=== PATIENT | female | born 1985 | race Caucasian/White ===

== ENCOUNTER 2016-10-11 15:17 | Emergency (ER) | payer BC ==
--- NOTE | 2016-10-11 15:34 | ER Document Report ---
ED Medical Screen (RME) - General Stated Complaint: COUGH Time seen by provider: 15:26 Mode of Arrival: Ambulatory Information source: Patient Notes: 31-year-old normally healthy nonsmoking amenorrheic since Mirena was removed female complaining of a cough for a week. She is also concerned about upper abdominal discomfort swelling. Traveled to [place] in August. I have greeted and performed a rapid initial assessment of this patient. A comprehensive ED assessment, evaluation of the patient, analysis of test results , and completion of the medical decision making process will be conducted by additional ED providers. TRAVEL OUTSIDE OF THE [place] IN LAST 30 DAYS: No - Related Data Allergies/Adverse Reactions: Pertussis Vaccines Allergy (Verified 10/11/16 15:24) Past Medical History - Immunizations Hx Diphtheria, Pertussis, Tetanus Vaccination: Yes Physical Exam - Vital signs Vitals: Temp Pulse Resp BP Pulse Ox 98.1 F 100 14 123/80 96 10/11/16 15:20 10/11/16 15:20 10/11/16 15:20 10/11/16 15:20 10/11/16 15:20 Course - Vital Signs Vital signs: Temp Pulse Resp BP Pulse Ox 98.1 F 100 14 123/80 96 10/11/16 15:20 10/11/16 15:20 10/11/16 15:20 10/11/16 15:20 10/11/16 15:20
[2016-10-11 16:36] LABS: APPEARANCE,URINE SLIGHTLY-CLOUDY; BILIRUBIN,URINE MODERATE (NEGATIVE); GLUCOSE, URINE NEGATIVE (NEGATIVE); KETONES,URINE NEGATIVE (NEGATIVE); LEUKOCYTE ESTERASE,URINE NEGATIVE (NEGATIVE); NITRITE,URINE NEGATIVE (NEGATIVE); PROTEIN,URINE 30 mg/dL (NEGATIVE); URINE SPECIFIC GRAVITY 1.014
[2016-10-11] MEDS ORDERED: NORMAL SALINE 1000 ML 1,000 ML IV ONE (16:45)
--- NOTE | 2016-10-11 16:45 | ER Document Report ---
ED General - General Mode of Arrival: Ambulatory Information source: Patient TRAVEL OUTSIDE OF THE [place] IN LAST 30 DAYS: No COUNTRY TRAVELED TO/FROM: [place] - [facility] Patient complains to provider of: Abdominal Pain Onset: Last week Onset/Duration: Gradual, Persistent Associated symptoms: Body/muscle aches - back, Productive cough, Diarrhea, Other - weight loss, nose bleeds. denies: Fever, Nausea, Vomiting Exacerbated by: Movement Relieved by: Remaining still <BLANCA MARTINEZ - Last Filed: 10/11/16 20:18> <ANNY PRINGLE - Last Filed: 10/11/16 21:06> - General Chief Complaint: Cough Stated Complaint: COUGH Notes: Patient is a 31 y/o female presenting to the emergency department chief complaint abdominal pain with movement. This pain is exacerbated by her cough which began 1.5 weeks ago. Patient states that is causes her to get on the floor and try to hold her abdomen as tight as possible to keep it from moving. Patient returned from [place] in August and will be visiting the [facility] next week, and wants to make sure this is not something serious. Patient is experiencing frequent nose bleeds, significant weight loss (20 lbs over the past 6 months), mild numbness over the inside of both thighs, extremely dark urine, back pain, and her belly has significantly increased in size. Patient has an appointment with her primary care physician this coming week and an annual exam with her CHEMICAL ANALYST coming up soon as well. Patient has been around her mother, who has a cough, and her children have both been sick within the past month with fever and cold symptoms. Patient has a significant family history of malignancy, but denies hx of kidney stones. (BLANCA MARTINEZ) - Related Data Allergies/Adverse Reactions: Pertussis Vaccines Allergy (Verified 10/11/16 15:24) Past Medical History - General Information source: Patient - Social History Smoking Status: Unknown if Ever Smoked Chew tobacco use (# tins/day): No Frequency of alcohol use: Social Drug Abuse: None Lives with: Family Family History: Reviewed & Not Pertinent, Malignancy - Aunt, uncle, grandmother , both grandfathers. Patient has suicidal ideation: No Patient has homicidal ideation: No Renal/ Medical History: Denies: Hx Peritoneal Dialysis - Immunizations Hx Diphtheria, Pertussis, Tetanus Vaccination: Yes <BLANCA MARTINEZ - Last Filed: 10/11/16 20:18> Review of Systems - Review of Systems Constitutional: See HPI, Weight loss. denies: Fever EENT: See HPI, Nose discharge - regular nose bleeds Cardiovascular: See HPI, Lightheaded Respiratory: See HPI, Cough Gastrointestinal: See HPI, Abdomen distended, Abdominal pain, Diarrhea Genitourinary: No symptoms reported Female Genitourinary: No symptoms reported Musculoskeletal: See HPI, Back pain Skin: No symptoms reported Hematologic/Lymphatic: No symptoms reported Neurological/Psychological: See HPI, Numbness - inner thighs bilaterally <MICHELLEHALLEBLANCA - Last Filed: 10/11/16 20:18> Physical Exam - Vital signs Interpretation: Normal - General General appearance: Alert - HEENT Head: Normocephalic, Atraumatic Eyes: Normal Pupils: PERRL - Respiratory Respiratory status: No respiratory distress Chest status: Nontender Breath sounds: Normal Chest palpation: Normal - Cardiovascular Rhythm: Regular Heart sounds: Normal auscultation Murmur: No - Abdominal Distension: Distended Tenderness: Nontender, Other - umbilical hernia - Back Back: Normal, Nontender - Extremities General upper extremity: Normal inspection General lower extremity: Normal inspection - Neurological Neuro grossly intact: Yes Cognition: Normal Orientation: AAOx4 [place] Coma Scale Eye Opening: Spontaneous [place] Coma Scale Verbal: Oriented [place] Coma Scale Motor: Obeys Commands [place] Coma Scale Total: 15 Speech: Normal - Psychological Associated symptoms: Normal affect, Normal mood - Skin Skin Temperature: Warm Skin Moisture: Dry Skin Color: Normal <MICHELLEBLANCA - Last Filed: 10/11/16 20:18> Course - Laboratory Result Diagrams: 10/11/16 17:10 10/11/16 17:10 - Consults [facility] Transfer Line Time consulted: 19:15 - Called transfer line to reach GI Specialist Dr. Riggins Time consulted: 20:03 <BLANCA MARTINEZ - Last Filed: 10/11/16 20:18> - Laboratory Result Diagrams: 10/11/16 17:10 10/11/16 17:10 <ANNY PRINGLE - Last Filed: 10/11/16 21:06> - Re-evaluation Re-evalutation: 10/11/16 17:12 I personally performed the services described in the documentation, reviewed and edited the documentation which was dictated to my scribe in my presence, and it accurately records my words and actions. female presents to the emergency department with a chief complaint of 20 pound weight loss over the last 2-3 months fatigue cough abdominal pain and distention. Initially when she got back from [place] in August she was contributing it to viral illness. She admits to losing weight prior to going on the trip but is continuing to lose weight despite eating normal and not exercising. She's been very rundown family members are stating that she does not look well. She's had an intermittent cough worse at night for the past 2 weeks intermittent nosebleeds prior to coming back from [place]. She has not seen her primary care physician is posted [place] in 2 weeks. She has a strong family history of different types of cancer grandmother with breast cancer but she has not been tested for the bracket Andrew. She herself has had abnormal Paps but they have been normal in follow-up. No history of any type of cancer or medications. On examination she is hemodynamically stable she looks little pale heart lungs are clear on abdominal examination she has abdominal distention mild right quadrant right lower quadrant abdominal pain and a umbilical hernia which is easily reducible no guarding rebound or rigidity 10/11/16 19:44 Patient with mildly elevated liver enzymes and a blood alcohol level serum acetaminophen and urine tox screen. The blood alcohol level was elevated CT scan came back showing hypertension ascites splenomegaly and esophageal varices. There is no GI on-call. [facility] but does want me to speak with the GI specialist. 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 There is no report of bleeding secondary to esophageal varices and there is report of intermittent nosebleeds her platelet count is slightly low but not dangerously low I am awaiting a callback from [facility] GI specialist 10/11/16 21:00 Patient refuses to be transferred to [facility] , but asked me to speak to the GI doctor nonetheless. I spoke with the GI doctor from [facility] Dr. Dutta. He was able to tell me based on the CT results that she has cirrhosis. He was also able to tell me that he cannot predict whether the varices will bleed. He also told me back given the fact that she has ascites and abdominal pain he would recommend transfer drainage IV antibiotics and blood cultures to make sure the patient doesn't have spontaneous bacterial peritonitis. I verbalized all this to the patient who was by herself at the bedside she has a full understanding of these risks. She asked me numerous times. Out while she made phone calls. I respected these phone calls came back into the room reassess the situation. I was very clear with the patient that I do not recommend her going home tonight. I was also very clear that I recommend her to be transferred IV antibiotics to make sure that this doesn't develop into peritonitis. Patient has a GCS of 15 and is of sound mind and judgment and is able to refuse all recommendations including IV antibiotics and transfer. She requested that I give her information about a local GI doctor, as there is no GI doctor [facility] floor[facility]. I recommend she stop drinking alcohol immediately. She states that that is not an issue and that she has never gone into withdrawal. I told her to return immediately to the emergency department for any concerns, and encouraged her to speak with family members. We specifically discussed risk of leaving which include and permanent disability despite this she is leaving with open- ended requests for return at any time. 10/11/16 21:06 (ANNY PRINGLE) - Vital Signs Vital signs: Temp Pulse Resp BP Pulse Ox 98 F 120 H 20 128/88 H 99 10/11/16 20:58 10/11/16 20:58 10/11/16 20:58 10/11/16 20:58 10/11/16 20:58 - Laboratory Laboratory results interpreted by me: 10/11/16 10/11/16 10/11/16 16:00 17:10 17:10 RBC 3.22 L Hgb 11.5 L Hct 33.8 L MCV 105 H MCH 35.8 H RDW 15.9 H Plt Count 141 L PT Sodium 133.1 L Potassium 3.3 L Chloride 92 L BUN 5 L Total Bilirubin 5.3 H Direct Bilirubin 1.2 H AST 160 H ALT 62 H Alkaline Phosphatase 259 H Albumin 3.4 L Urine Protein 30 H Urine Bilirubin MODERATE H Urine Urobilinogen 4.0 H Acetaminophen 10/11/16 10/11/16 17:10 17:10 RBC Hgb Hct MCV MCH RDW Plt Count PT 18.3 H Sodium Potassium Chloride BUN Total Bilirubin Direct Bilirubin AST ALT Alkaline Phosphatase Albumin Urine Protein Urine Bilirubin Urine Urobilinogen Acetaminophen < 10 L - Consults Dr. Riggins Reason for consultation: 10/11/16 20:03 Discussed patient's case with Dr. Riggins. Told him that the patient now wants to go home instead of getting transferred, and asked him if there was any information we could give the patient about what to expect if she did choose to transfer and also if there is any indication of the risk of timeframe of hemorrhage. Dr. Riggins said there is no way to tell if or when somebody with varices could bleed, and based on the patient's abdominal pain, he would most likely drain the fluid and see if there is infection. He states that based on the CT report, the patient has cirrhosis of the liver. (BLANCA MARTINEZ) Discharge <BLANCA MARITNEZ - Last Filed: 10/11/16 20:18> <ANNY PRINGLE - Last Filed: 10/11/16 21:06> - Discharge Clinical Impression: Bronchitis, abdominal pain possible peritonitis Cirrhosis Qualifiers: Hepatic cirrhosis type: unspecified hepatic cirrhosis Ascites presence: with ascites Qualified Code(s): K74.60 - Unspecified cirrhosis of liver Esophageal varices Qualifiers: Esophageal varices type: unspecified type Esophageal varices bleeding: without bleeding Qualified Code(s): I85.00 - Esophageal varices without bleeding Condition: Stable Disposition: HOME, SELF-CARE Additional Instructions: Cirrhosis with ascites You have cirrhosis of the liver. The liver tissue is replaced by scar tissue. Most often, this is caused by alcoholism or chronic hepatitis. There may be no symptoms in early cirrhosis. Later, patients develop jaundice, swelling, and fluid in the abdomen. There is no cure for cirrhosis. Only the symptoms can be treated. Edema and fluid in the abdomen can be treated with diuretics (water pills). If cirrhosis is severe, you'll be restricted to a low-protein diet. Don't drink any alcohol. When medicines are prescribed for you, be sure the doctor understands you have cirrhosis. Call the doctor if you become increasingly yellow, vomit repeatedly, begin to bruise or bleed easily, or have worsening abdominal pain or increasing abdominal size. You have fluid in your abdomen which is called ascites is secondary to the cirrhosis Bronchitis You have acute bronchitis. This disease is an infection or inflammation of the air passageways in your lungs. Symptoms usually include cough, low grade fever, shortness of breath, and wheezing. The cough usually persists for a couple of weeks. Most cases of bronchitis get better without antibiotics. We prescribe antibiotics when we believe bacteria are damaging your airways, or if there's high risk the bronchitis will worsen into pneumonia. Increase your fluid intake. A cool mist humidifier may make your lungs more comfortable. An expectorant (cough medicine that loosens phlegm) can help. If you smoke, STOP!!! Recovery from bronchitis can be somewhat slow, but you should see improvement within a day or two. Repeated episodes of bronchitis may result in lung damage -- for example, chronic bronchitis, recurrent pneumonias, or emphysema. Call the doctor if you develop increasing fever, shortness of breath, chest pain, bloody sputum, or otherwise worsen. If you have not improved at all after several days, contact the physician. Abdominal Pain There are many causes of abdominal pain. Pain can mean a serious problem requiring surgery (such as appendicitis). It can also be an innocent problem that goes away on its own (such as a viral infection). Often, time must pass to determine the cause of pain. The physician does not feel that hospitalization is necessary, at present. Things may change within the next 24 hours. Call the doctor or come back for re- examination if any problems occur, such as: (1) Pain that becomes more severe, steady, or becomes concentrated in one specific area. Also, pain that is more severe with movement or coughing. (2) Vomiting that persists or becomes more frequent. (3) Blood in the vomitus, urine, or bowel movements. Blood in the stool may have a tarry or black appearance. (4) Shaking chills or fever greater than 100 degrees F. (5) The abdomen becomes more distended or swollen. (6) Bowel movements cease. (7) Failure to improve as expected. As a result of your liver cirrhosis there is increased pressure on the veins in your esophagus. This condition is called esophageal varices. You are at significant risk for having these bleed which could lead to life-threatening bleeding or . My plan was to transfer you to [facility] and where there is a GI specialist that can evaluate you for the cirrhosis and drain fluid off of your abdomen to make sure that there is not an infection in your fluid that could cause peritonitis. You have refused to be transferred, and want to follow up with a GI specialist locally on your own next week. As explained to U with nurse and scribe at the bedside if this is an infection in the fluid and we do not drain it and start antibiotics you could get seriously ill develop a serious abdominal infection or peritonitis which can lead to . Having said that if you change your mind any point in time come back to the emergency department we will transfer you to a GI specialist. It is not recommended by the GI specialist that I discharge her from the hospital nor is it my recommendation. I also discussed with the GI doctor starting oral antibiotics if there was an infection and he responded that you do IV antibiotics and keep the patient inpatient until the culture results are back. Per your request I am going to give you a local GI doctor for you to call first thing on Thursday morning for follow-up in the next 3-4 days. Return to the emergency department sooner for increasing worsening or new symptoms Referrals: WAGNER WEISS MD [ACTIVE STAFF] - Follow up tomorrow (Call Thursday morning for appointment to be seen in follow-up this week also follow-up with your CHEMICAL ANALYST physician who he stated your primary care physician in 2-3 days return for increasing worsening or new symptoms) Scribe Documentation - Scribe Written by Kishore:: Blanca Martinez 10/11/2016 1645 acting as scribe for :: Benedicto <BLANCA MARTINEZ - Last Filed: 10/11/16 20:18>
[2016-10-11 17:24] LABS: ABSOLUTE BASOPHILS # (AUTO) 0.1 10^3/uL (0.0-0.2); ABSOLUTE LYMPHOCYTES (AUTO) 1.3 10^3/uL (0.5-4.7); ABSOLUTE MONOCYTES (AUTO) 0.7 10^3/uL (0.1-1.4); ABSOLUTE NEUT (AUTO) 5.9 10^3/uL (1.7-8.2); BASOPHILS % (AUTO) 0.7 % (0-2); EOSINOPHILS % (AUTO) 0.5 % (0-6); HEMATOCRIT 33.8 % (36.0-47.0); HEMOGLOBIN 11.5 g/dL (12.0-15.5); HGB HCT DIFFERENCE 0.7; LYMPHOCYTES % (AUTO) 16.6 % (13-45); MEAN CORPUSCULAR HEMOGLOBIN 35.8 pg (27.0-33.4); MEAN CORPUSCULAR HGB CONC 34.1 g/dL (32.0-36.0); MEAN CORPUSCULAR VOLUME 105 fl (80-97); MONOCYTES % (AUTO) 8.9 % (3-13); RED BLOOD COUNT 3.22 10^6/uL (3.72-5.28); RED CELL DISTRIBUTION WIDTH 15.9 % (11.5-14.0); SEGMENTED NEUTROPHILS % (AUTO) 73.3 % (42-78)
[2016-10-11 17:46] LABS: ALANINE AMINOTRANSFERASE 62 U/L (9-52); ALBUMIN 3.4 g/dL (3.5-5.0); ALKALINE PHOSPHATASE 259 U/L (38-126); ANION GAP 14 (5-19); ASPARTATE AMINO TRANSFERASE 160 U/L (14-36); BILIRUBIN,DIRECT 1.2 mg/dL (0.0-0.3); BILIRUBIN,TOTAL 5.3 mg/dL (0.2-1.3); BLOOD UREA NITROGEN 5 mg/dL (7-20); CALCIUM 8.7 mg/dL (8.4-10.2); CARBON DIOXIDE 27 mmol/L (22-30); CHLORIDE 92 mmol/L (98-107); CREATININE RESULT 0.61 mg/dL (0.52-1.25); GLUCOSE 101 mg/dL (75-110); LIPASE 76.2 U/L (23-300); POTASSIUM 3.3 mmol/L (3.6-5.0); SODIUM 133.1 mmol/L (137-145); TOTAL PROTEIN 8.1 g/dL (6.3-8.2)
[2016-10-11 18:13] LABS: ALCOHOL 88 mg/dL (NONE DETECTED)
[2016-10-11 19:35] LABS: PROTHROMBIN TIME 18.3 SEC (11.4-15.4)
[2016-10-11 20:59] VITALS: BP 128/88
== END 2016-10-11 21:06 | disposition home or self-care (01) ==
LOC: ER 15:17
DX: J40 Bronchitis, not specified as acute or chronic (principal); K74.60 Unspecified cirrhosis of liver; I85.00 Esophageal varices without bleeding; R05 Cough; R10.9 Unspecified abdominal pain
CPT/HCPCS: 99284; 36415; 87086; 80307 ×2; 83690; 84703; 85025; 85610; 80053; 81001; 71020; 74177; J7030

== ENCOUNTER 2016-12-26 10:56 | Day surgery (SDC) | payer BC ==
[~2016-12-26 10:56] MED LIST: ALBUMIN HUMAN 200 ML IV PRN; DIAZEPAM 5 MG TABLET PO PRN
[2016-12-26] MEDS ORDERED: LIDOCAINE 2% INJ (20 MG/ML) 20 ML MDV ONE (12:30)
[2016-12-26 14:48] VITALS: BP 114/72
[2016-12-26 17:22] LABS: FLUID TYPE PERITONEAL
[2016-12-26 17:24] LABS: FLUID APPEARANCE HAZY; FLUID RBC DILUENT USED NONE USED; FLUID RBC DILUTION FACTOR 1; FLUID RBC SIDE 1 228; FLUID RBC SIDE 2 218; TOTAL RBC SQUARES COUNTED FLD 225
== END 2016-12-26 14:50 | disposition home or self-care (01) ==
LOC: RAD 10:56
PROVIDERS: ATTEND Internal Medicine Gastroenterology
PROC: 0W9F3ZZ Drainage of Abdominal Wall, Percutaneous Approach (ICD-10-PCS; principal; 2016-12-26)
DX: K70.31 Alcoholic cirrhosis of liver with ascites (principal); K21.9 Gastro-esophageal reflux disease without esophagitis
CPT/HCPCS: 87205; 87070; 89050; 87075; 82042; 88162; 49083; P9047; J3490

== ENCOUNTER 2017-01-10 14:08 | Emergency (ER) | payer BC ==
--- NOTE | 2017-01-10 15:13 | ER Document Report ---
ED Medical Screen (RME) - General Chief Complaint: Abnormal Lab Results Stated Complaint: ABNORMAL LABS Time Seen by Provider: 01/10/17 15:07 Mode of Arrival: Ambulatory Information source: Patient TRAVEL OUTSIDE OF THE [place] IN LAST 30 DAYS: No COUNTRY TRAVELED TO/FROM: [place] - HPI Patient complains to provider of: abnormal labs Onset: This morning - pt with h/o cirrhosis and esophagitis with h/o anemia and recent paracentesis was called by Dr. Causey earlier this am that her H/H was "low" and she needed to come to the hospital. Pt. states she feels "tired." - Related Data Allergies/Adverse Reactions: Pertussis Vaccines Allergy (Verified 01/10/17 14:25) Past Medical History - Past Medical History Cardiac Medical History: Reports: Hx Hypertension - preg Denies: Hx Coronary Artery Disease, Hx Heart Attack Pulmonary Medical History: Reports: Hx Pneumonia Denies: Hx Asthma, Hx Bronchitis, Hx COPD Neurological Medical History: Denies: Hx Cerebrovascular Accident, Hx Seizures Renal/ Medical History: Denies: Hx Peritoneal Dialysis Musculoskeltal Medical History: Denies Hx Arthritis - Immunizations Hx Diphtheria, Pertussis, Tetanus Vaccination: Yes Physical Exam - Vital signs Vitals: Temp Pulse Resp BP Pulse Ox 97.9 F 103 H 20 142/71 H 92 01/10/17 14:22 01/10/17 14:22 01/10/17 14:22 01/10/17 14:22 01/10/17 14:22 Course - Vital Signs Vital signs: Temp Pulse Resp BP Pulse Ox 97.9 F 103 H 20 142/71 H 92 01/10/17 14:22 01/10/17 14:22 01/10/17 14:22 01/10/17 14:22 01/10/17 14:22
[2017-01-10 16:37] LABS: ABSOLUTE BASOPHILS # (AUTO) 0.1 10^3/uL (0.0-0.2); ABSOLUTE EOSINOPHILS # (AUTO) 0.1 10^3/uL (0.0-0.6); ABSOLUTE LYMPHOCYTES (AUTO) 1.7 10^3/uL (0.5-4.7); ABSOLUTE MONOCYTES (AUTO) 0.8 10^3/uL (0.1-1.4); BASOPHILS % (AUTO) 0.5 % (0-2); EOSINOPHILS % (AUTO) 1.4 % (0-6); HGB HCT DIFFERENCE 0.2; LYMPHOCYTES % (AUTO) 15.7 % (13-45); MEAN CORPUSCULAR HEMOGLOBIN 41.1 pg (27.0-33.4); MEAN CORPUSCULAR HGB CONC 33.8 g/dL (32.0-36.0); MONOCYTES % (AUTO) 7.9 % (3-13); RED BLOOD COUNT 1.56 10^6/uL (3.72-5.28); RED CELL DISTRIBUTION WIDTH 16.3 % (11.5-14.0); SEGMENTED NEUTROPHILS % (AUTO) 74.5 % (42-78); WHITE BLOOD COUNT 10.7 10^3/uL (4.0-10.5)
[2017-01-10 16:59] LABS: ALANINE AMINOTRANSFERASE 37 U/L (9-52); ALBUMIN 3.1 g/dL (3.5-5.0); ALKALINE PHOSPHATASE 184 U/L (38-126); ANION GAP 19 (5-19); ASPARTATE AMINO TRANSFERASE 120 U/L (14-36); BILIRUBIN,DIRECT 8.3 mg/dL (0.0-0.4); BILIRUBIN,TOTAL 16.8 mg/dL (0.2-1.3); BLOOD UREA NITROGEN 8 mg/dL (7-20); CALCIUM 8.3 mg/dL (8.4-10.2); CARBON DIOXIDE 22 mmol/L (22-30); CHLORIDE 99 mmol/L (98-107); GLUCOSE 121 mg/dL (75-110); POTASSIUM 4.5 mmol/L (3.6-5.0); SODIUM 139.5 mmol/L (137-145); TOTAL PROTEIN 9.1 g/dL (6.3-8.2)
[2017-01-10 17:00] LABS: ANISOCYTOSIS 1+; HELMET CELLS SLIGHT; MICROCYTOSIS 4+; POIKILOCYTOSIS 1+; POLYCHROMASIA SLIGHT; TEAR DROP CELLS 1+
[2017-01-10 17:09] LABS: HEMOGLOBIN 6.4 g/dL (12.0-15.5)
[2017-01-10 17:13] LABS: MEAN CORPUSCULAR VOLUME 122 fl (80-97)
[2017-01-10] MEDS ORDERED: NORMAL SALINE 250 ML IV PRN (17:31)
[2017-01-10] MEDS ORDERED: FUROSEMIDE INJ/PF 40 MG/4 ML SDV IV ONE ×2 (17:31→23:10)
--- NOTE | 2017-01-10 17:52 | ER Document Report ---
ED General - General Mode of Arrival: Ambulatory Information source: Patient TRAVEL OUTSIDE OF THE [place] IN LAST 30 DAYS: No COUNTRY TRAVELED TO/FROM: [place] - HPI Patient complains to provider of: Low Hemoglobin Onset: This morning Quality of pain: No pain Associated symptoms: Body/muscle aches, Shortness of breath Exacerbated by: Denies Relieved by: Denies Similar symptoms previously: Yes Recently seen / treated by doctor: Yes <ARACELIS PATEL - Last Filed: 01/10/17 20:46> <ANNY EAST - Last Filed: 01/11/17 01:40> - General Chief Complaint: Abnormal Lab Results Stated Complaint: ABNORMAL LABS Time Seen by Provider: 01/10/17 15:07 - HPI Notes: Patient is a 31-year-old female with a history of cirrhosis, who presents to the emergency room for complaints of low hemoglobin, she states she received a call at 4:00 in the morning from Dr. Causey who instructed her to report to the emergency room for reevaluation of her low hemoglobin and likely blood transfusion, approximately 2 weeks ago she had a paracentesis, she does report that her abdomen is distended once again but it is only mildly uncomfortable at this point in time, she does report shortness of breath but that is likely due to her low hemoglobin, she also reports some fatigue, no history of a previous transfusion (ARACELIS PATEL) - Related Data Allergies/Adverse Reactions: Pertussis Vaccines Allergy (Verified 01/10/17 14:25) Past Medical History - General Information source: Patient - Social History Smoking Status: Never Smoker Family History: Reviewed & Not Pertinent, Malignancy - Aunt, uncle, grandmother , both grandfathers. Patient has suicidal ideation: No Patient has homicidal ideation: No - Past Medical History Cardiac Medical History: Reports: Hx Hypertension - preg Denies: Hx Coronary Artery Disease, Hx Heart Attack Pulmonary Medical History: Reports: Hx Pneumonia Denies: Hx Asthma, Hx Bronchitis, Hx COPD Neurological Medical History: Denies: Hx Cerebrovascular Accident, Hx Seizures Renal/ Medical History: Denies: Hx Peritoneal Dialysis Musculoskeltal Medical History: Denies Hx Arthritis - Immunizations Hx Diphtheria, Pertussis, Tetanus Vaccination: Yes <ARACELIS PATEL - Last Filed: 01/10/17 20:46> Review of Systems - Review of Systems Constitutional: Malaise EENT: No symptoms reported Cardiovascular: No symptoms reported Respiratory: Short of breath Gastrointestinal: Abdomen distended Genitourinary: No symptoms reported Female Genitourinary: No symptoms reported Musculoskeletal: No symptoms reported Skin: Change in color Hematologic/Lymphatic: No symptoms reported Neurological/Psychological: No symptoms reported -: Yes All other systems reviewed and negative <ARACELIS PATEL - Last Filed: 01/10/17 20:46> Physical Exam - Vital signs Interpretation: Tachycardic - General General appearance: Alert In distress: Mild - HEENT Head: Normocephalic, Atraumatic Eyes: Normal Conjunctiva: Icteric Extraocular movements intact: Yes Eyelashes: Normal Pupils: PERRL - Respiratory Respiratory status: No respiratory distress Chest status: Nontender Breath sounds: Normal Chest palpation: Normal - Cardiovascular Rhythm: Regular, Tachycardia Heart sounds: Normal auscultation Murmur: No - Abdominal Inspection: Normal Distension: Distended, Fluid wave Bowel sounds: Normal Tenderness: Nontender Organomegaly: No organomegaly - Back Back: Normal, Nontender - Extremities General upper extremity: Normal inspection, Nontender, Normal color, Normal ROM , Normal temperature General lower extremity: Normal inspection, Nontender, Normal color, Normal ROM , Normal temperature, Normal weight bearing. No: Candy's sign - Neurological Neuro grossly intact: Yes Cognition: Normal Orientation: AAOx4 Jed Coma Scale Eye Opening: Spontaneous [place] Coma Scale Verbal: Oriented [place] Coma Scale Motor: Obeys Commands Jed Coma Scale Total: 15 Speech: Normal Motor strength normal: LUE, RUE, LLE, RLE Sensory: Normal - Psychological Associated symptoms: Normal affect, Normal mood - Skin Skin Temperature: Warm Skin Moisture: Dry Skin Color: Jaundiced <ARACELIS PATEL - Last Filed: 01/10/17 20:46> Course - Laboratory Result Diagrams: 01/10/17 16:15 01/10/17 16:15 <ARACELIS PATEL - Last Filed: 01/10/17 20:46> - Laboratory Result Diagrams: 01/10/17 16:15 01/10/17 16:15 <ANNY EAST - Last Filed: 01/11/17 01:40> - Re-evaluation Re-evalutation: 01/10/17 17:[address] Causey, who states her source of blood loss is not related to any GI bleed as he has been following her, he recommended that she received 3 units of packed red blood cells with 40 mg of Lasix, and she can then be safely discharged home with instructions for follow-up, we did discuss the possibility of a paracentesis, however patient had one recently 2 weeks ago, and she is not in acute distress at this point in time, therefore she will be given the blood transfusion and discharge with instructions for follow-up Discussed with patient at bedside and she is in agreement, we did also discuss the possibility of a paracentesis, she reports that she is slightly short of breath, however this is likely related to her home low hemoglobin, she has a follow-up with Dr. Causey on Thursday and she states that she does not really want to be admitted to the hospital at this point in time which is likely what would be required in order to have a paracentesis performed, I recommended she request to have Dr. Causey schedule her for regular outpatient paracentesis on a biweekly basis, she is in agreement with this plan (ARACELIS PATEL) 01/11/17 01:39 Patient remained hemodynamically stable throughout her transfusion. She is reassessed prior to discharge. She states that she still would like to go home. She does request something to help her sleep tonight. She is given a dose of IV Benadryl prior to discharge. She will follow-up with her physician on Thursday. Strict return precautions were discussed. (ANNY EAST) - Vital Signs Vital signs: Temp Pulse Resp BP Pulse Ox 97.9 F 111 H 22 H 120/78 93 01/10/17 21:20 01/10/17 23:04 01/11/17 01:15 01/11/17 01:15 01/11/17 01:15 - Laboratory Laboratory results interpreted by me: 01/10/17 01/10/17 01/10/17 16:15 16:15 16:15 WBC 10.7 H RBC 1.56 L Hgb 6.4 L Hct 19.0 L MCV 122 H D MCH 41.1 H RDW 16.3 H Plt Count 97 L Glucose 121 H Calcium 8.3 L Total Bilirubin 16.8 H Direct Bilirubin 8.3 H AST 120 H Alkaline Phosphatase 184 H Total Protein 9.1 H Albumin 3.1 L Crossmatch See Detail Discharge <ARACELIS PATEL - Last Filed: 01/10/17 20:46> <ANNY EAST - Last Filed: 01/11/17 01:40> - Discharge Clinical Impression: Anemia Qualifiers: Anemia type: other cause Other causes of anemia: other cause, not classified Qualified Code(s): D64.89 - Other specified anemias Cirrhosis of liver Qualifiers: Hepatic cirrhosis type: unspecified hepatic cirrhosis Ascites presence: with ascites Qualified Code(s): K74.60 - Unspecified cirrhosis of liver Instructions: Anemia ([facility]), Cirrhosis ([facility]) Additional Instructions: Follow up with your primary care provider and bisque placer in one to 2 days. Return to the emergency room immediately if symptoms worsen or any additional concerns.
[2017-01-10 18:56] LABS: APPEARANCE,URINE CLEAR; BILIRUBIN,URINE NEGATIVE (NEGATIVE); GLUCOSE, URINE NEGATIVE (NEGATIVE); KETONES,URINE NEGATIVE (NEGATIVE); LEUKOCYTE ESTERASE,URINE NEGATIVE (NEGATIVE); NITRITE,URINE NEGATIVE (NEGATIVE); PROTEIN,URINE NEGATIVE (NEGATIVE); URINE SPECIFIC GRAVITY 1.002; UROBILINOGEN,URINE NEGATIVE mg/dL (<2.0)
[2017-01-11] MEDS ORDERED: DIPHENHYDRAMINE HCL 50 MG/ML VIAL IV ONE (01:39)
[2017-01-11 01:52] VITALS: BP 111/60
[2017-01-12 17:59] LABS: PATH REVIEW PATHOLOGIST REVIEWED
== END 2017-01-11 01:45 ==
LOC: ER 14:08
DX: D64.89 Other specified anemias (principal); K74.60 Unspecified cirrhosis of liver; R53.81 Other malaise; M79.1 Myalgia; R06.02 Shortness of breath; Z88.7 Allergy status to serum and vaccine
CPT/HCPCS: 99284; 96374; 96375; 86900; 86901; 36415; 36430; 86850; 85025; 80053; 81001; 86920; P9016; J1200; J1940; J7050

== ENCOUNTER → 2017-01-18 | Outpatient (CLI) | payer BC ==
[2017-01-18 17:17] LABS: PROTHROMBIN TIME 23.5 SEC (11.4-15.4)
[2017-01-18 17:20] LABS: HEMATOCRIT 21.9 % (36.0-47.0); HGB HCT DIFFERENCE 0.9; MEAN CORPUSCULAR HEMOGLOBIN 37.2 pg (27.0-33.4); MEAN CORPUSCULAR HGB CONC 34.8 g/dL (32.0-36.0); RED BLOOD COUNT 2.04 10^6/uL (3.72-5.28); RED CELL DISTRIBUTION WIDTH 25.1 % (11.5-14.0); WHITE BLOOD COUNT 6.3 10^3/uL (4.0-10.5)
[2017-01-18 17:33] LABS: ALANINE AMINOTRANSFERASE 42 U/L (9-52); ALBUMIN 2.9 g/dL (3.5-5.0); ALKALINE PHOSPHATASE 141 U/L (38-126); ANION GAP 12 (5-19); ASPARTATE AMINO TRANSFERASE 114 U/L (14-36); BILIRUBIN,DIRECT 8.8 mg/dL (0.0-0.4); BLOOD UREA NITROGEN 8 mg/dL (7-20); CALCIUM 7.8 mg/dL (8.4-10.2); CARBON DIOXIDE 26 mmol/L (22-30); CHLORIDE 96 mmol/L (98-107); CREATININE RESULT 0.58 mg/dL (0.52-1.25); GLUCOSE 112 mg/dL (75-110); POTASSIUM 4.1 mmol/L (3.6-5.0); SODIUM 134.1 mmol/L (137-145); TOTAL PROTEIN 8.4 g/dL (6.3-8.2)
[2017-01-18 17:42] LABS: HEMOGLOBIN 7.6 g/dL (12.0-15.5); MEAN CORPUSCULAR VOLUME 107 fl (80-97)
== END ==
LOC: LAB 16:50
PROVIDERS: ATTEND Internal Medicine Gastroenterology
DX: K70.31 Alcoholic cirrhosis of liver with ascites (principal)
CPT/HCPCS: 36415; 80048; 80076; 85027; 85610

== ENCOUNTER 2017-01-19 07:30 | Day surgery (SDC) | payer BC ==
[~2017-01-19 07:30] MED LIST changes: -DIAZEPAM 5 MG TABLET PO PRN
[2017-01-19] MEDS ORDERED: DIAZEPAM 5 MG TABLET ONE (08:44)
[2017-01-19 12:26] VITALS: BP 134/89
--- NOTE | 2017-01-19 13:17 | RADIOLOGY REPORT (SQ) ---
EXAM DESCRIPTION: U/S ABD PARACENTESIS COMPLETED DATE/TIME: 01/19/2017 11:36 am REASON FOR STUDY: ASCITES COMPARISON None. LIMITATIONS: None. PROCEDURE: After obtaining informed consent, the patient was brought to the ultrasound suite. The p rocedure was performed with the patient on a gurney. Ultrasound was used to identify a prominent poc ket of ascites in the left lower quadrant. An appropriate access site was selected. The patient was prepped and draped in usual sterile fashion. The access site was anesthetized with 10 mL 1% lidoca ine. A Vkrc-U-Silg[facility] needle was advanced into the fluid. After aspiration of fluid the needle, th e catheter was advanced off the needle into the fluid. A total of 5,000 mL of straw-colored fluid wa s removed. The patient tolerated the procedure well left the department in satisfactory condition. IMPRESSION: Successful ultrasound-guided paracentesis COMMENT: Patient medication list reviewed: Yes- Quality ID# [id number]:Eligible professional attests to doc umenting in the medical record they obtained, updated, or reviewed the patient's current medications. Quality ID #[id number]: The patient was prepped and draped using maximum sterile barrier technique including cap, mask, sterile gown, sterile gloves, a large sterile sheet, hand hygiene, and 2% Chlorhexidine fo r cutaneous antisepsis. When ultrasound is used, sterile ultrasound techniques are followed requiring sterile gel and sterile probes. Quality ID #[id number]: Final reports for procedures using fluoroscopy that document radiation exposure oniel lovely, or exposure time and number of fluorographic images (if radiation exposure indices are not avail able) TECHNICAL DOCUMENTATION: JOB ID: [id number] [employer]- All Rights Reserved
== END 2017-01-19 14:15 | disposition home or self-care (01) ==
LOC: RAD 07:30
PROVIDERS: ATTEND Internal Medicine Gastroenterology
PROC: 0W9G3ZZ Drainage of Peritoneal Cavity, Percutaneous Approach (ICD-10-PCS; principal; 2017-01-19)
DX: K70.31 Alcoholic cirrhosis of liver with ascites (principal); K21.9 Gastro-esophageal reflux disease without esophagitis; K70.0 Alcoholic fatty liver; E53.8 Deficiency of other specified B group vitamins; Z87.11 Personal history of peptic ulcer disease; Z79.899 Other long term (current) drug therapy
CPT/HCPCS: 99284; 96374; 86900; 86901; 36415; 36430; 86850; 82140; 83690; 84703; 85025; 80053; 86920; 82803; 83605; 49083; P9016; P9047; J2270

== ENCOUNTER 2017-01-19 14:20 | Emergency (ER) | payer BC ==
--- NOTE | 2017-01-19 15:00 | ER Document Report ---
ED Medical Screen (RME) - General Stated Complaint: ABDOMINAL PAIN Time Seen by Provider: 01/19/17 14:57 Mode of Arrival: Wheelchair Information source: Patient Notes: pt presents with back, abdomen, side pain post parencentesis for cirrhosis. ST, 99.9. 02sat 94%, Pt reports she has had this once before and never had this pain. Feels SOB. TRAVEL OUTSIDE OF THE [place] IN LAST 30 DAYS: No COUNTRY TRAVELED TO/FROM: [place] - Related Data Allergies/Adverse Reactions: Pertussis Vaccines Allergy (Verified 01/19/17 15:01) Past Medical History - Past Medical History Cardiac Medical History: Reports: Hx Hypertension - Denies: Hx Coronary Artery Disease, Hx Heart Attack Pulmonary Medical History: Denies: Hx Asthma, Hx Bronchitis, Hx COPD, Hx Pneumonia Neurological Medical History: Denies: Hx Cerebrovascular Accident, Hx Seizures Renal/ Medical History: Denies: Hx Peritoneal Dialysis Musculoskeltal Medical History: Denies Hx Arthritis - Immunizations Hx Diphtheria, Pertussis, Tetanus Vaccination: No Physical Exam - Vital signs Vitals: Temp Pulse Resp BP Pulse Ox 99.9 F 120 H 24 H 116/61 94 01/19/17 14:59 01/19/17 14:59 01/19/17 14:59 01/19/17 14:59 01/19/17 14:59 Course - Vital Signs Vital signs: Temp Pulse Resp BP Pulse Ox 99.9 F 120 H 24 H 116/61 94 01/19/17 14:59 01/19/17 14:59 01/19/17 14:59 01/19/17 14:59 01/19/17 14:59
[2017-01-19] MEDS ORDERED: OXYCODONE HCL SR 10 MG TABLET PO ONE (15:05)
--- NOTE | 2017-01-19 15:13 | ER Document Report ---
ED GI/ - General Chief Complaint: Post Surgical Pain Stated Complaint: ABDOMINAL PAIN Time Seen by Provider: 01/19/17 14:57 Mode of Arrival: Wheelchair Notes: Patient is a 31-year-old female, past medical history alcoholic/Tylenol-induced cirrhosis, presents with increasing B/L lower abdominal pain and cramping after she had 5 L pulled off of her during a paracentesis this morning. She was given albumin after the procedure. She had pain after she left the procedure and got home. This is her second paracentesis and she had similar cramping after her first paracentesis. She denies nausea, vomiting, fevers, constipation , chest pain, shortness of breath or rash. TRAVEL OUTSIDE OF THE [place] IN LAST 30 DAYS: No COUNTRY TRAVELED TO/FROM: [place] - Related Data Allergies/Adverse Reactions: Pertussis Vaccines Allergy (Verified 01/19/17 15:01) Past Medical History - General Information source: Patient - Social History Smoking Status: Current Every Day Smoker Family History: Reviewed & Not Pertinent, Malignancy - Aunt, uncle, grandmother , both grandfathers. Patient has suicidal ideation: No Patient has homicidal ideation: No - Past Medical History Cardiac Medical History: Reports: Hx Hypertension - Denies: Hx Coronary Artery Disease, Hx Heart Attack Pulmonary Medical History: Denies: Hx Asthma, Hx Bronchitis, Hx COPD, Hx Pneumonia Neurological Medical History: Denies: Hx Cerebrovascular Accident, Hx Seizures Renal/ Medical History: Denies: Hx Peritoneal Dialysis Musculoskeltal Medical History: Denies Hx Arthritis - Immunizations Hx Diphtheria, Pertussis, Tetanus Vaccination: No Review of Systems - Review of Systems Notes: REVIEW OF SYSTEMS: CONSTITUTIONAL: -fevers, -chills EENT: -eye pain, -difficulty swallowing, -nasal congestion CARDIOVASCULAR:-chest pain, -syncope. RESPIRATORY: -cough, -SOB GASTROINTESTINAL: +abdominal pain, -nausea, -vomiting, +chronic diarrhea GENITOURINARY: -dysuria, -hematuria MUSCULOSKELETAL: -back pain, -neck pain SKIN: -rash or skin lesions. HEMATOLOGIC: -easy bruising or bleeding. LYMPHATIC: -swollen, enlarged glands. NEUROLOGICAL: -altered mental status or loss of consciousness, -headache, - neurologic symptoms PSYCHIATRIC: -anxiety, -depression. ALL OTHER SYSTEMS REVIEWED AND NEGATIVE. Physical Exam - Vital signs Vitals: Temp Pulse Resp BP Pulse Ox 99.9 F 120 H 24 H 116/61 94 01/19/17 14:59 01/19/17 14:59 01/19/17 14:59 01/19/17 14:59 01/19/17 14:59 - Notes Notes: PHYSICAL EXAMINATION: GENERAL: Mild distress HEAD: Atraumatic, normocephalic. EYES: Pupils equal round and reactive to light, extraocular movements intact, sclera icteric, conjunctiva are normal. ENT: nares patent, oropharynx clear without exudates. Moist mucous membranes. NECK: Normal range of motion, supple without lymphadenopathy LUNGS: Breath sounds clear to auscultation bilaterally and equal. No wheezes rales or rhonchi. HEART: Tachycardic ABDOMEN: Soft, mild lower abdominal tenderness, left-sided bandage from this morning's paracentesis, normoactive bowel sounds. No guarding, no rebound. No masses appreciated. EXTREMITIES: Normal range of motion, no pitting or edema. No cyanosis. NEUROLOGICAL: Cranial nerves grossly intact. Normal speech, normal gait. Normal sensory and motor exams. PSYCH: Normal mood, normal affect. SKIN: Very jaundiced. Course - Re-evaluation Re-evalutation: 01/19/17 16:39 Pt with mild abdominal cramping after paracentesis today. Her hemoglobin is 6.4, which was repeated. No active bleeding from paracentesis site noted and no dark or bloody stools. Spoke to Dr. Causey (her GI doctor) and he recommends transfusing 1 unit PRBCs and treating empirically with Cipro 250 mg bid for 7 days with f/u at his office this week. He suspects the anemia is from sequestration of her RBCs. Pt requesting a few oxycodone for her back pain. She said that with her gastric ulcers and liver problems, NSAIDs and Tylenol are contraindicated. Upon discharge, patient's tachycardia improved with the blood transfusion to 105. Looking through old visits, patient's HR is frequently in the 90's-100's. Will D/C home with strict return precautions. She is in the process of being evaluated for transplant list at [facility]. - Vital Signs Vital signs: Temp Pulse Resp BP Pulse Ox 99.9 F 120 H 23 H 126/85 H 97 01/19/17 14:59 01/19/17 14:59 01/19/17 19:01 01/19/17 20:01 01/19/17 20:01 - Laboratory Result Diagrams: 01/19/17 15:25 01/19/17 15:25 Laboratory results interpreted by me: 01/19/17 01/19/17 01/19/17 15:25 15:25 15:25 RBC 1.69 L Hgb 6.4 L Hct 18.0 L MCV 106 H MCH 37.9 H RDW 25.8 H Plt Count 62 L Metamyelocytes % 1 H VBG pH 7.49 H Sodium 131.9 L Chloride 96 L Creatinine 0.47 L Calcium 8.2 L Total Bilirubin 21.2 H Direct Bilirubin 8.7 H AST 89 H Albumin 3.2 L Crossmatch 01/19/17 17:00 RBC Hgb Hct MCV MCH RDW Plt Count Metamyelocytes % VBG pH Sodium Chloride Creatinine Calcium Total Bilirubin Direct Bilirubin AST Albumin Crossmatch See Detail Discharge - Discharge Clinical Impression: Abdominal cramping Anemia Qualifiers: Anemia type: unspecified type Qualified Code(s): D64.9 - Anemia, unspecified Condition: Stable Disposition: HOME, SELF-CARE Additional Instructions: You must follow-up with Dr. Causey this week to have your symptoms rechecked. Return to the ER if you have any worsening pain or any other concerns. ABDOMINAL PAIN: There are many causes of abdominal pain. Pain can mean a serious problem requiring surgery (such as appendicitis). It can also be an innocent problem that goes away on its own (such as a viral infection). Often, time must pass to determine the cause of pain. The physician does not feel that hospitalization is necessary, at present. Things may change within the next 24 hours. Call the doctor or come back for re- examination if any problems occur, such as: (1) Pain that becomes more severe, steady, or becomes concentrated in one specific area. Also, pain that is more severe with movement or coughing. (2) Vomiting that persists or becomes more frequent. (3) Blood in the vomitus, urine, or bowel movements. Blood in the stool may have a tarry or black appearance. (4) Shaking chills or fever greater than 100 degrees F. (5) The abdomen becomes more distended or swollen. (6) Bowel movements cease. (7) Failure to improve as expected. NORMAL EXAM AND WORKUP: At this time, your examination and workup show no significant abnormality. No significant abnormal physical findings are noted. All laboratory, EKG, and imaging (x-ray, CT scans, ultrasound) studies that were ordered show no significant abnormality. Although your examination and all studies that were ordered showed no significant abnormal finding, there are no examinations and no studies that are 100% accurate. There is always the possibility that some abnormality could exist and not be detected with physical examination or within the limits and capabilities of laboratory and other studies. You should return or follow up as you were instructed on your visit today for further evaluation if your symptoms do not resolve. PAIN MEDICATION INJECTION: You have received an injection of a pain medication. You should experience significant pain relief within 45 minutes. This drug is a narcotic - - it will impair your judgement, slow your reaction time and make you sleepy ( as well as relieve your pain). Narcotics also can cause nausea. You should not drive, work with machinery, or perform any task requiring mental alertness until all effects of the medication are gone -- six to eight hours. Do not take any alcohol, or sedatives, and do not take any other medication without checking with your physician. ORAL NARCOTIC MEDICATION: You have been given a prescription for pain control. This medication is a narcotic. It's best taken with food, as nausea can result if taken on an empty stomach. Don't operate machinery or drive within six hours of taking this medication. Do not combine this medicine with alcohol, or with any medication which can cause sedation (such as cold tablets or sleeping pills) unless you get permission from the physician. Narcotics tend to cause constipation. If possible, drink plenty of fluids and eat a diet high in fiber and fruits. Please be aware that prescription narcotics also have the potential for abuse. People become addicted to these medications because of the general sense of wellbeing that they induce. This feeling along with a significant reduction in tension, anxiety, and aggression provides a stimulating seductive quality to these drugs. Once your pain is under control, we encourage you to discard your unused narcotics. FOLLOW-UP CARE: If you have been referred to a physician for follow-up care, call the physician s office for an appointment as you were instructed or within the next two days. If you experience worsening or a significant change in your symptoms, notify the physician immediately or return to the Emergency Department at any time for re-evaluation. Anemia You have been found to have a significant anemia (a lower than normal amount of red blood cells). Anemia can be due to iron deficiency, vitamin deficiency, abnormal bleeding, or internal diseases. Usually, further tests are necessary to find the exact cause of the anemia. The most common cause of anemia is iron deficiency, often brought on by blood loss. This can be treated with iron supplements. If this appears to be the most likely cause, iron tablets may be prescribed even before all tests are complete. Contact the doctor at once if you note black or tarry-looking stools, bloody vomiting, shortness of breath, chest pain, or faintness. Prescriptions: Ciprofloxacin HCl [Cipro 250 mg Tablet] 1 tab PO BID #14 tab Oxycodone HCl [Oxycontin Ir 5 Mg Tablet] 1 - 2 mg PO Q4H PRN #8 tablet PRN Reason: For Pain Referrals: WAGNER CAUSEY MD [ACTIVE STAFF] - Follow up tomorrow
[2017-01-19 15:48] LABS: VENOUS BLOOD BASE EXCESS 5.1 mmol/L; VENOUS BLOOD HCO3 28.8 mmol/L (20-32); VENOUS BLOOD PCO2 38.3 mmHg (35-63); VENOUS BLOOD PH 7.49 (7.30-7.42)
[2017-01-19 15:52] LABS: HGB HCT DIFFERENCE 1.2; MEAN CORPUSCULAR HEMOGLOBIN 37.9 pg (27.0-33.4); MEAN CORPUSCULAR HGB CONC 35.6 g/dL (32.0-36.0); MEAN CORPUSCULAR VOLUME 106 fl (80-97); RED BLOOD COUNT 1.69 10^6/uL (3.72-5.28); RED CELL DISTRIBUTION WIDTH 25.8 % (11.5-14.0); WHITE BLOOD COUNT 5.7 10^3/uL (4.0-10.5)
[2017-01-19] MEDS ORDERED: MORPHINE SULFATE 10 MG/ML INJ IV ONE (15:54)
[2017-01-19 16:04] LABS: ALANINE AMINOTRANSFERASE 28 U/L (9-52); ALBUMIN 3.2 g/dL (3.5-5.0); ALKALINE PHOSPHATASE 101 U/L (38-126); ANION GAP 10 (5-19); ASPARTATE AMINO TRANSFERASE 89 U/L (14-36); BILIRUBIN,DIRECT 8.7 mg/dL (0.0-0.4); BILIRUBIN,TOTAL 21.2 mg/dL (0.2-1.3); BLOOD UREA NITROGEN 11 mg/dL (7-20); CALCIUM 8.2 mg/dL (8.4-10.2); CARBON DIOXIDE 26 mmol/L (22-30); CHLORIDE 96 mmol/L (98-107); CREATININE RESULT 0.47 mg/dL (0.52-1.25); GLUCOSE 106 mg/dL (75-110); POTASSIUM 3.8 mmol/L (3.6-5.0); SODIUM 131.9 mmol/L (137-145)
[2017-01-19 16:06] LABS: TOTAL PROTEIN 8.1 g/dL (6.3-8.2)
[2017-01-19 16:15] LABS: BASOPHILS % (MANUAL) 0 % (0-2); EOSINOPHILS % (MANUAL) 1 % (0-6); LYMPHOCYTES % (MANUAL) 14 % (13-45); NUCLEATED RED BLOOD CELLS 2 /100 WBC (0); TOTAL CELLS COUNTED 100
[2017-01-19 16:20] LABS: ANISOCYTOSIS 2+; POIKILOCYTOSIS 2+
[2017-01-19 16:21] LABS: BURR CELLS SLIGHT; HELMET CELLS SLIGHT; OVALOCYTES SLIGHT; POLYCHROMASIA SLIGHT; TEAR DROP CELLS SLIGHT
[2017-01-19 16:24] LABS: HEMOGLOBIN 6.4 g/dL (12.0-15.5)
[2017-01-19] MEDS ORDERED: NORMAL SALINE 250 ML IV PRN (16:51)
[2017-01-19] MEDS ORDERED: CIPROFLOXACIN HCL 500 MG TABLET PO ONE (16:51)
[2017-01-19 20:07] VITALS: BP 126/85
== END 2017-01-19 20:24 | disposition home or self-care (01) ==
LOC: ER 14:20
DX: D64.9 Anemia, unspecified (principal); K74.60 Unspecified cirrhosis of liver; K25.9 Gastric ulcer, unspecified as acute or chronic, without hemorrhage or perforation; R10.30 Lower abdominal pain, unspecified; R19.7 Diarrhea, unspecified; Z98.890 Other specified postprocedural states; R00.0 Tachycardia, unspecified; M54.9 Dorsalgia, unspecified; F17.200 Nicotine dependence, unspecified, uncomplicated; Z88.7 Allergy status to serum and vaccine
CPT/HCPCS: 99284; 96374; 86900; 86901; 36415; 36430; 86850; 82140; 83690; 84703; 85025; 80053; 86920; 82803; 83605; P9016; J2270

== ENCOUNTER 2017-02-13 17:57 | Emergency (ER) | payer BC ==
[2017-02-13] MEDS ORDERED: NORMAL SALINE 1000 ML 1,000 ML IV ONE (18:13)
[2017-02-13 18:25] LABS: ABSOLUTE BASOPHILS # (AUTO) 0.1 10^3/uL (0.0-0.2); ABSOLUTE EOSINOPHILS # (AUTO) 0.1 10^3/uL (0.0-0.6); BASOPHILS % (AUTO) 1.2 % (0-2); HEMOGLOBIN 9.9 g/dL (12.0-15.5); RED CELL DISTRIBUTION WIDTH 22.9 % (11.5-14.0); WHITE BLOOD COUNT 10.1 10^3/uL (4.0-10.5)
--- NOTE | 2017-02-13 18:33 | ER Document Report ---
ED GI/ - General Mode of Arrival: Medic Information source: Patient TRAVEL OUTSIDE OF THE U.S. IN LAST 30 DAYS: No COUNTRY TRAVELED TO/FROM: [place] [facility] Patient complains to provider of: Abdominal pain Onset: This morning - Refer to HPI notes Associated symptoms: Fever <SHERYL SHAIKH - Last Filed: 02/13/17 21:26> <NICOLASCHRISTY CLEMENT - Last Filed: 02/13/17 23:20> - General Chief Complaint: Abdominal Pain Stated Complaint: ABDOMINAL PAIN Time Seen by Provider: 02/13/17 18:02 Notes: Patient is a 32-year-old female presenting to the emergency department for fever and abdominal pain. Patient has history of alcohol and Tylenol induced cirrhosis. Patient states she woke up this morning with a fever of 100.2 F and she called Dr. Rolle at [facility] who told her to go to the emergency department. Patient states that she fell asleep and did not wake up until several hours later at which point her fever went to 102.7 F. Patient has not taken anything for her fever and was not given anything by EMS for her fever. Patient was recently admitted at [facility] from February 04 - February 09. Patient states that they did an MRI with contrast, blood work and a biopsy of her liver (2016). Patient states that she had similar pain after a paracentesis in the past however she did not have a fever at that time. Patient is followed by Dr. Causey here in [place] but was sent to [facility] for second opinion on her case. Patient has had 2 paracentesis in the last 6 months. Patient states she has not had any complications up until her fever this morning. (SHERYL SHAIKH) - Related Data Allergies/Adverse Reactions: Pertussis Vaccines Allergy (Verified 01/19/17 15:01) Past Medical History - General Information source: Patient, [facility] Records - Social History Smoking Status: Unknown if Ever Smoked Family History: Malignancy - Aunt, uncle, grandmother, both grandfathers. - Past Medical History Cardiac Medical History: Reports: Hx Hypertension - GI Medical History: Reports: Hx Cirrhosis - Alcohol and Tylenol induced Surgical Hx: Negative - Immunizations Hx Diphtheria, Pertussis, Tetanus Vaccination: No <SHERYL SHAIKH - Last Filed: 02/13/17 21:26> Review of Systems - Review of Systems Constitutional: See HPI, Fever EENT: No symptoms reported Cardiovascular: No symptoms reported Respiratory: No symptoms reported Gastrointestinal: See HPI, Abdominal pain Genitourinary: No symptoms reported Female Genitourinary: No symptoms reported Musculoskeletal: No symptoms reported Skin: See HPI, Change in color - Jaundice Hematologic/Lymphatic: No symptoms reported Neurological/Psychological: No symptoms reported -: Yes All other systems reviewed and negative <HAWADELICIASHERYL - Last Filed: 02/13/17 21:26> Physical Exam - Vital signs Interpretation: Tachycardic, Febrile <SHERYL SHAIKH - Last Filed: 02/13/17 21:26> <CHRISTY VALENZUELA - Last Filed: 02/13/17 23:20> - Vital signs Vitals: Temp Pulse Resp BP Pulse Ox 102.8 F H 112 H 21 H 121/77 95 02/13/17 18:02 02/13/17 18:02 02/13/17 18:02 02/13/17 18:02 02/13/17 18:02 - Notes Notes: GENERAL: Alert, jaundice, uncooperative. Mild distress. HEAD: Normocephalic, atraumatic. EYES: Sclera icterus. Pupils equal, round, and reactive to light. ENT: Dry mucus membranes, tongue midline. NECK: Full range of motion. Supple. Trachea midline. LUNGS: Clear to auscultation bilaterally, no wheezes, rales, or rhonchi. No respiratory distress. HEART: Regular rhythm. No murmurs, gallops, or rubs. ABDOMEN: Soft, abdominal tenderness to palpation. Non-distended. Normal bowel sounds. EXTREMITIES: Moves all 4 extremities spontaneously. Normal strength. No edema. NEUROLOGICAL: Alert and oriented x3. Normal speech. No focal neurological deficits. GSC 15. PSYCH: Normal affect, normal mood, uncooperative. SKIN: Warm to touch, jaundiced. (SHERYL SHAIKH) Course - Laboratory Result Diagrams: 02/13/17 18:15 02/13/17 18:15 - Consults Dr. Graham Time consulted: 19:05 <SHERYL SHAIKH - Last Filed: 02/13/17 21:26> - Laboratory Result Diagrams: 02/13/17 18:15 02/13/17 18:15 <CHRISTY VALENZUELA - Last Filed: 02/13/17 23:20> - Re-evaluation Re-evalutation: 02/13/17 19:20 Patient is a 32-year-old female with a history of cirrhosis who is just as you can have a liver biopsy who comes in complaining of abdominal pain and fever. Patient is diffusely tender. She is concerning for SBP. Discussed doing a paracentesis. Patient would like to think about it. No gastroenterology is available here. There are no ICU beds. Patient was discussed with the [facility] transfer center. Recommend paracentesis, imaging, blood work, cultures. I have discussed this with the patient as well. She would still like to hold off on the paracentesis at this time. Of note, she has also refused a second line, and is questioning why she needs another set of blood cultures. Explained that it is because she has a fever and could be bacteremic. Patient agrees to do cultures but does not want a second line. Ertapenem and vancomycin have been ordered. Patient has been given Tylenol as she states that she cannot take ibuprofen because of a history of peptic ulcers and was being given Tylenol at [facility]. 02/13/17 20:40 Patient is feeling better after fluids and pain medication. 02/13/17 21:28 No Acute findings on CT. Blood work at baseline. 02/13/17 21:54 Discussed paracentesis again with patient. She still does not want to do it. Explained again reasons for wanting to do paracentesis. Patient still would like to decline. 02/13/17 23:15 Stable for transport. Patient is resting comfortably. Transport to be here at 1 AM. (CHRISTY VALENZUELA) - Vital Signs Vital signs: Temp Pulse Resp BP Pulse Ox 98.5 F 112 H 20 114/63 96 02/13/17 21:37 02/13/17 18:02 02/13/17 21:04 02/13/17 21:17 02/13/17 21:04 - Laboratory Laboratory results interpreted by me: 02/13/17 02/13/17 02/13/17 18:15 18:15 18:15 RBC 2.72 L Hgb 9.9 L Hct 28.7 L MCV 105 H MCH 36.5 H RDW 22.9 H Plt Count 103 L Seg Neutrophils % 79.8 H Lymphocytes % 9.6 L PT 24.6 H VBG pH VBG pCO2 Sodium 133.1 L Glucose 111 H Calcium 7.8 L Total Bilirubin 14.1 H Direct Bilirubin 4.6 H AST 86 H Alkaline Phosphatase 135 H Albumin 2.8 L Urine Blood 02/13/17 02/13/17 19:50 22:36 RBC Hgb Hct MCV MCH RDW Plt Count Seg Neutrophils % Lymphocytes % PT VBG pH 7.52 H VBG pCO2 32.1 L Sodium Glucose Calcium Total Bilirubin Direct Bilirubin AST Alkaline Phosphatase Albumin Urine Blood SMALL H - Consults Dr. Graham Reason for consultation: 02/13/17 19:[address] Graham at [facility]; they accept the patient for admission and the patient will be transferred. (SHERYL SHAIKH) Critical Care Note - Critical Care Note Total time excluding time spent on procedures (mins): 60 - Evaluation and management of patient with SIRS, patient instruction and management of tachycardia, fever, coordination with specialist, coordination of transfer, counseling of patient <CHRISTY VALENZUELA - Last Filed: 02/13/17 23:20> Discharge <SHERYL SHAIKH - Last Filed: 02/13/17 21:26> <CHRISTY VALENZUELA - Last Filed: 02/13/17 23:20> - Discharge Clinical Impression: SIRS (systemic inflammatory response syndrome), Pleural effusion Abdominal pain Qualifiers: Abdominal location: generalized Qualified Code(s): R10.84 - Generalized abdominal pain Cirrhosis Qualifiers: Hepatic cirrhosis type: alcoholic cirrhosis Ascites presence: with ascites Qualified Code(s): K70.31 - Alcoholic cirrhosis of liver with ascites Condition: Stable Disposition: [facility] Scribe Attestation: 02/13/17 23:20 I personally performed the services described in the documentation, reviewed and edited the documentation which was dictated to the scribe in my presence, and it accurately records my words and actions. (CHRISTY VALENZUELA) Scribe Documentation - Scribe Written by Marbellaibritika:: Kishore Magana 02/13/2017 20:20 acting as scribe for :: Nicolas <SHERYL SHAIKH - Last Filed: 02/13/17 21:26>
[2017-02-13] MEDS ORDERED: ACETAMINOPHEN 325 MG TABLET PO ONE (18:34)
[2017-02-13 18:37] LABS: ABSOLUTE MONOCYTES (AUTO) 0.9 10^3/uL (0.1-1.4); ABSOLUTE NEUT (AUTO) 8.1 10^3/uL (1.7-8.2); EOSINOPHILS % (AUTO) 0.9 % (0-6); HEMATOCRIT 28.7 % (36.0-47.0); LYMPHOCYTES % (AUTO) 9.6 % (13-45); MEAN CORPUSCULAR HEMOGLOBIN 36.5 pg (27.0-33.4); MEAN CORPUSCULAR HGB CONC 34.7 g/dL (32.0-36.0); MEAN CORPUSCULAR VOLUME 105 fl (80-97); MONOCYTES % (AUTO) 8.5 % (3-13); RED BLOOD COUNT 2.72 10^6/uL (3.72-5.28); SEGMENTED NEUTROPHILS % (AUTO) 79.8 % (42-78)
[2017-02-13 18:38] LABS: ALANINE AMINOTRANSFERASE 50 U/L (9-52); ALBUMIN 2.8 g/dL (3.5-5.0); ALKALINE PHOSPHATASE 135 U/L (38-126); ANION GAP 11 (5-19); ASPARTATE AMINO TRANSFERASE 86 U/L (14-36); BILIRUBIN,DIRECT 4.6 mg/dL (0.0-0.4); BILIRUBIN,TOTAL 14.1 mg/dL (0.2-1.3); BLOOD UREA NITROGEN 10 mg/dL (7-20); CALCIUM 7.8 mg/dL (8.4-10.2); CARBON DIOXIDE 23 mmol/L (22-30); CHLORIDE 99 mmol/L (98-107); GLUCOSE 111 mg/dL (75-110); POTASSIUM 4.4 mmol/L (3.6-5.0); SODIUM 133.1 mmol/L (137-145)
[2017-02-13 18:39] LABS: PROTHROMBIN TIME 24.6 SEC (11.4-15.4)
--- NOTE | 2017-02-13 18:41 | RADIOLOGY REPORT (SQ) ---
EXAM DESCRIPTION: CHEST SINGLE VIEW COMPLETED DATE/TIME: 02/13/2017 6:30 pm REASON FOR STUDY: fever COMPARISON: 10/11/2016 EXAM PARAMETERS: NUMBER OF VIEWS: One view. TECHNIQUE: Single frontal radiographic view of the chest acquired. RADIATION DOSE: NA LIMITATIONS: None. FINDINGS: LUNGS AND PLEURA: Interval development of moderate bilateral pleural effusions with associ ated bilateral lower lobe airspace disease. Fluid is seen tracking into the right horizontal fissure . No pneumothorax. MEDIASTINUM AND HILAR STRUCTURES: No masses. Contour normal. HEART AND VASCULAR STRUCTURES: Heart normal in size. Normal vasculature. BONES: No acute findings. HARDWARE: None in the chest. OTHER: No other significant finding. IMPRESSION: INTERVAL DEVELOPMENT OF MODERATE BILATERAL PLEURAL EFFUSIONS WITH BILATERAL LOWER LOBE A IRSPACE DISEASE PRESUMABLY REPRESENTS COMPRESSIVE ATELECTASIS. SUPERIMPOSED PNEUMONIA CANNOT BE EXCL UDED. TECHNICAL DOCUMENTATION: JOB ID: [id number]
[2017-02-13] MEDS ORDERED: MORPHINE SULFATE 10 MG/ML INJ IV ONE ×3 (18:57→21:53)
[2017-02-13] MEDS ORDERED: ONDANSETRON HCL INJ/PF 4 MG/2 ML SDV IV ONE (18:57)
[2017-02-13 19:01] LABS: ANISOCYTOSIS 2+; POIKILOCYTOSIS 1+; TOXIC GRANULATION SLIGHT
[2017-02-13 19:02] LABS: BURR CELLS SLIGHT; SCHISTOCYTES SLIGHT
[2017-02-13] MEDS ORDERED: ERTAPENEM SODIUM INJ 1 GM VIAL IV ONE (19:09)
[2017-02-13] MEDS ORDERED: VANCOMYCIN HCL INJ 1000 MG VIAL IV ONE (19:09)
--- NOTE | 2017-02-13 19:16 | EKG REPORT ---
SEVERITY:- OTHERWISE NORMAL ECG - SINUS TACHYCARDIA : Confirmed by: Ethan López MD 13-Feb-2017 19:15:05
[2017-02-13 19:59] LABS: VENOUS BLOOD HCO3 25.7 mmol/L (20-32); VENOUS BLOOD PCO2 32.1 mmHg (35-63); VENOUS BLOOD PH 7.52 (7.30-7.42)
--- NOTE | 2017-02-13 20:56 | RADIOLOGY REPORT (SQ) ---
EXAM DESCRIPTION: CT ABD/PELVIS WITH IV ONLY COMPLETED DATE/TIME: 02/13/2017 8:38 pm REASON FOR STUDY: abd pain, fever COMPARISON: 10/11/2016 TECHNIQUE: CT scan of the abdomen and pelvis performed using helical scanning technique with dynamic intravenous contrast injection. No oral contrast. Images reviewed with lung, soft tissue, and bone windows. Reconstructed coronal and sagittal MPR images reviewed. Delayed images for evaluation of the urinary system also acquired. All images stored on PACS. All CT scanners at this facility use dose modulation, iterative reconstruction, and/or weight based d osing when appropriate to reduce radiation dose to as low as reasonably achievable (ALARA). [facility]: Dose Right [facility]: CareDose [facility]: Dose Right [facility]: Teradose 4D [facility]: [employer] CONTRAST TYPE AND DOSE: contrast/concentration: Isovue 370.00 mg/ml; Total Contrast Delivered: 64.0 ml; Total Saline Delivered: 51.0 ml RENAL FUNCTION: GFR > 60. RADIATION DOSE: Up-to-date CT equipment and radiation dose reduction techniques were employed. CTDIv ol: 6.3 - 8.2 mGy. DLP: 819 mGy-cm.. LIMITATIONS: None. FINDINGS: LOWER CHEST: Large bilateral pleural effusions and lower lobe airspace disease-atelectasis . LIVER: Hepatomegaly. Portal hypertension with multiple varices, increased since the prior study. No dilated ducts. SPLEEN: Splenomegaly. No focal lesions. PANCREAS: No masses. No significant calcifications. No adjacent inflammation or peripancreatic fluid collections. Pancreatic duct not dilated. GALLBLADDER: Distended with small stones. ADRENAL GLANDS: No significant masses or asymmetry. RIGHT KIDNEY AND URETER: No solid masses. No significant calcifications. No hydronephrosis or hyd roureter. LEFT KIDNEY AND URETER: No solid masses. No significant calcifications. No hydronephrosis or hydr oureter. AORTA AND VESSELS: Portal hypertension with multiple varices, increased since the prior study. No a neurysm. No dissection. Renal arteries, SMA, celiac without stenosis. RETROPERITONEUM: Multiple varices. No retroperitoneal adenopathy, hemorrhage or masses. BOWEL AND PERITONEAL CAVITY: Diffuse ascites. Mild wall thickening and dilatation in the jejunum. APPENDIX: Normal. PELVIS: Large amount of free fluid. Normal bladder. ABDOMINAL WALL: No masses. No hernias. BONES: No significant or acute findings. OTHER: No other significant finding. IMPRESSION: Portal hypertension with multiple varices, increased since the prior study. Diffuse as cites increased since the prior study. Mild wall thickening and dilatation in the jejunum, possibly due to venous stasis.Large bilateral pleural effusions and lower lobe airspace disease-atelectasis. TECHNICAL DOCUMENTATION: JOB ID: [id number] Quality ID # [id number]: Final reports with documentation of one or more dose reduction techniques (e.g., Au tomated exposure control, adjustment of the mA and/or kV according to patient size, use of iterative reconstruction technique) 2010 [employer]- All Rights Reserved
[2017-02-13 22:48] LABS: APPEARANCE,URINE CLEAR; BILIRUBIN,URINE NEGATIVE (NEGATIVE); GLUCOSE, URINE NEGATIVE (NEGATIVE); KETONES,URINE NEGATIVE (NEGATIVE); LEUKOCYTE ESTERASE,URINE NEGATIVE (NEGATIVE); NITRITE,URINE NEGATIVE (NEGATIVE); PROTEIN,URINE NEGATIVE (NEGATIVE); UROBILINOGEN,URINE NEGATIVE mg/dL (<2.0)
[2017-02-14] MEDS ORDERED: ACETAMINOPHEN 325 MG TABLET PO ONE (01:10)
[2017-02-14 01:36] VITALS: BP 114/72
== END 2017-02-14 01:30 | disposition short-term general hospital (02) ==
LOC: ER 17:57
DX: K70.31 Alcoholic cirrhosis of liver with ascites (principal); R65.10 Systemic inflammatory response syndrome (SIRS) of non-infectious origin without acute organ dysfunction; J90 Pleural effusion, not elsewhere classified; R10.84 Generalized abdominal pain; R50.9 Fever, unspecified
CPT/HCPCS: 93005; 99291; 86900; 86901; 36415; 87040; 87086; 86850; 84702; 85025; 85610; 87088; 80053; 81001; 87186; 82803; 83605; 71010; 74177; 93010; J1335; J2270; J2405; J7030; J3370

== ENCOUNTER 2017-03-05 22:48 | Emergency (ER) | payer BC ==
--- NOTE | 2017-03-06 01:09 | ER Document Report ---
ED General - General Mode of Arrival: Ambulatory Information source: Patient TRAVEL OUTSIDE OF THE U.S. IN LAST 30 DAYS: No COUNTRY TRAVELED TO/FROM: [place] - HPI Onset: Other - Refer to HPI Notes Similar symptoms previously: No Recently seen / treated by doctor: No <SHERYL SHAIKH - Last Filed: 03/06/17 02:07> <DAMIONCAMILA Orr - Last Filed: 03/06/17 02:16> - General Chief Complaint: General Weakness Stated Complaint: WEAKNESS Time Seen by Provider: 03/06/17 01:05 Notes: Patient is a 32-year-old female presents emergency department for fatigue and general weakness. Patient has a history of alcohol and Tylenol induced cirrhosis. Patient states that she has been feeling better but over the last couple of days she has had some increased fatigue. Patient is concerned her hemoglobin level is low. Patient was seen in the facility on 02/13/2017 for fever and abdominal pain. Patient was transferred to [place] for spontaneous bacterial peritonitis. Patient states that she is taking Cipro. Patient does not have a menstrual cycle and states she has not had one for about 4-5 years. however she did not have a fever at that time. Patient is followed by GI with Dr. Marium shetty in [place] but was sent to [place] for second opinion on her case. Patient has had 2 paracentesis in the last 6 months. Patient is also followed closely by [facility]. (SHERYL SHAIKH) - Related Data Allergies/Adverse Reactions: Pertussis Vaccines Allergy (Verified 01/19/17 15:01) Past Medical History - General Information source: Patient - Social History Smoking Status: Never Smoker Cigarette use (# per day): No Chew tobacco use (# tins/day): No Frequency of alcohol use: Heavy - hx Drug Abuse: Other - Tylenol Family History: Malignancy - Aunt, uncle, grandmother, both grandfathers. Patient has suicidal ideation: No Patient has homicidal ideation: No - Past Medical History Cardiac Medical History: Reports: Hx Hypertension - GI Medical History: Reports: Hx Cirrhosis - Alcohol and Tylenol induced - Immunizations Hx Diphtheria, Pertussis, Tetanus Vaccination: No <SHERYL SHAIKH - Last Filed: 03/06/17 02:07> Review of Systems - Review of Systems Constitutional: See HPI, Malaise, Weakness EENT: No symptoms reported Cardiovascular: No symptoms reported Respiratory: No symptoms reported Gastrointestinal: No symptoms reported Genitourinary: No symptoms reported Female Genitourinary: No symptoms reported Musculoskeletal: No symptoms reported Skin: See HPI Hematologic/Lymphatic: No symptoms reported Neurological/Psychological: See HPI, Weakness -: Yes All other systems reviewed and negative <SHERYL SHAIKH - Last Filed: 03/06/17 02:07> Physical Exam - Vital signs Interpretation: Normal <SHERYL SHAIKH - Last Filed: 03/06/17 02:07> <CAMILA BRUNO - Last Filed: 03/06/17 02:16> - Vital signs Vitals: Temp Pulse Resp BP Pulse Ox 97.8 F 92 18 131/79 H 97 03/05/17 22:57 03/05/17 22:57 03/05/17 22:57 03/05/17 22:57 03/05/17 22:57 - Notes Notes: GENERAL: Alert, interacts well. Mild distress. HEAD: Normocephalic, atraumatic. EYES: Sclera icteric and jaundice, pupils equal, round, and reactive to light. ENT: Moist mucus membranes, tongue midline. NECK: Full range of motion. Supple. Trachea midline. LUNGS: Clear to auscultation bilaterally, no wheezes, rales, or rhonchi. No respiratory distress. HEART: Regular rate and rhythm. No murmurs, gallops, or rubs. ABDOMEN: Soft, non-tender. Mildly distended. Palpable fluid wave. Normal bowel sounds. EXTREMITIES: Moves all 4 extremities spontaneously. Normal strength. No peripheral edema. NEUROLOGICAL: Alert and oriented x3. Normal speech. No focal neurological deficits. GSC 15. PSYCH: Normal affect, normal mood. SKIN: Warm, dry, normal turgor. Jaundice appearing. (SHERYL SHAIKH) Course - Laboratory Result Diagrams: 03/06/17 01:10 03/06/17 01:10 <SHERYL SHAIKH - Last Filed: 03/06/17 02:07> - Laboratory Result Diagrams: 03/06/17 01:10 03/06/17 01:10 <CAMILA BRUNO - Last Filed: 03/06/17 02:16> - Re-evaluation Re-evalutation: 03/06/17 02:14 The patient's lab work is much better today than it was on 02/13/2017. Her INR is down to 1.68, her hemoglobin is 9.8, her calcium and albumin are much higher , her total bilirubin is much lower. At this time the patient is sleeping soundly and is actually quite difficult to wake up. (CAMILA BRUNO) - Vital Signs Vital signs: Temp Pulse Resp BP Pulse Ox 97.8 F 92 18 131/79 H 97 03/05/17 22:57 03/05/17 22:57 03/05/17 22:57 03/05/17 22:57 03/05/17 22:57 - Laboratory Laboratory results interpreted by me: 03/06/17 03/06/17 03/06/17 01:10 01:10 01:10 RBC 2.47 L Hgb 9.8 L Hct 27.9 L MCV 113 H D MCH 39.6 H RDW 16.0 H Plt Count 90 L PT 20.8 H Sodium 148.1 H Chloride 111 H Creatinine 0.48 L Total Bilirubin 8.4 H Direct Bilirubin 2.7 H AST 131 H Alkaline Phosphatase 193 H Total Protein 8.8 H Urine Blood 03/06/17 01:25 RBC Hgb Hct MCV MCH RDW Plt Count PT Sodium Chloride Creatinine Total Bilirubin Direct Bilirubin AST Alkaline Phosphatase Total Protein Urine Blood SMALL H Discharge <SHERYL SHAIKH - Last Filed: 03/06/17 02:07> <CAMILA BRUNO - Last Filed: 03/06/17 02:16> - Discharge Clinical Impression: Fatigue Qualifiers: Fatigue type: unspecified Qualified Code(s): R53.83 - Other fatigue Hepatic cirrhosis Qualifiers: Hepatic cirrhosis type: alcoholic cirrhosis Ascites presence: with ascites Qualified Code(s): K70.31 - Alcoholic cirrhosis of liver with ascites Condition: Stable Disposition: HOME, SELF-CARE Additional Instructions: Fatigue: Fatigue can be caused by many medical and emotional problems. Fatigue can be an early symptom of infection, or can be caused by chronic infection. It can be a symptom of metabolic diseases like diabetes, hypothyroidism, or anemia. It can result from sleep problems such as sleep apnea. Fatigue can be a symptom of depression. Many drugs can cause fatigue, either as a side effect or when withdrawing from the drug. Until the evaluation is complete, try to keep up your normal activities. Get regular sleep hours, but avoid oversleeping. Try to get regular exercise. Eliminate alcohol, caffeine, and any unnecessary drugs, herbs, or medicines ( discuss any changes in prescription medicines with your doctor). Contact the doctor if there is any change for the worse. Follow-up with your doctor this week if not improving. RETURN TO THE EMERGENCY ROOM IF ANY NEW OR WORSENING SYMPTOMS. Scribe Attestation: 03/06/17 02:16 I personally performed the services described in the documentation, reviewed and edited the documentation which was dictated to the scribe in my presence, and it accurately records my words and actions. (CAMILA BRUNO) Scribe Documentation - Scribe Written by Kishore:: Kishore Magana, 03/06/2017 2:05 acting as scribe for :: Damion <SHERYL SHAIKH - Last Filed: 03/06/17 02:07>
[2017-03-06 01:24] LABS: ABSOLUTE BASOPHILS # (AUTO) 0.1 10^3/uL (0.0-0.2); ABSOLUTE EOSINOPHILS # (AUTO) 0.2 10^3/uL (0.0-0.6); ABSOLUTE LYMPHOCYTES (AUTO) 1.9 10^3/uL (0.5-4.7); ABSOLUTE MONOCYTES (AUTO) 0.4 10^3/uL (0.1-1.4); ABSOLUTE NEUT (AUTO) 3.6 10^3/uL (1.7-8.2); BASOPHILS % (AUTO) 1.2 % (0-2); EOSINOPHILS % (AUTO) 2.6 % (0-6); HEMATOCRIT 27.9 % (36.0-47.0); HEMOGLOBIN 9.8 g/dL (12.0-15.5); HGB HCT DIFFERENCE 1.5; LYMPHOCYTES % (AUTO) 30.7 % (13-45); MEAN CORPUSCULAR HEMOGLOBIN 39.6 pg (27.0-33.4); MEAN CORPUSCULAR HGB CONC 35.2 g/dL (32.0-36.0); MONOCYTES % (AUTO) 6.2 % (3-13); RED BLOOD COUNT 2.47 10^6/uL (3.72-5.28); SEGMENTED NEUTROPHILS % (AUTO) 59.3 % (42-78); WHITE BLOOD COUNT 6.2 10^3/uL (4.0-10.5)
[2017-03-06 01:34] LABS: PROTHROMBIN TIME 20.8 SEC (11.4-15.4)
[2017-03-06 01:44] LABS: APPEARANCE,URINE CLEAR; BILIRUBIN,URINE NEGATIVE (NEGATIVE); GLUCOSE, URINE NEGATIVE (NEGATIVE); KETONES,URINE NEGATIVE (NEGATIVE); LEUKOCYTE ESTERASE,URINE NEGATIVE (NEGATIVE); NITRITE,URINE NEGATIVE (NEGATIVE); PROTEIN,URINE NEGATIVE (NEGATIVE); URINE SPECIFIC GRAVITY 1.002; UROBILINOGEN,URINE NEGATIVE mg/dL (<2.0)
[2017-03-06 01:46] LABS: MEAN CORPUSCULAR VOLUME 113 fl (80-97)
[2017-03-06 02:00] LABS: ALANINE AMINOTRANSFERASE 44 U/L (9-52); ALBUMIN 3.7 g/dL (3.5-5.0); ALKALINE PHOSPHATASE 193 U/L (38-126); ANION GAP 14 (5-19); ASPARTATE AMINO TRANSFERASE 131 U/L (14-36); BILIRUBIN,DIRECT 2.7 mg/dL (0.0-0.4); BILIRUBIN,TOTAL 8.4 mg/dL (0.2-1.3); BLOOD UREA NITROGEN 7 mg/dL (7-20); CALCIUM 8.4 mg/dL (8.4-10.2); CARBON DIOXIDE 23 mmol/L (22-30); CHLORIDE 111 mmol/L (98-107); CREATININE RESULT 0.48 mg/dL (0.52-1.25); GLUCOSE 102 mg/dL (75-110); MAGNESIUM 1.8 mg/dL (1.6-2.3); POTASSIUM 3.7 mmol/L (3.6-5.0); SODIUM 148.1 mmol/L (137-145); TOTAL PROTEIN 8.8 g/dL (6.3-8.2)
[2017-03-06 02:01] LABS: ACANTHOCYTES 1+; ANISOCYTOSIS 1+; BURR CELLS SLIGHT; POIKILOCYTOSIS 1+
[2017-03-06 02:02] LABS: OVALOCYTES SLIGHT; SCHISTOCYTES 1+; TEAR DROP CELLS SLIGHT
[2017-03-06 02:03] LABS: TOXIC GRANULATION SLIGHT
[2017-03-06 03:59] VITALS: BP 116/67
== END 2017-03-06 03:59 | disposition home or self-care (01) ==
LOC: ER 22:48
DX: K70.31 Alcoholic cirrhosis of liver with ascites (principal); K65.9 Peritonitis, unspecified; B96.89 Other specified bacterial agents as the cause of diseases classified elsewhere; R53.83 Other fatigue; R53.1 Weakness; R53.81 Other malaise; Z88.7 Allergy status to serum and vaccine
CPT/HCPCS: 36415; 80053; 81001; 83735; 85025; 85610; 99284

== ENCOUNTER 2017-03-10 19:14 | Emergency (ER) | payer BC ==
--- NOTE | 2017-03-10 20:01 | ER Document Report ---
ED Medical Screen (RME) - General Chief Complaint: Abdominal Pain Stated Complaint: RIGHT FLANK PAIN Time Seen by Provider: 03/10/17 19:57 Notes: Patient has a history of cirrhosis. She presents today with 2 days of right flank, right hip, and right lower abdominal pain. She states whenever she tries to put pressure on the right leg pain shoots down the anterior part of the right thigh. She denies any trauma. TRAVEL OUTSIDE OF THE [place]. IN LAST 30 DAYS: No COUNTRY TRAVELED TO/FROM: [place] - Related Data Allergies/Adverse Reactions: Pertussis Vaccines Allergy (Verified 01/19/17 15:01) Past Medical History - Past Medical History Cardiac Medical History: Reports: Hx Hypertension - Denies: Hx Coronary Artery Disease, Hx Heart Attack Pulmonary Medical History: Denies: Hx Asthma, Hx Bronchitis, Hx COPD, Hx Pneumonia Neurological Medical History: Denies: Hx Cerebrovascular Accident, Hx Seizures Renal/ Medical History: Denies: Hx Peritoneal Dialysis GI Medical History: Reports: Hx Cirrhosis - Alcohol and Tylenol induced Musculoskeltal Medical History: Denies Hx Arthritis - Immunizations Hx Diphtheria, Pertussis, Tetanus Vaccination: No Physical Exam - Vital signs Vitals: Temp Pulse Resp BP Pulse Ox 98.4 F 103 H 16 135/82 H 96 03/10/17 19:33 03/10/17 19:33 03/10/17 19:33 03/10/17 19:33 03/10/17 19:33 Course - Vital Signs Vital signs: Temp Pulse Resp BP Pulse Ox 98.4 F 103 H 16 135/82 H 96 03/10/17 19:33 03/10/17 19:33 03/10/17 19:33 03/10/17 19:33 03/10/17 19:33
[2017-03-10 20:25] LABS: HEMATOCRIT 26.2 % (36.0-47.0); HEMOGLOBIN 9.3 g/dL (12.0-15.5); HGB HCT DIFFERENCE 1.7; MEAN CORPUSCULAR HEMOGLOBIN 39.4 pg (27.0-33.4); MEAN CORPUSCULAR HGB CONC 35.6 g/dL (32.0-36.0); MEAN CORPUSCULAR VOLUME 111 fl (80-97); RED BLOOD COUNT 2.36 10^6/uL (3.72-5.28); RED CELL DISTRIBUTION WIDTH 13.9 % (11.5-14.0); WHITE BLOOD COUNT 5.4 10^3/uL (4.0-10.5)
[2017-03-10 20:27] LABS: PROTHROMBIN TIME 20.9 SEC (11.4-15.4)
[2017-03-10 20:39] LABS: ALANINE AMINOTRANSFERASE 42 U/L (9-52); ALBUMIN 3.7 g/dL (3.5-5.0); ALKALINE PHOSPHATASE 160 U/L (38-126); ANION GAP 11 (5-19); ASPARTATE AMINO TRANSFERASE 130 U/L (14-36); BILIRUBIN,DIRECT 2.7 mg/dL (0.0-0.4); BILIRUBIN,TOTAL 10.6 mg/dL (0.2-1.3); BLOOD UREA NITROGEN 4 mg/dL (7-20); CALCIUM 8.5 mg/dL (8.4-10.2); CARBON DIOXIDE 29 mmol/L (22-30); CHLORIDE 107 mmol/L (98-107); GLUCOSE 103 mg/dL (75-110); POTASSIUM 4.1 mmol/L (3.6-5.0); SODIUM 146.6 mmol/L (137-145); TOTAL PROTEIN 9.1 g/dL (6.3-8.2)
[2017-03-10 20:55] LABS: BAND NEUTROPHILS % (MANUAL) 2 % (3-5); BASOPHILS % (MANUAL) 2 % (0-2); EOSINOPHILS % (MANUAL) 2 % (0-6); LYMPHOCYTES % (MANUAL) 29 % (13-45); TOTAL CELLS COUNTED 100
[2017-03-10 20:58] LABS: HYPOCHROMASIA SLIGHT
--- NOTE | 2017-03-10 21:11 | ER Document Report ---
ED General - General Chief Complaint: Abdominal Pain Stated Complaint: RIGHT FLANK PAIN Time Seen by Provider: 03/10/17 19:57 Notes: 32-year-old female with a history of alcohol/Tylenol mediated cirrhosis and mild ascites presents with right lower quadrant pain at the very bottom of her abdomen radiating to her right groin worse with moving her leg intermittent for the past day. Not worse with walking or worse in the car ride over here but specifically with moving her right leg. No bulges or hernias other than her chronic umbilical hernia after . No fever chills. No nausea. She has had a history of abdominal pain during which she was diagnosed with spontaneous bacterial peritonitis at [place] but is now taking Cipro prophylaxis and states that this feels very different. She also says the pain radiates around her right flank to the right lower back. No dysuria. Has not had a period in 4 years. TRAVEL OUTSIDE OF THE [place] IN LAST 30 DAYS: No COUNTRY TRAVELED TO/FROM: [place] - Related Data Allergies/Adverse Reactions: Pertussis Vaccines Allergy (Verified 01/19/17 15:01) Past Medical History - General Information source: Patient - Social History Smoking Status: Former Smoker Family History: Malignancy - Aunt, uncle, grandmother, both grandfathers. - Past Medical History Cardiac Medical History: Reports: Hx Hypertension - Denies: Hx Coronary Artery Disease, Hx Heart Attack Pulmonary Medical History: Denies: Hx Asthma, Hx Bronchitis, Hx COPD, Hx Pneumonia Neurological Medical History: Denies: Hx Cerebrovascular Accident, Hx Seizures Renal/ Medical History: Denies: Hx Peritoneal Dialysis GI Medical History: Reports: Hx Cirrhosis - Alcohol and Tylenol induced Musculoskeltal Medical History: Denies Hx Arthritis - Immunizations Hx Diphtheria, Pertussis, Tetanus Vaccination: No Review of Systems - Review of Systems Notes: REVIEW OF SYSTEMS GEN: Denies fever, chills, weight loss ENT: Denies sore throat, nasal discharge, ear pain EYES: Denies blurry vision, eye pain, discharge CV: Denies chest pain, palpitations, edema RESP: Denies cough, shortness of breath, wheezing GI: Pain MSK: Denies joint pain/swelling, edema, SKIN: Denies rash, skin lesions LYMPH: Denies swollen glands/lymph nodes NEURO: Denies headache, focal weakness or numbness, dizziness PSYCH: Denies depression, suicidal or homicidal ideation PHYSICAL EXAMINATION General: No acute distress, well-nourished Head: Atraumatic, normocephalic ENT: Mouth normal, oropharynx moist, no exudates or tonsillar enlargement Eyes: Conjunctiva normal, pupils equal, lids normal Neck: No JVD, supple, no guarding CVS: Normal rate, regular rhythm, no murmurs Resp: No resp distress, equal and normal breath sounds bilaterally GI: Mild distention, focal tenderness at the very bottom of the right lower quadrant just above the inguinal ligament, no other tenderness. No rebound or guarding. Pain in the right lower quadrant on movement of the right leg. Mild right flank and CVA tenderness. No rash. G Ext: No deformities, no edema, normal range of motion in upper and lower ext Back: No CVA or midline TTP Skin: No rash, warm Lymphatic: No lymphadeopathy noted Neuro: Awake, alert. Face symmetric. GCS 15. Physical Exam - Vital signs Vitals: Temp Pulse Resp BP Pulse Ox 98.4 F 103 H 16 135/82 H 96 03/10/17 19:33 03/10/17 19:33 03/10/17 19:33 03/10/17 19:33 03/10/17 19:33 Course - Re-evaluation Re-evalutation: 03/10/17 21:10 32-year-old woman with cirrhosis presents with right lower quadrant pain almost in the inguinal region radiating to the right back with tenderness in the right ankle region. There are no femoral hernias on exam so I think this is less likely. Possible etiologies include appendicitis kidney stone or pyelonephritis. Given her lack of diffuse tenderness, in the presence of a very normal mental state and no fever I think that spontaneous bacterial peritonitis is less likely. To include fluids Zofran and morphine and a CT scan with her permission. We will also do urinalysis. 03/11/17 02:07 Test at 2 AM. Her scan shows mild ascites with no acute change. It is consistent with her prior scan. Her labs are also normal/at baseline given her cirrhosis. Based on her scan her ascites is pretty mild and I do not think there would be a pocket to tap this I think that SBP is less likely, she also states that this feels much different than her SBP, and on repeat exam has only point tenderness in the far lower right quadrant. We discussed the lack of clear diagnosis and she is comfortable being discharged with pain medication. I warned her that if anything changes she needs to come back. She was able to tolerate oral liquid and solid in the ED and was discharged in stable condition. I have discussed with the patient there likely diagnosis, aftercare plan, follow -up plans and my usual and customary return precautions. They verbalized understanding of this. - Vital Signs Vital signs: Temp Pulse Resp BP Pulse Ox 98.4 F 103 H 16 135/82 H 96 03/10/17 19:33 03/10/17 19:33 03/10/17 19:33 03/10/17 19:33 03/10/17 19:33 - Laboratory Result Diagrams: 03/10/17 20:08 03/10/17 20:08 Laboratory results interpreted by me: 03/10/17 03/10/17 03/10/17 20:08 20:08 20:08 RBC 2.36 L Hgb 9.3 L Hct 26.2 L MCV 111 H MCH 39.4 H Plt Count 68 L Band Neutrophils % 2 L Monocytes % (Manual) 2 L Metamyelocytes % 1 H PT 20.9 H Sodium 146.6 H BUN 4 L Creatinine 0.50 L Total Bilirubin 10.6 H Direct Bilirubin 2.7 H AST 130 H Alkaline Phosphatase 160 H Total Protein 9.1 H Urine Blood 03/10/17 21:41 RBC Hgb Hct MCV MCH Plt Count Band Neutrophils % Monocytes % (Manual) Metamyelocytes % PT Sodium BUN Creatinine Total Bilirubin Direct Bilirubin AST Alkaline Phosphatase Total Protein Urine Blood SMALL H - Diagnostic Test Radiology reviewed: Image reviewed, Reports reviewed Discharge - Discharge Clinical Impression: Abdominal pain Condition: Good Disposition: HOME, SELF-CARE Instructions: Abdominal Pain ([facility]) Additional Instructions: As we discussed there is a very low but not 0 likely had that you are suffering from the spontaneous bacterial infection you had last time. Given that you are on prophylactic antibiotics, and your scan was normal as well as your labs I think this is less likely. We agreed together to discharge home with pain medication with the caveat that he will return to the emergency room if unable to eat or if your pain gets more severe or if you develop any vomiting or fever. Prescriptions: Oxycodone HCl [Oxycontin Ir 5 Mg Tablet] 1 - 2 mg PO Q4H PRN #15 tablet PRN Reason: For Pain
[2017-03-10] MEDS ORDERED: ONDANSETRON HCL INJ/PF 4 MG/2 ML SDV IV ONE (21:47)
[2017-03-10] MEDS ORDERED: MORPHINE SULFATE 10 MG/ML INJ IV ONE ×2 (21:47→23:39)
[2017-03-10 21:57] LABS: APPEARANCE,URINE CLEAR; BILIRUBIN,URINE NEGATIVE (NEGATIVE); GLUCOSE, URINE NEGATIVE (NEGATIVE); KETONES,URINE NEGATIVE (NEGATIVE); LEUKOCYTE ESTERASE,URINE NEGATIVE (NEGATIVE); NITRITE,URINE NEGATIVE (NEGATIVE); PROTEIN,URINE NEGATIVE (NEGATIVE); URINE SPECIFIC GRAVITY 1.006; UROBILINOGEN,URINE NEGATIVE mg/dL (<2.0)
--- NOTE | 2017-03-11 01:46 | RADIOLOGY REPORT (SQ) ---
EXAM DESCRIPTION: CT ABD/PELVIS WITH IV ORAL COMPLETED DATE/TIME: 03/11/2017 1:10 am REASON FOR STUDY: RLQ pain, LIVER FAILURE, r/o hrnia, appy COMPARISON: 02/13/2017. TECHNIQUE: CT scan of the abdomen and pelvis performed using helical scanning technique with dynamic intravenous contrast injection. No oral contrast. Images reviewed with lung, soft tissue, and bone windows. Reconstructed coronal and sagittal MPR images reviewed. Delayed images for evaluation of the urinary system also acquired. All images stored on PACS. All CT scanners at this facility use dose modulation, iterative reconstruction, and/or weight based d osing when appropriate to reduce radiation dose to as low as reasonably achievable (ALARA). [facility]: Dose Right [facility]: CareDose [facility]: Dose Right [facility]: Teradose 4D [facility]: Yugma CONTRAST TYPE AND DOSE: contrast/concentration: Isovue 370.00 mg/ml; Total Contrast Delivered: 100.0 ml; Total Saline Delivered: 40.0 ml RENAL FUNCTION: None required. The patient is less than 50 years old. RADIATION DOSE: Up-to-date CT equipment and radiation dose reduction techniques were employed. CTDIv ol: 5.0 - 5.0 mGy. DLP: 555 mGy-cm.. LIMITATIONS: None. FINDINGS: LOWER CHEST: Moderate bilateral pleural effusion. Small to moderate bilateral lower lobar airspace consolidation, left more than right. New/worsened components compared with prior CT, 017. LIVER: Cirrhosis pattern. SPLEEN: Moderate splenomegaly. PANCREAS: No masses. No significant calcifications. No adjacent inflammation or peripancreatic fluid collections. Pancreatic duct not dilated. GALLBLADDER: Gallstones. No inflammatory changes to suggest cholecystitis. ADRENAL GLANDS: No significant masses or asymmetry. RIGHT KIDNEY AND URETER: No solid masses. No significant calcifications. No hydronephrosis or hyd roureter. LEFT KIDNEY AND URETER: No solid masses. No significant calcifications. No hydronephrosis or hydr oureter. AORTA AND VESSELS: No aneurysm. No dissection. Renal arteries, SMA, celiac without stenosis. Umbilic al arterial varices of the anterior abdominal wall. RETROPERITONEUM: No retroperitoneal adenopathy, hemorrhage or masses. BOWEL AND PERITONEAL CAVITY: No masses or inflammatory changes. Moderate ascites. APPENDIX: Air-filled normal appearing appendix. Diffuse abdominal ascites surrounds the expected leonora endix. PELVIS: No mass. Moderate abdominal ascites. Small 2 moderate pelvic fluid. Normal bladder. ABDOMINAL WALL: No masses. No hernias. BONES: No significant or acute findings. OTHER: No other significant finding. IMPRESSION: 1. Small to moderate bilateral lower lobar pneumonia pattern with moderate ascites. 2. Liver failure with ascites and splenomegaly. 3. Cholelithiasis. TECHNICAL DOCUMENTATION: JOB ID: [id number] Quality ID # [id number]: Final reports with documentation of one or more dose reduction techniques (e.g., Au tomated exposure control, adjustment of the mA and/or kV according to patient size, use of iterative reconstruction technique) 2010 [employer]- All Rights Reserved
[2017-03-11 03:05] VITALS: BP 116/68
== END 2017-03-11 03:06 | disposition home or self-care (01) ==
LOC: ER 19:14
DX: R10.31 Right lower quadrant pain (principal); K42.9 Umbilical hernia without obstruction or gangrene; K74.60 Unspecified cirrhosis of liver; R18.8 Other ascites; Z79.2 Long term (current) use of antibiotics; Z87.19 Personal history of other diseases of the digestive system; Z88.7 Allergy status to serum and vaccine; Z87.891 Personal history of nicotine dependence
CPT/HCPCS: 96376; 99284; 96374; 96375; 36415; 85025; 85610; 81025; 80053; 81001; 74177; J2270; J2405

== ENCOUNTER 2017-03-15 08:01 | Emergency (ER) | payer BC ==
--- NOTE | 2017-03-15 09:14 | ER Document Report ---
ED General - General Chief Complaint: Shoulder Pain Stated Complaint: RIGHT SHOULDER PAIN Time Seen by Provider: 03/15/17 08:30 TRAVEL OUTSIDE OF THE [place] IN LAST 30 DAYS: No COUNTRY TRAVELED TO/FROM: [place] [facility] Patient complains to provider of: Shoulder pain right Notes: Patient coming in for right shoulder pain ongoing for the last few days. Patient states started after performing heavy lifting. Patient denies any fever chills nausea vomiting diarrhea. Patient denies any history of trauma. Patient states due to pain she has decreased range of motion feels that her arm is weak. Patient has a history of alcoholic and Tylenol induced liver cirrhosis. Upon evaluation patient sitting comfortably no other signs of distress. - Related Data Allergies/Adverse Reactions: Pertussis Vaccines Allergy (Verified 03/15/17 08:16) Past Medical History - Social History Smoking Status: Unknown if Ever Smoked Family History: Malignancy - Aunt, uncle, grandmother, both grandfathers. Patient has suicidal ideation: No Patient has homicidal ideation: No - Past Medical History Cardiac Medical History: Reports: Hx Hypertension - Denies: Hx Coronary Artery Disease, Hx Heart Attack Pulmonary Medical History: Denies: Hx Asthma, Hx Bronchitis, Hx COPD, Hx Pneumonia Neurological Medical History: Denies: Hx Cerebrovascular Accident, Hx Seizures Renal/ Medical History: Denies: Hx Peritoneal Dialysis GI Medical History: Reports: Hx Cirrhosis - Alcohol and Tylenol induced Musculoskeltal Medical History: Denies Hx Arthritis - Immunizations Hx Diphtheria, Pertussis, Tetanus Vaccination: No Review of Systems - Review of Systems Constitutional: No symptoms reported EENT: No symptoms reported Cardiovascular: No symptoms reported Respiratory: No symptoms reported Gastrointestinal: No symptoms reported Genitourinary: No symptoms reported Female Genitourinary: No symptoms reported Musculoskeletal: Other - Shoulder pain Skin: No symptoms reported Hematologic/Lymphatic: No symptoms reported Neurological/Psychological: No symptoms reported -: Yes All other systems reviewed and negative Physical Exam - Vital signs Vitals: Temp Pulse Resp BP Pulse Ox 98.1 F 92 18 122/80 98 03/15/17 08:04 03/15/17 08:04 03/15/17 08:04 03/15/17 08:04 03/15/17 08:04 Interpretation: Normal - General General appearance: Appears well, Alert - HEENT Head: Normocephalic, Atraumatic Eyes: Normal Pupils: PERRL - Respiratory Respiratory status: No respiratory distress Chest status: Nontender Breath sounds: Normal Chest palpation: Normal - Cardiovascular Rhythm: Regular Heart sounds: Normal auscultation Murmur: No - Abdominal Inspection: Normal Distension: No distension Bowel sounds: Normal Tenderness: Nontender Organomegaly: No organomegaly - Back Back: Normal, Nontender - Extremities General upper extremity: Normal inspection, Tender - Patient is tender at the coracoid process on the right side patient is also tender upon palpation of the biceps muscle there is no signs of deformity tenderness on palpation of the supraspinatus muscles as well. Range of motion passively intact actively decreased due to pain., Normal color, Normal ROM, Normal temperature General lower extremity: Normal inspection, Nontender, Normal color, Normal ROM , Normal temperature, Normal weight bearing. No: Candy's sign - Neurological Neuro grossly intact: Yes Cognition: Normal Orientation: AAOx4 Jed Coma Scale Eye Opening: Spontaneous Jed Coma Scale Verbal: Oriented Jed Coma Scale Motor: Obeys Commands Jed Coma Scale Total: 15 Speech: Normal Motor strength normal: LUE, RUE, LLE, RLE Sensory: Normal - Psychological Associated symptoms: Normal affect, Normal mood - Skin Skin Temperature: Warm Skin Moisture: Dry Skin Color: Normal Course - Re-evaluation Re-evalutation: 03/16/17 07:26 Patient more likely has a muscle skeletal cause of her pain. Most likely muscle strain from heavy lifting. Offered an x-ray but declined to the patient more likely this will be negative is that she has not had any trauma I have a extremely low suspicion for fracture. Patient declined x-ray at this time. Patient requesting pain medication To the patient she is recently received a prescription for oral narcotics and that we would not be able to provide her with any further oral narcotics at this time recommended other modalities that anti-inflammatories lidocaine Lidoderm patches. Explained patient that she will be able to obtain lidocaine patches [id number] as her insurance is not covered Lidoderm. - Vital Signs Vital signs: Temp Pulse Resp BP Pulse Ox 98.2 F 87 12 116/78 93 03/15/17 09:35 03/15/17 09:35 03/15/17 09:35 03/15/17 09:35 03/15/17 09:35 Discharge - Discharge Clinical Impression: Muscle strain Condition: Good Disposition: HOME, SELF-CARE Instructions: Muscle Strain ([facility]), Ice Massage ([facility]), Warm Packs ([facility]), Exercise Program for the Shoulder ([facility]) Additional Instructions: Please review discharge instructions carefully. He may use ice packs warm packs to take care of her pain. However recommend she follow-up with your specialist and your primary care physician. If the Lidoderm patch is too expensive you may ask her pharmacist about over-the -counter options. Prescriptions: Lidocaine [Lidoderm 5% (700 mg) Transdermal Patch] 1 patch TP DAILY #30 adh..patch
[2017-03-15 09:41] VITALS: BP 116/78
== END 2017-03-15 09:43 | disposition home or self-care (01) ==
LOC: ER 08:01
DX: T14.8 Other injury of unspecified body region (principal); X50.0XXA Overexertion from strenuous movement or load, initial encounter; M25.511 Pain in right shoulder; Z88.7 Allergy status to serum and vaccine
CPT/HCPCS: 99283

== ENCOUNTER 2017-09-10 22:49 | Inpatient (IN) | payer SELFPAY ==
[2017-09-10] MEDS ORDERED: NORMAL SALINE 1000 ML 1,000 ML IV ONE (23:10)
[2017-09-10] MEDS ORDERED: ONDANSETRON 4 MG TAB.RAPDIS PO ONE (23:10)
--- NOTE | 2017-09-10 23:13 | ER Document Report ---
ED Medical Screen (RME) - General Chief Complaint: GI Bleeding Stated Complaint: VOMITING BLOOD Time Seen by Provider: 09/10/17 23:09 Mode of Arrival: Wheelchair Information source: Patient Notes: Patient is a 32 year old female with history of gastric ulcers and erosive esophagitis and liver disease who presents to the ER today for 2 hours of vomiting, at least 8 episodes of bloody vomit with clots in it. TRAVEL OUTSIDE OF THE [place] IN LAST 30 DAYS: No COUNTRY TRAVELED TO/FROM: [place] - Related Data Allergies/Adverse Reactions: Pertussis Vaccines Allergy (Verified 03/15/17 08:16) Past Medical History - General Information source: Patient - Past Medical History Cardiac Medical History: Reports: Hx Hypertension - Denies: Hx Coronary Artery Disease, Hx Heart Attack Pulmonary Medical History: Denies: Hx Asthma, Hx Bronchitis, Hx COPD, Hx Pneumonia Neurological Medical History: Denies: Hx Cerebrovascular Accident, Hx Seizures Renal/ Medical History: Denies: Hx Peritoneal Dialysis GI Medical History: Reports: Hx Cirrhosis - Alcohol and Tylenol induced Musculoskeltal Medical History: Denies Hx Arthritis - Immunizations Hx Diphtheria, Pertussis, Tetanus Vaccination: No Review of Systems - Review of Systems Gastrointestinal: See HPI Physical Exam - Vital signs Vitals: Temp Pulse Resp BP Pulse Ox 98.4 F 87 16 82/43 L 98 09/10/17 23:02 09/10/17 23:02 09/10/17 23:02 09/10/17 23:02 09/10/17 23:02 - Notes Notes: PHYSICAL EXAMINATION: GENERAL: Weak appearing, holding emesis bag, but in no acute distress. LUNGS: CTAB and equal. No wheezes rales or rhonchi. HEART: Regular rate and rhythm without murmurs Course - Vital Signs Vital signs: Temp Pulse Resp BP Pulse Ox 98.4 F 87 16 82/43 L 98 09/10/17 23:02 09/10/17 23:02 09/10/17 23:02 09/10/17 23:02 09/10/17 23:02
[2017-09-10 23:51] LABS: HEMATOCRIT 24.3 % (36.0-47.0); HEMOGLOBIN 8.4 g/dL (12.0-15.5); MEAN CORPUSCULAR HEMOGLOBIN 35.4 pg (27.0-33.4); MEAN CORPUSCULAR HGB CONC 34.8 g/dL (32.0-36.0); MEAN CORPUSCULAR VOLUME 102 fl (80-97); PROTHROMBIN TIME 22.9 SEC (11.4-15.4); RED BLOOD COUNT 2.38 10^6/uL (3.72-5.28); RED CELL DISTRIBUTION WIDTH 15.1 % (11.5-14.0); WHITE BLOOD COUNT 3.9 10^3/uL (4.0-10.5)
[2017-09-10 23:52] LABS: PARTIAL THROMBOPLASTIN TIME 44.5 SEC (23.5-35.8)
[2017-09-10] MEDS ORDERED: ONDANSETRON HCL INJ/PF 4 MG/2 ML SDV IV ONE (23:55)
[2017-09-10 23:57] LABS: ALANINE AMINOTRANSFERASE 74 U/L (9-52); ALKALINE PHOSPHATASE 129 U/L (38-126); ANION GAP 15 (5-19); ASPARTATE AMINO TRANSFERASE 159 U/L (14-36); BILIRUBIN,DIRECT 2.5 mg/dL (0.0-0.4); BILIRUBIN,TOTAL 10.4 mg/dL (0.2-1.3); BLOOD UREA NITROGEN 17 mg/dL (7-20); CALCIUM 8.7 mg/dL (8.4-10.2); CARBON DIOXIDE 26 mmol/L (22-30); CHLORIDE 100 mmol/L (98-107); GLUCOSE 147 mg/dL (75-110); POTASSIUM 4.1 mmol/L (3.6-5.0); SODIUM 141.3 mmol/L (137-145); TOTAL PROTEIN 8.4 g/dL (6.3-8.2)
[2017-09-11 00:24] LABS: ABSOLUTE LYMPHOCYTES# (MANUAL) 1.1 10^3/uL (0.5-4.7); ABSOLUTE MONOCYTES # (MANUAL) 0.1 10^3/uL (0.1-1.4); ABSOLUTE NEUTROPHILS# (MANUAL) 2.7 10^3/uL (1.7-8.2); ANISOCYTOSIS SLIGHT; BAND NEUTROPHILS % (MANUAL) 1 % (3-5); BASOPHILS % (MANUAL) 0 % (0-2); BURR CELLS SLIGHT; EOSINOPHILS % (MANUAL) 0 % (0-6); LYMPHOCYTES % (MANUAL) 29 % (13-45); MONOCYTES % (MANUAL) 3 % (3-13); OVALOCYTES SLIGHT; PLATELET COMMENT DECREASED; POIKILOCYTOSIS SLIGHT; SEGMENTED NEUTROPHILS % (MAN) 67 % (42-78); TEAR DROP CELLS SLIGHT; TOTAL CELLS COUNTED 100; TOXIC GRANULATION 1+
[2017-09-11 00:25] LABS: PLATELET COUNT 41 10^3/uL (150-450)
[2017-09-11] MEDS ORDERED: PANTOPRAZOLE SODIUM 40 MG VIAL IV ONE (00:41)
[2017-09-11] MEDS ORDERED: METOCLOPRAMIDE HCL INJ/PF 10 MG/2 ML SDV IV ONE (00:41)
--- NOTE | 2017-09-11 00:41 | ER Document Report ---
ED GI Bleed / Rectal Pain - General Mode of Arrival: Wheelchair Information source: Patient TRAVEL OUTSIDE OF THE [place] IN LAST 30 DAYS: No COUNTRY TRAVELED TO/FROM: [place] <ALINE SR - Last Filed: 09/11/17 04:20> <CHRISTY VALENZUELA - Last Filed: 09/11/17 06:04> - General Chief Complaint: GI Bleeding Stated Complaint: VOMITING BLOOD Time Seen by Provider: 09/10/17 23:09 Notes: Patient is a 32-year-old female with an extensive past medical history including cirrhosis, gastric ulcers, and esophogeal erosion that presents to the emergency department today with complaints of vomiting blood. Patient states she does not have a history of esophageal varices, with her last endoscopy being 6 or 7 months ago. (ALINE SR) - Related Data Allergies/Adverse Reactions: Pertussis Vaccines Allergy (Verified 03/15/17 08:16) Past Medical History - General Information source: Patient - Social History Smoking Status: Smoker,Current Status Unk Frequency of alcohol use: None Drug Abuse: None Lives with: Family Family History: Reviewed & Not Pertinent, Malignancy - Aunt, uncle, grandmother , both grandfathers. - Past Medical History Cardiac Medical History: Reports: Hx Hypertension - GI Medical History: Reports: Hx Cirrhosis - Alcohol and Tylenol induced Surgical Hx: Negative - Immunizations Hx Diphtheria, Pertussis, Tetanus Vaccination: No <ALINE SR - Last Filed: 09/11/17 04:20> Review of Systems - Review of Systems Constitutional: No symptoms reported EENT: No symptoms reported Cardiovascular: No symptoms reported Respiratory: No symptoms reported Gastrointestinal: See HPI, Vomiting, Blood in vomit Genitourinary: No symptoms reported Female Genitourinary: No symptoms reported Musculoskeletal: No symptoms reported Skin: No symptoms reported Hematologic/Lymphatic: No symptoms reported Neurological/Psychological: No symptoms reported -: Yes All other systems reviewed and negative <ALINE SR - Last Filed: 09/11/17 04:20> Physical Exam - Vital signs Interpretation: Hypotensive <ALINE SR - Last Filed: 09/11/17 04:20> <CHRISTY VALENZUELA - Last Filed: 09/11/17 06:04> - Vital signs Vitals: Temp Pulse Resp BP Pulse Ox 98.4 F 87 16 82/43 L 98 09/10/17 23:02 09/10/17 23:02 09/10/17 23:02 09/10/17 23:02 09/10/17 23:02 - Notes Notes: Physical Exam: General: Alert, chronically ill appearing. HEENT: Normocephalic. Atraumatic. PERRL. Extraocular movements intact. Oropharynx clear. Scleral icterus. Neck: Supple. Non-tender. Respiratory: No respiratory distress. Clear and equal breath sounds bilaterally. Cardiovascular: Regular rate and rhythm. Abdominal: Non-tender. Abdominal distension. Normal Bowel Sounds. Back: Non-tender. No deformity or step off. Extremities: Moves all four extremities. Upper extremities: Normal inspection. Normal ROM. Lower extremities: Normal inspection. No edema. Normal ROM. Neurological: Normal cognition. AAOx4. Normal speech. Psychological: Normal affect. Normal Mood. Skin: Warm. Dry. Jaundiced. (ALINE SR) Course - Laboratory Result Diagrams: 09/11/17 03:05 09/10/17 23:20 <ALINE SR - Last Filed: 09/11/17 04:20> - Laboratory Result Diagrams: 09/11/17 03:05 09/10/17 23:20 <CHRISTY VALENZUELA - Last Filed: 09/11/17 06:04> - Re-evaluation Re-evalutation: 09/11/17 Patient is a 32-year-old female who presents with hematemesis at home. No vomiting in the emergency department. Patient has a history of alcoholic cirrhosis and states that she has had peptic ulcers and erosive esophagitis in the past. Patient adamantly denies that she has any history of varices. Patient also states that she has not been drinking recently. Blood work here showing a hemoglobin of 8.4 and a platelet count of 41. Patient does have elevation of PT and PTT. Patient has not had any vomiting here. She denies any abdominal pain. LFTs are at baseline. Patient is jaundiced which is also at baseline. Patient has no abdominal pain or tenderness to palpation. Patient usually goes to [facility] for management of her complications of her chronic liver disease. [facility] was initially contacted and there are no beds available. [facility] was contacted and there are no beds available. [facility] was contacted and there are no beds available. [facility] was contacted and there are no beds available. There is no gastroenterology contestant coordinator; however, was able to get in touch with Dr. Causey who has seen this patient most recently as 01/24. He is agreeable to seeing the patient in the morning. Vitals are stable. Hemoglobin is stable. No active vomiting or bright red blood in the emergency department. Discussed with the hospitalist service, Dr. Nguyen, who will admit the patient to the ICU. Recommends performing alcohol level. Patient has been type and screened. Patient is agreeable to this and she is stable at the time of admission. She has been informed that there are no beds available at any tertiary care centers at this time, particularly [facility]. 09/11/17 02:57 Informed by the hospitalist service that the patient is vomiting bright red blood in the emergency department. Dropped her blood pressure to 80s over 50s after vomiting 1 L. I was not notified by nursing staff. Dr. Nguyen is contacting the surgeon on-call as well as Dr. Causey. He has ordered blood products. Dr. Jasso is present in the room. Discussion with Dr. Causey to fluid resuscitate the patient, give packed red cells, plasma, and platelets. This is been ordered by the hospitalist service. Concerned that the patient will need a TIPS procedure which will not be available at this hospital. No TIPS available at [facility]. Call was placed back to [facility] on behalf of the hospitalist, Dr. Nguyen who is currently managing the patient. Informed by the transfer center that they are still not accepting patients but she will contact the MICU fellow. Spoke with Dr. Cotton (sp?) From the MICU. He was also informed by the transfer center that there are not beds available and they are not currently accepting patients. Recommends that the DISTRICT OPERATIONS MANAGER of the hospital be contacted to make an exception for this patient and to transfer her to [facility]. Also recommends that before the patient is transferred, she has central line and be intubated. This is been relayed to Dr. Nguyen. Communication with [facility] in this hospital will be made through Dr. Nguyen as the patient is currently in the ICU. (CHRISTY VALENZUELA) - Vital Signs Vital signs: Temp Pulse Resp BP Pulse Ox 99.2 F 109 H 16 133/75 H 100 02/02/18 04:30 09/11/17 05:45 09/11/17 05:45 09/11/17 05:45 09/11/17 05:45 - Laboratory Laboratory results interpreted by me: 09/10/17 09/10/17 09/10/17 23:20 23:20 23:20 WBC 3.9 L RBC 2.38 L Hgb 8.4 L Hct 24.3 L MCV 102 H MCH 35.4 H RDW 15.1 H Plt Count 41 L Band Neutrophils % 1 L PT 22.9 H APTT 44.5 H Glucose 147 H Total Bilirubin 10.4 H Direct Bilirubin 2.5 H AST 159 H ALT 74 H Alkaline Phosphatase 129 H Total Protein 8.4 H Crossmatch 09/10/17 23:20 WBC RBC Hgb Hct MCV MCH RDW Plt Count Band Neutrophils % PT APTT Glucose Total Bilirubin Direct Bilirubin AST ALT Alkaline Phosphatase Total Protein Crossmatch See Detail Critical Care Note - Critical Care Note Total time excluding time spent on procedures (mins): 60 - Evaluation of GI bleed, multiple calls to transfer center, coordination with specialist, coordination of admission, counseling of patient <CHRISTY VALENZUELA - Last Filed: 09/11/17 06:04> Discharge <ALINE SR - Last Filed: 09/11/17 04:20> - [facility] Unit Admitted: ICU <CHRISTY VALENZUELA - Last Filed: 09/11/17 06:04> - Discharge Clinical Impression: Upper gastrointestinal bleed Alcohol dependence Qualifiers: Substance use status: with intoxication Complication of substance-induced condition: with unspecified complication Qualified Code(s): F10.229 - Alcohol dependence with intoxication, unspecified Hepatic cirrhosis Qualifiers: Hepatic cirrhosis type: alcoholic cirrhosis Ascites presence: with ascites Qualified Code(s): K70.31 - Alcoholic cirrhosis of liver with ascites Condition: Stable Disposition: ADMITTED INPATIENT Scribe Attestation: 09/11/17 06:04 I personally performed the services described in the documentation, reviewed and edited the documentation which was dictated to the scribe in my presence, and it accurately records my words and actions. (CHRISTY VALENZUELA) Scribe Documentation - Scribe Written by Scribe:: Kishore Leonard, 09/11/2017 0224 acting as scribe for :: Matias <ALINE SR - Last Filed: 09/11/17 04:20>
[2017-09-11] MEDS ORDERED: PHYTONADIONE INJ 10 MG/1 ML AMPULE SUBCUT ONE (01:16)
[2017-09-11] MEDS ORDERED: PANTOPRAZOLE SODIUM 80 MG in NORMAL SALINE 100 ML IV ONE (01:16)
[2017-09-11] MEDS ORDERED: ONDANSETRON HCL INJ/PF 4 MG/2 ML SDV IV PRN (01:19)
[2017-09-11] MEDS ORDERED: IPRATROPIUM/ALBUTEROL 0.5-2.5 MG/3 ML AMPUL NEB PRN (01:19)
[2017-09-11] MEDS ORDERED: NORMAL SALINE 250 ML IV PRN ×4 (01:23→02:41)
[2017-09-11] MEDS ORDERED: THIAMINE HCL INJ 200 MG/2 ML VIAL IV PRN (01:30)
[2017-09-11] MEDS ORDERED: FOLIC ACID INJ 5 MG/1 ML 10 ML VIAL IV PRN (01:30)
[2017-09-11] MEDS ORDERED: THIAMINE HCL 100 MG, FOLIC ACID 1 MG in NORMAL SALINE 250 ML IV ONE (01:30)
[2017-09-11] MEDS ORDERED: NORMAL SALINE 1000 ML 1,000 ML IV PRN ×2 (01:30→06:13)
[2017-09-11 01:48] LABS: ABSOLUTE RETICS # 0.029 10^6/uL (0.028-0.122); HEMATOCRIT 17.4 % (36.0-47.0); MEAN CORPUSCULAR HEMOGLOBIN 35.4 pg (27.0-33.4); MEAN CORPUSCULAR HGB CONC 34.8 g/dL (32.0-36.0); MEAN CORPUSCULAR VOLUME 102 fl (80-97); RED BLOOD COUNT 1.71 10^6/uL (3.72-5.28); RED CELL DISTRIBUTION WIDTH 15.1 % (11.5-14.0); RETICULOCYTE COUNT (AUTO) 1.72 % (0.66-2.85)
[2017-09-11 02:22] LABS: ABSOLUTE LYMPHOCYTES# (MANUAL) 0.3 10^3/uL (0.5-4.7); ABSOLUTE MONOCYTES # (MANUAL) 0.1 10^3/uL (0.1-1.4); BASOPHILS % (MANUAL) 0 % (0-2); EOSINOPHILS % (MANUAL) 0 % (0-6); LYMPHOCYTES % (MANUAL) 22 % (13-45); MONOCYTES % (MANUAL) 4 % (3-13); SEGMENTED NEUTROPHILS % (MAN) 74 % (42-78); TOTAL CELLS COUNTED 50
[2017-09-11 02:28] LABS: ANISOCYTOSIS SLIGHT; OVALOCYTES SLIGHT; PLATELET COMMENT DECREASED; POIKILOCYTOSIS SLIGHT; SCHISTOCYTES SLIGHT; TEAR DROP CELLS SLIGHT; TOXIC GRANULATION SLIGHT
[2017-09-11 02:32] LABS: WHITE BLOOD COUNT 1.3 10^3/uL (4.0-10.5)
[2017-09-11 02:33] LABS: HEMOGLOBIN 6.1 g/dL (12.0-15.5)
[2017-09-11 02:34] LABS: PLATELET COUNT 19 10^3/uL (150-450)
[2017-09-11] MEDS ORDERED: NORMAL SALINE 500 ML with OCTREOTIDE ACETATE 500 MCG IV PRN ×2 (02:53)
[2017-09-11] MEDS ORDERED: OCTREOTIDE ACETATE INJ/PF 100 MCG/1 ML SDV IV ONE (02:53)
[2017-09-11] MEDS ORDERED: CEFTRIAXONE 1 GM/D5W RTU 1 GM/50 ML RTUPB IV ONE (02:57)
--- NOTE | 2017-09-11 03:17 | PDOC CONSULTATION ---
History of Present Illness Admission Date/PCP: 09/11/17 01:19 Patient complains of: Hematemesis History of Present Illness: KHUSHI ACHARYA is a 32 year old female with alcoholic cirrhosis of the liver with history of gastric varices as well as peptic ulcer disease and ascites presenting with acute onset of hematemesis multiple times at home prior to arrival and after arrival to the ER. No syncope. No abdominal pain. No melena. Patient denies any alcohol ingestion since New Year's Day. Other than some DayQuil recently she has not taken any NSAIDs. She has no known history of esophageal varices. She apparently had endoscopic evaluation last year and was noted with gastric varices and peptic ulcer disease. She was prescribed proton pump inhibitor but she is not taking it. Past Medical History Cardiac Medical History: Reports: Hypertension - Denies: Coronary Artery Disease, Myocardial Infarction Pulmonary Medical History: Denies: Asthma, Bronchitis, Chronic Obstructive Pulmonary Disease (COPD), Pneumonia Neurological Medical History: Denies: Seizures GI Medical History: Reports: Cirrhosis - Alcohol and Tylenol induced Musculoskeltal Medical History: Denies: Arthritis Hematology: Reports: Anemia Social History Lives with: Family Smoking Status: Smoker,Current Status Unk Family History Family History: Reviewed & Not Pertinent, Malignancy - Aunt, uncle, grandmother , both grandfathers. Parental Family History Reviewed: No Children Family History Reviewed: No Sibling(s) Family History Reviewed.: No Medication/Allergy Home Medications: Furosemide [Lasix 20 mg Tablet] 1 tab PO DAILY 12/25/16 Omeprazole 1 tab PO DAILY 12/25/16 Spironolactone 1 tab PO BID 12/25/16 Ciprofloxacin HCl [Cipro 250 mg Tablet] 1 tab PO BID #14 tab 01/19/17 Oxycodone HCl [Oxycontin Ir 5 Mg Tablet] 1 - 2 mg PO Q4H PRN #8 tablet 01/19/17 Oxycodone HCl [Oxycontin Ir 5 Mg Tablet] 1 - 2 mg PO Q4H PRN #15 tablet Lidocaine [Lidoderm 5% (700 mg) Transdermal Patch] 1 patch TP DAILY #30 adh..patch 03/15/17 Allergies/Adverse Reactions: Pertussis Vaccines Allergy (Verified 03/15/17 08:16) Physical Exam Vital Signs: Temp Pulse Resp BP Pulse Ox 98.4 F 87 16 82/43 L 98 09/10/17 23:02 09/10/17 23:02 09/10/17 23:02 09/10/17 23:02 09/10/17 23:02 General appearance: PRESENT: no acute distress, cooperative Eye exam: PRESENT: scleral icterus Respiratory exam: PRESENT: clear to auscultation stacie Cardiovascular exam: PRESENT: tachycardia GI/Abdominal exam: PRESENT: other - Soft, flaccid, nondistended, nontender to palpation. Small umbilical hernia. Extremities exam: PRESENT: other - Warm. 1 second capillary refill. Neurological exam: PRESENT: awake, other - Drowsy but easily arousable and provides an excellent history. Psychiatric exam: PRESENT: appropriate affect Results Laboratory Results: 09/11/17 01:35 09/11/17 01:35 WBC 1.3 L* D RBC 1.71 L Hgb 6.1 L D Hct 17.4 L MCV 102 H MCH 35.4 H MCHC 34.8 RDW 15.1 H Plt Count 19 L* Seg Neutrophils % Not Reportable Lymphocytes % Not Reportable Monocytes % Not Reportable Eosinophils % Not Reportable Basophils % Not Reportable Absolute Neutrophils Not Reportable Absolute Lymphocytes Not Reportable Absolute Monocytes Not Reportable Absolute Eosinophils Not Reportable Absolute Basophils Not Reportable Retic Count (auto) 1.72 Absolute Retic 0.029 Assessment & Plan - Diagnosis (1) Upper gastrointestinal bleed Is this a current diagnosis for this admission?: Yes Plan: Patient is severely coagulopathic. She is pending platelets, FFP and packed RBC transfusions. Patient has received proton pump inhibitor, and will be receiving octreotide. Dr. Causey has agreed to do an upper endoscopy once we have her coagulopathy at least partially corrected. Patient would be better served at a tertiary care institution however all tertiary care institutions that have been called are not accepting transfer patients at this time. Therefore patient will be admitted to our intensive care unit. Surgicalist service will follow.
--- NOTE | 2017-09-11 03:42 | PDOC H&P ---
History of Present Illness Admission Date/PCP: 09/11/17 01:19 History of Present Illness: KHUSHI ACHARYA is a 32 year old female with a past medical history of alcoholic hepatic cirrhosis, recurrent spontaneous bacterial peritonitis, coagulopathy, thrombocytopenia, erosive esophagitis, gastric varices and unclear duration of sobriety. Patient presents dramatically jaundiced after 2 hours of nausea with vomiting 10 of bright red blood followed by blood clots. In the emergency room she remains nauseous and vomits approximately 800-900 mL of bright red blood. She is started on IV fluids, Protonix and Sandostatin. ER physician attempts to transfer to tertiary care at [place], [facility] and [facility] are unsuccessful secondary to bed availability. She is referred to the hospitalist for admission to ICU. Patient currently denies pain, Previous episode, new medications admits noncompliance with medications and last alcohol use 1 month ago. Blood bank contacted for emergent FFP, platelets and packed red blood cells. Consults to surgery and gastroenterology initiated for IV access and endoscopy. Past Medical History Cardiac Medical History: Reports: Hypertension - Denies: Coronary Artery Disease, Myocardial Infarction Pulmonary Medical History: Denies: Asthma, Bronchitis, Chronic Obstructive Pulmonary Disease (COPD), Pneumonia Neurological Medical History: Denies: Seizures GI Medical History: Reports: Cirrhosis - Alcohol and Tylenol induced, Gastroesophageal Reflux Disease, Peptic Ulcer Disease, Other - Gastric varices Musculoskeltal Medical History: Denies: Arthritis Psychiatric Medical History: Reports: Alcohol Dependency Hematology: Reports: Anemia Social History Information Source: Patient Lives with: Family Smoking Status: Smoker,Current Status Unk - Advance Directive Resuscitation Status: Full Code Family History Family History: Malignancy - Aunt, uncle, grandmother, both grandfathers. Parental Family History Reviewed: Yes Children Family History Reviewed: Yes Sibling(s) Family History Reviewed.: Yes Medication/Allergy Home Medications: Furosemide [Lasix 20 mg Tablet] 1 tab PO DAILY 12/25/16 Omeprazole 1 tab PO DAILY 12/25/16 Spironolactone 1 tab PO BID 12/25/16 Ciprofloxacin HCl [Cipro 250 mg Tablet] 1 tab PO BID #14 tab 01/19/17 Oxycodone HCl [Oxycontin Ir 5 Mg Tablet] 1 - 2 mg PO Q4H PRN #8 tablet 01/19/17 Oxycodone HCl [Oxycontin Ir 5 Mg Tablet] 1 - 2 mg PO Q4H PRN #15 tablet Lidocaine [Lidoderm 5% (700 mg) Transdermal Patch] 1 patch TP DAILY #30 adh..patch 03/15/17 Allergies/Adverse Reactions: Pertussis Vaccines Allergy (Verified 03/15/17 08:16) Review of Systems Constitutional: PRESENT: anorexia, fatigue, weakness, weight gain. ABSENT: fever(s) Eyes: ABSENT: visual disturbances Ears: ABSENT: hearing changes Cardiovascular: ABSENT: chest pain, dyspnea on exertion, edema, orthropnea, palpitations Respiratory: ABSENT: cough, hemoptysis Gastrointestinal: PRESENT: as per HPI, abdominal pain, bloating, coffee ground emesis, dysphagia, hematemesis, nausea, vomiting. ABSENT: constipation, diarrhea, melena Genitourinary: ABSENT: dysuria, hematuria Musculoskeletal: ABSENT: joint swelling Integumentary: ABSENT: rash, wounds Neurological: ABSENT: abnormal gait, abnormal speech, confusion, dizziness, focal weakness, syncope Psychiatric: PRESENT: as per HPI. ABSENT: anxiety, depression, homidical ideation, suicidal ideation Endocrine: ABSENT: cold intolerance, heat intolerance, polydipsia, polyuria Hematologic/Lymphatic: PRESENT: as per HPI Physical Exam Vital Signs: Temp Pulse Resp BP Pulse Ox 98.4 F 87 16 82/43 L 98 09/10/17 23:02 09/10/17 23:02 09/10/17 23:02 09/10/17 23:02 09/10/17 23:02 General appearance: PRESENT: cooperative, mild distress Head exam: PRESENT: atraumatic, normocephalic Eye exam: PRESENT: scleral icterus Ear exam: PRESENT: normal external ear exam Mouth exam: PRESENT: moist, tongue midline Neck exam: ABSENT: carotid bruit, JVD, lymphadenopathy, thyromegaly Respiratory exam: PRESENT: clear to auscultation stacie. ABSENT: rales, rhonchi, wheezes Cardiovascular exam: PRESENT: RRR. ABSENT: diastolic murmur, rubs, systolic murmur Pulses: PRESENT: normal dorsalis pedis pul GI/Abdominal exam: PRESENT: normal bowel sounds, soft. ABSENT: distended, guarding, mass, organolmegaly, rebound, tenderness Rectal exam: PRESENT: deferred Extremities exam: PRESENT: full ROM. ABSENT: calf tenderness, clubbing, pedal edema Neurological exam: PRESENT: alert, awake, oriented to person, oriented to place , oriented to time, oriented to situation, CN II-XII grossly intact. ABSENT: motor sensory deficit Psychiatric exam: PRESENT: anxious, appropriate affect, normal mood. ABSENT: homicidal ideation, suicidal ideation Skin exam: PRESENT: dry, intact, warm. ABSENT: cyanosis, rash Results Laboratory Results: 09/11/17 03:05 09/11/17 09/11/17 01:35 03:05 WBC 1.3 L* D Cancelled RBC 1.71 L Cancelled Hgb 6.1 L D Cancelled Hct 17.4 L Cancelled MCV 102 H Cancelled MCH 35.4 H Cancelled MCHC 34.8 Cancelled RDW 15.1 H Cancelled Plt Count 19 L* Cancelled Seg Neutrophils % Not Reportable Cancelled Lymphocytes % Not Reportable Cancelled Monocytes % Not Reportable Cancelled Eosinophils % Not Reportable Cancelled Basophils % Not Reportable Cancelled Absolute Neutrophils Not Reportable Cancelled Absolute Lymphocytes Not Reportable Cancelled Absolute Monocytes Not Reportable Cancelled Absolute Eosinophils Not Reportable Cancelled Absolute Basophils Not Reportable Cancelled Retic Count (auto) 1.72 Absolute Retic 0.029 Assessment & Plan - Diagnosis (1) Coagulopathy Is this a current diagnosis for this admission?: Yes Plan: FFP and vitamin K ordered follow-up INR (2) Gastric varices Is this a current diagnosis for this admission?: Yes Plan: With GI bleed rapid infusion of packed red blood cells, FFP and platelets underway, Sandostatin and gastroenterology consulted for endoscopy (3) Hepatic cirrhosis Is this a current diagnosis for this admission?: Yes Plan: Supportive care (4) Thrombocytopenia Is this a current diagnosis for this admission?: Yes Plan: Associated with active bleeding, 4 units of platelets ordered (5) Upper gastrointestinal bleed Is this a current diagnosis for this admission?: Yes Plan: Patient is a very poor historian formally on Protonix. Unclear peptic ulcer versus alcoholic gastritis versus variceal bleeding. Sandostatin and IV Protonix ordered. Follow-up serial CBCs, gastroenterology consulted. (6) Alcohol dependence Is this a current diagnosis for this admission?: Yes Plan: Suspected ongoing dependence. Thiamine and folate ordered Ativan as needed - Time Time Spent: Greater than 70 Minutes - Inpatient Certification Medical Necessity: Need Close Monitoring Due to Risk of Patient Decompensation
[2017-09-11 04:04] LABS: HEMATOCRIT 17.6 % (36.0-47.0); MEAN CORPUSCULAR HEMOGLOBIN 34.3 pg (27.0-33.4); MEAN CORPUSCULAR HGB CONC 34.5 g/dL (32.0-36.0); MEAN CORPUSCULAR VOLUME 99 fl (80-97); RED BLOOD COUNT 1.78 10^6/uL (3.72-5.28); RED CELL DISTRIBUTION WIDTH 16.2 % (11.5-14.0); WHITE BLOOD COUNT 1.7 10^3/uL (4.0-10.5)
[2017-09-11 04:05] LABS: PLATELET COUNT 17 10^3/uL (150-450)
[2017-09-11 04:06] LABS: HEMOGLOBIN 6.1 g/dL (12.0-15.5)
[2017-09-11 04:24] LABS: IRON(TIBC) 119.5 ug/dL (37-170)
[2017-09-11 04:56] LABS: APPEARANCE,URINE SLIGHTLY-CLOUDY; BILIRUBIN,URINE NEGATIVE (NEGATIVE); COLOR,URINE AMBER; GLUCOSE, URINE NEGATIVE (NEGATIVE); KETONES,URINE TRACE mg/dL (NEGATIVE); LEUKOCYTE ESTERASE,URINE NEGATIVE (NEGATIVE); NITRITE,URINE NEGATIVE (NEGATIVE); PROTEIN,URINE NEGATIVE (NEGATIVE); URINE SPECIFIC GRAVITY 1.017
[2017-09-11 05:12] LABS: URINE AMPHETAMINES SCREEN NEGATIVE; URINE BARBITURATES SCREEN NEGATIVE; URINE BENZODIAZEPINES SCREEN NEGATIVE; URINE COCAINE SCREEN NEGATIVE; URINE MARIJUANA (THC) SCREEN NEGATIVE; URINE METHADONE SCREEN NEGATIVE; URINE PHENCYCLIDINE SCREEN NEGATIVE
[2017-09-11] MEDS ORDERED: NALOXONE HCL INJ/PF 0.4 MG/1 ML SDV ONE (05:22)
[2017-09-11] MEDS ORDERED: FENTANYL CITRATE INJ/PF 100 MCG/2 ML AMPUL ONE (05:22)
[2017-09-11] MEDS ORDERED: EPINEPHRINE INJ 1 MG/10 ML DISP.SYRIN ONE (05:23)
[2017-09-11] MEDS ORDERED: FLUMAZENIL INJ 0.5 MG/5 ML VIAL ONE (05:23)
[2017-09-11] MEDS ORDERED: GLUCAGON,HUMAN RECOMB 1 MG INJ ONE (05:23)
[2017-09-11 05:31] LABS: FOLATE 3.76 ng/mL (>2.76)
[2017-09-11] MEDS: MIDAZOLAM 2 MG/2 ML INJ ONE ×5 (06:30→06:44)
--- NOTE | 2017-09-11 07:03 | CONSULTATION REPORT E ---
Consultation Report NAME: KHUSHI ACHARYA : 1985 AGE: 32Y DATE: 09/11/2017 602 A TO: WAGNER WEISS M.D. FROM: DEANDRE PECK M.D. Requesting Physician Consultation requested by the hospitalist. HISTORY: A 32-year-old patient who presented to the emergency room with upper GI bleeding. She was in her usual state of health until a few hours before presentation when she started vomiting. She vomited dark blood and some redness at home and a couple of times in the hospital, too. This is her first GI bleeding episode. She denies abdominal pain. On presentation, her hemoglobin was 8.4, but a few hours later, it was 6.1. Her platelet count went down from 41 to 19 with a low white blood cell of 1.3. She is chronically anemic with a hemoglobin of 9 back in March. Her INR was 1.9 with a PT of 23. Her blood pressure has been stable, though she has tachycardia. The patient was diagnosed with cirrhosis early in 2016 from alcohol abuse. She had presented to me with ascites. She had an EGD back in October that showed esophagitis, gastritis, and antral ulcers. She has not been to my office in more than 6 months. She has been to [facility] a couple of times and was admitted at some point with subacute bacterial peritonitis. She also had endoscopy at [facility] that she thinks showed the same thing that I found. She is not sure about varices. I did not see any varices at her endoscopy in October. She continues to drink alcohol and her alcohol level was 110 on this presentation. Since admission, she has received 3 units of blood and 1 unit of plasma. She is currently receiving her first unit of platelets. She is now in ICU. PAST MEDICAL HISTORY: 1. Alcohol cirrhosis. 2. Ascites. 3. Hepatosplenomegaly. 4. Alcoholism. 5. Subacute bacteria peritonitis that she calls esophagitis. 6. Portal gastropathy. ALLERGIES: *------* VACCINE. SOCIAL HISTORY: She does drink and also smokes. REVIEW OF SYSTEMS: Other than the above, is noncontributory. PHYSICAL EXAMINATION: GENERAL: A lady in no distress. VITAL SIGNS: She has a heart rate of 111, blood pressure 135/79. HEENT: There is pallor and jaundice. Oropharynx normal. NECK: No bruit. No JVD. CHEST: No deformity. LUNGS: Clear. ABDOMEN: Soft, nontender. There is 4-5 cm small hepatomegaly. No ascites demonstrated. NEUROLOGIC: Not fully examined. LABORATORY TESTS: AST of 159, ALT of 74, bilirubin of 10. Alkaline phosphatase of 129, ferritin of 244. Normal chem-7 except for a glucose of 147. Her bilirubin was 21 back in January and it was down to 10 in March. Serum alcohol was 110 with no other drugs identified. ASSESSMENT AND PLAN: 1. Acute GI bleeding. The patient vomited some blood at home and also in the hospital. Differential diagnosis would include esophagitis, gastric ulcer, gastric esophageal varies. She was started on *------* in the emergency room and IV Protonix. Once her platelet transfusion is completed, I will perform an endoscopy with further treatment. 2. Alcoholic cirrhosis. She continues to be noncompliant both with appointments and her medications. She does not have an appointment at [facility] at the moment and has canceled most of her appointments in my office. She is not a candidate for liver transplant. 3. Ascites. She is supposed to be on spironolactone and Lasix, but she been out of her Lasix for a while. 4. Alcoholism. 5. Liver failure. She has had very high bilirubin for close to a year with elevated INR and thrombocytopenia. She has a poor prognosis. DICTATING PHYSICIAN: WAGNER WEISS M.D. [id number] Y#: [id number] ID: [id number] JOB#: [id number] ACCT: [id number] cc:WAGNER WEISS M.D. >
--- NOTE | 2017-09-11 07:13 | OPERATIVE REPORT E ---
Operative Report NAME: KHUSHI ACHARYA : 1985 AGE: 32Y DATE OF SURGERY: 09/11/2017 ROOM: 602 PREOPERATIVE DIAGNOSIS: GI bleeding. POSTOPERATIVE DIAGNOSES: 1. Small nonbleeding esophageal varix. 2. Portal gastropathy. SURGERY: EGD. SURGEON: WAGNER WEISS M.D. MEDICATION: Versed 6 mg, fentanyl 100 mcg IV push. TISSUE REMOVED OR ALTERED: None. PROCEDURE: After informed consent obtained from patient, conscious sedation was achieved. The upper endoscope was then inserted into the esophagus and advanced into the stomach. The duodenum was identified and found to be normal. There was some altered blood in the stomach, but no active bleeding. There was mild erythema in the gastric antrum and body with some *------* and changes consistent with portal gastropathy. No definite ulceration or gastric varices were identified. There was a single small short varix in the distal esophagus, which flattened with air insufflation. There was no evidence of recent bleeding on the small varix. The rest of the esophagus was normal. She tolerated the procedure well. PLAN: She probably bled from her portal gastropathy. Continue Sandostatin for another 24 hours and IV pantoprazole. Follow up CBC. Start nadolol or propranolol for the small varix. DICTATING PHYSICIAN: WAGNER WEISS M.D. [id number] PHY#: [id number] ID: [id number] JOB#: [id number] ACCT: [id number] cc:WAGNER WEISS M.D. >
[2017-09-11] MEDS ORDERED: CEFAZOLIN 1 GM/D5W RTU 1 GM/50 ML RTUPB IV ONE (08:00)
[2017-09-11 08:03] LABS: ABSOLUTE LYMPHOCYTES (AUTO) 0.5 10^3/uL (0.5-4.7); ABSOLUTE MONOCYTES (AUTO) 0.2 10^3/uL (0.1-1.4); ABSOLUTE NEUT (AUTO) 1.4 10^3/uL (1.7-8.2); EOSINOPHILS % (AUTO) 0.1 % (0-6); HEMATOCRIT 21.7 % (36.0-47.0); LYMPHOCYTES % (AUTO) 22.6 % (13-45); MEAN CORPUSCULAR HEMOGLOBIN 33.1 pg (27.0-33.4); MONOCYTES % (AUTO) 10.9 % (3-13); RED BLOOD COUNT 2.29 10^6/uL (3.72-5.28); RED CELL DISTRIBUTION WIDTH 17.2 % (11.5-14.0); SEGMENTED NEUTROPHILS % (AUTO) 65.4 % (42-78); TOTAL CELLS COUNTED % (AUTO) 100 %; WHITE BLOOD COUNT 2.1 10^3/uL (4.0-10.5)
[2017-09-11] MEDS ORDERED: INFLUENZA ADLT QUAD (36MOS+) 2017-18 VAC 0.5 ML SYR IM PRN (08:09)
[2017-09-11 08:11] LABS: ALANINE AMINOTRANSFERASE 56 U/L (9-52); ALBUMIN 2.9 g/dL (3.5-5.0); ALKALINE PHOSPHATASE 67 U/L (38-126); ANION GAP 9 (5-19); ASPARTATE AMINO TRANSFERASE 96 U/L (14-36); BILIRUBIN,DIRECT 2.1 mg/dL (0.0-0.4); BLOOD UREA NITROGEN 17 mg/dL (7-20); CALCIUM 7.3 mg/dL (8.4-10.2); CARBON DIOXIDE 23 mmol/L (22-30); CHLORIDE 106 mmol/L (98-107); GLUCOSE 99 mg/dL (75-110); POTASSIUM 3.8 mmol/L (3.6-5.0); SODIUM 138.3 mmol/L (137-145); TOTAL PROTEIN 6.2 g/dL (6.3-8.2)
[2017-09-11 08:14] LABS: MEAN CORPUSCULAR VOLUME 95 fl (80-97); PLATELET COUNT 31 10^3/uL (150-450)
[2017-09-11 08:29] LABS: HEMOGLOBIN 7.6 g/dL (12.0-15.5)
[2017-09-11] MEDS: NORMAL SALINE 100 ML with PANTOPRAZOLE SODIUM 80 MG IV PRN ×4 (08:49→17:07)
[2017-09-11] MEDS: NORMAL SALINE 500 ML with OCTREOTIDE ACETATE 500 MCG IV PRN ×4 (08:50→18:15)
--- NOTE | 2017-09-11 09:08 | PDOC PROGRESS REPORT ---
Subjective Progress Note for:: 09/11/17 Subjective:: Pt is feeling overall better. No abd pain, no emesis or diarrhea since early this am. She recalls seeing blood in emesis (bright red) and dark red loose stool. No Chest pain or dyspnea, no fever or chills, no cough or sputum production. Agrees she is a shaking a little. States she has not stopped alcohol recently and recalls no withdrawal history. She remembers EGD and GI visit. Feels dry and thirsty. Sees (intermittantly) MDs at [facility] for her liver disease and related complications. WE discussed EtOH cessation and she is not interested right now, she has someone at [facility] she can talk with about it. She states understanding of life threatening complications related to continuation of EtOH use. Reason For Visit: UPPER GIB, COAGULOAPATHY, THROMBOCYTOPENIA, alcoholic liver disease, likely early EtOH withdrawal Physical Exam Vital Signs: Temp Pulse Resp BP Pulse Ox 99.2 F 129 H 17 119/75 99 09/11/17 04:30 09/11/17 07:44 09/11/17 08:15 09/11/17 08:15 09/11/17 08:15 Intake & Output 09/10/17 09/11/17 09/12/17 06:59 06:59 06:59 Intake Total 1153 774 Output Total 500 Balance 653 774 Weight 59.3 kg General appearance: PRESENT: cooperative, disheveled, mild distress Head exam: PRESENT: atraumatic, normocephalic Eye exam: PRESENT: EOMI, periorbital swelling Mouth exam: PRESENT: dry mucosa, neck supple Throat exam: ABSENT: post pharyngeal erythema Neck exam: ABSENT: lymphadenopathy, tracheostomy Respiratory exam: PRESENT: clear to auscultation staice, unlabored. ABSENT: accessory muscle use, chest wall tenderness, crackles, decreased breath sounds, prolonged expiratory phas, rales, retraction, rhonchi, stridor, tachypnea, wheezes Cardiovascular exam: PRESENT: tachycardia. ABSENT: systolic murmur Pulses: PRESENT: normal radial pulses GI/Abdominal exam: PRESENT: diminished bowel sounds, distended, hypoactive bowel sounds, tenderness. ABSENT: firm, guarding, rebound, rigid Rectal exam: PRESENT: deferred Gentrourinary exam: ABSENT: indwelling catheter Extremities exam: ABSENT: calf tenderness, pedal edema Musculoskeletal exam: PRESENT: normal inspection Neurological exam: PRESENT: alert, awake, oriented to person, oriented to place , oriented to time, oriented to situation, CN II-XII grossly intact Psychiatric exam: PRESENT: flat affect Skin exam: PRESENT: dry, intact, pallor. ABSENT: mottled Results Laboratory Results: 09/11/17 07:44 09/11/17 07:44 09/11/17 09/11/17 09/11/17 01:35 01:35 03:05 WBC 1.3 L* D Cancelled RBC 1.71 L Cancelled Hgb 6.1 L D Cancelled Hct 17.4 L Cancelled MCV 102 H Cancelled MCH 35.4 H Cancelled MCHC 34.8 Cancelled RDW 15.1 H Cancelled Plt Count 19 L* Cancelled Seg Neutrophils % Not Reportable Cancelled Lymphocytes % Not Reportable Cancelled Monocytes % Not Reportable Cancelled Eosinophils % Not Reportable Cancelled Basophils % Not Reportable Cancelled Absolute Neutrophils Not Reportable Cancelled Absolute Lymphocytes Not Reportable Cancelled Absolute Monocytes Not Reportable Cancelled Absolute Eosinophils Not Reportable Cancelled Absolute Basophils Not Reportable Cancelled Retic Count (auto) 1.72 Absolute Retic 0.029 Sodium Potassium Chloride Carbon Dioxide Anion Gap BUN Creatinine Est GFR ( Amer) Est GFR (Non-Af Amer) Glucose Calcium Magnesium Iron 119.5 TIBC 191 L % Saturation 63 Ferritin 274.00 H Total Bilirubin AST ALT Alkaline Phosphatase Total Protein Albumin Vitamin B12 743.0 Folate 3.76 Urine Color Urine Appearance Urine pH Ur Specific [place] Urine Protein Urine Glucose (UA) Urine Ketones Urine Blood Urine Nitrite Ur Leukocyte Esterase Urine WBC (Auto) Urine RBC (Auto) 09/11/17 09/11/17 09/11/17 03:05 04:10 07:44 WBC 1.7 L RBC 1.78 L Hgb 6.1 L Hct 17.6 L MCV 99 H MCH 34.3 H MCHC 34.5 RDW 16.2 H Plt Count 17 L* Seg Neutrophils % Lymphocytes % Monocytes % Eosinophils % Basophils % Absolute Neutrophils Absolute Lymphocytes Absolute Monocytes Absolute Eosinophils Absolute Basophils Retic Count (auto) Absolute Retic Sodium 138.3 Potassium 3.8 Chloride 106 Carbon Dioxide 23 Anion Gap 9 BUN 17 Creatinine 0.49 L Est GFR ( Amer) > 60 Est GFR (Non-Af Amer) > 60 Glucose 99 Calcium 7.3 L Magnesium 1.0 L* Iron TIBC % Saturation Ferritin Total Bilirubin 10.0 H AST 96 H ALT 56 H Alkaline Phosphatase 67 Total Protein 6.2 L Albumin 2.9 L Vitamin B12 Folate Urine Color BOY Urine Appearance SLIGHTLY-CLOUDY Urine pH 6.0 Ur Specific [place] 1.017 Urine Protein NEGATIVE Urine Glucose (UA) NEGATIVE Urine Ketones TRACE H Urine Blood MODERATE H Urine Nitrite NEGATIVE Ur Leukocyte Esterase NEGATIVE Urine WBC (Auto) 4 Urine RBC (Auto) 7 09/11/17 07:44 WBC 2.1 L RBC 2.29 L Hgb 7.6 L Hct 21.7 L MCV 95 D MCH 33.1 MCHC 35.0 RDW 17.2 H Plt Count 31 L Seg Neutrophils % 65.4 Lymphocytes % 22.6 Monocytes % 10.9 Eosinophils % 0.1 Basophils % 1.0 Absolute Neutrophils 1.4 L Absolute Lymphocytes 0.5 Absolute Monocytes 0.2 Absolute Eosinophils 0.0 Absolute Basophils 0.0 Retic Count (auto) Absolute Retic Sodium Potassium Chloride Carbon Dioxide Anion Gap BUN Creatinine Est GFR ( Amer) Est GFR (Non-Af Amer) Glucose Calcium Magnesium Iron TIBC % Saturation Ferritin Total Bilirubin AST ALT Alkaline Phosphatase Total Protein Albumin Vitamin B12 Folate Urine Color Urine Appearance Urine pH Ur Specific [place] Urine Protein Urine Glucose (UA) Urine Ketones Urine Blood Urine Nitrite Ur Leukocyte Esterase Urine WBC (Auto) Urine RBC (Auto) Status: Imported from PACS Assessment & Plan - Diagnosis (1) Hypomagnesemia Is this a current diagnosis for this admission?: Yes Plan: replete with IV mag and follow repeat mag, replete until normal (2) Alcohol dependence Qualifiers: Substance use status: in withdrawal Complication of substance-induced condition: with unspecified complication Qualified Code(s): F10.239 - Alcohol dependence with withdrawal, unspecified Is this a current diagnosis for this admission?: Yes Plan: Pt and I discussed cessation for about 5 min, she is not interested in cessation currently despite acknowledging life threatening complications related to EtOH. She has someone she can seek out of she desires cessation. She has prn ativan available 2 mg IV q 2 hrs prn signs or symptoms of withdrawal. She does not recall ever using ativan in the past. (3) Coagulopathy Is this a current diagnosis for this admission?: Yes Plan: Vit K administered, FFP being administered, repeat labs pending. (4) Gastric varices Is this a current diagnosis for this admission?: Yes Plan: Known gastric varices, EGD has been done by GI this am and no variceal bleeding seen, varix was identified though. This bleed is thought likely due to portal gastropathy. She will remain on octreotide gtt until tomorrow, PPI gtt for 72 hours. (5) Thrombocytopenia Is this a current diagnosis for this admission?: Yes Plan: due to EtOH abuse, plts transfusing, repeat plts pending (6) Upper gastrointestinal bleed Is this a current diagnosis for this admission?: Yes Plan: differential included variceal, gastropathy. EGD has been performed and portal gastropathy thought to be likely. Octreotide and PPI gtt to cont for now. maintian good IV access and IVF if needed. BP is normal this am and HR is 100. If HR does not improve orBP drops will start IV fluids. For now she is receiving PRBCs as ordered by admitting MD, plts, FFP. 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
[2017-09-11] MEDS ORDERED: CIPROFLOXACIN HCL PO SCH (10:00)
[2017-09-11] MEDS: PROPRANOLOL HCL 20 MG TABLET PO SCH ×2 (10:16→22:28)
[2017-09-11] MEDS: MAGNESIUM SULFATE/D5W 1 GM/100 ML RTUPB IV SCH ×5 (10:16→22:27)
[2017-09-11] MEDS: FUROSEMIDE 20 MG TABLET PO SCH (10:17)
[2017-09-11 12:40] LABS: PATH REVIEW PATHOLOGIST REVIEWED
[2017-09-11] MEDS: CEFAZOLIN 1 GM/D5W RTU 1 GM/50 ML RTUPB IV SCH ×3 (14:23→23:50)
[2017-09-11] MEDS: LORAZEPAM INJ 2 MG/1 ML VIAL IV PRN (14:28)
[2017-09-11 15:53] LABS: ABSOLUTE LYMPHOCYTES (AUTO) 0.6 10^3/uL (0.5-4.7); ABSOLUTE MONOCYTES (AUTO) 0.2 10^3/uL (0.1-1.4); ABSOLUTE NEUT (AUTO) 1.6 10^3/uL (1.7-8.2); BASOPHILS % (AUTO) 0.9 % (0-2); EOSINOPHILS % (AUTO) 1.3 % (0-6); HEMATOCRIT 28.3 % (36.0-47.0); LYMPHOCYTES % (AUTO) 23.2 % (13-45); MEAN CORPUSCULAR HEMOGLOBIN 32.8 pg (27.0-33.4); MEAN CORPUSCULAR HGB CONC 35.9 g/dL (32.0-36.0); MEAN CORPUSCULAR VOLUME 92 fl (80-97); RED BLOOD COUNT 3.09 10^6/uL (3.72-5.28); RED CELL DISTRIBUTION WIDTH 17.5 % (11.5-14.0); SEGMENTED NEUTROPHILS % (AUTO) 66.6 % (42-78); TOTAL CELLS COUNTED % (AUTO) 100 %; WHITE BLOOD COUNT 2.4 10^3/uL (4.0-10.5)
[2017-09-11 16:12] LABS: HEMOGLOBIN 10.1 g/dL (12.0-15.5)
[2017-09-11 16:13] LABS: PLATELET COUNT 40 10^3/uL (150-450)
[2017-09-11] MEDS: RIFAXIMIN 550 MG TABLET PO SCH (18:14)
[2017-09-11 19:29] LABS: ABSOLUTE LYMPHOCYTES (AUTO) 0.6 10^3/uL (0.5-4.7); ABSOLUTE MONOCYTES (AUTO) 0.2 10^3/uL (0.1-1.4); ABSOLUTE NEUT (AUTO) 1.7 10^3/uL (1.7-8.2); BASOPHILS % (AUTO) 0.3 % (0-2); EOSINOPHILS % (AUTO) 1.6 % (0-6); HEMATOCRIT 31.2 % (36.0-47.0); LYMPHOCYTES % (AUTO) 22.4 % (13-45); MEAN CORPUSCULAR HEMOGLOBIN 32.1 pg (27.0-33.4); MEAN CORPUSCULAR HGB CONC 35.2 g/dL (32.0-36.0); MEAN CORPUSCULAR VOLUME 91 fl (80-97); MONOCYTES % (AUTO) 7.1 % (3-13); RED BLOOD COUNT 3.42 10^6/uL (3.72-5.28); RED CELL DISTRIBUTION WIDTH 17.9 % (11.5-14.0); SEGMENTED NEUTROPHILS % (AUTO) 68.6 % (42-78); TOTAL CELLS COUNTED % (AUTO) 100 %; WHITE BLOOD COUNT 2.5 10^3/uL (4.0-10.5)
[2017-09-11 20:20] LABS: PLATELET COUNT 53 10^3/uL (150-450)
[2017-09-11] MEDS ORDERED: THIAMINE HCL 100 MG, FOLIC ACID 1 MG in NORMAL SALINE 250 ML IV SCH (22:00)
--- NOTE | 2017-09-11 23:40 | PDOC PROGRESS REPORT ---
Subjective Progress Note for:: 09/11/17 Subjective:: No bleed this afternoon or evening. Reason For Visit: UPPER GIB, COAGULOAPATHY, THROMBOCYTOPENIA, Physical Exam Vital Signs: Temp Pulse Resp BP Pulse Ox 98.8 F 101 H 25 H 122/74 97 09/11/17 19:00 09/11/17 22:40 09/11/17 23:06 09/11/17 23:06 09/11/17 23:06 Intake & Output 09/10/17 09/11/17 09/12/17 06:59 06:59 06:59 Intake Total 1153 4221 Output Total 500 5200 Balance 653 -979 Weight 59.3 kg General appearance: PRESENT: no acute distress Eye exam: PRESENT: EOMI Respiratory exam: PRESENT: clear to auscultation stacie, unlabored Cardiovascular exam: PRESENT: RRR, +S1, +S2 GI/Abdominal exam: PRESENT: soft Neurological exam: PRESENT: alert, awake, oriented to person, oriented to place , oriented to time, oriented to situation, CN II-XII grossly intact Results Laboratory Results: 09/11/17 19:06 09/11/17 07:44 09/11/17 09/11/17 09/11/17 01:35 01:35 03:05 WBC 1.3 L* D Cancelled RBC 1.71 L Cancelled Hgb 6.1 L D Cancelled Hct 17.4 L Cancelled MCV 102 H Cancelled MCH 35.4 H Cancelled MCHC 34.8 Cancelled RDW 15.1 H Cancelled Plt Count 19 L* Cancelled Seg Neutrophils % Not Reportable Cancelled Lymphocytes % Not Reportable Cancelled Monocytes % Not Reportable Cancelled Eosinophils % Not Reportable Cancelled Basophils % Not Reportable Cancelled Absolute Neutrophils Not Reportable Cancelled Absolute Lymphocytes Not Reportable Cancelled Absolute Monocytes Not Reportable Cancelled Absolute Eosinophils Not Reportable Cancelled Absolute Basophils Not Reportable Cancelled Retic Count (auto) 1.72 Absolute Retic 0.029 Sodium Potassium Chloride Carbon Dioxide Anion Gap BUN Creatinine Est GFR ( Amer) Est GFR (Non-Af Amer) Glucose Calcium Magnesium Iron 119.5 TIBC 191 L % Saturation 63 Ferritin 274.00 H Total Bilirubin AST ALT Alkaline Phosphatase Total Protein Albumin Vitamin B12 743.0 Folate 3.76 Urine Color Urine Appearance Urine pH Ur Specific [place] Urine Protein Urine Glucose (UA) Urine Ketones Urine Blood Urine Nitrite Ur Leukocyte Esterase Urine WBC (Auto) Urine RBC (Auto) 09/11/17 09/11/17 09/11/17 03:05 04:10 07:44 WBC 1.7 L RBC 1.78 L Hgb 6.1 L Hct 17.6 L MCV 99 H MCH 34.3 H MCHC 34.5 RDW 16.2 H Plt Count 17 L* Seg Neutrophils % Lymphocytes % Monocytes % Eosinophils % Basophils % Absolute Neutrophils Absolute Lymphocytes Absolute Monocytes Absolute Eosinophils Absolute Basophils Retic Count (auto) Absolute Retic Sodium 138.3 Potassium 3.8 Chloride 106 Carbon Dioxide 23 Anion Gap 9 BUN 17 Creatinine 0.49 L Est GFR ( Amer) > 60 Est GFR (Non-Af Amer) > 60 Glucose 99 Calcium 7.3 L Magnesium 1.0 L* Iron TIBC % Saturation Ferritin Total Bilirubin 10.0 H AST 96 H ALT 56 H Alkaline Phosphatase 67 Total Protein 6.2 L Albumin 2.9 L Vitamin B12 Folate Urine Color BOY Urine Appearance SLIGHTLY-CLOUDY Urine pH 6.0 Ur Specific [place] 1.017 Urine Protein NEGATIVE Urine Glucose (UA) NEGATIVE Urine Ketones TRACE H Urine Blood MODERATE H Urine Nitrite NEGATIVE Ur Leukocyte Esterase NEGATIVE Urine WBC (Auto) 4 Urine RBC (Auto) 7 09/11/17 09/11/17 09/11/17 07:44 15:35 19:06 WBC 2.1 L 2.4 L 2.5 L RBC 2.29 L 3.09 L 3.42 L Hgb 7.6 L 10.1 L D 11.0 L Hct 21.7 L 28.3 L 31.2 L MCV 95 D 92 91 MCH 33.1 32.8 32.1 MCHC 35.0 35.9 35.2 RDW 17.2 H 17.5 H 17.9 H Plt Count 31 L 40 L 53 L Seg Neutrophils % 65.4 66.6 68.6 Lymphocytes % 22.6 23.2 22.4 Monocytes % 10.9 8.0 7.1 Eosinophils % 0.1 1.3 1.6 Basophils % 1.0 0.9 0.3 Absolute Neutrophils 1.4 L 1.6 L 1.7 Absolute Lymphocytes 0.5 0.6 0.6 Absolute Monocytes 0.2 0.2 0.2 Absolute Eosinophils 0.0 0.0 0.0 Absolute Basophils 0.0 0.0 0.0 Retic Count (auto) Absolute Retic Sodium Potassium Chloride Carbon Dioxide Anion Gap BUN Creatinine Est GFR ( Amer) Est GFR (Non-Af Amer) Glucose Calcium Magnesium Iron TIBC % Saturation Ferritin Total Bilirubin AST ALT Alkaline Phosphatase Total Protein Albumin Vitamin B12 Folate Urine Color Urine Appearance Urine pH Ur Specific [place] Urine Protein Urine Glucose (UA) Urine Ketones Urine Blood Urine Nitrite Ur Leukocyte Esterase Urine WBC (Auto) Urine RBC (Auto) 09/11/17 19:06 WBC RBC Hgb Hct MCV MCH MCHC RDW Plt Count Seg Neutrophils % Lymphocytes % Monocytes % Eosinophils % Basophils % Absolute Neutrophils Absolute Lymphocytes Absolute Monocytes Absolute Eosinophils Absolute Basophils Retic Count (auto) Absolute Retic Sodium Potassium Chloride Carbon Dioxide Anion Gap BUN Creatinine Est GFR ( Amer) Est GFR (Non-Af Amer) Glucose Calcium Magnesium 1.8 Iron TIBC % Saturation Ferritin Total Bilirubin AST ALT Alkaline Phosphatase Total Protein Albumin Vitamin B12 Folate Urine Color Urine Appearance Urine pH Ur Specific [place] Urine Protein Urine Glucose (UA) Urine Ketones Urine Blood Urine Nitrite Ur Leukocyte Esterase Urine WBC (Auto) Urine RBC (Auto) Assessment & Plan - Diagnosis (1) Upper gastrointestinal bleed Is this a current diagnosis for this admission?: Yes Plan: stable at this time (2) Coagulopathy Is this a current diagnosis for this admission?: Yes (3) Gastric varices Is this a current diagnosis for this admission?: Yes (4) Thrombocytopenia Is this a current diagnosis for this admission?: Yes - Time Time Spent with patient: Less than 15 minutes
[2017-09-12 04:27] LABS: INTERNATIONAL RATION (INR) 1.42; PROTHROMBIN TIME 18.2 SEC (11.4-15.4)
[2017-09-12] MEDS: NORMAL SALINE 500 ML with OCTREOTIDE ACETATE 500 MCG IV PRN ×2 (04:30)
[2017-09-12] MEDS: NORMAL SALINE 100 ML with PANTOPRAZOLE SODIUM 80 MG IV PRN ×2 (04:31)
[2017-09-12 04:42] LABS: ALANINE AMINOTRANSFERASE 54 U/L (9-52); ALBUMIN 3.7 g/dL (3.5-5.0); ALKALINE PHOSPHATASE 85 U/L (38-126); ANION GAP 7 (5-19); ASPARTATE AMINO TRANSFERASE 107 U/L (14-36); BILIRUBIN,DIRECT 3.6 mg/dL (0.0-0.4); BLOOD UREA NITROGEN 8 mg/dL (7-20); CALCIUM 8.7 mg/dL (8.4-10.2); CARBON DIOXIDE 29 mmol/L (22-30); CHLORIDE 101 mmol/L (98-107); GLUCOSE 110 mg/dL (75-110); POTASSIUM 3.2 mmol/L (3.6-5.0); SODIUM 136.6 mmol/L (137-145); TOTAL PROTEIN 7.5 g/dL (6.3-8.2)
[2017-09-12 04:52] LABS: BILIRUBIN,TOTAL 13.4 mg/dL (0.2-1.3)
[2017-09-12] MEDS: CEFAZOLIN 1 GM/D5W RTU 1 GM/50 ML RTUPB IV SCH ×3 (06:33→17:17)
[2017-09-12 08:58] LABS: HEMATOCRIT 30.9 % (36.0-47.0); HEMOGLOBIN 10.9 g/dL (12.0-15.5); MEAN CORPUSCULAR HEMOGLOBIN 32.2 pg (27.0-33.4); MEAN CORPUSCULAR HGB CONC 35.1 g/dL (32.0-36.0); MEAN CORPUSCULAR VOLUME 92 fl (80-97); RED BLOOD COUNT 3.37 10^6/uL (3.72-5.28); RED CELL DISTRIBUTION WIDTH 18.5 % (11.5-14.0); WHITE BLOOD COUNT 2.9 10^3/uL (4.0-10.5)
[2017-09-12 09:31] LABS: ABSOLUTE LYMPHOCYTES# (MANUAL) 0.5 10^3/uL (0.5-4.7); ABSOLUTE MONOCYTES # (MANUAL) 0.2 10^3/uL (0.1-1.4); ABSOLUTE NEUTROPHILS# (MANUAL) 2.1 10^3/uL (1.7-8.2); BAND NEUTROPHILS % (MANUAL) 1 % (3-5); BASOPHILS % (MANUAL) 1 % (0-2); EOSINOPHILS % (MANUAL) 4 % (0-6); LYMPHOCYTES % (MANUAL) 16 % (13-45); MONOCYTES % (MANUAL) 7 % (3-13); SEGMENTED NEUTROPHILS % (MAN) 70 % (42-78); TOTAL CELLS COUNTED 100
[2017-09-12 09:36] LABS: ANISOCYTOSIS 1+; OVALOCYTES SLIGHT; PLATELET COMMENT DECREASED; POIKILOCYTOSIS 1+; TARGET CELLS SLIGHT; TEAR DROP CELLS SLIGHT
[2017-09-12 09:37] LABS: PLATELET COUNT 54 10^3/uL (150-450)
[2017-09-12] MEDS ORDERED: OXYCODONE HCL IR 5 MG TABLET PO ONE (10:00)
[2017-09-12] MEDS: FUROSEMIDE 20 MG TABLET PO SCH (10:12)
[2017-09-12] MEDS: PANTOPRAZOLE SODIUM 40 MG VIAL IV SCH ×2 (10:13→17:18)
[2017-09-12] MEDS: PROPRANOLOL HCL 20 MG TABLET PO SCH ×2 (10:14→22:16)
[2017-09-12] MEDS: RIFAXIMIN 550 MG TABLET PO SCH (10:14)
[2017-09-12] MEDS: POTASSIUM CHLORIDE 20 MEQ/50 ML RTU IV SCH ×2 (10:20→12:25)
--- NOTE | 2017-09-12 17:00 | PDOC PROGRESS REPORT ---
Subjective Progress Note for:: 09/12/17 Subjective:: Doing much better today. More awake and alert. No more additional bleeding - hemoptysis or bloody stools. Was tolerating drinking water and amenable to advancing diet. Denies abdominal pain, NV, fevers, chills, CP. Tells me that her last drink was 6 months ago, however told other provider that last drink was yesterday. Reason For Visit: UPPER GIB, COAGULOAPATHY, THROMBOCYTOPENIA, Physical Exam Vital Signs: Temp Pulse Resp BP Pulse Ox 98.5 F 74 23 H 140/90 H 99 09/12/17 14:00 09/12/17 14:00 09/12/17 14:01 09/12/17 14:00 09/12/17 14:01 Intake & Output 09/11/17 09/12/17 09/13/17 06:59 06:59 06:59 Intake Total 1153 4221 474 Output Total 500 6750 550 Balance 973 -1849 -76 Weight 59.3 kg 58.4 kg General appearance: PRESENT: no acute distress, thin Head exam: PRESENT: atraumatic, normocephalic Mouth exam: PRESENT: dry mucosa, moist Respiratory exam: PRESENT: unlabored. ABSENT: wheezes Cardiovascular exam: PRESENT: +S1, +S2, tachycardia GI/Abdominal exam: PRESENT: soft. ABSENT: distended, tenderness Rectal exam: ABSENT: bloody stool Neurological exam: PRESENT: alert, awake, CN II-XII grossly intact Psychiatric exam: PRESENT: appropriate affect. ABSENT: anxious Results Laboratory Results: 09/12/17 08:48 09/12/17 03:57 09/11/17 09/11/17 09/12/17 19:06 19:06 03:57 WBC 2.5 L RBC 3.42 L Hgb 11.0 L Hct 31.2 L MCV 91 MCH 32.1 MCHC 35.2 RDW 17.9 H Plt Count 53 L Seg Neutrophils % 68.6 Lymphocytes % 22.4 Monocytes % 7.1 Eosinophils % 1.6 Basophils % 0.3 Absolute Neutrophils 1.7 Absolute Lymphocytes 0.6 Absolute Monocytes 0.2 Absolute Eosinophils 0.0 Absolute Basophils 0.0 Sodium Potassium Chloride Carbon Dioxide Anion Gap BUN Creatinine Est GFR ( Amer) Est GFR (Non-Af Amer) Glucose Calcium Magnesium 1.8 2.1 Total Bilirubin AST ALT Alkaline Phosphatase Total Protein Albumin 09/12/17 09/12/17 03:57 08:48 WBC 2.9 L RBC 3.37 L Hgb 10.9 L Hct 30.9 L MCV 92 MCH 32.2 MCHC 35.1 RDW 18.5 H Plt Count 54 L Seg Neutrophils % Not Reportable Lymphocytes % Not Reportable Monocytes % Not Reportable Eosinophils % Not Reportable Basophils % Not Reportable Absolute Neutrophils Not Reportable Absolute Lymphocytes Not Reportable Absolute Monocytes Not Reportable Absolute Eosinophils Not Reportable Absolute Basophils Not Reportable Sodium 136.6 L Potassium 3.2 L Chloride 101 Carbon Dioxide 29 Anion Gap 7 BUN 8 Creatinine 0.50 L Est GFR ( Amer) > 60 Est GFR (Non-Af Amer) > 60 Glucose 110 Calcium 8.7 Magnesium Total Bilirubin 13.4 H D AST 107 H ALT 54 H Alkaline Phosphatase 85 Total Protein 7.5 Albumin 3.7 Assessment & Plan - Diagnosis (1) Upper gastrointestinal bleed Is this a current diagnosis for this admission?: Yes Plan: Likely a variceal bleed in setting of history of EtoH use. - No additional episodes of hematemesis over last 24 hours. H&H stablized - Will decrease H&H from q6 to 112 hours - Pt was on Protonix GTT and Octreotide GTT for 24 hours, now discontinued. will Continue IV PPI BID for additional 24 hours and then transition to PO Protonix - Unclear if patient has history of esophageal varices. Will need EGD to measure. Continue propanolol for now - Given improvement in status, will NOT need transfer to tertiary center - Will transfer from ICU to monitored floor/stepdown bed when available (2) Alcohol dependence Qualifiers: Substance use status: in withdrawal Complication of substance-induced condition: with unspecified complication Qualified Code(s): F10.239 - Alcohol dependence with withdrawal, unspecified Is this a current diagnosis for this admission?: Yes Plan: Known history of previous and current EtOH use - Not currently encephalopathic, d/c-ed Rifaximin, low threshold to re-start - Monitor for alcohol withdrawal, has Ativan ordered PRN - Continue Thiamine, will transition from IV to PO (3) Coagulopathy Is this a current diagnosis for this admission?: Yes (4) Thrombocytopenia Is this a current diagnosis for this admission?: Yes Plan: Secondary to EtOH use - Platelet count 54K today, improved - Continue to monitor (5) Hypokalemia Is this a current diagnosis for this admission?: Yes Plan: K 3.2 today, repleted with IV KCl 40meq (6) Hypomagnesemia Is this a current diagnosis for this admission?: Yes Plan: Mg 1.0 at admission, repleted with IV Mag, now 2.1 on today's labs - Time Time Spent with patient: 15-24 minutes Within: within 72 hours
[2017-09-12 19:29] LABS: HEMATOCRIT 29.9 % (36.0-47.0); HEMOGLOBIN 10.7 g/dL (12.0-15.5); MEAN CORPUSCULAR HEMOGLOBIN 32.5 pg (27.0-33.4); MEAN CORPUSCULAR HGB CONC 35.9 g/dL (32.0-36.0); MEAN CORPUSCULAR VOLUME 91 fl (80-97); RED CELL DISTRIBUTION WIDTH 18.7 % (11.5-14.0); WHITE BLOOD COUNT 3.4 10^3/uL (4.0-10.5)
[2017-09-12 19:42] LABS: ANION GAP 7 (5-19); BLOOD UREA NITROGEN 8 mg/dL (7-20); CALCIUM 8.4 mg/dL (8.4-10.2); CARBON DIOXIDE 28 mmol/L (22-30); CHLORIDE 97 mmol/L (98-107); GLUCOSE 122 mg/dL (75-110); POTASSIUM 3.3 mmol/L (3.6-5.0); SODIUM 132.3 mmol/L (137-145)
[2017-09-12 19:45] LABS: PLATELET COUNT 49 10^3/uL (150-450)
--- NOTE | 2017-09-12 21:43 | PDOC PROGRESS REPORT ---
Subjective Progress Note for:: 09/12/17 Subjective:: No bloody bowel movements or vomiting since yesterday morning. Reason For Visit: UPPER GIB, COAGULOAPATHY, THROMBOCYTOPENIA, Physical Exam Vital Signs: Temp Pulse Resp BP Pulse Ox 99.1 F 81 6 L 127/77 H 92 09/12/17 16:00 09/12/17 20:59 09/12/17 18:00 09/12/17 16:00 09/12/17 18:00 Intake & Output 09/11/17 09/12/17 09/13/17 06:59 06:59 06:59 Intake Total 1153 4221 3033 Output Total 500 6750 1050 Balance 579 -6797 1985 Weight 59.3 kg 58.4 kg General appearance: PRESENT: no acute distress Eye exam: PRESENT: EOMI Respiratory exam: PRESENT: clear to auscultation stacie, unlabored Cardiovascular exam: PRESENT: +S1, +S2 GI/Abdominal exam: PRESENT: normal bowel sounds, soft Neurological exam: PRESENT: alert, awake, oriented to person, oriented to place , oriented to time, oriented to situation, CN II-XII grossly intact Results Laboratory Results: 09/12/17 19:10 09/12/17 19:10 09/12/17 09/12/17 09/12/17 03:57 03:57 08:48 WBC 2.9 L RBC 3.37 L Hgb 10.9 L Hct 30.9 L MCV 92 MCH 32.2 MCHC 35.1 RDW 18.5 H Plt Count 54 L Seg Neutrophils % Not Reportable Lymphocytes % Not Reportable Monocytes % Not Reportable Eosinophils % Not Reportable Basophils % Not Reportable Absolute Neutrophils Not Reportable Absolute Lymphocytes Not Reportable Absolute Monocytes Not Reportable Absolute Eosinophils Not Reportable Absolute Basophils Not Reportable Sodium 136.6 L Potassium 3.2 L Chloride 101 Carbon Dioxide 29 Anion Gap 7 BUN 8 Creatinine 0.50 L Est GFR ( Amer) > 60 Est GFR (Non-Af Amer) > 60 Glucose 110 Calcium 8.7 Magnesium 2.1 Total Bilirubin 13.4 H D AST 107 H ALT 54 H Alkaline Phosphatase 85 Total Protein 7.5 Albumin 3.7 09/12/17 09/12/17 19:10 19:10 WBC 3.4 L RBC 3.30 L Hgb 10.7 L Hct 29.9 L MCV 91 MCH 32.5 MCHC 35.9 RDW 18.7 H Plt Count 49 L Seg Neutrophils % Lymphocytes % Monocytes % Eosinophils % Basophils % Absolute Neutrophils Absolute Lymphocytes Absolute Monocytes Absolute Eosinophils Absolute Basophils Sodium 132.3 L Potassium 3.3 L Chloride 97 L Carbon Dioxide 28 Anion Gap 7 BUN 8 Creatinine 0.51 L Est GFR ( Amer) > 60 Est GFR (Non-Af Amer) > 60 Glucose 122 H Calcium 8.4 Magnesium Total Bilirubin AST ALT Alkaline Phosphatase Total Protein Albumin Assessment & Plan - Diagnosis (1) Upper gastrointestinal bleed Is this a current diagnosis for this admission?: Yes Plan: No more bleeding at this time. May be discharged home from surgical standpoint - needs to follow with a GI ( possibly at a tertiary center) for secondary prohylaxis for variceal bleed. (2) Coagulopathy Is this a current diagnosis for this admission?: Yes (3) Gastric varices Is this a current diagnosis for this admission?: Yes (4) Thrombocytopenia Is this a current diagnosis for this admission?: Yes - Time Time Spent with patient: 15-24 minutes
[2017-09-12] MEDS: LORAZEPAM INJ 2 MG/1 ML VIAL IV PRN (22:16)
[2017-09-13] MEDS: CEFAZOLIN 1 GM/D5W RTU 1 GM/50 ML RTUPB IV SCH ×2 (02:20→05:55)
[2017-09-13 04:00] LABS: HEMATOCRIT 31.7 % (36.0-47.0); HEMOGLOBIN 11.3 g/dL (12.0-15.5); MEAN CORPUSCULAR HEMOGLOBIN 32.3 pg (27.0-33.4); MEAN CORPUSCULAR HGB CONC 35.5 g/dL (32.0-36.0); MEAN CORPUSCULAR VOLUME 91 fl (80-97); RED BLOOD COUNT 3.48 10^6/uL (3.72-5.28); RED CELL DISTRIBUTION WIDTH 18.6 % (11.5-14.0); WHITE BLOOD COUNT 4.1 10^3/uL (4.0-10.5)
[2017-09-13 04:11] LABS: ALANINE AMINOTRANSFERASE 45 U/L (9-52); ALBUMIN 3.4 g/dL (3.5-5.0); ALKALINE PHOSPHATASE 73 U/L (38-126); ANION GAP 5 (5-19); ASPARTATE AMINO TRANSFERASE 70 U/L (14-36); BILIRUBIN,DIRECT 3.1 mg/dL (0.0-0.4); BILIRUBIN,TOTAL 13.8 mg/dL (0.2-1.3); BLOOD UREA NITROGEN 8 mg/dL (7-20); CALCIUM 8.5 mg/dL (8.4-10.2); CARBON DIOXIDE 28 mmol/L (22-30); CHLORIDE 99 mmol/L (98-107); GLUCOSE 98 mg/dL (75-110); POTASSIUM 3.3 mmol/L (3.6-5.0); SODIUM 132.4 mmol/L (137-145); TOTAL PROTEIN 7.2 g/dL (6.3-8.2)
[2017-09-13 04:14] LABS: INTERNATIONAL RATION (INR) 1.61; PROTHROMBIN TIME 20.1 SEC (11.4-15.4)
[2017-09-13 04:27] LABS: PLATELET COUNT 50 10^3/uL (150-450)
[2017-09-13] MEDS: PROPRANOLOL HCL 20 MG TABLET PO SCH ×2 (09:01→22:04)
[2017-09-13] MEDS: FUROSEMIDE 20 MG TABLET PO SCH (09:05)
[2017-09-13] MEDS: THIAMINE HCL 100 MG TABLET PO SCH (09:05)
[2017-09-13] MEDS: PANTOPRAZOLE SODIUM 40 MG VIAL IV SCH (09:05)
[2017-09-13] MEDS ORDERED: POTASSIUM CHLORIDE 10 MEQ TABLET.SA PO ONE (09:17)
[2017-09-13] MEDS: LORAZEPAM INJ 2 MG/1 ML VIAL IV PRN (09:18)
[2017-09-13] MEDS ORDERED: CIPROFLOXACIN HCL PO SCH (10:00)
--- NOTE | 2017-09-13 15:14 | PDOC PROGRESS REPORT ---
Subjective Progress Note for:: 09/13/17 Subjective:: Continues to do better. Denies additional bleeding. Tolerating PO diet and try to eat more. Denies abdominal pain, NV, fevers, chills, CP. Wants to go home soon. Reason For Visit: UPPER GIB, COAGULOAPATHY, THROMBOCYTOPENIA, Physical Exam Vital Signs: Temp Pulse Resp BP Pulse Ox 99.9 F 86 12 129/72 H 89 L 09/13/17 12:00 09/13/17 12:00 09/13/17 12:00 09/13/17 12:40 09/13/17 12:40 Intake & Output 09/12/17 09/13/17 09/14/17 06:59 06:59 06:59 Intake Total 4221 3194 Output Total 6750 1900 500 Balance -2529 1294 -500 Weight 58.4 kg General appearance: PRESENT: no acute distress, thin Head exam: PRESENT: atraumatic, normocephalic Mouth exam: PRESENT: moist Respiratory exam: PRESENT: unlabored Cardiovascular exam: PRESENT: RRR GI/Abdominal exam: PRESENT: soft. ABSENT: tenderness Neurological exam: PRESENT: alert, awake, CN II-XII grossly intact Results Laboratory Results: 09/13/17 03:49 09/13/17 03:49 09/12/17 09/12/17 09/13/17 19:10 19:10 03:49 WBC 3.4 L 4.1 RBC 3.30 L 3.48 L Hgb 10.7 L 11.3 L Hct 29.9 L 31.7 L MCV 91 91 MCH 32.5 32.3 MCHC 35.9 35.5 RDW 18.7 H 18.6 H Plt Count 49 L 50 L Sodium 132.3 L Potassium 3.3 L Chloride 97 L Carbon Dioxide 28 Anion Gap 7 BUN 8 Creatinine 0.51 L Est GFR ( Amer) > 60 Est GFR (Non-Af Amer) > 60 Glucose 122 H Calcium 8.4 Total Bilirubin AST ALT Alkaline Phosphatase Total Protein Albumin 09/13/17 03:49 WBC RBC Hgb Hct MCV MCH MCHC RDW Plt Count Sodium 132.4 L Potassium 3.3 L Chloride 99 Carbon Dioxide 28 Anion Gap 5 BUN 8 Creatinine 0.52 Est GFR ( Amer) > 60 Est GFR (Non-Af Amer) > 60 Glucose 98 Calcium 8.5 Total Bilirubin 13.8 H AST 70 H ALT 45 Alkaline Phosphatase 73 Total Protein 7.2 Albumin 3.4 L Assessment & Plan - Diagnosis (1) Upper gastrointestinal bleed Is this a current diagnosis for this admission?: Yes Plan: Likely a variceal bleed in setting of history of EtoH use. - No additional episodes of hematemesis over last 48 hours. H&H stable ~11 - Will decrease H&H from q12 hours to daily - Previously on Protonix GTT and Octreotide GTT which was d/c-ed on 09/12. Will discontinue IV PPI BID and start PO Protonix on - Unclear if patient has history of esophageal varices. Will need EGD. Continue propanolol for now - Given improvement in status, will NOT need transfer to tertiary center - D/c to home on 09/14 (2) Alcohol dependence Qualifiers: Substance use status: in withdrawal Complication of substance-induced condition: with unspecified complication Qualified Code(s): F10.239 - Alcohol dependence with withdrawal, unspecified Is this a current diagnosis for this admission?: Yes Plan: Known history of previous and current EtOH use - Not currently encephalopathic, d/c-ed Rifaximin on 09/12, low threshold to re- start - Monitor for alcohol withdrawal, has Ativan ordered PRN - Continue Thiamine PO (3) Coagulopathy Is this a current diagnosis for this admission?: Yes Plan: Improving. INR 1.6 which is elevated but expected. Platelets 50K, stable (4) Thrombocytopenia Is this a current diagnosis for this admission?: Yes Plan: Secondary to EtOH use - Platelet count 540 today, stable - Continue to monitor (5) Hypokalemia Is this a current diagnosis for this admission?: Yes Plan: K 3.3 today, repleted with PO KCl 40meq (6) Hypomagnesemia Is this a current diagnosis for this admission?: Yes (7) Hyperbilirubinemia Is this a current diagnosis for this admission?: Yes Plan: Due to recent bleed, continue to monitor. - Time Time Spent with patient: 25-34 minutes Anticipated discharge: Home Within: within 24 hours
[2017-09-14 05:02] LABS: HEMATOCRIT 32.1 % (36.0-47.0); HEMOGLOBIN 11.3 g/dL (12.0-15.5); MEAN CORPUSCULAR HEMOGLOBIN 32.4 pg (27.0-33.4); MEAN CORPUSCULAR HGB CONC 35.3 g/dL (32.0-36.0); MEAN CORPUSCULAR VOLUME 92 fl (80-97); RED BLOOD COUNT 3.49 10^6/uL (3.72-5.28); RED CELL DISTRIBUTION WIDTH 18.2 % (11.5-14.0)
[2017-09-14 05:05] LABS: PLATELET COUNT 47 10^3/uL (150-450); WHITE BLOOD COUNT 2.9 10^3/uL (4.0-10.5)
[2017-09-14 05:13] LABS: INTERNATIONAL RATION (INR) 1.73; PROTHROMBIN TIME 21.3 SEC (11.4-15.4)
[2017-09-14 05:18] LABS: ALANINE AMINOTRANSFERASE 35 U/L (9-52); ALBUMIN 3.4 g/dL (3.5-5.0); ALKALINE PHOSPHATASE 107 U/L (38-126); ANION GAP 10 (5-19); ASPARTATE AMINO TRANSFERASE 47 U/L (14-36); BILIRUBIN,DIRECT 2.1 mg/dL (0.0-0.4); BILIRUBIN,TOTAL 9.7 mg/dL (0.2-1.3); BLOOD UREA NITROGEN 6 mg/dL (7-20); CALCIUM 8.5 mg/dL (8.4-10.2); CARBON DIOXIDE 28 mmol/L (22-30); CHLORIDE 99 mmol/L (98-107); GLUCOSE 90 mg/dL (75-110); POTASSIUM 3.1 mmol/L (3.6-5.0); SODIUM 136.9 mmol/L (137-145); TOTAL PROTEIN 7.2 g/dL (6.3-8.2)
[2017-09-14] MEDS ORDERED: LANSOPRAZOLE 30 MG TAB.RAP.DR PO SCH (06:00)
[2017-09-14] MEDS: POTASSIUM CHLORIDE 10 MEQ TABLET.SA PO SCH ×2 (08:27→12:09)
[2017-09-14] MEDS: FUROSEMIDE 20 MG TABLET PO SCH (10:25)
[2017-09-14] MEDS: PROPRANOLOL HCL 20 MG TABLET PO SCH (10:25)
[2017-09-14] MEDS: THIAMINE HCL 100 MG TABLET PO SCH (10:25)
[2017-09-14 11:29] VITALS: BP 126/84
--- NOTE | 2017-09-14 15:19 | PDOC DISCHARGE SUMMARY ---
General - Admit/Disc Date/PCP Admission Date/Primary Care Provider: 09/11/17 01:19 Discharge Date: 09/14/17 - Discharge Diagnosis (1) Portal hypertensive gastropathy Is this a current diagnosis for this admission?: Yes (2) Anemia associated with acute blood loss Is this a current diagnosis for this admission?: Yes (3) Esophageal varices in alcoholic cirrhosis Is this a current diagnosis for this admission?: Yes (4) Alcohol dependence Is this a current diagnosis for this admission?: Yes (5) Alcoholic cirrhosis of liver Is this a current diagnosis for this admission?: Yes (6) Upper gastrointestinal bleed Is this a current diagnosis for this admission?: Yes (7) Hypokalemia Is this a current diagnosis for this admission?: Yes (8) Hypomagnesemia Is this a current diagnosis for this admission?: Yes (9) Thrombocytopenia Is this a current diagnosis for this admission?: Yes - Additional Information Resuscitation Status: Full Code Discharge Diet: As Tolerated Discharge Activity: Activity As Tolerated Prescriptions: Pantoprazole Sodium [Protonix] 40 mg PO BID #60 suspdr.pkt Propranolol HCl [Inderal 20 mg Tablet] 20 mg PO Q12 #60 tablet Home Medications: Ciprofloxacin HCl [Cipro 500 mg Tablet] 500 mg PO DAILY 09/11/17 Folic Acid [Folvite 1 mg Tablet] 1 mg PO DAILY 09/11/17 Furosemide [Lasix 20 mg Tablet] 60 mg PO DAILY 09/11/17 Rifaximin [Xifaxan 550 mg Tablet] 550 mg PO BID 09/11/17 Spironolactone [Aldactone] 150 mg PO DAILY 09/11/17 Thiamine Mononitrate (Vit B1) [Vitamin B-1] 100 mg PO DAILY 09/11/17 Pantoprazole Sodium [Protonix] 40 mg PO BID #60 suspdr.pkt 09/14/17 Propranolol HCl [Inderal 20 mg Tablet] 20 mg PO Q12 #60 tablet 09/14/17 History of Present Illness History of Present Illness: KHUSHI ACHARYA is a 32 year old female with a past medical history of alcoholic hepatic cirrhosis, recurrent spontaneous bacterial peritonitis, coagulopathy, thrombocytopenia, erosive esophagitis, gastric varices and unclear duration of sobriety. Patient presented dramatically jaundiced after 2 hours of nausea with vomiting 10 of bright red blood followed by blood clots. In the emergency room she remained nauseous and vomited approximately 800-900 mL of bright red blood. She was started on IV fluids, Protonix and Sandostatin. ER physician attempted to transfer to tertiary care at [place], [facility] and [facility] [place] and was unsuccessful secondary to bed availability. She was referred to the hospitalist for admission to ICU. Patient currently denied pain, previous episode, new medications. Admited noncompliance with medications and last alcohol use was 1 month ago. Blood bank was contacted for emergent FFP, platelets and packed red blood cells. Consults to surgery and gastroenterology were initiated for IV access and endoscopy Hospital Course Hospital Course: Patient was admitted to intensive care unit under the hospitalist service and had been placed on Sandostatin and Protonix drip. She received a total of 6 units of packed red blood cell, 4 units of fresh frozen plasma and 4 units of plateletpheresis with further improvement of coagulopathy and anemia. Patient underwent EGDon 09/11 which demonstrated portal gastropathy and small esophageal varix. The impression was that patient upper gastrointestinal bleeding related to portal gastropathy. Patient has been discharged on Protonix 40 mg 1 p.o. twice daily and propanolol. She has been advised as to follow-up with her PCP as well as [place] gastroenterology service. Patient has been encouraged to quit drinking alcohol. Interestingly she gave account to hospitalist on admission that she had had alcohol intake one month prior to admission however to the author, she stated that her last alcohol intake was of February of last year. She has been also encouraged as to avoid nonsteroidals. Since patient has remained stable and had achieved maximum benefit of hospitalization stay prompted to discharge under stable condition Physical Exam Vital Signs: Temp Pulse Resp BP Pulse Ox 99.2 F 67 16 142/75 H 97 09/14/17 08:37 09/14/17 08:37 09/14/17 08:37 09/14/17 08:37 09/14/17 08:37 Intake & Output 09/13/17 09/14/17 09/15/17 06:59 06:59 06:59 Intake Total 3194 1050 Output Total 1900 500 Balance 1294 550 Weight 58 kg General appearance: PRESENT: no acute distress, cooperative, thin Head exam: PRESENT: atraumatic, normocephalic Eye exam: PRESENT: EOMI, PERRLA Ear exam: PRESENT: normal external ear exam Mouth exam: PRESENT: moist Neck exam: PRESENT: full ROM. ABSENT: JVD, lymphadenopathy, tenderness Respiratory exam: PRESENT: clear to auscultation stacie Cardiovascular exam: PRESENT: RRR. ABSENT: diastolic murmur, systolic murmur Vascular exam: PRESENT: normal capillary refill GI/Abdominal exam: PRESENT: normal bowel sounds, soft. ABSENT: tenderness Extremities exam: PRESENT: clubbing, full ROM. ABSENT: pedal edema Musculoskeletal exam: PRESENT: ambulatory Neurological exam: PRESENT: alert, awake, oriented to person, oriented to place , oriented to time, oriented to situation, CN II-XII grossly intact Psychiatric exam: PRESENT: appropriate affect, normal mood Skin exam: PRESENT: intact, jaundice Results Laboratory Results: 09/14/17 04:00 09/14/17 04:00 09/14/17 09/14/17 04:00 04:00 WBC 2.9 L D RBC 3.49 L Hgb 11.3 L Hct 32.1 L MCV 92 MCH 32.4 MCHC 35.3 RDW 18.2 H Plt Count 47 L Sodium 136.9 L Potassium 3.1 L Chloride 99 Carbon Dioxide 28 Anion Gap 10 BUN 6 L Creatinine 0.48 L Est GFR ( Amer) > 60 Est GFR (Non-Af Amer) > 60 Glucose 90 Calcium 8.5 Total Bilirubin 9.7 H AST 47 H ALT 35 Alkaline Phosphatase 107 Total Protein 7.2 Albumin 3.4 L Plan Discharge Plan: Discharge home Time Spent: Less than 30 Minutes
== END 2017-09-14 12:27 | disposition home or self-care (01) | DRG 432 ==
LOC: ER 22:49 → EH 09-11 01:19 → ICU 09-11 03:45 → 3N 09-13 14:31
PROVIDERS: ADMIT Internal Medicine; ATTEND Internal Medicine
PROC: 30233N1 Transfusion of Nonautologous Red Blood Cells into Peripheral Vein, Percutaneous Approach (ICD-10-PCS; 2017-09-11)
PROC: 30233R1 Transfusion of Nonautologous Platelets into Peripheral Vein, Percutaneous Approach (ICD-10-PCS; 2017-09-11)
PROC: 30233L1 Transfusion of Nonautologous Fresh Plasma into Peripheral Vein, Percutaneous Approach (ICD-10-PCS; principal; 2017-09-11 05:30)
DX: K70.31 Alcoholic cirrhosis of liver with ascites (principal); I85.11 Secondary esophageal varices with bleeding; F10.29 Alcohol dependence with unspecified alcohol-induced disorder; K76.6 Portal hypertension; D62 Acute posthemorrhagic anemia; F10.239 Alcohol dependence with withdrawal, unspecified; Y90.5 Blood alcohol level of 100-119 mg/100 ml; K31.89 Other diseases of stomach and duodenum; E87.6 Hypokalemia; E83.42 Hypomagnesemia; K71.7 Toxic liver disease with fibrosis and cirrhosis of liver; T39.1X5A Adverse effect of 4-Aminophenol derivatives, initial encounter; K21.9 Gastro-esophageal reflux disease without esophagitis; F17.210 Nicotine dependence, cigarettes, uncomplicated; D69.59 Other secondary thrombocytopenia; F10.229 Alcohol dependence with intoxication, unspecified; Z88.7 Allergy status to serum and vaccine; Z87.11 Personal history of peptic ulcer disease; Z91.14 Patient's other noncompliance with medication regimen; Z80.9 Family history of malignant neoplasm, unspecified; Z79.899 Other long term (current) drug therapy
CPT/HCPCS: 36415; 36430; 43235; 80048; 80053; 80307; 81001; 81025; 82607; 82728; 82746; 83540; 83550; 83735; 85025; 85027; 85045; 85610; 85730; 86850; 86900; 86901; 86920; 99291; A9270-GY; J0171; J0690; J1610; J2060; J2250; J2310; J2354; J2405; J2765; J3010; J3411; J3430; J3475; J3480; J3490; J7030; J7040; J7050; P9016; P9017; P9035; S0119; S0164

== ENCOUNTER 2017-10-17 12:30 | Emergency (ER) | payer BC ==
[2017-10-17] MEDS ORDERED: PANTOPRAZOLE SODIUM 40 MG VIAL IV ONE ×2 (12:50→14:34)
[2017-10-17] MEDS ORDERED: NORMAL SALINE 1000 ML 1,000 ML IV ONE ×2 (12:50)
[2017-10-17] MEDS ORDERED: CEFTRIAXONE 1 GM/D5W RTU 1 GM/50 ML RTUPB IV ONE (12:51)
[2017-10-17] MEDS ORDERED: OCTREOTIDE ACETATE INJ/PF 100 MCG/1 ML SDV IV ONE (12:52)
[2017-10-17] MEDS ORDERED: NORMAL SALINE 500 ML with OCTREOTIDE ACETATE 500 MCG IV PRN ×2 (12:52)
[2017-10-17 13:16] LABS: PROTHROMBIN TIME 24.7 SEC (11.4-15.4)
[2017-10-17 13:17] LABS: PARTIAL THROMBOPLASTIN TIME 50.7 SEC (23.5-35.8)
[2017-10-17] MEDS ORDERED: ONDANSETRON HCL INJ/PF 4 MG/2 ML SDV IV ONE (13:24)
[2017-10-17] MEDS ORDERED: NORMAL SALINE 250 ML IV PRN ×6 (13:24→14:44)
[2017-10-17 13:29] LABS: ALANINE AMINOTRANSFERASE 58 U/L (9-52); ALBUMIN 3.9 g/dL (3.5-5.0); ALCOHOL 75 mg/dL (NONE DETECTED); ALKALINE PHOSPHATASE 107 U/L (38-126); ANION GAP 15 (5-19); ASPARTATE AMINO TRANSFERASE 134 U/L (14-36); BILIRUBIN,DIRECT 3.1 mg/dL (0.0-0.4); BLOOD UREA NITROGEN 19 mg/dL (7-20); CALCIUM 8.8 mg/dL (8.4-10.2); CARBON DIOXIDE 24 mmol/L (22-30); CHLORIDE 100 mmol/L (98-107); GLUCOSE 138 mg/dL (75-110); POTASSIUM 4.4 mmol/L (3.6-5.0); SODIUM 139.3 mmol/L (137-145); TOTAL PROTEIN 8.1 g/dL (6.3-8.2)
[2017-10-17] MEDS ORDERED: CEFTRIAXONE INJ 1000 MG VIAL IV ONE (13:30)
--- NOTE | 2017-10-17 13:35 | ER Document Report ---
ED General - General Chief Complaint: Vomiting Stated Complaint: VOMITING Time Seen by Provider: 10/17/17 12:49 TRAVEL OUTSIDE OF THE [place] IN LAST 30 DAYS: No COUNTRY TRAVELED TO/FROM: [place] - HPI Patient complains to provider of: Vomiting blood Notes: Patient coming in with history of liver cirrhosis due to alcohol use patient also has history of esophageal varices with bleeding was recently admitted to the hospital in September for his bleeding at that time to have GI patient did undergo procedure for banding. Patient upon arrival here is vomiting bright red blood according to mother bedside vomited approximately 8 times while at home. Patient denies any recent alcohol use. Patient is jaundice upon triage to have a blood pressure 70 sbp. Patient otherwise is nonverbal by choice with answering most questions most of the HPI is obtained by mother. States patient does see Dr. Marium OREILLY and has been also been referred to [facility]. Otherwise for his last hospitalization much of the information was to be obtained from the computer as of the patient mother is unaware of what exactly was done. - Related Data Allergies/Adverse Reactions: Pertussis Vaccines Allergy (Verified 10/17/17 12:32) Past Medical History - Social History Smoking Status: Unknown if Ever Smoked Family History: Reviewed & Not Pertinent, Malignancy - Aunt, uncle, grandmother , both grandfathers. - Past Medical History Cardiac Medical History: Reports: Hx Hypertension - Denies: Hx Coronary Artery Disease, Hx Heart Attack Pulmonary Medical History: Denies: Hx Asthma, Hx Bronchitis, Hx COPD, Hx Pneumonia Neurological Medical History: Denies: Hx Cerebrovascular Accident, Hx Seizures Renal/ Medical History: Denies: Hx Peritoneal Dialysis GI Medical History: Reports: Hx Cirrhosis - Alcohol and Tylenol induced, Hx Gastroesophageal Reflux Disease, Hx Ulcer Musculoskeltal Medical History: Denies Hx Arthritis Past Surgical History: Denies: Hx Hysterectomy - Immunizations Hx Diphtheria, Pertussis, Tetanus Vaccination: No Review of Systems - Review of Systems Constitutional: No symptoms reported EENT: No symptoms reported Cardiovascular: No symptoms reported Respiratory: No symptoms reported Gastrointestinal: Other - vomited blood Genitourinary: No symptoms reported Female Genitourinary: No symptoms reported Musculoskeletal: No symptoms reported Skin: No symptoms reported Hematologic/Lymphatic: No symptoms reported Neurological/Psychological: No symptoms reported -: Yes All other systems reviewed and negative Physical Exam - Vital signs Vitals: Resp BP Pulse Ox 15 101/69 99 10/17/17 12:56 10/17/17 12:56 10/17/17 12:56 Interpretation: Normal - General General appearance: Appears well, Alert - HEENT Head: Normocephalic, Atraumatic Eyes: Normal Conjunctiva: Icteric Pupils: PERRL - Respiratory Respiratory status: No respiratory distress Chest status: Nontender Breath sounds: Normal Chest palpation: Normal - Cardiovascular Rhythm: Regular Heart sounds: Normal auscultation Murmur: No - Abdominal Inspection: Normal Distension: No distension Bowel sounds: Normal Tenderness: Nontender Organomegaly: No organomegaly - Back Back: Normal, Nontender - Extremities General upper extremity: Normal inspection, Nontender, Normal color, Normal ROM , Normal temperature General lower extremity: Normal inspection, Nontender, Normal color, Normal ROM , Normal temperature, Normal weight bearing. No: Candy's sign - Neurological Neuro grossly intact: Yes Cognition: Normal Orientation: AAOx4 Jed Coma Scale Eye Opening: Spontaneous Jed Coma Scale Verbal: Oriented Steptoe Coma Scale Motor: Obeys Commands Jed Coma Scale Total: 15 Speech: Normal Motor strength normal: LUE, RUE, LLE, RLE Sensory: Normal - Psychological Associated symptoms: Normal affect, Normal mood - Skin Skin Temperature: Warm Skin Moisture: Dry Skin Color: Jaundiced Course - Re-evaluation Re-evalutation: 10/17/17 13:33 Patient upon initial interview was not talking most of her information was given by the mother. Patient was not talking due to choice. Therefore HPI was made difficult to reviewed the patient's last visit that showed a history of esophageal varices with banding patient apparently follows up with gastroenterology at [place]. However continues to use alcohol therefore is not a candidate for liver transplant. upon reviewing this information to discuss with patient because of her lack of GI be able to take care and more likely would have to initiate transfer. At this time we would not requested the patient where she like to be transferred patient states that she did not want to go to [place] however stay locally close and was requested that we ask her mother. Mother agrees with transfer to [facility]. I will contact them at this time. We will go ahead and start the patient on Protonix drip did give a dose of Rocephin also will give a dose of somatostatin with somatostatin drip. 10/17/17 14:07 Discussed case with resident at [facility] patient was accepted sitting physician is Dr. Londono. 10/17/17 15:51 Patient was given FFP and packed red blood cells. At this time patient's blood pressure is 113/62 systolic. Patient is also have some intermittent nausea with heart rates ranging between 90 and 120. Patient has been given Zofran and Reglan. Transport is currently here. Otherwise patient right now is improved since arrival and ready for transport to tertiary care facility - Vital Signs Vital signs: Temp Pulse Resp BP Pulse Ox 99.1 F 16 113/62 99 10/17/17 15:16 10/17/17 16:03 10/17/17 16:03 10/17/17 16:03 - Laboratory Result Diagrams: 10/17/17 13:08 10/17/17 12:52 Laboratory results interpreted by me: 10/17/17 10/17/17 10/17/17 12:52 12:52 13:08 WBC RBC Hgb Hct MCV MCH RDW Plt Count Seg Neuts % (Manual) Abs Lymphs (Manual) PT 24.7 H APTT 50.7 H Glucose 138 H Lactic Acid 3.7 H Total Bilirubin 12.0 H Direct Bilirubin 3.1 H AST 134 H ALT 58 H Urine Protein Urine Ketones Urine Blood Urine Bilirubin Urine Urobilinogen Salicylates < 1.0 L Acetaminophen < 10 L Crossmatch 10/17/17 10/17/17 10/17/17 13:08 13:20 15:29 WBC 2.2 L RBC 1.94 L Hgb 7.3 L Hct 20.9 L MCV 108 H MCH 37.5 H RDW 16.0 H Plt Count 43 L Seg Neuts % (Manual) 79 H Abs Lymphs (Manual) 0.3 L PT APTT Glucose Lactic Acid Total Bilirubin Direct Bilirubin AST ALT Urine Protein 30 H Urine Ketones TRACE H Urine Blood SMALL H Urine Bilirubin SMALL H Urine Urobilinogen 4.0 H Salicylates Acetaminophen Crossmatch See Detail Critical Care Note - Critical Care Note Total time excluding time spent on procedures (mins): 60 Comments: Multiple evaluation for patient with upper GI bleed active vomiting. Discharge - Discharge Clinical Impression: Upper gastrointestinal bleed, Coagulopathy, Alcohol dependence, Hyperbilirubinemia, Esophageal varices in alcoholic cirrhosis, Anemia associated with acute blood loss Condition: Fair Disposition: [facility]
[2017-10-17 13:48] LABS: VENOUS BLOOD BASE EXCESS 1.2 mmol/L; VENOUS BLOOD HCO3 26.9 mmol/L (20-32); VENOUS BLOOD PCO2 47.6 mmHg (35-63); VENOUS BLOOD PH 7.37 (7.30-7.42)
[2017-10-17 13:52] LABS: ACETAMINOPHEN < 10 ug/mL (10-30); SALICYLATE < 1.0 mg/dL (2.0-20.0)
[2017-10-17 14:00] LABS: HEMATOCRIT 20.9 % (36.0-47.0); MEAN CORPUSCULAR HEMOGLOBIN 37.5 pg (27.0-33.4); MEAN CORPUSCULAR HGB CONC 34.9 g/dL (32.0-36.0); MEAN CORPUSCULAR VOLUME 108 fl (80-97); RED BLOOD COUNT 1.94 10^6/uL (3.72-5.28); WHITE BLOOD COUNT 2.2 10^3/uL (4.0-10.5)
[2017-10-17 14:04] LABS: ABSOLUTE LYMPHOCYTES# (MANUAL) 0.3 10^3/uL (0.5-4.7); ABSOLUTE MONOCYTES # (MANUAL) 0.1 10^3/uL (0.1-1.4); ABSOLUTE NEUTROPHILS# (MANUAL) 1.7 10^3/uL (1.7-8.2); BASOPHILS % (MANUAL) 2 % (0-2); EOSINOPHILS % (MANUAL) 0 % (0-6); LYMPHOCYTES % (MANUAL) 14 % (13-45); MONOCYTES % (MANUAL) 5 % (3-13); SEGMENTED NEUTROPHILS % (MAN) 79 % (42-78); TOTAL CELLS COUNTED 100
[2017-10-17 14:05] LABS: ANISOCYTOSIS 1+; BURR CELLS SLIGHT; HELMET CELLS SLIGHT; OVALOCYTES SLIGHT; PLATELET COMMENT DECREASED; PLATELET GIANT PRESENT; POIKILOCYTOSIS 2+; TEAR DROP CELLS SLIGHT
[2017-10-17 14:07] LABS: PLATELET COUNT 43 10^3/uL (150-450)
[2017-10-17 14:09] LABS: HEMOGLOBIN 7.3 g/dL (12.0-15.5)
[2017-10-17] MEDS ORDERED: PANTOPRAZOLE SODIUM 40 MG VIAL IV PRN (14:56)
[2017-10-17 15:40] VITALS: BP 113/62
[2017-10-17 15:53] LABS: AMORPHOUS SEDIMENT,URINE TRACE /HPF; APPEARANCE,URINE CLOUDY; BILIRUBIN,URINE SMALL (NEGATIVE); COLOR,URINE AMBER; GLUCOSE, URINE NEGATIVE (NEGATIVE); KETONES,URINE TRACE mg/dL (NEGATIVE); LEUKOCYTE ESTERASE,URINE NEGATIVE (NEGATIVE); NITRITE,URINE NEGATIVE (NEGATIVE); PROTEIN,URINE 30 mg/dL (NEGATIVE); URINE SPECIFIC GRAVITY 1.026
[2017-10-17 15:59] LABS: URINE AMPHETAMINES SCREEN NEGATIVE; URINE BARBITURATES SCREEN NEGATIVE; URINE BENZODIAZEPINES SCREEN NEGATIVE; URINE COCAINE SCREEN NEGATIVE; URINE MARIJUANA (THC) SCREEN NEGATIVE; URINE METHADONE SCREEN NEGATIVE; URINE PHENCYCLIDINE SCREEN NEGATIVE
--- NOTE | 2017-10-18 10:53 | EKG REPORT ---
SEVERITY:- ABNORMAL ECG - SINUS TACHYCARDIA WITH IRREGULAR RATE 62-126 FIRST DEGREE AV BLOCK JOSE, CONSIDER BIATRIAL ABNORMALITIES : Confirmed by: Miah Lewis 18-Oct-2017 10:51:44
== END 2017-10-17 16:47 | disposition short-term general hospital (02) ==
LOC: ER 12:30
DX: K92.2 Gastrointestinal hemorrhage, unspecified (principal); D62 Acute posthemorrhagic anemia; K70.30 Alcoholic cirrhosis of liver without ascites; I85.10 Secondary esophageal varices without bleeding; F10.20 Alcohol dependence, uncomplicated; Z98.890 Other specified postprocedural states; Z88.7 Allergy status to serum and vaccine
CPT/HCPCS: 93005; 96376; 99285; 51702; 96375; 96365; 96366; 96368; 86900; 86901; 36415; 87040; 87086; 36430; 86850; 80307 ×4; 82140; 84702; 83690; 85025; 85610; 85730; 80053; 81001; 86920; 82803; 83605; 93010; P9017; P9016; J2354; S0164; J0696; J2405; J7030

== ENCOUNTER 2017-11-24 22:48 | Emergency (ER) | payer SELFPAY ==
[2017-11-25 00:26] LABS: HEMATOCRIT 26.9 % (36.0-47.0); HEMOGLOBIN 9.1 g/dL (12.0-15.5); MEAN CORPUSCULAR HEMOGLOBIN 32.5 pg (27.0-33.4); MEAN CORPUSCULAR HGB CONC 33.7 g/dL (32.0-36.0); MEAN CORPUSCULAR VOLUME 97 fl (80-97); RED BLOOD COUNT 2.78 10^6/uL (3.72-5.28); WHITE BLOOD COUNT 2.1 10^3/uL (4.0-10.5)
[2017-11-25 00:28] LABS: INTERNATIONAL RATION (INR) 1.71; PROTHROMBIN TIME 20.9 SEC (11.4-15.4)
[2017-11-25 00:33] LABS: PLATELET COUNT 79 10^3/uL (150-450)
[2017-11-25 00:35] LABS: ALANINE AMINOTRANSFERASE 38 U/L (9-52); ALBUMIN 3.1 g/dL (3.5-5.0); ALKALINE PHOSPHATASE 129 U/L (38-126); ANION GAP 10 (5-19); ASPARTATE AMINO TRANSFERASE 60 U/L (14-36); BILIRUBIN,DIRECT 1.3 mg/dL (0.0-0.4); BILIRUBIN,TOTAL 6.4 mg/dL (0.2-1.3); BLOOD UREA NITROGEN 7 mg/dL (7-20); CALCIUM 8.5 mg/dL (8.4-10.2); CARBON DIOXIDE 23 mmol/L (22-30); CHLORIDE 103 mmol/L (98-107); GLUCOSE 123 mg/dL (75-110); POTASSIUM 3.8 mmol/L (3.6-5.0); SODIUM 136.1 mmol/L (137-145); TOTAL PROTEIN 6.6 g/dL (6.3-8.2)
[2017-11-25 00:36] LABS: ALCOHOL < 10 mg/dL (NONE DETECTED)
[2017-11-25] MEDS ORDERED: ONDANSETRON HCL INJ/PF 4 MG/2 ML SDV IV ONE (00:39)
[2017-11-25] MEDS ORDERED: NORMAL SALINE 1000 ML 1,000 ML IV ONE (00:39)
--- NOTE | 2017-11-25 00:43 | ER Document Report ---
ED General - General Chief Complaint: Vomiting Stated Complaint: VOMITING Time Seen by Provider: 11/25/17 00:12 Notes: Patient is a 32-year-old female with past medical history of alcohol liver cirrhosis, currently abstinent from alcohol who presents with 24 hours of nausea , vomiting, diarrhea, and abdominal cramping. She reports that her symptoms started yesterday when traveling back from [place]. She states that she has continued to have these symptoms throughout the day today and they have been progressively worsening. She describes her abdominal cramping as being a generalized, cramping, moderate to severe pain. Nothing improves or worsens her symptoms. She states that due to her prior past medical history she was worried that this could be something more serious than a stomach virus. She has not yet seen her primary care doctor regarding these concerns. She denies any hematemesis, melena or hematochezia. TRAVEL OUTSIDE OF THE U[place]S. IN LAST 30 DAYS: No COUNTRY TRAVELED TO/FROM: [place] - Related Data Allergies/Adverse Reactions: Pertussis Vaccines Allergy (Verified 10/17/17 12:32) Past Medical History - General Information source: Patient - Social History Smoking Status: Former Smoker Frequency of alcohol use: None - Alcoholism in remission Drug Abuse: None Lives with: Parents Family History: Reviewed & Not Pertinent, Malignancy - Aunt, uncle, grandmother , both grandfathers. - Past Medical History Cardiac Medical History: Reports: Hx Hypertension - Denies: Hx Coronary Artery Disease, Hx Heart Attack Pulmonary Medical History: Denies: Hx Asthma, Hx Bronchitis, Hx COPD, Hx Pneumonia Neurological Medical History: Denies: Hx Cerebrovascular Accident, Hx Seizures Renal/ Medical History: Denies: Hx Peritoneal Dialysis GI Medical History: Reports: Hx Cirrhosis - Alcohol and Tylenol induced, Hx Gastroesophageal Reflux Disease, Hx Ulcer Musculoskeltal Medical History: Denies Hx Arthritis Past Surgical History: Denies: Hx Hysterectomy - Immunizations Hx Diphtheria, Pertussis, Tetanus Vaccination: No Review of Systems - Review of Systems Notes: Constitutional: Negative for fever. HENT: Negative for sore throat. Eyes: Negative for visual changes. Cardiovascular: Negative for chest pain. Respiratory: Negative for shortness of breath. Gastrointestinal: Positive for abdominal cramping, vomiting and diarrhea Genitourinary: Negative for dysuria. Musculoskeletal: Negative for back pain. Skin: Negative for rash. Neurological: Negative for headaches, weakness or numbness. 10 point ROS negative except as marked above and in HPI. Physical Exam - Vital signs Vitals: Temp Pulse Resp BP Pulse Ox 99.4 F 106 H 16 137/74 H 100 11/24/17 22:54 11/24/17 22:54 11/24/17 22:54 11/24/17 22:54 11/24/17 22:54 Interpretation: Tachycardic Notes: PHYSICAL EXAMINATION: GENERAL: Well-appearing, well-nourished and in no acute distress. HEAD: Atraumatic, normocephalic. EYES: Pupils equal round and reactive to light, extraocular movements intact, mild scleral icterus, conjunctiva are normal. ENT: nares patent, oropharynx clear without exudates. Moderately dry mucous membranes. NECK: Normal range of motion, supple without lymphadenopathy LUNGS: Breath sounds clear to auscultation bilaterally and equal. No wheezes rales or rhonchi. HEART: Regular rate and rhythm without murmurs ABDOMEN: Soft, nontender, normoactive bowel sounds. No guarding, no rebound. No masses appreciated. EXTREMITIES: Normal range of motion, no pitting or edema. No cyanosis. NEUROLOGICAL: No focal neurological deficits. Moves all extremities spontaneously and on command. PSYCH: Normal mood, normal affect. SKIN: Warm, Dry, normal turgor, no rashes or lesions noted. Course - Re-evaluation Re-evalutation: 11/25/17 00:39 Presentation of a overall well-appearing 32-year-old woman with history of liver cirrhosis secondary to alcohol use currently sober, and has been sober for over 1 month who presents with nausea, vomiting and diarrhea for the past 24 hours. On examination patient has no focal abdominal tenderness rebound or guarding any location. No fluid wave. Bedside ultrasound does not show any evidence of ascites and there is no fluid for a peritoneal diagnostic tap. Given that there is no visible ascites on bedside exam do not believe that the patient would have spontaneous bacterial peritonitis. She has no significant CVA tenderness to suggest acute pyelonephritis. No focal right lower quadrant tenderness to suggest acute appendicitis. She does not provide a history consistent with biliary colic in her right upper quadrant ultrasound the bedside is normal without any evidence of pericholecystic fluid, gallbladder wall thickening or stones. Her clinical history appears to be most consistent with an unlikely infectious source. Will proceed with labs, urinalysis, IV fluids, antiemetics and reassess the patient. 11/25/17 01:43 Labs overall unremarkable, much improved from her prior assessment. Patient has been able to tolerate oral intake after receiving IV Zofran. IV fluids have also been provided. No further episodes of vomiting. Tachycardia has improved. At this time will discharge with return precautions and follow-up recommendations. Verbal discharge instructions given a the bedside and opportunity for questions given. Medication warnings reviewed. Patient is in agreement with this plan and has verbalized understanding of return precautions and the need for primary care follow-up in the next 24-72 hours. - Vital Signs Vital signs: Temp Pulse Resp BP Pulse Ox 99.0 F 90 19 132/80 H 100 11/25/17 02:28 11/25/17 02:28 11/25/17 02:28 11/25/17 02:28 11/25/17 02:28 - Laboratory Result Diagrams: 11/24/17 23:50 11/24/17 23:50 Laboratory results interpreted by me: 11/24/17 11/24/17 11/24/17 23:50 23:50 23:50 WBC 2.1 L RBC 2.78 L Hgb 9.1 L Hct 26.9 L RDW 16.0 H Plt Count 79 L Band Neutrophils % 2 L Monocytes % (Manual) 14 H Abs Neuts (Manual) 1.2 L PT 20.9 H Sodium 136.1 L Creatinine 0.51 L Glucose 123 H Total Bilirubin 6.4 H Direct Bilirubin 1.3 H AST 60 H Alkaline Phosphatase 129 H Albumin 3.1 L Urine Blood Urine Urobilinogen 11/25/17 00:55 WBC RBC Hgb Hct RDW Plt Count Band Neutrophils % Monocytes % (Manual) Abs Neuts (Manual) PT Sodium Creatinine Glucose Total Bilirubin Direct Bilirubin AST Alkaline Phosphatase Albumin Urine Blood SMALL H Urine Urobilinogen 4.0 H Discharge - Discharge Clinical Impression: Vomiting and diarrhea, Abdominal cramping Condition: Good Disposition: HOME, SELF-CARE Additional Instructions: Your symptoms are likely due to a viral illness and should resolve in the next several days. You can take [id number] loperamide also known as Imodium as needed for diarrhea per box instructions. Continue to stay hydrated with plenty of solution such as Gatorade or Pedialyte. You are being prescribed Zofran to take as needed for nausea and vomiting. Please return if you develop severe abdominal pain, pass out, become unable to tolerate any oral fluids for 12 more hours, or any other symptoms that are concerning to you.
[2017-11-25 00:55] LABS: ABSOLUTE LYMPHOCYTES# (MANUAL) 0.6 10^3/uL (0.5-4.7); ABSOLUTE MONOCYTES # (MANUAL) 0.3 10^3/uL (0.1-1.4); ABSOLUTE NEUTROPHILS# (MANUAL) 1.2 10^3/uL (1.7-8.2); BAND NEUTROPHILS % (MANUAL) 2 % (3-5); BASOPHILS % (MANUAL) 0 % (0-2); EOSINOPHILS % (MANUAL) 0 % (0-6); LYMPHOCYTES % (MANUAL) 29 % (13-45); MONOCYTES % (MANUAL) 14 % (3-13); SEGMENTED NEUTROPHILS % (MAN) 55 % (42-78); TOTAL CELLS COUNTED 100
[2017-11-25 01:01] LABS: TOXIC GRANULATION 1+
[2017-11-25 01:02] LABS: ANISOCYTOSIS 1+; BURR CELLS 2+; PLATELET COMMENT DECREASED; PLATELET LARGE PRESENT; POIKILOCYTOSIS 1+; SCHISTOCYTES 2+; TEAR DROP CELLS 1+
[2017-11-25] MEDS ORDERED: KETOROLAC TROMETHAMINE INJ/PF 30 MG/1 ML SDV IV ONE (01:15)
[2017-11-25 01:16] LABS: APPEARANCE,URINE CLEAR; BILIRUBIN,URINE NEGATIVE (NEGATIVE); COLOR,URINE AMBER; GLUCOSE, URINE NEGATIVE (NEGATIVE); KETONES,URINE NEGATIVE (NEGATIVE); LEUKOCYTE ESTERASE,URINE NEGATIVE (NEGATIVE); NITRITE,URINE NEGATIVE (NEGATIVE); PROTEIN,URINE NEGATIVE (NEGATIVE); URINE SPECIFIC GRAVITY 1.016
[2017-11-25] MEDS ORDERED: ONDANSETRON ODT 4 MG TAB (6 TAB/ER DISP) PO PRN (01:44)
[2017-11-25 02:30] VITALS: BP 132/80
== END 2017-11-25 02:28 | disposition home or self-care (01) ==
LOC: ER 22:48
DX: R11.10 Vomiting, unspecified (principal); R19.7 Diarrhea, unspecified; R10.84 Generalized abdominal pain; Z87.891 Personal history of nicotine dependence
CPT/HCPCS: 99284; 96361; 96374; 96375; 36415; 80307; 85025; 85610; 80053; 81001; J1885; J2405; J7030

== ENCOUNTER 2017-12-09 21:16 | Emergency (ER) | payer SELFPAY ==
[2017-12-10] MEDS ORDERED: VALACYCLOVIR HCL 500 MG TABLET PO ONE (01:22)
[2017-12-10] MEDS ORDERED: IBUPROFEN 600 MG TABLET PO ONE (01:22)
--- NOTE | 2017-12-10 01:22 | ER Document Report ---
HPI - HPI Pain Level: 5 Context: Patient is a female presents emergency chief complaint of rash on her left leg. Patient states that this started a week ago. Patient states that initially started as redness with burning over the past couple of days has noted blistering. Patient states it is consistent with her history of shingles. Patient denies any fevers, chills. Has not taken anything for the pain prior to arrival. Has not followed up with her primary care provider regarding this issue. Has a history of alcoholic cirrhosis - REPRODUCTIVE Reproductive: DENIES: : Past Medical History - Social History Smoking Status: Smoker,Current Status Unk Family History: Reviewed & Not Pertinent, Malignancy - Aunt, uncle, grandmother , both grandfathers. - Past Medical History Cardiac Medical History: Reports: Hx Hypertension - Denies: Hx Coronary Artery Disease, Hx Heart Attack Pulmonary Medical History: Denies: Hx Asthma, Hx Bronchitis, Hx COPD, Hx Pneumonia Neurological Medical History: Denies: Hx Cerebrovascular Accident, Hx Seizures Renal/ Medical History: Denies: Hx Peritoneal Dialysis GI Medical History: Reports: Hx Cirrhosis - Alcohol and Tylenol induced, Hx Gastroesophageal Reflux Disease, Hx Ulcer Musculoskeltal Medical History: Denies Hx Arthritis Past Surgical History: Denies: Hx Hysterectomy - Immunizations Hx Diphtheria, Pertussis, Tetanus Vaccination: No Vertical Provider Document - CONSTITUTIONAL Agree With Documented VS: Yes Notes: PHYSICAL EXAM GENERAL: Alert, interacts well. HEAD: Normocephalic, atraumatic. EYES: Pupils equal, round, and reactive to light. Extraocular movements intact. ENT: Oral mucosa moist, tongue midline. NECK: Full range of motion. Supple. Trachea midline. LUNGS: Clear to auscultation bilaterally, no wheezes, rales, or rhonchi. No respiratory distress. HEART: Regular rate and rhythm. No murmurs, gallops, or rubs. EXTREMITIES: Moves all 4 extremities spontaneously. No edema, radial and dorsalis pedis pulses 2/4 bilaterally. No cyanosis. NEUROLOGICAL: Alert and oriented x4. Normal speech. PSYCH: Normal affect, normal mood. SKIN: Warm, dry, normal turgor. Left leg with evidence of vesicular eruption of long L3 and L4 without any evidence of purulent drainage, induration. - INFECTION CONTROL TRAVEL OUTSIDE OF THE [place] IN LAST 30 DAYS: No COUNTRY TRAVELED TO/FROM: [place] Course - Re-evaluation Re-evalutation: 12/10/17 01:19 Patient is a 32-year-old female hemodynamic stable, no acute distress and afebrile. Presentation is consistent with shingles eruption on the left lower extremity. Patient's symptoms have been going on for 1 week. Will initiate on Valtrex discussed [id number] NSAIDs for pain. Did refer her to primary care for follow-up. Patient is stable for discharge home. - Vital Signs Vital signs: Temp Pulse Resp BP Pulse Ox 99.2 F 97 20 138/82 H 99 12/09/17 22:12 12/09/17 22:12 12/09/17 22:12 12/09/17 22:12 12/09/17 22:12 Discharge - Discharge Clinical Impression: Shingles Condition: Good Disposition: HOME, SELF-CARE Instructions: Acetaminophen, Use of Dlox-Pev-Lkohnou Ibuprofen ([facility]), Shingles ([facility]) Prescriptions: Valacyclovir HCl [Valacyclovir] 1,000 mg PO TID #21 tablet Referrals: HERMES NEWMAN MD [COMMUNITY BASED STAFF] - Follow up in 3-5 days
[2017-12-10 01:52] VITALS: BP 124/66
== END 2017-12-10 01:50 | disposition home or self-care (01) ==
LOC: ER 21:16
DX: B02.9 Zoster without complications (principal); F17.200 Nicotine dependence, unspecified, uncomplicated
CPT/HCPCS: 99283

== ENCOUNTER 2017-12-14 18:45 | Emergency (ER) | payer SELFPAY ==
--- NOTE | 2017-12-14 20:21 | ER Document Report ---
ED Medical Screen (RME) - General Chief Complaint: Nausea/Vomiting Stated Complaint: VOMITING BLOOD Time Seen by Provider: 12/14/17 20:18 Mode of Arrival: Ambulatory Information source: Patient Notes: Patient presents complaining of nausea with vomiting that started around 6 PM this evening. Patient states that she has been vomiting large amounts of blood. Patient does report feeling lightheaded. Patient with a history of gastric varices, hemochromatosis, cirrhosis and a Marge-Liz tear. Patient denies any abdominal tenderness I have greeted and performed a rapid initial assessment of this patient. A comprehensive ED assessment and evaluation of the patient, analysis of test results and completion of the medical decision making process will be conducted by additional ED providers. TRAVEL OUTSIDE OF THE [place] IN LAST 30 DAYS: No COUNTRY TRAVELED TO/FROM: [place] - Related Data Allergies/Adverse Reactions: Pertussis Vaccines Allergy (Verified 10/17/17 12:32) Past Medical History - Past Medical History Cardiac Medical History: Reports: Hx Hypertension - Denies: Hx Coronary Artery Disease, Hx Heart Attack Pulmonary Medical History: Denies: Hx Asthma, Hx Bronchitis, Hx COPD, Hx Pneumonia Neurological Medical History: Denies: Hx Cerebrovascular Accident, Hx Seizures Renal/ Medical History: Denies: Hx Peritoneal Dialysis GI Medical History: Reports: Hx Cirrhosis - Alcohol and Tylenol induced, Hx Gastroesophageal Reflux Disease, Hx Ulcer Musculoskeltal Medical History: Denies Hx Arthritis Past Surgical History: Denies: Hx Hysterectomy - Immunizations Hx Diphtheria, Pertussis, Tetanus Vaccination: No History of Influenza Vaccine for 05/2017 - 10/2017 Season: No Physical Exam - Vital signs Vitals: Temp Pulse Resp BP Pulse Ox 98.3 F 104 H 18 126/61 H 100 12/14/17 18:49 12/14/17 18:49 12/14/17 18:49 12/14/17 18:49 12/14/17 18:49 - Abdominal Tenderness: Nontender - Another - Skin Skin Color: Jaundiced Course - Vital Signs Vital signs: Temp Pulse Resp BP Pulse Ox 98.3 F 104 H 18 126/61 H 100 12/14/17 18:49 12/14/17 18:49 12/14/17 18:49 12/14/17 18:49 12/14/17 18:49
[2017-12-14 21:08] LABS: ABSOLUTE EOSINOPHILS # (AUTO) 0.1 10^3/uL (0.0-0.6); ABSOLUTE MONOCYTES (AUTO) 0.3 10^3/uL (0.1-1.4); ABSOLUTE NEUT (AUTO) 3.1 10^3/uL (1.7-8.2); BASOPHILS % (AUTO) 0.4 % (0-2); EOSINOPHILS % (AUTO) 1.4 % (0-6); HEMATOCRIT 26.6 % (36.0-47.0); HEMOGLOBIN 9.1 g/dL (12.0-15.5); LYMPHOCYTES % (AUTO) 22.8 % (13-45); MEAN CORPUSCULAR HEMOGLOBIN 32.6 pg (27.0-33.4); MEAN CORPUSCULAR HGB CONC 34.3 g/dL (32.0-36.0); MEAN CORPUSCULAR VOLUME 95 fl (80-97); MONOCYTES % (AUTO) 5.9 % (3-13); PLATELET COUNT 102 10^3/uL (150-450); SEGMENTED NEUTROPHILS % (AUTO) 69.5 % (42-78); TOTAL CELLS COUNTED % (AUTO) 100 %; WHITE BLOOD COUNT 4.4 10^3/uL (4.0-10.5)
[2017-12-14 21:09] LABS: INTERNATIONAL RATION (INR) 1.75; PROTHROMBIN TIME 21.3 SEC (11.4-15.4)
[2017-12-14 21:24] LABS: ALANINE AMINOTRANSFERASE 35 U/L (9-52); ALBUMIN 3.1 g/dL (3.5-5.0); ALKALINE PHOSPHATASE 146 U/L (38-126); ANION GAP 9 (5-19); ASPARTATE AMINO TRANSFERASE 53 U/L (14-36); BILIRUBIN,DIRECT 1.2 mg/dL (0.0-0.4); BILIRUBIN,TOTAL 6.3 mg/dL (0.2-1.3); BLOOD UREA NITROGEN 15 mg/dL (7-20); CALCIUM 8.7 mg/dL (8.4-10.2); CARBON DIOXIDE 26 mmol/L (22-30); CHLORIDE 105 mmol/L (98-107); GLUCOSE 108 mg/dL (75-110); LIPASE 109.8 U/L (23-300); SODIUM 139.5 mmol/L (137-145); TOTAL PROTEIN 6.8 g/dL (6.3-8.2)
[2017-12-14 21:26] LABS: ALCOHOL < 10 mg/dL (NONE DETECTED)
[2017-12-14] MEDS ORDERED: OCTREOTIDE ACETATE INJ/PF 100 MCG/1 ML SDV IV ONE (22:44)
[2017-12-14] MEDS ORDERED: PANTOPRAZOLE SODIUM 40 MG VIAL IV ONE (22:44)
[2017-12-14] MEDS ORDERED: LACTULOSE SYRUP 20 GM/30 ML UDCUP PR ONE (22:44)
[2017-12-14] MEDS ORDERED: ONDANSETRON HCL INJ/PF 4 MG/2 ML SDV IV ONE (22:49)
--- NOTE | 2017-12-14 22:49 | ER Document Report ---
ED General - General Chief Complaint: Nausea/Vomiting Stated Complaint: VOMITING BLOOD Time Seen by Provider: 12/14/17 20:18 Mode of Arrival: Ambulatory Information source: Patient, [facility] Records Notes: 32-year-old female history of alcoholic cirrhosis esophageal varices and duodenal ulcers Marge-Liz tear presents with complaints of vomiting blood that started earlier today. Patient notes that she takes lactulose daily last took it yesterday. She denies any fevers or chills admits to epigastric abdominal pain Patient states she is stop drinking TRAVEL OUTSIDE OF THE [place] IN LAST 30 DAYS: No COUNTRY TRAVELED TO/FROM: [place] - HPI Onset: This morning Onset/Duration: Sudden Quality of pain: Sharp Severity: Mild Pain Level: 1 Associated symptoms: Nausea, Vomiting Exacerbated by: Denies Relieved by: Denies Similar symptoms previously: Yes Recently seen / treated by doctor: Yes - Related Data Allergies/Adverse Reactions: Pertussis Vaccines Allergy (Verified 10/17/17 12:32) Past Medical History - General Information source: Patient - Social History Smoking Status: Never Smoker Cigarette use (# per day): No Chew tobacco use (# tins/day): No Smoking Education Provided: No Frequency of alcohol use: None Family History: Reviewed & Not Pertinent, Malignancy - Aunt, uncle, grandmother , both grandfathers. Patient has suicidal ideation: No Patient has homicidal ideation: No - Past Medical History Cardiac Medical History: Reports: Hx Hypertension - Denies: Hx Coronary Artery Disease, Hx Heart Attack Pulmonary Medical History: Denies: Hx Asthma, Hx Bronchitis, Hx COPD, Hx Pneumonia Neurological Medical History: Denies: Hx Cerebrovascular Accident, Hx Seizures Renal/ Medical History: Denies: Hx Peritoneal Dialysis GI Medical History: Reports: Hx Cirrhosis - Alcohol and Tylenol induced, Hx Gastroesophageal Reflux Disease, Hx Ulcer Musculoskeltal Medical History: Denies Hx Arthritis Past Surgical History: Denies: Hx Hysterectomy - Immunizations Hx Diphtheria, Pertussis, Tetanus Vaccination: No Review of Systems - Review of Systems Notes: REVIEW OF SYSTEMS: CONSTITUTIONAL : Denies fever, chills, or sweats. Denies recent illness. EENT: Denies eye, ear, throat, or mouth pain or symptoms. Denies nasal or sinus congestion or discharge. Denies throat, tongue, or mouth swelling or difficulty swallowing. CARDIOVASCULAR: Denies chest pain. Denies palpitations or racing or irregular heart beat. Denies ankle edema. RESPIRATORY: Denies cough, cold, or chest congestion. Denies shortness of breath, difficulty breathing, or wheezing. GASTROINTESTINAL: Admits to epigastric abdominal pain vomiting blood GENITOURINARY: Denies difficulty urinating, painful urination, burning, frequency, blood in urine, or discharge. FEMALE GENITOURINARY: Denies vaginal bleeding, heavy or abnormal periods, irregular periods. Denies vaginal discharge or odor. MUSCULOSKELETAL: Denies back or neck pain or stiffness. Denies joint pain or swelling. SKIN: Denies rash, lesions or sores. HEMATOLOGIC : Denies easy bruising or bleeding. LYMPHATIC: Denies swollen, enlarged glands. NEUROLOGICAL: Denies confusion or altered mental status. Denies passing out or loss of consciousness. Denies dizziness or lightheadedness. Denies headache. Denies weakness or paralysis or loss of use of either side. Denies problems with gait or speech. Denies sensory loss, numbness, or tingling. Denies seizures. PSYCHIATRIC: Denies anxiety or stress. Denies depression, suicidal ideation, or homicidal ideation. ALL OTHER SYSTEMS REVIEWED AND NEGATIVE. PHYSICAL EXAMINATION: GENERAL: Well-appearing, well-nourished and in no acute distress. HEAD: Atraumatic, normocephalic. EYES: Pupils equal round and reactive to light, extraocular movements intact, conjunctiva are normal. ENT: Nares patent, oropharynx clear without exudates. Moist mucous membranes. NECK: Normal range of motion, supple without lymphadenopathy LUNGS: Breath sounds clear to auscultation bilaterally and equal. No wheezes rales or rhonchi. HEART: Tachycardic ABDOMEN: Soft, tender in the epigastric region mild guarding Female : deferred Musculoskeletal: Normal range of motion, no pitting or edema. No cyanosis. NEUROLOGICAL: Cranial nerves grossly intact. Normal speech, normal gait. Normal sensory, motor exams PSYCH: Normal mood, normal affect. SKIN: Warm, Dry, normal turgor, no rashes or lesions noted. Dictation was performed using [employer] voice recognition software Physical Exam - Vital signs Vitals: Temp Pulse Resp BP Pulse Ox 98.3 F 104 H 18 126/61 H 100 12/14/17 18:49 12/14/17 18:49 12/14/17 18:49 12/14/17 18:49 12/14/17 18:49 Course - Re-evaluation Re-evalutation: 12/14/17 22:49 Patient's hemoglobin is 9.1, I have concerns for an upper GI bleed with bright red vomit. She will be started on lactulose Protonix and octreotide IV fluids 12/14/17 23:11 Dr Taylor is atending physician, Dr JACK is resident accepting on her behalf. 12/14/17 23:14 - Vital Signs Vital signs: Temp Pulse Resp BP Pulse Ox 98.3 F 104 H 14 121/70 99 12/14/17 18:49 12/14/17 18:49 12/14/17 21:01 12/14/17 21:00 12/14/17 21:01 - Laboratory Result Diagrams: 12/14/17 20:40 12/14/17 20:40 Laboratory results interpreted by me: 12/14/17 12/14/17 12/14/17 20:40 20:40 20:40 RBC 2.80 L Hgb 9.1 L Hct 26.6 L RDW 16.0 H Plt Count 102 L PT 21.3 H APTT 42.0 H Total Bilirubin 6.3 H Direct Bilirubin 1.2 H AST 53 H Alkaline Phosphatase 146 H Ammonia Albumin 3.1 L Urine Protein Urine Bilirubin Urine Urobilinogen Ur Leukocyte Esterase 12/14/17 12/14/17 20:40 22:22 RBC Hgb Hct RDW Plt Count PT APTT Total Bilirubin Direct Bilirubin AST Alkaline Phosphatase Ammonia 69.7 H Albumin Urine Protein 30 H Urine Bilirubin SMALL H Urine Urobilinogen 4.0 H Ur Leukocyte Esterase TRACE H - EKG Interpretation by Ut EKG shows normal: Sinus rhythm, [place], Intervals, QRS Complexes Rate: Tachycardia Critical Care Note - Critical Care Note Total time excluding time spent on procedures (mins): 49 Comments: 49 minutes of critical care time spent in direct contact evaluating and reevaluating the patient, treating symptoms, reviewing labs and studies and speaking with family and consultants excluding any procedures Discharge - Discharge Clinical Impression: Gastric varices, Portal hypertensive gastropathy, Hyperammonemia Alcoholic cirrhosis of liver Qualifiers: Ascites presence: without ascites Qualified Code(s): K70.30 - Alcoholic cirrhosis of liver without ascites Condition: Fair Disposition: [facility]
[2017-12-14 22:52] LABS: APPEARANCE,URINE SLIGHTLY-CLOUDY; BILIRUBIN,URINE SMALL (NEGATIVE); COLOR,URINE AMBER; GLUCOSE, URINE NEGATIVE (NEGATIVE); KETONES,URINE NEGATIVE (NEGATIVE); LEUKOCYTE ESTERASE,URINE TRACE (NEGATIVE); NITRITE,URINE NEGATIVE (NEGATIVE); PROTEIN,URINE 30 mg/dL (NEGATIVE); URINE SPECIFIC GRAVITY 1.028
[2017-12-14] MEDS: PANTOPRAZOLE SODIUM 40 MG VIAL IV PRN ×2 (23:22→23:34)
[2017-12-14] MEDS: NORMAL SALINE 1000 ML 1,000 ML IV PRN (23:32)
[2017-12-14] MEDS: NORMAL SALINE 500 ML with OCTREOTIDE ACETATE 500 MCG IV PRN ×2 (23:34)
[2017-12-15] MEDS ORDERED: NORMAL SALINE 250 ML IV PRN ×2 (00:34)
[2017-12-15] MEDS ORDERED: PROMETHAZINE HCL INJ 50 MG/1 ML VIAL IM PRN (00:35)
[2017-12-15] MEDS ORDERED: METOCLOPRAMIDE HCL INJ/PF 10 MG/2 ML SDV IV ONE (00:35)
[2017-12-15] MEDS ORDERED: LACTULOSE SYRUP 20 GM/30 ML UDCUP ONE (00:43)
[2017-12-15] MEDS ORDERED: PROMETHAZINE HCL INJ 25 MG/1 ML VIAL ONE (00:51)
[2017-12-15] MEDS ORDERED: ETOMIDATE INJ/PF 20 MG/10 ML SDV IV ONE ×2 (00:52→01:11)
[2017-12-15] MEDS ORDERED: MIDAZOLAM 2 MG/2 ML INJ ONE (00:59)
[2017-12-15] MEDS ORDERED: PROPOFOL 100 ML IV ONE ×2 (01:00→02:47)
[2017-12-15] MEDS ORDERED: SUCCINYLCHOLINE CHLORIDE INJ 200 MG/10 ML VIAL IV ONE (01:11)
[2017-12-15] MEDS ORDERED: MIDAZOLAM 2 MG/2 ML INJ IV ONE (01:12)
[2017-12-15] MEDS ORDERED: MIDAZOLAM HCL 50 MG/100 ML RTUINJ IV ONE (01:30)
[2017-12-15 02:01] LABS: ARTERIAL BLOOD BASE EXCESS -2.2 mmol/L; ARTERIAL BLOOD HCO3 21.8 mmol/L (20-26); ARTERIAL BLOOD O2 SATURATION 87.8 % (94-98); ARTERIAL BLOOD PCO2 33.2 mmHg (35-45); ARTERIAL BLOOD PH 7.44 (7.35-7.45); ARTERIAL BLOOD PO2 51.1 mmHg (80-100); ARTERIAL BLOOD TOTAL CO2 22.8 mmol/L (21-25)
[2017-12-15 02:02] LABS: ARTERIAL BLOOD FIO2 30%
[2017-12-15] MEDS: NORMAL SALINE 1000 ML 1,000 ML IV PRN (02:07)
[2017-12-15] MEDS: PANTOPRAZOLE SODIUM 40 MG VIAL IV PRN (02:08)
[2017-12-15] MEDS: NORMAL SALINE 500 ML with OCTREOTIDE ACETATE 500 MCG IV PRN ×2 (02:08)
[2017-12-15] MEDS ORDERED: MIDAZOLAM HCL 50 MG/100 ML RTUINJ IV PRN (02:52)
[2017-12-15] MEDS ORDERED: PROPOFOL 100 ML IV PRN (02:52)
[2017-12-15 03:01] VITALS: BP 118/56
--- NOTE | 2017-12-15 03:28 | RADIOLOGY REPORT (SQ) ---
EXAM DESCRIPTION: CHEST SINGLE VIEW COMPLETED DATE/TIME: 12/15/2017 1:20 am REASON FOR STUDY: post intubation COMPARISON: 02/13/2017 EXAM PARAMETERS: NUMBER OF VIEWS: One view TECHNIQUE: Single frontal radiograph of the chest. RADIATION DOSE: N/A LIMITATIONS: None. FINDINGS: TEMPORARY SUPPORT DEVICES:ETT in expected location. LUNGS AND PLEURA: No opacities. No masses. No effusions. No pneumothorax. MEDIASTINUM AND HILAR STRUCTURES: No masses. Contour normal. HEART AND VASCULAR STRUCTURES: Heart size normal. Normal vascularity. Aorta normal for age BONES: No acute findings. OTHER: No other significant finding. IMPRESSION: NO ACUTE RADIOGRAPHIC FINDING IN THE CHEST. SUPPORT DEVICE(S) IN EXPECTED LOCATIONS. TECHNICAL DOCUMENTATION: JOB ID: [id number] [employer]- All Rights Reserved Reading location - IP/workstation name: [email or web address]
[2017-12-15] MEDS ORDERED: SUCCINYLCHOLINE CHLORIDE INJ 200 MG/10 ML VIAL ONE (08:57)
== END 2017-12-15 03:34 | disposition short-term general hospital (02) ==
LOC: ER 18:45
PROC: 0BH17EZ Insertion of Endotracheal Airway into Trachea, Via Natural or Artificial Opening (ICD-10-PCS; principal; 2017-12-14)
DX: I86.4 Gastric varices (principal); K76.6 Portal hypertension; K70.30 Alcoholic cirrhosis of liver without ascites; K31.89 Other diseases of stomach and duodenum; E72.20 Disorder of urea cycle metabolism, unspecified
CPT/HCPCS: 99291; 96375; 96365; 96366; 86900; 86901; 36415; 36430; 86850; 80307; 82140; 82803; 83690; 84703; 85025; 85610; 85730; 80053; 81001; 86920; 71045; 31500; P9016; J2250 ×2; J2704; J2354; S0164; J0330; J2405; J7030 ×2; J2765

== ENCOUNTER 2018-11-24 18:55 | Emergency (ER) | payer SELFPAY ==
[2018-11-24] MEDS ORDERED: PANTOPRAZOLE SODIUM 40 MG VIAL IV ONE (19:47)
[2018-11-24] MEDS ORDERED: ONDANSETRON HCL INJ/PF 4 MG/2 ML SDV IV ONE (19:47)
--- NOTE | 2018-11-24 19:47 | ER Document Report ---
Addendum entered and electronically signed by PEREZ ALONZO PA-C 11/24/18 20:04: Course - Re-evaluation Re-evalutation: 11/24/18 20:04 Dr. Oliveira was immediately made aware who is also eval'd the patient. Labs, blood, FFP, octreotide, protonix, etc all ordered. - Vital Signs Vital signs: Temp Pulse Resp BP Pulse Ox 98.8 F 114 H 20 136/78 H 97 11/24/18 19:10 11/24/18 19:10 11/24/18 19:10 11/24/18 19:10 11/24/18 19:10 Original Note: ED Medical Screen (RME) - General Chief Complaint: Vomiting Stated Complaint: VOMITTING Time Seen by Provider: 11/24/18 19:40 TRAVEL OUTSIDE OF THE [place] IN LAST 30 DAYS: No COUNTRY TRAVELED TO/FROM: [place] [facility] Notes: 11/24/18 19:44 Patient is a 33-year-old female with a history of history of alcoholic cirrhosis, gastric varices, duodenal ulcers, Marge-Liz tear who presents complaining of bright red blood in her vomit x3 today. She states that she has continued nausea and vomiting and is actively vomiting up blood in our pit room. Patient states that she had a relapse with alcohol this past week. She still urinating normally. She has not had any bowel movement today. Patient previously had to be intubated and transferred from this facility for bloody e mesis about a year ago, but states that this is not to that extent at this time. Denies [place], fever, neck pain, URI, CP, SOB, Abd pain, or rash. I have treated and performed a rapid initial assessment of this patient. A comprehensive ED assessment and evaluation of the patient, analysis of test results and completion of medical decision making process will be conducted by additional ED providers. PHYSICAL EXAMINATION: GENERAL: appears nauseated and is actively vomiting. A&Ox4. Answers questions appropriately. LUNGS: Breath sounds clear to auscultation bilaterally and equal. No wheezes r ales or rhonchi. HEART: Regular rate and rhythm without murmurs, rubs, gallops. ABDOMEN: Soft, nondistended abdomen. No guarding, no rebound. Normal bowel sounds present. No CVA tenderness bilaterally. grossly non-tender (cannot elicit thorough abd exam w/o table, however). - Related Data Allergies/Adverse Reactions: Pertussis Vaccines Allergy (Verified 11/24/18 18:59) Past Medical History - Past Medical History Cardiac Medical History: Reports: Hx Hypertension - Denies: Hx Coronary Artery Disease, Hx Heart Attack Pulmonary Medical History: Denies: Hx Asthma, Hx Bronchitis, Hx COPD, Hx Pneumonia Neurological Medical History: Denies: Hx Cerebrovascular Accident, Hx Seizures Renal/ Medical History: Denies: Hx Peritoneal Dialysis GI Medical History: Reports: Hx Cirrhosis - Alcohol and Tylenol induced, Hx Gastroesophageal Reflux Disease, Hx Ulcer Musculoskeltal Medical History: Denies Hx Arthritis Past Surgical History: Denies: Hx Hysterectomy - Immunizations Hx Diphtheria, Pertussis, Tetanus Vaccination: No History of Influenza Vaccine for 05/2017 - 10/2017 Season: No Physical Exam - Vital signs Vitals: Temp Pulse Resp BP Pulse Ox 98.8 F 114 H 20 136/78 H 97 11/24/18 19:10 11/24/18 19:10 11/24/18 19:10 11/24/18 19:10 11/24/18 19:10 Course - Vital Signs Vital signs: Temp Pulse Resp BP Pulse Ox 98.8 F 114 H 20 136/78 H 97 11/24/18 19:10 11/24/18 19:10 11/24/18 19:10 11/24/18 19:10 11/24/18 19:10
[2018-11-24] MEDS ORDERED: PANTOPRAZOLE SODIUM 40 MG VIAL IV PRN (19:48)
[2018-11-24] MEDS ORDERED: OCTREOTIDE ACETATE INJ/PF 100 MCG/1 ML SDV IV ONE (19:53)
[2018-11-24] MEDS ORDERED: NORMAL SALINE 500 ML with OCTREOTIDE ACETATE 500 MCG IV PRN ×2 (19:55)
[2018-11-24] MEDS ORDERED: NORMAL SALINE 250 ML IV PRN (19:57)
--- NOTE | 2018-11-24 20:15 | ER Document Report ---
ED General - General Chief Complaint: Vomiting Stated Complaint: VOMITTING Time Seen by Provider: 11/24/18 19:40 Notes: Patient is a 33-year-old female with cirrhosis that presents to the emergency department for chief complaint of hematemesis. Patient states that she started feeling nausea yesterday, then had 3 episodes of hematemesis, that was gross hematemesis on the way to the hospital after calling EMS. She vomited approximately 500 cc of blood according to EMS. She has had an additional 500 since being in the emergency department between blood and gastric juices. She is having nausea now and occasionally spitting up blood. She is having abdominal pain is radiating towards her back as well. 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 She is not sure she has had esophageal varices. But she has had gastric varices and peptic ulcers in the past. She states that she did start drinking again last week, does not recall the last alcoholic beverage that she is had recently. She currently rates her pain as a 4 out of 10 describes as a constant aching sensation, in the epigastric region radiating towards the back. Past Medical History: Cirrhosis, peptic ulcer disease, gastric varices Past Surgical History: Esophageal surgery repair Social History: Admits to chronic alcohol use, denies illicit drug use. Family History: Reviewed and noncontributory for presenting illness Allergies: Reviewed, see documented allergy list. REVIEW OF SYSTEMS: Other than noted above, the 12 point review of systems was reviewed with the patient and were negative, all pertinent findings are included in the HPI. PHYSICAL EXAMINATION: Vital signs reviewed, nursing noted reviewed. GENERAL: Patient is ill-appearing on exam. HEAD: Atraumatic, normocephalic. EYES: Eyes appear normal, extraocular movements intact, scleral icterus, conjunctiva are normal. ENT: nares patent, oropharynx clear without exudates. Moist mucous membranes. NECK: Normal range of motion, supple without lymphadenopathy LUNGS: Breath sounds clear to auscultation bilaterally and equal. No wheezes rales or rhonchi. HEART: Heart rate tachycardic, regular rhythm. ABDOMEN: Soft, epigastric tenderness to palpation, normoactive bowel sounds. No rebound, guarding, or rigidity. No masses appreciated. EXTREMITIES: Nontender, good range of motion, no pitting or edema. NEUROLOGICAL: No focal neurological deficits. Moves all extremities spontaneously Motor and sensory grossly intact on exam. PSYCH: Normal mood, normal affect. SKIN: Warm, Dry, normal turgor, jaundice skin TRAVEL OUTSIDE OF THE [place] IN LAST 30 DAYS: No COUNTRY TRAVELED TO/FROM: [place] - Related Data Allergies/Adverse Reactions: Pertussis Vaccines Allergy (Verified 11/24/18 18:59) Past Medical History - Social History Smoking Status: Unknown if Ever Smoked Family History: Reviewed & Not Pertinent, Malignancy - Aunt, uncle, grandmother, both grandfathers. Patient has suicidal ideation: No Patient has homicidal ideation: No - Past Medical History Cardiac Medical History: Reports: Hx Hypertension - Denies: Hx Coronary Artery Disease, Hx Heart Attack Pulmonary Medical History: Denies: Hx Asthma, Hx Bronchitis, Hx COPD, Hx Pneumonia Neurological Medical History: Denies: Hx Cerebrovascular Accident, Hx Seizures Renal/ Medical History: Denies: Hx Peritoneal Dialysis GI Medical History: Reports: Hx Cirrhosis - Alcohol and Tylenol induced, Hx Gastroesophageal Reflux Disease, Hx Ulcer Musculoskeletal Medical History: Denies Hx Arthritis Past Surgical History: Denies: Hx Hysterectomy - Immunizations Hx Diphtheria, Pertussis, Tetanus Vaccination: No Physical Exam - Vital signs Vitals: Temp Pulse Resp BP Pulse Ox 98.8 F 114 H 20 136/78 H 97 11/24/18 19:10 11/24/18 19:10 11/24/18 19:10 11/24/18 19:10 11/24/18 19:10 Course - Re-evaluation Re-evalutation: Patient seen and examined vital signs reviewed. Laboratory data and imaging were ordered as appropriate for the patient's presenting symptoms and complaint, with consideration of any critical or life threatening conditions that may be associated with their obtained history and exam as noted above. Patient was treated with IV fluids, packed red blood cells were ordered, FFP ordered, octreotide and Protonix infusions were ordered as well, and administered expeditiously as the patient may be having variceal bleeding, versus peptic ulcer bleeding, either way this patient is very high risk given her history of cirrhosis, to have a rapid deterioration. All medications given preemptively before blood work had returned. Patient was tachycardic already, concerning for significant blood loss already. Results were reviewed when available and demonstrated INR was 1.7, sodium 136, slightly low, but not significant, her bilirubin was elevated at 8.7, hemoglobin came back at 10.8, I feel that the patient is markedly dehydrated and this is hemoconcentrated, and is having ongoing hematemesis, and not a good representation of the patient's current blood state, and likely delayed behind. Patient started on blood transfusion just prior to transport, FFP was not ready, as the air transport team had arrived sooner than anticipated. The patient was re-evaluated and was not having any further emesis after receiving antiemetics, but was still having some nausea. Evaluation was most consistent with esophageal bleeding, concern for esophageal variceal bleed, versus peptic ulcer bleeding, patient was rapidly assessed, treated, and transfer was facilitated, I spoke with the hospitalist Dr. Mendoza, at [facility], who graciously accepted the patient onto their service, and patient to be seen by gastroenterology. Results were discussed with the patient at this point after careful consideration I feel that that patient should be transferred to [facility] due to suspected esophageal variceal bleeding, and a cirrhotic patient. This was discussed with the patient that it is in the best interest for their care to be transferred, the risks and benefits of transfer were discussed, including but not limited to clinical deterioration during transport, respiratory distress, and potential for traumatic injuries. Patient agreed with this plan of care. *Note is created using voice recognition software and may contain spelling, syntax or grammatical errors. Laboratory 11/24/18 11/24/18 11/24/18 20:10 20:10 20:10 PT INR APTT Sodium 136.9 L Potassium 3.4 L Chloride 99 Carbon Dioxide 28 Anion Gap 10 BUN 20 Creatinine 0.56 Est GFR ( Amer) > 60 Est GFR (Non-Af Amer) > 60 Glucose 106 Calcium 8.3 L Total Bilirubin 8.7 H Direct Bilirubin 3.1 H Neonat Total Bilirubin Not Reportable Neonat Direct Bilirubin Not Reportable Neonat Indirect Bili Not Reportable AST 126 H ALT 48 Alkaline Phosphatase 134 H Ammonia 35.8 H Total Protein 7.3 Albumin 3.5 Lipase 36.6 Serum Alcohol 24 Crossmatch See Detail 11/24/18 20:10 PT 20.8 H INR 1.70 APTT 39.3 H Sodium Potassium Chloride Carbon Dioxide Anion Gap BUN Creatinine Est GFR ( Amer) Est GFR (Non-Af Amer) Glucose Calcium Total Bilirubin Direct Bilirubin Neonat Total Bilirubin Neonat Direct Bilirubin Neonat Indirect Bili AST ALT Alkaline Phosphatase Ammonia Total Protein Albumin Lipase Serum Alcohol Crossmatch 11/24/18 21:26 Air transport team at bedside, signout given, patient stable and ready for transport. - Vital Signs Vital signs: Temp Pulse Resp BP Pulse Ox 98.8 F 114 H 20 136/78 H 97 11/24/18 19:10 11/24/18 19:10 11/24/18 19:10 11/24/18 19:10 11/24/18 19:10 - Laboratory Result Diagrams: 11/24/18 20:10 11/24/18 20:10 Laboratory results interpreted by me: 11/24/18 11/24/18 11/24/18 20:10 20:10 20:10 RBC 3.32 L Hgb 10.8 L Hct 30.8 L RDW 16.2 H Plt Count 54 L Seg Neutrophils % 84.7 H Lymphocytes % 11.0 L PT APTT Sodium 136.9 L Potassium 3.4 L Calcium 8.3 L Total Bilirubin 8.7 H Direct Bilirubin 3.1 H AST 126 H Alkaline Phosphatase 134 H Ammonia 35.8 H Crossmatch 11/24/18 11/24/18 20:10 20:10 RBC Hgb Hct RDW Plt Count Seg Neutrophils % Lymphocytes % PT 20.8 H APTT 39.3 H Sodium Potassium Calcium Total Bilirubin Direct Bilirubin AST Alkaline Phosphatase Ammonia Crossmatch See Detail Critical Care Note - Critical Care Note Total time excluding time spent on procedures (mins): 45 Comments: Critical care time 45 minutes exclusive from separate billable procedures for a patient requiring complex medical decision making, and high potential for clinical deterioration. In a patient with suspected esophageal variceal bleeding, requiring rapid transfer, frequent bedside assessments, and aggressive management and treatment. Time spent obtaining history from patient or surrogate, discussions with consultants, development of treatment plan with patient or surrogate, evaluation of patient's response to treatment, examination of patient, ordering and performing treatments and interventions, ordering and review of laboratory studies, re-evaluation of patient's condition, ordering and review of radiographic studies and review of old charts Discharge - Discharge Clinical Impression: Esophageal hemorrhage, Acute blood loss anemia, Thrombocytopenia, Hyperbil irubinemia Hematemesis Qualifiers: Nausea presence: with nausea Qualified Code(s): K92.0 - Hematemesis Condition: Stable Disposition: [facility]
[2018-11-24] MEDS ORDERED: OCTREOTIDE ACETATE INJ/PF 100 MCG/1 ML SDV ONE (20:35)
[2018-11-24 20:42] LABS: ABSOLUTE LYMPHOCYTES (AUTO) 0.7 10^3/uL (0.5-4.7); ABSOLUTE MONOCYTES (AUTO) 0.2 10^3/uL (0.1-1.4); ABSOLUTE NEUT (AUTO) 5.3 10^3/uL (1.7-8.2); BASOPHILS % (AUTO) 0.5 % (0-2); EOSINOPHILS % (AUTO) 0.6 % (0-6); HEMATOCRIT 30.8 % (36.0-47.0); HEMOGLOBIN 10.8 g/dL (12.0-15.5); MEAN CORPUSCULAR HEMOGLOBIN 32.5 pg (27.0-33.4); MEAN CORPUSCULAR VOLUME 93 fl (80-97); MONOCYTES % (AUTO) 3.2 % (3-13); RED BLOOD COUNT 3.32 10^6/uL (3.72-5.28); RED CELL DISTRIBUTION WIDTH 16.2 % (11.5-14.0); SEGMENTED NEUTROPHILS % (AUTO) 84.7 % (42-78); TOTAL CELLS COUNTED % (AUTO) 100 %; WHITE BLOOD COUNT 6.2 10^3/uL (4.0-10.5)
[2018-11-24] MEDS ORDERED: CEFTRIAXONE 1 GM/D5W RTU 1 GM/50 ML RTUPB IV ONE (20:50)
[2018-11-24 20:59] LABS: PROTHROMBIN TIME 20.8 SEC (11.4-15.4)
[2018-11-24 21:00] LABS: PARTIAL THROMBOPLASTIN TIME 39.3 SEC (23.5-35.8)
[2018-11-24 21:01] LABS: ALANINE AMINOTRANSFERASE 48 U/L (9-52); ALBUMIN 3.5 g/dL (3.5-5.0); ALCOHOL 24 mg/dL (NONE DETECTED); ALKALINE PHOSPHATASE 134 U/L (38-126); ANION GAP 10 (5-19); ASPARTATE AMINO TRANSFERASE 126 U/L (14-36); BILIRUBIN,DIRECT 3.1 mg/dL (0.0-0.4); BILIRUBIN,TOTAL 8.7 mg/dL (0.2-1.3); BLOOD UREA NITROGEN 20 mg/dL (7-20); CALCIUM 8.3 mg/dL (8.4-10.2); CARBON DIOXIDE 28 mmol/L (22-30); CHLORIDE 99 mmol/L (98-107); GLUCOSE 106 mg/dL (75-110); LIPASE 36.6 U/L (23-300); POTASSIUM 3.4 mmol/L (3.6-5.0); SODIUM 136.9 mmol/L (137-145); TOTAL PROTEIN 7.3 g/dL (6.3-8.2)
[2018-11-24 21:14] LABS: PLATELET COUNT 54 10^3/uL (150-450)
[2018-11-24 21:44] VITALS: BP 130/81
== END 2018-11-24 21:45 | disposition short-term general hospital (02) ==
LOC: ER 18:55
DX: K22.8 Other specified diseases of esophagus (principal); K92.0 Hematemesis; D62 Acute posthemorrhagic anemia; D69.6 Thrombocytopenia, unspecified; E80.6 Other disorders of bilirubin metabolism; K74.60 Unspecified cirrhosis of liver; K27.9 Peptic ulcer, site unspecified, unspecified as acute or chronic, without hemorrhage or perforation
CPT/HCPCS: 96376; 99291; 96375; 96365; 86900; 86901; 36415; 36430; 86850; 80307; 82140; 83690; 85025; 85610; 85730; 80053; 86920; P9016; J2354; S0164; J2405; J0696

== ENCOUNTER 2019-07-22 16:08 | Emergency (ER) | payer SELFPAY ==
[2019-07-22] MEDS ORDERED: MORPHINE SULFATE 10 MG/ML INJ IV ONE (18:00)
[2019-07-22] MEDS ORDERED: NORMAL SALINE 1000 ML 1,000 ML IV ONE (18:00)
[2019-07-22] MEDS ORDERED: ONDANSETRON HCL INJ/PF 4 MG/2 ML SDV IV ONE (18:00)
--- NOTE | 2019-07-22 18:02 | ER Document Report ---
ED Medical Screen (RME) - General Chief Complaint: Abdominal Pain Stated Complaint: SHORTNESS OF BREATH/BACK,ABDOMINAL PAIN Time Seen by Provider: 07/22/19 17:51 Mode of Arrival: Ambulatory Information source: Patient Notes: 34-year-old female patient presenting to the emergency department chief complaint of fatigue, body aches, abdominal pain with distention and intermittent vomiting. Patient reports she is also had a fever all week. Patient reports she has a liver patient at [facility]. She states that she also has a history of esophageal varices. Patient also states that she has not been able to take her usual medications for her liver disease which include lactulose, Lasix and Spironolactone because they make her urinate frequently and she is now having vaginal stinging and pain. Exam: Patient jaundiced. Alert, answering all questions appropriately, I have greeted and performed a rapid initial assessment of this patient. A comprehensive ED assessment and evaluation of the patient, analysis of test results and completion of the medical decision making process will be conducted by additional ED providers. I have specifically instructed the patient or family members with the patient to immediately return to any nursing staff should anything change in the patient's condition or with their chief complaint. This medical record was dictated with voice recognizing software. There may be grammatical, syntax errors that are unintended. TRAVEL OUTSIDE OF THE [place]. IN LAST 30 DAYS: No COUNTRY TRAVELED TO/FROM: [place] - Related Data Allergies/Adverse Reactions: Pertussis Vaccines Allergy (Verified 07/22/19 17:51) Home Medications: liver medications. Past Medical History - Past Medical History Cardiac Medical History: Reports: Hx Hypertension - Denies: Hx Coronary Artery Disease, Hx Heart Attack Pulmonary Medical History: Denies: Hx Asthma, Hx Bronchitis, Hx COPD, Hx Pneumonia Neurological Medical History: Denies: Hx Cerebrovascular Accident, Hx Seizures Renal/ Medical History: Denies: Hx Peritoneal Dialysis GI Medical History: Reports: Hx Cirrhosis - Alcohol and Tylenol induced, Hx Gastroesophageal Reflux Disease, Hx Ulcer Musculoskeltal Medical History: Denies Hx Arthritis Past Surgical History: Denies: Hx Hysterectomy - Immunizations Hx Diphtheria, Pertussis, Tetanus Vaccination: No Physical Exam - Vital signs Vitals: Temp Pulse Resp BP Pulse Ox 98.6 F 108 H 19 143/63 H 98 07/22/19 16:44 07/22/19 16:44 07/22/19 16:44 07/22/19 16:44 07/22/19 16:44 Course - Vital Signs Vital signs: Temp Pulse Resp BP Pulse Ox 98.6 F 108 H 19 143/63 H 98 07/22/19 17:51 07/22/19 16:44 07/22/19 17:51 07/22/19 16:44 07/22/19 17:51
[2019-07-22 18:37] LABS: APPEARANCE,URINE SLIGHTLY-CLOUDY; BILIRUBIN,URINE MODERATE (NEGATIVE); COLOR,URINE AMBER; GLUCOSE, URINE NEGATIVE (NEGATIVE); KETONES,URINE NEGATIVE (NEGATIVE); LEUKOCYTE ESTERASE,URINE SMALL (NEGATIVE); NITRITE,URINE NEGATIVE (NEGATIVE); PROTEIN,URINE NEGATIVE (NEGATIVE); URINE SPECIFIC GRAVITY 1.017
[2019-07-22 18:45] LABS: ALBUMIN 2.9 g/dL (3.5-5.0); ALKALINE PHOSPHATASE 131 U/L (38-126); ANION GAP 10 (5-19); ASPARTATE AMINO TRANSFERASE 88 U/L (14-36); BILIRUBIN,TOTAL 14.4 mg/dL (0.2-1.3); BLOOD UREA NITROGEN 11 mg/dL (7-20); CALCIUM 7.7 mg/dL (8.4-10.2); CARBON DIOXIDE 25 mmol/L (22-30); CHLORIDE 98 mmol/L (98-107); GLUCOSE 100 mg/dL (75-110); POTASSIUM 3.5 mmol/L (3.6-5.0); TOTAL PROTEIN 7.6 g/dL (6.3-8.2)
[2019-07-22 19:35] LABS: MEAN CORPUSCULAR HEMOGLOBIN 38.7 pg (27.0-33.4); MEAN CORPUSCULAR HGB CONC 36.1 g/dL (32.0-36.0); MEAN CORPUSCULAR VOLUME 107 fl (80-97); RED BLOOD COUNT 1.77 10^6/uL (3.72-5.28); RED CELL DISTRIBUTION WIDTH 16.2 % (11.5-14.0); WHITE BLOOD COUNT 2.3 10^3/uL (4.0-10.5)
[2019-07-22 19:45] LABS: HEMOGLOBIN 6.9 g/dL (12.0-15.5); PLATELET COUNT 36 10^3/uL (150-450)
[2019-07-22] MEDS ORDERED: NORMAL SALINE 250 ML IV PRN (19:54)
[2019-07-22 20:02] LABS: ABSOLUTE LYMPHOCYTES# (MANUAL) 0.6 10^3/uL (0.5-4.7); ABSOLUTE MONOCYTES # (MANUAL) 0.3 10^3/uL (0.1-1.4); BAND NEUTROPHILS % (MANUAL) 2 % (3-5); BASOPHILS % (MANUAL) 0 % (0-2); EOSINOPHILS % (MANUAL) 0 % (0-6); LYMPHOCYTES % (MANUAL) 22 % (13-45); METAMYELOCYTES % (MANUAL) 1 % (0-1); MONOCYTES % (MANUAL) 15 % (3-13); NUCLEATED RED BLOOD CELLS 2 /100 WBC (0); PROMYELOCYTES % (MANUAL) 1 % (0); SEGMENTED NEUTROPHILS % (MAN) 57 % (42-78); TOTAL CELLS COUNTED 100
[2019-07-22 20:05] LABS: ANISOCYTOSIS 1+; SMUDGE CELLS PRESENT; TEAR DROP CELLS SLIGHT; TOXIC GRANULATION SLIGHT
[2019-07-22 20:06] LABS: PLATELET COMMENT DECREASED
[2019-07-23 00:01] LABS: INTERNATIONAL RATION (INR) 2.02; PROTHROMBIN TIME 23.2 SEC (11.4-15.4)
[2019-07-23 00:02] LABS: PARTIAL THROMBOPLASTIN TIME 44.9 SEC (23.5-35.8)
--- NOTE | 2019-07-23 00:36 | ER Document Report ---
Entered by ALINE SR SCRIBE 07/22/19 2221 Acting as scribe for:JOSLYN CHERY IV, MD ED General - General Chief Complaint: Abdominal Pain Stated Complaint: SHORTNESS OF BREATH/BACK,ABDOMINAL PAIN Time Seen by Provider: 07/22/19 17:51 Mode of Arrival: Ambulatory Information source: Patient Notes: This 34-year-old female patient with known cirrhosis presents to the emergency department today with complaints of diffuse abdominal pain. Patient states she "can tell she is having another flare". Patient asked to describe what she means by "flare", she further explains that "when her levels are off she can just feel it". Patient is not able to really elaborate much more than that. Other than the abdominal pain, the patient complains of some vaginal pain, vaginal bleeding, vaginal discharge, and dark tarry stool. Patient states initially when she was diagnosed with cirrhosis she was followed at [place]. Patient states that this was too far for her to drive, so she transferred her care to [facility] about 2 years ago. Patient was last seen by her GI doctors in [place] about a month ago. Patient states this visit was uneventful except for the fact that she was "taken off of Cipro". Patient states that she was put on Cipro when she was initially told about the cirrhosis and was told she "would be on that the rest of her life to prevent peritonitis". = Patient states her last menstrual period was 8 years ago. TRAVEL OUTSIDE OF THE [place] IN LAST 30 DAYS: No COUNTRY TRAVELED TO/FROM: [place] - Related Data Allergies/Adverse Reactions: Pertussis Vaccines Allergy (Verified 07/22/19 17:51) Home Medications: liver medications. Past Medical History - General Information source: Patient - Social History Smoking Status: Former Smoker Cigarette use (# per day): No Frequency of alcohol use: former alcoholic, states no EtOH in quite some time Lives with: Family Family History: Reviewed & Not Pertinent, Malignancy - Aunt, uncle, grandmother, both grandfathers. Patient has suicidal ideation: No Patient has homicidal ideation: No - Past Medical History Cardiac Medical History: Reports: Hx Hypertension - GI Medical History: Reports: Hx Cirrhosis - Alcohol and Tylenol induced, Hx Gastroesophageal Reflux Disease, Hx Ulcer - Immunizations Hx Diphtheria, Pertussis, Tetanus Vaccination: No Review of Systems - Review of Systems Constitutional: No symptoms reported EENT: No symptoms reported Cardiovascular: No symptoms reported Respiratory: No symptoms reported Gastrointestinal: See HPI, Abdominal pain, Other - dark tarry stool Genitourinary: No symptoms reported Female Genitourinary: See HPI, Vaginal discharge, Vaginal odor Musculoskeletal: No symptoms reported Skin: No symptoms reported Hematologic/Lymphatic: No symptoms reported Neurological/Psychological: No symptoms reported -: Yes All other systems reviewed and negative Physical Exam - Vital signs Vitals: Temp Pulse Resp BP Pulse Ox 98.6 F 108 H 19 143/63 H 98 07/22/19 16:44 07/22/19 16:44 07/22/19 16:44 07/22/19 16:44 07/22/19 16:44 - Notes Notes: Physical Exam: General: Alert, appears jaundiced. HEENT: Normocephalic. Atraumatic. PERRL. Extraocular movements intact. Oropharynx clear. Neck: Supple. Non-tender. Respiratory: No respiratory distress. Clear and equal breath sounds bilaterally. Cardiovascular: Regular rate and rhythm. Abdominal: Mild abdominal distension. Mild diffuse abdominal tenderness with palpation. No peritoneal signs. Normal Bowel Sounds. Back: No gross abnormalities. Extremities: Moves all four extremities. Upper extremities: Normal inspection. Normal ROM. Lower extremities: Normal inspection. No edema. Normal ROM. Neurological: Normal cognition. AAOx4. Normal speech. Psychological: Normal affect. Normal Mood. Skin: Warm. Dry. Jaundiced. Course - Vital Signs Vital signs: Temp Pulse Resp BP Pulse Ox 98.6 F 86 16 121/71 99 07/23/19 00:50 07/23/19 00:50 07/23/19 00:50 07/23/19 00:50 07/23/19 00:50 - Laboratory Result Diagrams: 07/22/19 19:06 07/22/19 18:05 Laboratory results interpreted by me: 07/22/19 07/22/19 07/22/19 18:05 18:05 18:05 WBC RBC Hgb Hct MCV MCH MCHC RDW Plt Count Band Neutrophils % Monocytes % (Manual) Promyelocytes % Abs Neuts (Manual) PT APTT Sodium 133.3 L Potassium 3.5 L Calcium 7.7 L Total Bilirubin 14.4 H Direct Bilirubin 6.0 H AST 88 H Alkaline Phosphatase 131 H Albumin 2.9 L Urine Blood MODERATE H Urine Bilirubin MODERATE H Urine Urobilinogen 4.0 H Ur Leukocyte Esterase SMALL H Crossmatch See Detail 07/22/19 07/22/19 19:06 23:40 WBC 2.3 L RBC 1.77 L Hgb 6.9 L Hct 19.0 L MCV 107 H MCH 38.7 H MCHC 36.1 H RDW 16.2 H Plt Count 36 L Band Neutrophils % 2 L Monocytes % (Manual) 15 H Promyelocytes % 1 H Abs Neuts (Manual) 1.4 L PT 23.2 H APTT 44.9 H Sodium Potassium Calcium Total Bilirubin Direct Bilirubin AST Alkaline Phosphatase Albumin Urine Blood Urine Bilirubin Urine Urobilinogen Ur Leukocyte Esterase Crossmatch - Diagnostic Test Radiology reviewed: Reports reviewed Discharge - Discharge Clinical Impression: Acute cystitis with hematuria, Thrombocytopenia Anemia Qualifiers: Anemia type: unspecified type Qualified Code(s): D64.9 - Anemia, unspecified Condition: Good Disposition: HOME, SELF-CARE Additional Instructions: Return to the Emergency Department without delay if any worse. Urinary Tract Infection Your evaluation indicates that you have a urinary tract infection. This is due to germs growing in the bladder. This is a common problem. This infection usually responds quickly to antibiotics. Your antibiotic should be taken exactly as prescribed. Drink plenty of fluids -- three to four quarts a day. Occasionally, a bladder anesthetic will be prescribed to help stop the feeling of urgency until the antibiotic has a chance to clear the infection. This may cause your urine to be dark orange. Certain urine infections require a culture. If the doctor obtained a culture, the results will be back in two days. You should call to see if a change in treatment is needed. A repeat urinalysis after you finish treatment is often recommended. The physician will let you know if further testing is required. Call the doctor if you develop fever, chills, flank pain, inability to urinate, or blood in the urine. HOME CARE INSTRUCTIONS & INFORMATION: Thank you for choosing us for your medical needs. We hope you're satisfied with the care you received. After you leave, you must properly care for your problem and, at the same time, observe its progress. Any condition can change. Some illnesses can change rapidly over hours or days. If your condition worsens, return to the Emergency Department or see your physician promptly. ABOUT YOUR X-RAYS AND EKG'S: If you had an EKG or X-rays taken, they have been read by the Emergency Physician. The X-rays and EKG's will also be read by a Radiologist or Water Purification Chemist within 24 hours. If discrepancies are noted, you will be notified by telephone. Please be certain the ED has a correct telephone number & address where you can be reached. Also, realize that some fractures or abnormalities do not show up on initial X-rays. If your symptoms continue, see your physician. ABOUT YOUR LABORATORY TEST: If you had laboratory tests, the results have been reviewed by the Emergency Physician. Some test results (for example cultures) may not be available for several days. You will be contacted if any test result shows you need additional treatment. Please be certain the ED has a correct telephone number and address where you can be reached. ABOUT YOUR MEDICATIONS: You will receive instructions on how to take your medicine on the prescription label you receive. Additional information may be provided by the Pharmacy. If you have questions afterwards, call the ED for clarification or further instructions. Some prescribed medications may cause drowsiness. Do not perform tasks such as driving a car or operating machinery without consulting your Pharmacist. If you feel you need a refill of pain medication, your condition will need re-evaluation. Please do not call for a refill of any medication. ABOUT YOUR SIGNATURE: Signature of this document acknowledges to followin. Understanding that you received emergency treatment and that you may be released before al medical problems are known or treated. Please be certain the ED has a correct phone number & address where you can be reached. 2. Acknowledgement that you will arrange for follow-up care as recommended. 3. Authorization for the Emergency Physician to provide information to your follow-up Physician in order to maximize your care. AT ANY TIME, IF YOUR SYMPTOMS CHANGE SIGNIFICANTLY OR WORSEN OR YOU DEVELOP NEW SYMPTOMS, RETURN TO THE EMERGENCY DEPARTMENT IMMEDIATELY FOR RE-EVALUATION. OUR GOAL IS TO PROVIDE EXCELLENT MEDICAL CARE! WE HOPE THAT WE HAVE MET YOUR EXPECTATIONS DURING YOUR EMERGENCY DEPARTMENT VISIT AND THAT YOU FEEL YOU HAVE RECEIVED EXCELLENT CARE! Prescriptions: Nitrofurantoin/Nitrofuran Mac [Macrobid 100 mg Capsule] 1 tab PO BID #20 capsule Phenazopyridine HCl [Pyridium 200 mg Tablet] 200 mg PO TID #6 tablet Referrals: ANALY BARROSO MD [HONORARY] - Follow up as needed I personally performed the services described in the documentation, reviewed and edited the documentation which was dictated to the scribe in my presence, and it accurately records my words and actions.
--- NOTE | 2019-07-23 01:21 | RADIOLOGY REPORT (SQ) ---
EXAM DESCRIPTION: CT ABDOMEN PELVIS WITH IV CONTRAST COMPLETED DATE/TME: 07/22/2019 22:48 CLINICAL HISTORY: 34 years, Female, abdominal pain COMPARISON: 03/11/2017 CT TECHNIQUE: Unknown number Images stored on PACS. All CT scanners at this facility use dose modulation, iterative reconstruction, and/or weight based dosing when appropriate to reduce radiation dose to as low as reasonably achievable (ALARA). [facility]: Dose Right [facility]: CareDose [facility]: Dose Right [facility]: Teradose 4D [facility]: [employer] LIMITATIONS: None. FINDINGS: Limited evaluation of the lung bases shows small bibasilar effusions with adjacent consolidation. Osseous structures grossly intact. Nodular contour to the liver consistent with cirrhotic change. The spleen is enlarged measuring 21.3 cm in length. Cholelithiasis. The adrenal glands, pancreas, kidneys are grossly unremarkable. Extensive varices of the upper abdomen. Recanalized umbilical vein. No free air. Normal appendix. No ascites. Occasional sigmoid diverticuli. No CT evidence for diverticulitis. Urinary bladder is not distended, limiting its evaluation. IMPRESSION: Small bibasilar pleural effusions. Adjacent consolidative change. Nodular, cirrhotic change to the liver with evidence of portal hypertension. Splenomegaly at 21.3 cm. Cholelithiasis. Extensive varices. Occasional sigmoid diverticuli. No CT evidence for diverticulitis TECHNICAL DOCUMENTATION: Quality ID # [id number]: Final reports with documentation of one or more dose reduction techniques (e.g., Automated exposure control, adjustment of the mA and/or kV according to patient size, use of iterative reconstruction technique) copyright 2010 [employer]- All Rights Reserved
[2019-07-23] MEDS ORDERED: NITROFURANTOIN MONOHYD/M-CRYST 100 MG CAPSULE PO ONE (01:35)
[2019-07-23] MEDS ORDERED: PHENAZOPYRIDINE HCL 200 MG TABLET PO ONE (01:35)
[2019-07-23 01:41] LABS: BACTERIA (WET MOUNT) 3+ BACTERIA SEEN; EPITHELIALS (WET MOUNT) 3+ EPITHELIALS SEEN; RBCS (WET MOUNT) 1+ RBCS SEEN; T.VAGINALIS (WET MOUNT) NO TRICHOMONAS SEEN; WBCS (WET MOUNT) 1+ WBCS SEEN; YEAST (WET MOUNT) NO YEAST SEEN
[2019-07-23 03:12] LABS: CHLAM PCR NOT DETECTED (NOT DETECT)
[2019-07-23 03:18] VITALS: BP 113/66
== END 2019-07-23 03:34 | disposition home or self-care (01) ==
LOC: ER 16:08
DX: N30.01 Acute cystitis with hematuria (principal); D69.6 Thrombocytopenia, unspecified; D64.9 Anemia, unspecified; R10.9 Unspecified abdominal pain; R06.02 Shortness of breath; R10.2 Pelvic and perineal pain; N93.9 Abnormal uterine and vaginal bleeding, unspecified; N89.8 Other specified noninflammatory disorders of vagina; Z87.891 Personal history of nicotine dependence; I10 Essential (primary) hypertension
CPT/HCPCS: 99284; 96361; 96374; 96375; 86900; 86901; 36415; 87210; 36430; 86850; 82140; 83690; 84703; 85025; 85610; 85730; 80053; 81001; 86920; 87491; 87591; 74177; P9016; J2270; J3490; J2405; J7030; J8499

== ENCOUNTER 2019-08-01 11:37 | Inpatient (IN) | payer SELFPAY ==
--- NOTE | 2019-08-01 11:57 | ER Document Report ---
ED Medical Screen (RME) - General Stated Complaint: RIGHT KNEE PAIN Time Seen by Provider: 08/01/19 11:48 Mode of Arrival: Wheelchair Information source: Patient Notes: Patient presents stating that she is currently on her ninth day of treatment for UTI that has not improved. Patient states that because it hurts whenever she urinates she has not been taking her usual cirrhosis medications including spironolactone, Lasix and lactulose. Patient states that those medications cause her to go to the bathroom and it hurts when she voids so she stopped taking them 12 days ago. Patient is jaundiced with icteric sclera. Patient complains of increased peripheral edema, patient does have orbital edema. Patient also complains of right knee joint pain. Patient denies any injury to the knee. Patient also complains of fever for the past several days. Patient also has a history of hemochromatosis. I have greeted and performed a rapid initial assessment of this patient. A comprehensive ED assessment and evaluation of the patient, analysis of test results and completion of the medical decision making process will be conducted by additional ED providers. TRAVEL OUTSIDE OF THE [place] IN LAST 30 DAYS: No COUNTRY TRAVELED TO/FROM: [place] - Related Data Allergies/Adverse Reactions: Pertussis Vaccines Allergy (Verified 08/01/19 11:47) Past Medical History - Past Medical History Cardiac Medical History: Reports: Hx Hypertension - Denies: Hx Coronary Artery Disease, Hx Heart Attack Pulmonary Medical History: Denies: Hx Asthma, Hx Bronchitis, Hx COPD, Hx Pneumonia Neurological Medical History: Denies: Hx Cerebrovascular Accident, Hx Seizures Renal/ Medical History: Denies: Hx Peritoneal Dialysis GI Medical History: Reports: Hx Cirrhosis - Alcohol and Tylenol induced, Hx Gastroesophageal Reflux Disease, Hx Ulcer Musculoskeltal Medical History: Denies Hx Arthritis Past Surgical History: Denies: Hx Hysterectomy - Immunizations Hx Diphtheria, Pertussis, Tetanus Vaccination: No Physical Exam - Vital signs Vitals: Temp Pulse Resp BP Pulse Ox 98.7 F 106 H 19 135/69 H 96 08/01/19 11:47 08/01/19 11:47 08/01/19 11:47 08/01/19 11:47 08/01/19 11:47 - General General appearance: Alert Notes: Patient jaundiced, periorbital edema, bilateral lower extremity edema, right knee joint tenderness Course - Vital Signs Vital signs: Temp Pulse Resp BP Pulse Ox 98.7 F 106 H 19 135/69 H 96 08/01/19 11:47 08/01/19 11:47 08/01/19 11:47 08/01/19 11:47 08/01/19 11:47
[2019-08-01 12:39] LABS: HEMATOCRIT 16.9 % (36.0-47.0); MEAN CORPUSCULAR HEMOGLOBIN 37.7 pg (27.0-33.4); MEAN CORPUSCULAR VOLUME 108 fl (80-97); RED BLOOD COUNT 1.56 10^6/uL (3.72-5.28); RED CELL DISTRIBUTION WIDTH 21.1 % (11.5-14.0); WHITE BLOOD COUNT 3.9 10^3/uL (4.0-10.5)
[2019-08-01 12:46] LABS: INTERNATIONAL RATION (INR) 2.13; PROTHROMBIN TIME 24.2 SEC (11.4-15.4)
[2019-08-01 12:54] LABS: ALBUMIN 2.8 g/dL (3.5-5.0); ALKALINE PHOSPHATASE 144 U/L (38-126); ANION GAP 11 (5-19); ASPARTATE AMINO TRANSFERASE 69 U/L (14-36); BILIRUBIN,DIRECT 4.9 mg/dL (0.0-0.4); BILIRUBIN,TOTAL 13.5 mg/dL (0.2-1.3); BLOOD UREA NITROGEN 16 mg/dL (7-20); CALCIUM 7.9 mg/dL (8.4-10.2); CARBON DIOXIDE 23 mmol/L (22-30); CHLORIDE 103 mmol/L (98-107); GLUCOSE 105 mg/dL (75-110); POTASSIUM 3.7 mmol/L (3.6-5.0); TOTAL PROTEIN 8.1 g/dL (6.3-8.2)
[2019-08-01 12:54] LABS: APPEARANCE,URINE CLEAR; BILIRUBIN,URINE NEGATIVE (NEGATIVE); COLOR,URINE AMBER; GLUCOSE, URINE NEGATIVE (NEGATIVE); KETONES,URINE NEGATIVE (NEGATIVE); LEUKOCYTE ESTERASE,URINE SMALL (NEGATIVE); NITRITE,URINE NEGATIVE (NEGATIVE); PROTEIN,URINE NEGATIVE (NEGATIVE); URIC ACID CRYSTALS,URINE RARE /HPF; URINE SPECIFIC GRAVITY 1.008
--- NOTE | 2019-08-01 13:02 | RADIOLOGY REPORT (SQ) ---
EXAM DESCRIPTION: KNEE RIGHT 4 VIEWS COMPLETED DATE/TIME: 08/01/2019 12:48 pm REASON FOR STUDY: r knee pain COMPARISON: None. NUMBER OF VIEWS: Four views. TECHNIQUE: AP, lateral, and both oblique radiographic images acquired of the right knee. LIMITATIONS: None. FINDINGS: MINERALIZATION: Normal. BONES: No acute fracture or dislocation. No worrisome bone lesions. JOINT: No effusion. SOFT TISSUES: No soft tissue swelling. No radio-opaque foreign body. OTHER: No other significant finding. IMPRESSION: NEGATIVE STUDY OF THE RIGHT KNEE. NO RADIOGRAPHIC EVIDENCE OF ACUTE INJURY. TECHNICAL DOCUMENTATION: JOB ID: [id number] [email or web address]- All Rights Reserved Reading location - IP/workstation name: [email or web address]
[2019-08-01 13:11] LABS: ABSOLUTE LYMPHOCYTES# (MANUAL) 0.3 10^3/uL (0.5-4.7); ABSOLUTE MONOCYTES # (MANUAL) 0.3 10^3/uL (0.1-1.4); BAND NEUTROPHILS % (MANUAL) 1 % (3-5); BASOPHILS % (MANUAL) 1 % (0-2); EOSINOPHILS % (MANUAL) 0 % (0-6); LYMPHOCYTES % (MANUAL) 7 % (13-45); MONOCYTES % (MANUAL) 7 % (3-13); SEGMENTED NEUTROPHILS % (MAN) 84 % (42-78); TOTAL CELLS COUNTED 100
--- NOTE | 2019-08-01 13:33 | ER Document Report ---
ED General - General Chief Complaint: Swelling of Lower Extremity Stated Complaint: RIGHT KNEE PAIN Time Seen by Provider: 08/01/19 11:48 Mode of Arrival: Wheelchair TRAVEL OUTSIDE OF THE [place] 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 She says b/c of cont dysuria hasn't taken meds (spironolactone, Lasix, lactulose) for known cirrhosis in 12d as they cause her to pee more. also reports R knee pain w/o h/o injury + fever in last few days. Reviewed her CT abdomen pelvis from over a week ago: Evidence of extensive varices cirrhotic appearance of liver with evidence of portal hypertension, gallstones, Sigmoid diverticulosis without diverticulitis, - Related Data Allergies/Adverse Reactions: Pertussis Vaccines Allergy (Verified 08/01/19 11:47) Past Medical History - General Information source: Patient - Social History Smoking Status: Unknown if Ever Smoked Family History: Reviewed & Not Pertinent, Malignancy - Aunt, uncle, grandmother, both grandfathers. Patient has suicidal ideation: No Patient has homicidal ideation: No - Past Medical History Cardiac Medical History: Reports: Hx Hypertension - Denies: Hx Coronary Artery Disease, Hx Heart Attack Pulmonary Medical History: Denies: Hx Asthma, Hx Bronchitis, Hx COPD, Hx Pneumonia Neurological Medical History: Denies: Hx Cerebrovascular Accident, Hx Seizures Renal/ Medical History: Denies: Hx Peritoneal Dialysis GI Medical History: Reports: Hx Cirrhosis - Alcohol and Tylenol induced, Hx Gastroesophageal Reflux Disease, Hx Ulcer Musculoskeletal Medical History: Denies Hx Arthritis Past Surgical History: Denies: Hx Hysterectomy - Immunizations Hx Diphtheria, Pertussis, Tetanus Vaccination: No Physical Exam - Vital signs Vitals: Temp Pulse Resp BP Pulse Ox 98.7 F 106 H 19 135/69 H 96 08/01/19 11:47 08/01/19 11:47 08/01/19 11:47 08/01/19 11:47 08/01/19 11:47 - Rectal Stool: Heme positive. No: Black - on gross inspection of anus has few 1-2mm erythematous ulcerated lesions, 1 vesicle c/w herpes. no external hemorrhoids. on digital exam scant brown stool was +fobt. - Genitourinary External exam: Lesions - also examined external genitalia thoroughly on near vag introitis on inner aspect of inner labia again few scattered 1-2mm erythematous ulcerated base lesions Course - Re-evaluation Re-evalutation: 08/01/19 14:54 on gross inspection of anus has few 1-2mm erythematous ulcerated lesions, 1 vesicle c/w herpes. no external hemorrhoids. on digital exam scant brown stool was +fobt. also examined external genitalia thoroughly on near vag introitis on inner aspect of inner labia again few scattered 1-2mm erythematous ulcerated base lesions - Vital Signs Vital signs: Temp Pulse Resp BP Pulse Ox 99.6 F 110 H 17 140/64 H 94 08/01/19 17:39 08/01/19 17:39 08/01/19 17:39 08/01/19 17:39 08/01/19 17:39 - Laboratory Result Diagrams: 08/01/19 12:06 08/01/19 12:06 Laboratory results interpreted by me: 08/01/19 08/01/19 08/01/19 12:06 12:06 12:06 WBC 3.9 L RBC 1.56 L Hgb 5.9 L Hct 16.9 L MCV 108 H MCH 37.7 H RDW 21.1 H Plt Count 41 L Seg Neuts % (Manual) 84 H Band Neutrophils % 1 L Lymphocytes % (Manual) 7 L Abs Lymphs (Manual) 0.3 L PT 24.2 H Sodium 136.8 L Calcium 7.9 L Total Bilirubin 13.5 H Direct Bilirubin 4.9 H AST 69 H Alkaline Phosphatase 144 H NT-Pro-B Natriuret Pep Albumin 2.8 L Urine Blood Urine Urobilinogen Ur Leukocyte Esterase Crossmatch 08/01/19 08/01/19 08/01/19 12:06 12:32 15:39 WBC RBC Hgb Hct MCV MCH RDW Plt Count Seg Neuts % (Manual) Band Neutrophils % Lymphocytes % (Manual) Abs Lymphs (Manual) PT Sodium Calcium Total Bilirubin Direct Bilirubin AST Alkaline Phosphatase NT-Pro-B Natriuret Pep 623 H Albumin Urine Blood MODERATE H Urine Urobilinogen 4.0 H Ur Leukocyte Esterase SMALL H Crossmatch See Detail Discharge - Discharge Clinical Impression: Low grade fever, Acute anemia, Herpes simplex virus (HSV) infection of vagina Liver failure Qualifiers: Liver failure chronicity: unspecified chronicity Hepatic coma status: without hepatic coma Qualified Code(s): K72.90 - Hepatic failure, unspecified without coma Cirrhosis of liver Qualifiers: Hepatic cirrhosis type: alcoholic cirrhosis Ascites presence: with ascites Qualified Code(s): K70.31 - Alcoholic cirrhosis of liver with ascites Genital herpes Qualifiers: Herpes simplex infection site: perianal skin Qualified Code(s): A60.1 - Herpesviral infection of perianal skin and rectum Disposition: ADMITTED INPATIENT Admitting Provider: [facility] [place] [facility] Unit Admitted: Telemetry
[2019-08-01 13:57] LABS: HEMOGLOBIN 5.9 g/dL (12.0-15.5)
[2019-08-01 13:58] LABS: PLATELET COUNT 41 10^3/uL (150-450)
[2019-08-01 14:01] LABS: POLYCHROMASIA SLIGHT; ROULEAUX 3+
[2019-08-01 14:02] LABS: PLATELET COMMENT DECREASED
[2019-08-01] MEDS ORDERED: LIDOCAINE 2% URO-JET 5 ML KIT MM ONE (15:00)
[2019-08-01] MEDS ORDERED: HYDROMORPHONE HCL INJ/PF 2 MG/ML AMPULE IV PRN (15:00)
[2019-08-01] MEDS ORDERED: NORMAL SALINE 250 ML IV PRN ×3 (15:07→18:21)
[2019-08-01] MEDS ORDERED: ALBUMIN HUMAN 12.5 GM/50 ML RTUINJ IV ONE ×2 (15:16→19:15)
[2019-08-01] MEDS ORDERED: VALACYCLOVIR HCL 500 MG TABLET PO SCH (16:00)
[2019-08-01] MEDS ORDERED: FUROSEMIDE INJ/PF 20 MG/2 ML SDV IV ONE ×2 (16:15→19:15)
[2019-08-01] MEDS ORDERED: ONDANSETRON HCL INJ/PF 4 MG/2 ML SDV IV ONE (16:21)
--- NOTE | 2019-08-01 17:20 | RADIOLOGY REPORT (SQ) ---
EXAM DESCRIPTION: VENOUS UNILATERAL LOWER COMPLETED DATE/TIME: 08/01/2019 4:52 pm REASON FOR STUDY: right knee and ble pain COMPARISON: None. TECHNIQUE: Dynamic and static scott scale and color images acquired of the right leg venous system. S elected spectral images acquired with additional compression and augmentation maneuvers. The contrala teral common femoral vein and saphenofemoral junction were also imaged. Images stored on PACS. LIMITATIONS: None. FINDINGS: COMMON FEMORAL: Normal phasicity, compression and augmentation. No visualized echogenic ma terial on scott scale. No defects on color images. FEMORAL: Normal compression and augmentation. No visualized echogenic material on scott scale. No defe cts on color images. POPLITEAL: Normal compression, augmentation. No visualized echogenic material on scott scale. No defec ts on color images. CALF VESSELS: Normal compression, augmentation. No visualized echogenic material on scott scale. No de fects on color images. GSV and SSV: Normal compression, augmentation. No visualized echogenic material on scott scale. No def ects on color images. ANY DEEP VENOUS INSUFFICIENCY: Not evaluated. ANY EVIDENCE OF POPLITEAL CYST: No. OTHER: No other significant finding. CONTRALATERAL COMMON FEMORAL VEIN AND SAPHENOFEMORAL JUNCTION: Normal phasicity, compression and augmentation. No visualized echogenic material on scott scale. No de fects on color images. IMPRESSION: NO EVIDENCE DVT OR SVT IN THE RIGHT LEG. TECHNICAL DOCUMENTATION: JOB ID: [id number] [email or web address]- All Rights Reserved Reading location - IP/workstation name: [email or web address]
[2019-08-01] MEDS ORDERED: FUROSEMIDE 20 MG TABLET PO ONE (18:08)
[2019-08-01] MEDS ORDERED: SPIRONOLACTONE 25 MG TABLET PO ONE (18:08)
[2019-08-01] MEDS ORDERED: LACTULOSE SYRUP 20 GM/30 ML UDCUP PO ONE (18:09)
[2019-08-01] MEDS ORDERED: LIDOCAINE 5% OINTMENT 35.44 GM TP PRN (18:09)
[2019-08-01] MEDS ORDERED: ALBUTEROL SULFATE 0.083% NEB 2.5 MG/3 ML AMPUL NEB PRN (18:14)
[2019-08-01] MEDS ORDERED: ONDANSETRON HCL INJ/PF 4 MG/2 ML SDV IV PRN (18:14)
--- NOTE | 2019-08-01 18:42 | PDOC H&P ---
History of Present Illness Patient complains of: Multiple complaints History of Present Illness: KHUSHI ACHARYA is a 34 year old female with a past medical history of alcohol cirrhosis, end-stage liver disease, acute on chronic anemia, primary genital herpes outbreak who presented to the emergency department today with multiple complaints; reports dysuria, right knee pain, malaise, fever, generalized edema, etc. She reports that she was seen in the emergency department 9 days ago for UTI; has completed her course of antibiotic therapy but continues to have dysuria. She reports that she has not taken any of her maintenance medications for cirrhosis for greater than 12 days due to generalized malaise. She reports right knee pain without injury. Evaluation emergency department reveals mild tachycardia, hypertension, leukopenia (WBCs 3.9) anemia (hemoglobin 5.9; appears baseline is 9), liver failure (MELD score 25), minimally elevated proBNP, negative urinalysis, serum alcohol of 18, primary herpes outbreak on exam, benign right knee x-ray and venous Doppler. ED provider spoke with her GI service at [facility]; patient was recently admitted and underwent EGD in June; no varices noted, did have widespread gastritis and was started on twice daily PPI. Patient is referred to the hospitalist service for acute on chronic anemia and further management of the above-stated complaints and findings. Past Medical History Cardiac Medical History: Reports: Hypertension Denies: Coronary Artery Disease, Myocardial Infarction Pulmonary Medical History: Reports: None EENT Medical History: Reports: None Neurological Medical History: Reports: None Endocrine Medical History: Reports: None Renal/ Medical History: Reports: None GI Medical History: Reports: Cirrhosis, Gastroesophageal Reflux Disease Musculoskeltal Medical History: Denies: Arthritis Psychiatric Medical History: Reports: Alcohol Dependency Traumatic Medical History: Reports: None Hematology: Reports: Anemia Infectious Medical History: Reports: None Past Surgical History Past Surgical History: Denies: Hysterectomy Social History Information Source: Patient Lives with: Alone Smoking Status: Unknown if Ever Smoked Frequency of Alcohol Use: Heavy Drugs: None Hx Prescription Drug Abuse: No - Advance Directive Resuscitation Status: Full Code Family History Family History: Reviewed & Not Pertinent, Malignancy - Aunt, uncle, grandmother, both grandfathers. Parental Family History Reviewed: Yes Children Family History Reviewed: Yes Sibling(s) Family History Reviewed.: Yes Medication/Allergy Home Medications: Furosemide [Lasix 20 mg Tablet] 40 mg PO DAILY 09/11/17 Allergies/Adverse Reactions: Pertussis Vaccines Allergy (Verified 08/01/19 11:47) Review of Systems Constitutional: PRESENT: fever(s), weakness. ABSENT: chills, headache(s), weig ht gain, weight loss Eyes: ABSENT: visual disturbances Ears: ABSENT: hearing changes Cardiovascular: PRESENT: edema. ABSENT: chest pain, dyspnea on exertion, orthropnea, palpitations Respiratory: ABSENT: cough, hemoptysis Gastrointestinal: ABSENT: abdominal pain, constipation, diarrhea, hematemesis, hematochezia, nausea, vomiting Genitourinary: ABSENT: dysuria, hematuria Musculoskeletal: PRESENT: other - right knee pain. ABSENT: joint swelling Integumentary: ABSENT: rash, wounds Neurological: PRESENT: weakness. ABSENT: abnormal gait, abnormal speech, confusion, dizziness, focal weakness, syncope Psychiatric: ABSENT: anxiety, depression, homidical ideation, suicidal ideation Endocrine: ABSENT: cold intolerance, heat intolerance, polydipsia, polyuria Hematologic/Lymphatic: ABSENT: easy bleeding, easy bruising Physical Exam Vital Signs: Temp Pulse Resp BP Pulse Ox 99.6 F 110 H 17 140/64 H 94 08/01/19 17:39 08/01/19 17:39 08/01/19 17:39 08/01/19 17:39 08/01/19 17:39 Intake & Output 07/31/19 08/01/19 08/02/19 06:59 06:59 06:59 Intake Total 0 Balance 0 Weight 67.5 kg General appearance: PRESENT: no acute distress, disheveled, well-developed, other - Generalized edema Head exam: PRESENT: atraumatic, normocephalic Eye exam: PRESENT: conjunctiva pale, EOMI, PERRLA, scleral icterus Ear exam: PRESENT: normal external ear exam Mouth exam: PRESENT: moist, tongue midline Neck exam: ABSENT: carotid bruit, JVD, lymphadenopathy, thyromegaly Respiratory exam: PRESENT: clear to auscultation stacie, symmetrical, unlabored. ABSENT: rales, rhonchi, wheezes Cardiovascular exam: PRESENT: RRR, +S1, +S2. ABSENT: diastolic murmur, rubs, systolic murmur Pulses: PRESENT: normal dorsalis pedis pul Vascular exam: PRESENT: normal capillary refill GI/Abdominal exam: PRESENT: ascites, normal bowel sounds, soft. ABSENT: distended, guarding, mass, organolmegaly, rebound, tenderness Rectal exam: PRESENT: deferred Extremities exam: PRESENT: full ROM, pedal edema - +2 pitting bilaterally. ABSENT: calf tenderness, clubbing Neurological exam: PRESENT: alert, awake, oriented to person, oriented to place, oriented to time, oriented to situation, CN II-XII grossly intact. ABSENT: motor sensory deficit Psychiatric exam: PRESENT: appropriate affect, normal mood. ABSENT: homicidal ideation, suicidal ideation Skin exam: PRESENT: dry, intact, jaundice, warm. ABSENT: cyanosis, rash Results Laboratory Results: 08/01/19 12:06 08/01/19 12:06 08/01/19 08/01/19 08/01/19 12:06 12:06 12:32 WBC 3.9 L RBC 1.56 L Hgb 5.9 L Hct 16.9 L MCV 108 H MCH 37.7 H MCHC 35.0 RDW 21.1 H Plt Count 41 L Seg Neutrophils % Not Reportable Sodium 136.8 L Potassium 3.7 Chloride 103 Carbon Dioxide 23 Anion Gap 11 BUN 16 Creatinine 0.52 Est GFR ( Amer) > 60 Glucose 105 Calcium 7.9 L Total Bilirubin 13.5 H AST 69 H Alkaline Phosphatase 144 H Ammonia Total Protein 8.1 Albumin 2.8 L Urine Color BOY Urine Appearance CLEAR Urine pH 5.0 Ur Specific [place] 1.008 Urine Protein NEGATIVE Urine Glucose (UA) NEGATIVE Urine Ketones NEGATIVE Urine Blood MODERATE H Urine Nitrite NEGATIVE Ur Leukocyte Esterase SMALL H Urine WBC (Auto) 12 Urine RBC (Auto) 2 Blood Type Antibody Screen 08/01/19 08/01/19 13:37 15:39 WBC RBC Hgb Hct MCV MCH MCHC RDW Plt Count Seg Neutrophils % Sodium Potassium Chloride Carbon Dioxide Anion Gap BUN Creatinine Est GFR ( Amer) Glucose Calcium Total Bilirubin AST Alkaline Phosphatase Ammonia 18.7 Total Protein Albumin Urine Color Urine Appearance Urine pH Ur Specific [place] Urine Protein Urine Glucose (UA) Urine Ketones Urine Blood Urine Nitrite Ur Leukocyte Esterase Urine WBC (Auto) Urine RBC (Auto) Blood Type A POSITIVE Antibody Screen NEGATIVE 08/01/19 12:06 NT-Pro-B Natriuret Pep 623 H Impressions: Knee X-Ray 08/01/19 11:54 IMPRESSION: NEGATIVE STUDY OF THE RIGHT KNEE. NO RADIOGRAPHIC EVIDENCE OF ACUTE INJURY. Venous Doppler Study 08/01/19 15:22 IMPRESSION: NO EVIDENCE DVT OR SVT IN THE RIGHT LEG. Assessment and Plan - Diagnosis (1) Acute on chronic anemia Is this a current diagnosis for this admission?: Yes Plan: Patient presents with a hemoglobin of 5.9 Patient denies recent melena or hematochezia. Guaiac is positive, however, she does have herpes lesions to her anus. Likely secondary to chronic, low volume, blood loss related to gastritis and poor nutrition related to alcohol dependence. Patient had EGD done at [facility] in June 2019; no varices noted, widespread gastritis. Patient is admitted to the medical floor and continuous cardiac telemetry. She received 2 units PRBCs. Twice daily PPI and Carafate at meals and at bedtime Follow-up CBC. Likely discharge in the morning. (2) Cirrhosis of liver Qualifiers: Hepatic cirrhosis type: alcoholic cirrhosis Ascites presence: with ascites Qualified Code(s): K70.31 - Alcoholic cirrhosis of liver with ascites Is this a current diagnosis for this admission?: Yes Plan: Meld score 25. Patient educated on the importance of medication compliance as she tells me that she wishes to remain full code. Serum alcohol level 18; patient reports that she has not had any alcohol intake for several months. Followed by [facility] gastroenterology. Start Lasix 40 mg daily. Start spironolactone 100 mg daily. Lactulose 20 g 3 times daily; titrate to 2-3 soft stools daily. Outpatient follow-up. Medication compliance and alcohol cessation encouraged. (3) Pancytopenia Is this a current diagnosis for this admission?: Yes Plan: Secondary to end-stage liver cirrhosis and alcohol dependence. Multivitamin with iron supplementation daily. Thiamine and folic acid supplementation. Follow-up CBC. (4) Knee pain Qualifiers: Chronicity: acute Laterality: right Qualified Code(s): M25.561 - Pain in right knee Is this a current diagnosis for this admission?: Yes Plan: Venous Doppler negative. X-ray negative. Lidoderm patch. Avoid NSAIDs Oxycodone for pain; avoid IV narcotics. (5) Alcohol dependence Qualifiers: Substance use status: uncomplicated Qualified Code(s): F10.20 - Alcohol dependence, uncomplicated Is this a current diagnosis for this admission?: Yes Plan: Serum EtOH 18. Start multivitamin with iron, folic acid, thiamine supplementation. P.o. Ativan as needed for withdrawal symptoms. Anticipate patient will discharge prior to need. (6) Herpes simplex virus (HSV) infection of vagina Is this a current diagnosis for this admission?: Yes Plan: Herpes IgG pending. HIV pending. Acyclovir 1 g twice daily. Xylocaine 5% topical cream every 6 as needed Sitz bath and mariela-bottle for comfort. Oxycodone as needed for severe pain. (7) Low grade fever Is this a current diagnosis for this admission?: Yes Plan: Likely secondary to primary as herpes outbreak. No concern for SBO; although the patient does have ascites, she is not distended/firm and is without abdominal tenderness. Tylenol for fever 101 or greater. Blood and urine cultures pending. No indications for antibiotic therapy at this time. - Time Time Spent with patient: 35 or more minutes Medications reviewed and adjusted accordingly: Yes Anticipated discharge: Home Within: within 24 hours
[2019-08-01 18:59] LABS: URINE AMPHETAMINES SCREEN NEGATIVE; URINE BARBITURATES SCREEN NEGATIVE; URINE BENZODIAZEPINES SCREEN NEGATIVE; URINE COCAINE SCREEN NEGATIVE; URINE MARIJUANA (THC) SCREEN NEGATIVE; URINE METHADONE SCREEN NEGATIVE; URINE PHENCYCLIDINE SCREEN NEGATIVE
[2019-08-01] MEDS: ACETAMINOPHEN 325 MG TABLET PO PRN (19:46)
[2019-08-01] MEDS ORDERED: PHYTONADIONE INJ 10 MG/1 ML AMPULE SUBCUT ONE (20:25)
[2019-08-01] MEDS: OXYCODONE HCL IR 5 MG TABLET PO PRN (21:19)
[2019-08-01] MEDS ORDERED: PROPRANOLOL HCL 20 MG TABLET PO SCH (22:00)
[2019-08-01] MEDS: LIDOCAINE 5% (700 MG) TRANSDERMAL ADH..PATCH TP SCH (22:00)
[2019-08-01] MEDS: SUCRALFATE 1 GM TABLET PO SCH (22:03)
[2019-08-01] MEDS: VALACYCLOVIR HCL 500 MG TABLET PO SCH (22:03)
[2019-08-01] MEDS: LACTULOSE SYRUP 20 GM/30 ML UDCUP PO SCH (22:03)
[2019-08-01] MEDS: LORAZEPAM 1 MG TABLET PO PRN (22:07)
[2019-08-01 22:31] LABS: ABSOLUTE LYMPHOCYTES (AUTO) 0.5 10^3/uL (0.5-4.7); ABSOLUTE MONOCYTES (AUTO) 0.4 10^3/uL (0.1-1.4); ABSOLUTE NEUT (AUTO) 3.5 10^3/uL (1.7-8.2); BASOPHILS % (AUTO) 0.2 % (0-2); EOSINOPHILS % (AUTO) 0.6 % (0-6); LYMPHOCYTES % (AUTO) 11.7 % (13-45); MEAN CORPUSCULAR HEMOGLOBIN 37.3 pg (27.0-33.4); RED BLOOD COUNT 1.83 10^6/uL (3.72-5.28); RED CELL DISTRIBUTION WIDTH 21.8 % (11.5-14.0); SEGMENTED NEUTROPHILS % (AUTO) 79.5 % (42-78); TOTAL CELLS COUNTED % (AUTO) 100 %; WHITE BLOOD COUNT 4.4 10^3/uL (4.0-10.5)
[2019-08-01 22:40] LABS: HEMOGLOBIN 6.8 g/dL (12.0-15.5); MEAN CORPUSCULAR VOLUME 104 fl (80-97)
[2019-08-01 22:41] LABS: PLATELET COUNT 41 10^3/uL (150-450)
[2019-08-02] MEDS ORDERED: SPIRONOLACTONE 25 MG TABLET PO ONE (00:30)
[2019-08-02] MEDS: PANTOPRAZOLE SODIUM 40 MG TABLET.DR PO SCH (05:44)
[2019-08-02] MEDS: LACTULOSE SYRUP 20 GM/30 ML UDCUP PO SCH ×3 (05:44→21:11)
[2019-08-02] MEDS: OXYCODONE HCL IR 5 MG TABLET PO PRN ×2 (05:45→21:14)
[2019-08-02 05:53] LABS: HEMOGLOBIN 8.2 g/dL (12.0-15.5); MEAN CORPUSCULAR HEMOGLOBIN 36.5 pg (27.0-33.4); MEAN CORPUSCULAR HGB CONC 35.8 g/dL (32.0-36.0); MEAN CORPUSCULAR VOLUME 102 fl (80-97); RED BLOOD COUNT 2.26 10^6/uL (3.72-5.28); RED CELL DISTRIBUTION WIDTH 20.7 % (11.5-14.0); WHITE BLOOD COUNT 5.3 10^3/uL (4.0-10.5)
[2019-08-02 06:08] LABS: ALBUMIN 2.4 g/dL (3.5-5.0); ALKALINE PHOSPHATASE 101 U/L (38-126); ANION GAP 10 (5-19); ASPARTATE AMINO TRANSFERASE 53 U/L (14-36); BILIRUBIN,DIRECT 5.1 mg/dL (0.0-0.4); BILIRUBIN,TOTAL 13.9 mg/dL (0.2-1.3); BLOOD UREA NITROGEN 16 mg/dL (7-20); CALCIUM 7.4 mg/dL (8.4-10.2); CARBON DIOXIDE 24 mmol/L (22-30); CHLORIDE 100 mmol/L (98-107); GLUCOSE 91 mg/dL (75-110); POTASSIUM 3.4 mmol/L (3.6-5.0); TOTAL PROTEIN 7.4 g/dL (6.3-8.2)
[2019-08-02 06:17] LABS: PLATELET COUNT 44 10^3/uL (150-450)
[2019-08-02] MEDS: SUCRALFATE 1 GM TABLET PO SCH ×4 (09:20→21:11)
[2019-08-02] MEDS: LIDOCAINE 5% (700 MG) TRANSDERMAL ADH..PATCH TP SCH (10:30)
--- NOTE | 2019-08-02 10:37 | PDOC PROGRESS REPORT ---
Subjective Progress Note for:: 08/02/19 Reason For Visit: A/C ANEMIA,PRIMARY HERPES 08/02/2019 Patient was admitted for alcoholic cirrhosis, anemia Physical Exam Vital Signs: Temp Pulse Resp BP Pulse Ox 100.1 F 110 H 17 128/69 H 90 L 08/02/19 07:47 08/02/19 07:47 08/02/19 07:47 08/02/19 07:47 08/02/19 07:47 Intake & Output 08/01/19 08/02/19 08/03/19 06:59 06:59 06:59 Intake Total 770 Balance 770 Weight 71.2 kg General appearance: PRESENT: mild distress, other - Patient states she still feels "tired " Respiratory exam: PRESENT: clear to auscultation stacie. ABSENT: rales, rhonchi, wheezes Cardiovascular exam: PRESENT: RRR. ABSENT: diastolic murmur, rubs, systolic murmur GI/Abdominal exam: PRESENT: normal bowel sounds, soft. ABSENT: distended, guarding, mass, organolmegaly, rebound, tenderness Neurological exam: PRESENT: alert, awake, oriented to person, oriented to place, oriented to time, oriented to situation, CN II-XII grossly intact. ABSENT: motor sensory deficit Psychiatric exam: PRESENT: depressed, flat affect Results Laboratory Results: 08/02/19 04:28 08/02/19 04:28 08/01/19 08/01/19 08/01/19 12:06 12:06 12:32 WBC 3.9 L RBC 1.56 L Hgb 5.9 L Hct 16.9 L MCV 108 H MCH 37.7 H MCHC 35.0 RDW 21.1 H Plt Count 41 L Seg Neutrophils % Not Reportable Sodium 136.8 L Potassium 3.7 Chloride 103 Carbon Dioxide 23 Anion Gap 11 BUN 16 Creatinine 0.52 Est GFR ( Amer) > 60 Glucose 105 Calcium 7.9 L Total Bilirubin 13.5 H AST 69 H Alkaline Phosphatase 144 H Ammonia Total Protein 8.1 Albumin 2.8 L Urine Color BOY Urine Appearance CLEAR Urine pH 5.0 Ur Specific [place] 1.008 Urine Protein NEGATIVE Urine Glucose (UA) NEGATIVE Urine Ketones NEGATIVE Urine Blood MODERATE H Urine Nitrite NEGATIVE Ur Leukocyte Esterase SMALL H Urine WBC (Auto) 12 Urine RBC (Auto) 2 Blood Type Antibody Screen 08/01/19 08/01/1908/01/19 13:37 15:39 21:39 WBC 4.4 RBC 1.83 L Hgb 6.8 L Hct 19.0 L MCV 104 H D MCH 37.3 H MCHC 36.0 RDW 21.8 H Plt Count 41 L Seg Neutrophils % 79.5 H Sodium Potassium Chloride Carbon Dioxide Anion Gap BUN Creatinine Est GFR ( Amer) Glucose Calcium Total Bilirubin AST Alkaline Phosphatase Ammonia 18.7 Total Protein Albumin Urine Color Urine Appearance Urine pH Ur Specific [place] Urine Protein Urine Glucose (UA) Urine Ketones Urine Blood Urine Nitrite Ur Leukocyte Esterase Urine WBC (Auto) Urine RBC (Auto) Blood Type A POSITIVE Antibody Screen NEGATIVE 08/02/19 08/02/19 04:28 04:28 WBC 5.3 RBC 2.26 L Hgb 8.2 L Hct 23.0 L MCV 102 H MCH 36.5 H MCHC 35.8 RDW 20.7 H Plt Count 44 L Seg Neutrophils % Sodium 133.8 L Potassium 3.4 L Chloride 100 Carbon Dioxide 24 Anion Gap 10 BUN 16 Creatinine 0.58 Est GFR ( Amer) > 60 Glucose 91 Calcium 7.4 L Total Bilirubin 13.9 H AST 53 H Alkaline Phosphatase 101 Ammonia Total Protein 7.4 Albumin 2.4 L Urine Color Urine Appearance Urine pH Ur Specific [place] Urine Protein Urine Glucose (UA) Urine Ketones Urine Blood Urine Nitrite Ur Leukocyte Esterase Urine WBC (Auto) Urine RBC (Auto) Blood Type Antibody Screen 08/01/19 12:06 NT-Pro-B Natriuret Pep 623 H Impressions: Knee X-Ray 08/01/19 11:54 IMPRESSION: NEGATIVE STUDY OF THE RIGHT KNEE. NO RADIOGRAPHIC EVIDENCE OF ACUTE INJURY. Venous Doppler Study 08/01/19 15:22 IMPRESSION: NO EVIDENCE DVT OR SVT IN THE RIGHT LEG. Assessment and Plan - Diagnosis (1) Acute on chronic anemia Is this a current diagnosis for this admission?: Yes (2) Cirrhosis of liver Qualifiers: Hepatic cirrhosis type: alcoholic cirrhosis Ascites presence: with ascites Qualified Code(s): K70.31 - Alcoholic cirrhosis of liver with ascites Is this a current diagnosis for this admission?: Yes (3) Genital herpes Qualifiers: Herpes simplex infection site: perianal skin Qualified Code(s): A60.1 - Herpesviral infection of perianal skin and rectum Is this a current diagnosis for this admission?: Yes (4) Knee pain Qualifiers: Chronicity: acute Laterality: right Qualified Code(s): M25.561 - Pain in right knee Is this a current diagnosis for this admission?: Yes (5) Pancytopenia Is this a current diagnosis for this admission?: Yes - Plan Summary Summary: 08/02/2019 Vital signs are stable patient still has a low-grade temp 100.1. It had been as high as 102.9 yesterday patient is still running an elevated heart rate of 110. Pressure 128/69 O2 saturation this morning when she was asleep was low at 90% on room air but previously had been 98% Weight when she was admitted was recorded at 67.5 kg today it is 71.2 On admission her hemoglobin was 5.9 platelets 41,000 today her hemoglobin is c ome up to 8.2 platelets are still low at 44,000. This is probably due to her cirrhosis. Accordingly patient had an endoscopy done in June and was started on a PPI today's yesterday's coags revealed the PT to be 24.2 and INR 2.13 Potassium slightly low at 3.4 we will will replace this with p.o. potassium urine culture shows a preliminary negative Patient is currently on no antibiotics. Get patient up out of bed today and ambulate, possibly discontinue to home tomorrow - Time Time Spent with patient: 35 or more minutes
[2019-08-02] MEDS: MULTIVITAMIN TABLET PO SCH (10:50)
[2019-08-02] MEDS: FOLIC ACID 1 MG TABLET PO SCH (10:50)
[2019-08-02] MEDS: POTASSIUM CHLORIDE 10 MEQ TABLET.ER PO SCH ×2 (10:50→21:11)
[2019-08-02] MEDS: SPIRONOLACTONE 25 MG TABLET PO SCH (10:50)
[2019-08-02] MEDS: VALACYCLOVIR HCL 500 MG TABLET PO SCH ×2 (10:51→21:10)
[2019-08-02] MEDS: DOCUSATE SODIUM 100 MG CAPSULE PO SCH (10:51)
[2019-08-02] MEDS: THIAMINE HCL 100 MG TABLET PO SCH (10:57)
[2019-08-02] MEDS: LORAZEPAM 1 MG TABLET PO PRN ×2 (11:15→21:13)
[2019-08-02] MEDS: ACETAMINOPHEN 325 MG TABLET PO PRN (23:41)
[2019-08-03] MEDS: PANTOPRAZOLE SODIUM 40 MG TABLET.DR PO SCH (05:15)
[2019-08-03] MEDS: LACTULOSE SYRUP 20 GM/30 ML UDCUP PO SCH ×4 (05:15→23:38)
[2019-08-03] MEDS: LORAZEPAM 1 MG TABLET PO PRN ×4 (05:15→23:36)
[2019-08-03] MEDS: OXYCODONE HCL IR 5 MG TABLET PO PRN ×3 (05:15→18:17)
[2019-08-03 05:20] LABS: PROTHROMBIN TIME 25.7 SEC (11.4-15.4)
[2019-08-03 05:21] LABS: PARTIAL THROMBOPLASTIN TIME 48.8 SEC (23.5-35.8)
[2019-08-03 05:22] LABS: ALBUMIN 2.4 g/dL (3.5-5.0); ALKALINE PHOSPHATASE 85 U/L (38-126); ANION GAP 8 (5-19); ASPARTATE AMINO TRANSFERASE 43 U/L (14-36); BILIRUBIN,DIRECT 5.4 mg/dL (0.0-0.4); BILIRUBIN,TOTAL 13.9 mg/dL (0.2-1.3); BLOOD UREA NITROGEN 14 mg/dL (7-20); CALCIUM 7.7 mg/dL (8.4-10.2); CARBON DIOXIDE 25 mmol/L (22-30); CHLORIDE 100 mmol/L (98-107); GLUCOSE 86 mg/dL (75-110); POTASSIUM 3.7 mmol/L (3.6-5.0); TOTAL PROTEIN 7.3 g/dL (6.3-8.2)
[2019-08-03 05:26] LABS: HEMATOCRIT 25.9 % (36.0-47.0); HEMOGLOBIN 9.4 g/dL (12.0-15.5); MEAN CORPUSCULAR HEMOGLOBIN 36.6 pg (27.0-33.4); MEAN CORPUSCULAR HGB CONC 36.2 g/dL (32.0-36.0); MEAN CORPUSCULAR VOLUME 101 fl (80-97); RED BLOOD COUNT 2.55 10^6/uL (3.72-5.28); RED CELL DISTRIBUTION WIDTH 22.9 % (11.5-14.0); WHITE BLOOD COUNT 4.8 10^3/uL (4.0-10.5)
[2019-08-03 06:09] LABS: PLATELET COUNT 50 10^3/uL (150-450)
[2019-08-03 06:10] LABS: ABSOLUTE LYMPHOCYTES# (MANUAL) 0.3 10^3/uL (0.5-4.7); ABSOLUTE MONOCYTES # (MANUAL) 0.2 10^3/uL (0.1-1.4); BAND NEUTROPHILS % (MANUAL) 2 % (3-5); EOSINOPHILS % (MANUAL) 0 % (0-6); LYMPHOCYTES % (MANUAL) 7 % (13-45); MONOCYTES % (MANUAL) 4 % (3-13); SEGMENTED NEUTROPHILS % (MAN) 85 % (42-78); TOTAL CELLS COUNTED 100
[2019-08-03 06:11] LABS: BASOPHILS % (MANUAL) 1 % (0-2); METAMYELOCYTES % (MANUAL) 1 % (0-1); POLYCHROMASIA SLIGHT
[2019-08-03 06:12] LABS: ANISOCYTOSIS 3+; OVALOCYTES SLIGHT; PLATELET COMMENT DECREASED; POIKILOCYTOSIS SLIGHT; ROULEAUX SLIGHT; SCHISTOCYTES SLIGHT
[2019-08-03] MEDS: FOLIC ACID 1 MG TABLET PO SCH (09:39)
[2019-08-03] MEDS: POTASSIUM CHLORIDE 10 MEQ TABLET.ER PO SCH ×2 (09:39→21:33)
[2019-08-03] MEDS: DOCUSATE SODIUM 100 MG CAPSULE PO SCH (09:39)
[2019-08-03] MEDS: LIDOCAINE 5% (700 MG) TRANSDERMAL ADH..PATCH TP SCH (09:40)
[2019-08-03] MEDS: VALACYCLOVIR HCL 500 MG TABLET PO SCH ×2 (09:40→21:33)
[2019-08-03] MEDS: SPIRONOLACTONE 25 MG TABLET PO SCH (09:40)
[2019-08-03] MEDS: MULTIVITAMIN TABLET PO SCH (09:40)
[2019-08-03] MEDS: THIAMINE HCL 100 MG TABLET PO SCH (09:41)
[2019-08-03] MEDS: SUCRALFATE 1 GM TABLET PO SCH ×4 (09:41→21:37)
--- NOTE | 2019-08-03 10:14 | PDOC PROGRESS REPORT ---
Subjective Progress Note for:: 08/03/19 Reason For Visit: A/C ANEMIA,PRIMARY HERPES 08/03/2019 anemia, cirrhosis, malaise, fatigue, generalized edema UTI treatment failure as an outpatient. Physical Exam Vital Signs: Temp Pulse Resp BP Pulse Ox 98.3 F 95 16 124/72 92 08/03/19 07:21 08/03/19 07:21 08/03/19 07:21 08/03/19 07:21 08/03/19 07:21 Intake & Output 08/02/19 08/03/19 08/04/19 06:59 06:59 06:59 Intake Total 770 200 Balance 770 200 Weight 71.2 kg 70 kg General appearance: PRESENT: no acute distress, other - Sleeping comfortably arouses easily Respiratory exam: PRESENT: clear to auscultation stacie. ABSENT: rales, rhonchi, wheezes Cardiovascular exam: PRESENT: RRR. ABSENT: diastolic murmur, rubs, systolic murmur Neurological exam: PRESENT: altered, oriented to person, oriented to place, oriented to time, oriented to situation, CN II-XII grossly intact. ABSENT: motor sensory deficit Psychiatric exam: PRESENT: depressed, flat affect Results Laboratory Results: 08/03/19 04:46 08/03/19 04:46 08/03/19 08/03/19 08/03/19 04:46 04:46 04:46 WBC 4.8 RBC 2.55 L Hgb 9.4 L Hct 25.9 L MCV 101 H MCH 36.6 H MCHC 36.2 H RDW 22.9 H Plt Count 50 L Seg Neutrophils % Not Reportable Sodium 132.6 L Potassium 3.7 Chloride 100 Carbon Dioxide 25 Anion Gap 8 BUN 14 Creatinine 0.59 Est GFR ( Amer) > 60 Glucose 86 Calcium 7.7 L Total Bilirubin 13.9 H AST 43 H Alkaline Phosphatase 85 Ammonia 31.3 Total Protein 7.3 Albumin 2.4 L 08/01/19 12:06 NT-Pro-B Natriuret Pep 623 H Impressions: Knee X-Ray 08/01/19 11:54 IMPRESSION: NEGATIVE STUDY OF THE RIGHT KNEE. NO RADIOGRAPHIC EVIDENCE OF ACUTE INJURY. Venous Doppler Study 08/01/19 15:22 IMPRESSION: NO EVIDENCE DVT OR SVT IN THE RIGHT LEG. Assessment and Plan - Diagnosis (1) Acute on chronic anemia Is this a current diagnosis for this admission?: Yes (2) Cirrhosis of liver Qualifiers: Hepatic cirrhosis type: alcoholic cirrhosis Ascites presence: with ascites Qualified Code(s): K70.31 - Alcoholic cirrhosis of liver with ascites Is this a current diagnosis for this admission?: Yes (3) Genital herpes Qualifiers: Herpes simplex infection site: perianal skin Qualified Code(s): A60.1 - Herpesviral infection of perianal skin and rectum Is this a current diagnosis for this admission?: Yes (4) Knee pain Qualifiers: Chronicity: acute Laterality: right Qualified Code(s): M25.561 - Pain in right knee Is this a current diagnosis for this admission?: Yes (5) Pancytopenia Is this a current diagnosis for this admission?: Yes (6) Hypercoagulopathy Is this a current diagnosis for this admission?: Yes - Plan Summary Summary: 08/02/2019 Vital signs are stable patient still has a low-grade temp 100.1. It had been as high as 102.9 yesterday patient is still running an elevated heart rate of 110. Pressure 128/69 O2 saturation this morning when she was asleep was low at 90% on room air but previously had been 98% Weight when she was admitted was recorded at 67.5 kg today it is 71.2 On admission her hemoglobin was 5.9 platelets 41,000 today her hemoglobin is come up to 8.2 platelets are still low at 44,000. This is probably due to her cirrhosis. Accordingly patient had an endoscopy done in June and was started on a PPI today's yesterday's coags revealed the PT to be 24.2 and INR 2.13 Potassium slightly low at 3.4 we will will replace this with p.o. potassium urine culture shows a preliminary negative Patient is currently on no antibiotics. Get patient up out of bed today and ambulate, possibly discontinue to home tomorrow 08/03/2019 Patient had a slight temperature last night around 2300 hrs. it was 100.6. This morning her temperature is 98.3 O2 saturation is 92% on room air pulse is approximately 95, blood pressure 124/72 Ammonia level has gone up today 18 up to 37, platelets are improved slightly up from 41,000 to now 50,000 I am going to increase her lactulose today he is currently on 20 g every 8 hours, 30 g 8 hours. Patient was not on lactulose prior to coming to the hospital. Fact her only medication according to the chart was Lasix 40 g daily. She is also currently on Carafate, Protonix, spironolactone, Valtrex, as well as multivitamins and potassium She is using Ativan approximately 1 time daily and using oxycodone 1 time daily Besides her ammonia level her other liver functions are improving though her total and direct bilirubin are remaining elevated and stable - Time Time Spent with patient: 25-34 minutes
[2019-08-04] MEDS: OXYCODONE HCL IR 5 MG TABLET PO PRN (00:17)
[2019-08-04] MEDS: LACTULOSE SYRUP 20 GM/30 ML UDCUP PO SCH ×4 (05:24→23:44)
[2019-08-04] MEDS: PANTOPRAZOLE SODIUM 40 MG TABLET.DR PO SCH (05:25)
[2019-08-04] MEDS: VALACYCLOVIR HCL 500 MG TABLET PO SCH ×2 (09:19→21:19)
[2019-08-04] MEDS: SUCRALFATE 1 GM TABLET PO SCH ×4 (09:19→21:19)
[2019-08-04] MEDS: THIAMINE HCL 100 MG TABLET PO SCH (09:19)
[2019-08-04] MEDS: SPIRONOLACTONE 25 MG TABLET PO SCH (09:19)
[2019-08-04] MEDS: POTASSIUM CHLORIDE 10 MEQ TABLET.ER PO SCH ×2 (09:19→21:19)
[2019-08-04] MEDS: LIDOCAINE 5% (700 MG) TRANSDERMAL ADH..PATCH TP SCH (09:19)
[2019-08-04] MEDS: FOLIC ACID 1 MG TABLET PO SCH (09:19)
[2019-08-04] MEDS: MULTIVITAMIN TABLET PO SCH (09:19)
[2019-08-04] MEDS: DOCUSATE SODIUM 100 MG CAPSULE PO SCH (09:19)
[2019-08-04 09:35] LABS: HEMATOCRIT 24.7 % (36.0-47.0); HEMOGLOBIN 8.9 g/dL (12.0-15.5); MEAN CORPUSCULAR HEMOGLOBIN 36.8 pg (27.0-33.4); MEAN CORPUSCULAR HGB CONC 36.1 g/dL (32.0-36.0); MEAN CORPUSCULAR VOLUME 102 fl (80-97); RED BLOOD COUNT 2.42 10^6/uL (3.72-5.28); RED CELL DISTRIBUTION WIDTH 23.2 % (11.5-14.0); WHITE BLOOD COUNT 4.3 10^3/uL (4.0-10.5)
[2019-08-04 09:39] LABS: INTERNATIONAL RATION (INR) 2.31; PROTHROMBIN TIME 25.8 SEC (11.4-15.4)
[2019-08-04 09:40] LABS: PARTIAL THROMBOPLASTIN TIME 47.9 SEC (23.5-35.8)
[2019-08-04 09:59] LABS: ALBUMIN 2.4 g/dL (3.5-5.0); ALKALINE PHOSPHATASE 85 U/L (38-126); ANION GAP 9 (5-19); ASPARTATE AMINO TRANSFERASE 42 U/L (14-36); BILIRUBIN,DIRECT 4.6 mg/dL (0.0-0.4); BILIRUBIN,TOTAL 12.5 mg/dL (0.2-1.3); BLOOD UREA NITROGEN 7 mg/dL (7-20); CALCIUM 7.8 mg/dL (8.4-10.2); CARBON DIOXIDE 24 mmol/L (22-30); CHLORIDE 102 mmol/L (98-107); GLUCOSE 104 mg/dL (75-110); POTASSIUM 3.7 mmol/L (3.6-5.0); TOTAL PROTEIN 7.6 g/dL (6.3-8.2)
[2019-08-04 10:17] LABS: PLATELET COUNT 50 10^3/uL (150-450)
[2019-08-04 10:20] LABS: ABSOLUTE LYMPHOCYTES# (MANUAL) 0.8 10^3/uL (0.5-4.7); ABSOLUTE MONOCYTES # (MANUAL) 0.2 10^3/uL (0.1-1.4); BASOPHILS % (MANUAL) 1 % (0-2); EOSINOPHILS % (MANUAL) 2 % (0-6); LYMPHOCYTES % (MANUAL) 19 % (13-45); MONOCYTES % (MANUAL) 5 % (3-13); SEGMENTED NEUTROPHILS % (MAN) 73 % (42-78); TOTAL CELLS COUNTED 100
[2019-08-04 10:21] LABS: ANISOCYTOSIS 3+; PLATELET COMMENT DECREASED
[2019-08-04 10:22] LABS: OVALOCYTES SLIGHT; PLATELET LARGE PRESENT; POLYCHROMASIA SLIGHT
--- NOTE | 2019-08-04 14:21 | RADIOLOGY REPORT (SQ) ---
EXAM DESCRIPTION: CT ABD/PELVIS WITH IV ONLY COMPLETED DATE/TIME: 08/04/2019 1:37 pm REASON FOR STUDY: ascites, cirrhosis COMPARISON: 07/23/2019 TECHNIQUE: CT scan of the abdomen and pelvis performed using helical scanning technique with dynamic intravenous contrast injection. No oral contrast. Images reviewed with lung, soft tissue, and bone windows. Reconstructed coronal and sagittal MPR images reviewed. Delayed images for evaluation of the urinary system also acquired. All images stored on PACS. All CT scanners at this facility use dose modulation, iterative reconstruction, and/or weight based d osing when appropriate to reduce radiation dose to as low as reasonably achievable (ALARA). [facility]: Dose Right [facility]: CareDose [facility]: Dose Right [facility]: Teradose 4D [facility]: [employer] CONTRAST TYPE AND DOSE: contrast/concentration: Isovue 350.00 mg/ml; Total Contrast Delivered: 80.0 ml; Total Saline Delivered: 68.0 ml RENAL FUNCTION: Creatinine 0.59 RADIATION DOSE: CT Rad equipment meets quality standard of care and radiation dose reduction techniq ues were employed. CTDIvol: 5.9 - 6.0 mGy. DLP: 662 mGy-cm.. LIMITATIONS: None. FINDINGS: LOWER CHEST: Mild bilateral effusions, right greater than left, with associated basilar co nsolidation, likely atelectasis. Cardiomegaly. LIVER: Cirrhotic hepatic morphology. No focal lesions. SPLEEN: Splenomegaly measuring up to 15 cm PANCREAS: No masses. No significant calcifications. No adjacent inflammation or peripancreatic fluid collections. Pancreatic duct not dilated. GALLBLADDER: Cholelithiasis with dilated gallbladder measuring up to 4.5 cm. ADRENAL GLANDS: No significant masses or asymmetry. RIGHT KIDNEY AND URETER: No solid masses. No significant calcifications. No hydronephrosis or hyd roureter. LEFT KIDNEY AND URETER: No solid masses. No significant calcifications. No hydronephrosis or hydr oureter. AORTA AND VESSELS: No aneurysm. No dissection. Renal arteries, SMA, celiac without stenosis. Evidenc e of portal hypertension with markedly enlarged portosystemic collateral coursing down the anterior a bdominal wall to the level of the left pelvis. RETROPERITONEUM: No retroperitoneal adenopathy, hemorrhage or masses. BOWEL AND PERITONEAL CAVITY: No evidence of intestinal obstruction. No focal bowel wall thickening. Diffuse mesenteric stranding, likely vascular engorgement from known portal hypertension. . No corrina e intraperitoneal gas. Small volume ascites. APPENDIX: Normal. PELVIS: No mass. No free fluid. Normal bladder. ABDOMINAL WALL: No mass. Portosystemic collaterals as above. BONES: No acute bony abnormality. No suspicious lytic or blastic osseous lesions. OTHER: No other significant finding. IMPRESSION: 1. Mild bilateral effusions, right greater than left, with associated atelectasis. Fin dings increased from prior exam. 2. Cirrhotic liver morphology with markedly enlarged portosystemic collaterals. Splenomegaly. 3. Cholelithiasis with distended gallbladder measuring 4.5 cm. Recommend correlation with patient s ymptoms. TECHNICAL DOCUMENTATION: JOB ID: [id number] Quality ID # [id number]: Final reports with documentation of one or more dose reduction techniques (e.g., Au tomated exposure control, adjustment of the mA and/or kV according to patient size, use of iterative reconstruction technique) 2010 [employer]- All Rights Reserved Reading location - IP/workstation name: [email or web address]
--- NOTE | 2019-08-04 17:09 | PDOC PROGRESS REPORT ---
Subjective Progress Note for:: 08/04/19 Reason For Visit: ACUTE ON CHRONIC ANEMIA,PRIMARY HERPES 08/04/2019 Anemia, end stage renal disease, herpetic outbreak, dysuria, fever, malaise, UTI Physical Exam Vital Signs: Temp Pulse Resp BP Pulse Ox 99.1 F 98 16 149/91 H 95 08/04/19 01:13 08/04/19 13:48 08/03/19 23:35 08/04/19 01:13 08/03/19 23:35 Intake & Output 08/03/19 08/04/19 08/05/19 06:59 06:59 06:59 Intake Total 200 490 Balance 200 490 Weight 70 kg 70.2 kg General appearance: PRESENT: mild distress Respiratory exam: PRESENT: clear to auscultation stacie. ABSENT: rales, rhonchi, wheezes Cardiovascular exam: PRESENT: RRR. ABSENT: diastolic murmur, rubs, systolic murmur GI/Abdominal exam: PRESENT: soft, other - No significant tenderness, no guarding, no firmness, negative Leach sign Neurological exam: PRESENT: alert, awake, oriented to person, oriented to place, oriented to time, oriented to situation, CN II-XII grossly intact, other - Patient is much more awake and alert today. ABSENT: motor sensory deficit Psychiatric exam: PRESENT: flat affect Results Laboratory Results: 08/04/19 09:18 08/04/19 09:18 08/04/19 08/04/19 08/04/19 09:18 09:18 09:18 WBC 4.3 RBC 2.42 L Hgb 8.9 L Hct 24.7 L MCV 102 H MCH 36.8 H MCHC 36.1 H RDW 23.2 H Plt Count 50 L Seg Neutrophils % Not Reportable Sodium 134.5 L Potassium 3.7 Chloride 102 Carbon Dioxide 24 Anion Gap 9 BUN 7 Creatinine 0.52 Est GFR ( Amer) > 60 Glucose 104 Calcium 7.8 L Total Bilirubin 12.5 H AST 42 H Alkaline Phosphatase 85 Ammonia 28.8 Total Protein 7.6 Albumin 2.4 L 08/01/19 12:32 Clean Catch Midstream Urine Culture - Final Mixed Urogenital Yana 08/01/19 12:06 NT-Pro-B Natriuret Pep 623 H Impressions: Knee X-Ray 08/01/19 11:54 IMPRESSION: NEGATIVE STUDY OF THE RIGHT KNEE. NO RADIOGRAPHIC EVIDENCE OF ACUTE INJURY. Venous Doppler Study 08/01/19 15:22 IMPRESSION: NO EVIDENCE DVT OR SVT IN THE RIGHT LEG. Abdomen/Pelvis CT 08/04/19 00:00 IMPRESSION: 1. Mild bilateral effusions, right greater than left, with associated atelectasis. Findings increased from prior exam. 2. Cirrhotic liver morphology with markedly enlarged portosystemic collaterals. Splenomegaly. 3. Cholelithiasis with distended gallbladder measuring 4.5 cm. Recommend correlation with patient symptoms. Assessment and Plan - Diagnosis (1) Acute on chronic anemia Is this a current diagnosis for this admission?: Yes (2) Cirrhosis of liver Qualifiers: Hepatic cirrhosis type: alcoholic cirrhosis Ascites presence: with ascites Qualified Code(s): K70.31 - Alcoholic cirrhosis of liver with ascites Is this a current diagnosis for this admission?: Yes (3) Genital herpes Qualifiers: Herpes simplex infection site: perianal skin Qualified Code(s): A60.1 - Herpesviral infection of perianal skin and rectum Is this a current diagnosis for this admission?: Yes (4) Knee pain Qualifiers: Chronicity: acute Laterality: right Qualified Code(s): M25.561 - Pain in right knee Is this a current diagnosis for this admission?: Yes (5) Pancytopenia Is this a current diagnosis for this admission?: Yes (6) Hypercoagulopathy Is this a current diagnosis for this admission?: Yes - Plan Summary Summary: 08/02/2019 Vital signs are stable patient still has a low-grade temp 100.1. It had been as high as 102.9 yesterday patient is still running an elevated heart rate of 110. Pressure 128/69 O2 saturation this morning when she was asleep was low at 90% on room air but previously had been 98% Weight when she was admitted was recorded at 67.5 kg today it is 71.2 On admission her hemoglobin was 5.9 platelets 41,000 today her hemoglobin is come up to 8.2 platelets are still low at 44,000. This is probably due to her cirrhosis. Accordingly patient had an endoscopy done in June and was started on a PPI today's yesterday's coags revealed the PT to be 24.2 and INR 2.13 Potassium slightly low at 3.4 we will will replace this with p.o. potassium urine culture shows a preliminary negative Patient is currently on no antibiotics. Get patient up out of bed today and ambulate, possibly discontinue to home tomorrow 08/03/2019 Patient had a slight temperature last night around 2300 hrs. it was 100.6. This morning her temperature is 98.3 O2 saturation is 92% on room air pulse is approximately 95, blood pressure 124/72 Ammonia level has gone up today 18 up to 37, platelets are improved slightly up from 41,000 to now 50,000 I am going to increase her lactulose today she is currently on 20 g every 8 hours, 30 g 6 hours. Patient was not on lactulose prior to coming to the hospital. In Fact her only medication according to the chart was Lasix 40 g daily. She is also currently on Carafate, Protonix, spironolactone, Valtrex, as well as multivitamins and potassium She is using Ativan approximately 1 time daily and using oxycodone 1 time daily Besides her ammonia level, her other liver functions are improving though her total and direct bilirubin are remaining elevated and stable 08/04/2019 Temp last night was 99.1 got up to as high as 100.6 on 08/02/2019 Pulses approximately 100, blood pressure 149/91, O2 saturation 95% on room air Chemistry with sodium 134.5 potassium 3.7 BUN of 7 creatinine 0.52 GFR greater than 60 Total bilirubin down slightly to 12.5 direct bilirubin down to 4.6 AST down to 42 ALT down to [address] of the abdomen and pelvis today with IV contrast showed mild bilateral effusions right greater than left with associated atelectasis findings are inc reased from prior exam. #2 cirrhotic liver with enlarged portosystemic collaterals and splenomegaly #3 cholelithiasis with distended gallbladder measuring 4.5 cm. This does not appear to be significantly different from previous CT dated 07/22/2019 Exam reveals no abdominal tenderness no rebound no guarding Numbers all appear to be improving patient is more awake alert this afternoon talking using her cell phone. Placed a call to her dental sales representative in [facility] Dr. Ruben Clay. Was done at approximately 1500 hrs. Have not returned my call yet Have spoken to the patient's mother at the bedside, Norma thibodeaux, [phone], also called her on her phone to keep her involved with patient care. Patient has given me permission to discuss her care with her mother. All of patient's numbers are improving and in looking back through the chart they are much better than they have been in the past. Clinically patient seems to be improving, ammonia levels getting better patient is more awake and alert. Patient and her mother both admit that the patient had stopped her meds i.e. lactulose a while back because of diarrhea. I am going to check a uric acid level tomorrow for her right knee pain. Patient's MELD Score today is 27. Based on this score her mortality over the next 3 months is 20%. - Time Time Spent with patient: 35 or more minutes
[2019-08-04] MEDS: FUROSEMIDE INJ/PF 40 MG/4 ML SDV IV SCH (17:52)
[2019-08-04] MEDS ORDERED: HYDROMORPHONE HCL INJ/PF 2 MG/ML AMPULE IV ONE (18:45)
[2019-08-04] MEDS: ACETAMINOPHEN 325 MG TABLET PO PRN (23:22)
[2019-08-05 04:44] LABS: ALBUMIN 2.3 g/dL (3.5-5.0); ALKALINE PHOSPHATASE 114 U/L (38-126); ANION GAP 7 (5-19); ASPARTATE AMINO TRANSFERASE 41 U/L (14-36); BILIRUBIN,DIRECT 3.7 mg/dL (0.0-0.4); BILIRUBIN,TOTAL 10.5 mg/dL (0.2-1.3); BLOOD UREA NITROGEN 3 mg/dL (7-20); CALCIUM 7.6 mg/dL (8.4-10.2); CARBON DIOXIDE 27 mmol/L (22-30); CHLORIDE 103 mmol/L (98-107); GLUCOSE 119 mg/dL (75-110); POTASSIUM 3.3 mmol/L (3.6-5.0); TOTAL PROTEIN 6.8 g/dL (6.3-8.2); URIC ACID 4.7 mg/dL (2.5-7.0)
[2019-08-05] MEDS: PANTOPRAZOLE SODIUM 40 MG TABLET.DR PO SCH (05:34)
[2019-08-05 06:41] LABS: HEMATOCRIT 22.6 % (36.0-47.0); HEMOGLOBIN 8.1 g/dL (12.0-15.5); MEAN CORPUSCULAR HEMOGLOBIN 36.8 pg (27.0-33.4); MEAN CORPUSCULAR HGB CONC 35.8 g/dL (32.0-36.0); MEAN CORPUSCULAR VOLUME 103 fl (80-97); RED CELL DISTRIBUTION WIDTH 22.8 % (11.5-14.0)
[2019-08-05 07:30] LABS: ABSOLUTE LYMPHOCYTES# (MANUAL) 0.5 10^3/uL (0.5-4.7); ABSOLUTE MONOCYTES # (MANUAL) 0.3 10^3/uL (0.1-1.4); BASOPHILS % (MANUAL) 0 % (0-2); EOSINOPHILS % (MANUAL) 2 % (0-6); LYMPHOCYTES % (MANUAL) 19 % (13-45); MONOCYTES % (MANUAL) 12 % (3-13); SEGMENTED NEUTROPHILS % (MAN) 67 % (42-78); TOTAL CELLS COUNTED 100
[2019-08-05 07:39] LABS: HYPOCHROMASIA SLIGHT; POLYCHROMASIA 1+; TOXIC GRANULATION 1+
[2019-08-05 07:40] LABS: ANISOCYTOSIS 3+; BURR CELLS 1+; OVALOCYTES SLIGHT; PLATELET COMMENT DECREASED; POIKILOCYTOSIS 1+; SCHISTOCYTES SLIGHT; TEAR DROP CELLS SLIGHT; WHITE BLOOD COUNT 2.6 10^3/uL (4.0-10.5)
[2019-08-05 07:41] LABS: PLATELET COUNT 42 10^3/uL (150-450)
[2019-08-05] MEDS: FUROSEMIDE INJ/PF 40 MG/4 ML SDV IV SCH (09:21)
[2019-08-05] MEDS: POTASSIUM CHLORIDE 10 MEQ TABLET.ER PO SCH ×2 (09:22→21:35)
[2019-08-05] MEDS: SUCRALFATE 1 GM TABLET PO SCH ×4 (09:22→21:35)
[2019-08-05] MEDS: VALACYCLOVIR HCL 500 MG TABLET PO SCH ×2 (09:22→21:35)
[2019-08-05] MEDS: DOCUSATE SODIUM 100 MG CAPSULE PO SCH (09:22)
[2019-08-05] MEDS: MULTIVITAMIN TABLET PO SCH (09:22)
[2019-08-05] MEDS: FOLIC ACID 1 MG TABLET PO SCH (09:23)
[2019-08-05] MEDS: SPIRONOLACTONE 25 MG TABLET PO SCH (09:23)
[2019-08-05] MEDS: LACTULOSE SYRUP 20 GM/30 ML UDCUP PO SCH ×3 (09:24→17:52)
[2019-08-05] MEDS: LIDOCAINE 5% (700 MG) TRANSDERMAL ADH..PATCH TP SCH (10:41)
[2019-08-05] MEDS: OXYCODONE HCL IR 5 MG TABLET PO PRN ×2 (10:41→17:56)
[2019-08-05] MEDS: THIAMINE HCL 100 MG TABLET PO SCH (10:41)
--- NOTE | 2019-08-05 15:26 | PDOC PROGRESS REPORT ---
Subjective Progress Note for:: 08/05/19 Reason For Visit: ACUTE ON CHRONIC ANEMIA,PRIMARY HERPES 08/05/2019 End-stage liver disease, chronic anemia, right knee pain, history of UTIs, fever, malaise, genital herpes Physical Exam Vital Signs: Temp Pulse Resp BP Pulse Ox 97.1 F 105 H 12 132/78 H 100 08/05/19 11:49 08/05/19 11:49 08/05/19 11:49 08/05/19 11:49 08/05/19 11:49 Intake & Output 08/04/19 08/05/19 08/06/19 06:59 06:59 06:59 Intake Total 490 1432 Balance 490 1432 Weight 70.2 kg 70.5 kg General appearance: PRESENT: mild distress, other - Secondary to right knee pain Respiratory exam: PRESENT: clear to auscultation stacie. ABSENT: rales, rhonchi, wheezes Cardiovascular exam: PRESENT: RRR. ABSENT: diastolic murmur, rubs, systolic murmur GI/Abdominal exam: PRESENT: soft Neurological exam: PRESENT: alert, awake, oriented to person, oriented to place, oriented to time, oriented to situation, CN II-XII grossly intact, other - This morning she was sleeping but now she is wide awake, talking in full sentences, heart and oriented x3. ABSENT: motor sensory deficit Psychiatric exam: PRESENT: depressed Results Laboratory Results: 08/05/19 05:59 08/05/19 04:12 08/05/19 08/05/19 08/05/19 04:12 04:12 04:12 WBC Cancelled RBC Cancelled Hgb Cancelled Hct Cancelled MCV Cancelled MCH Cancelled MCHC Cancelled RDW Cancelled Plt Count Cancelled Seg Neutrophils % Cancelled Sodium 137.1 Potassium 3.3 L Chloride 103 Carbon Dioxide 27 Anion Gap 7 BUN 3 L Creatinine 0.57 Est GFR ( Amer) > 60 Glucose 119 H Uric Acid 4.7 Calcium 7.6 L Total Bilirubin 10.5 H AST 41 H Alkaline Phosphatase 114 Ammonia 47.5 H Total Protein 6.8 Albumin 2.3 L 08/05/19 05:59 WBC 2.6 L D RBC 2.20 L Hgb 8.1 L Hct 22.6 L MCV 103 H MCH 36.8 H MCHC 35.8 RDW 22.8 H Plt Count 42 L Seg Neutrophils % Not Reportable Sodium Potassium Chloride Carbon Dioxide Anion Gap BUN Creatinine Est GFR ( Amer) Glucose Uric Acid Calcium Total Bilirubin AST Alkaline Phosphatase Ammonia Total Protein Albumin 08/01/19 12:06 NT-Pro-B Natriuret Pep 623 H Impressions: Knee X-Ray 08/01/19 11:54 IMPRESSION: NEGATIVE STUDY OF THE RIGHT KNEE. NO RADIOGRAPHIC EVIDENCE OF ACUTE INJURY. Venous Doppler Study 08/01/19 15:22 IMPRESSION: NO EVIDENCE DVT OR SVT IN THE RIGHT LEG. Abdomen/Pelvis CT 08/04/19 00:00 IMPRESSION: 1. Mild bilateral effusions, right greater than left, with associated atelectasis. Findings increased from prior exam. 2. Cirrhotic liver morphology with markedly enlarged portosystemic collaterals. Splenomegaly. 3. Cholelithiasis with distended gallbladder measuring 4.5 cm. Recommend correlation with patient symptoms. Assessment and Plan - Diagnosis (1) Acute on chronic anemia Is this a current diagnosis for this admission?: Yes (2) Cirrhosis of liver Qualifiers: Hepatic cirrhosis type: alcoholic cirrhosis Ascites presence: with ascites Qualified Code(s): K70.31 - Alcoholic cirrhosis of liver with ascites Is this a current diagnosis for this admission?: Yes (3) Genital herpes Qualifiers: Herpes simplex infection site: perianal skin Qualified Code(s): A60.1 - Herpesviral infection of perianal skin and rectum Is this a current diagnosis for this admission?: Yes (4) Knee pain Qualifiers: Chronicity: acute Laterality: right Qualified Code(s): M25.561 - Pain in right knee Is this a current diagnosis for this admission?: Yes (5) Pancytopenia Is this a current diagnosis for this admission?: Yes (6) Hypercoagulopathy Is this a current diagnosis for this admission?: Yes - Plan Summary Summary: 08/02/2019 Vital signs are stable patient still has a low-grade temp 100.1. It had been as high as 102.9 yesterday patient is still running an elevated heart rate of 110. Pressure 128/69 O2 saturation this morning when she was asleep was low at 90% on room air but previously had been 98% Weight when she was admitted was recorded at 67.5 kg today it is 71.2 On admission her hemoglobin was 5.9 platelets 41,000 today her hemoglobin is come up to 8.2 platelets are still low at 44,000. This is probably due to her cirrhosis. Accordingly patient had an endoscopy done in June and was star armaan on a PPI today's yesterday's coags revealed the PT to be 24.2 and INR 2.13 Potassium slightly low at 3.4 we will will replace this with p.o. potassium urine culture shows a preliminary negative Patient is currently on no antibiotics. Get patient up out of bed today and ambulate, possibly discontinue to home tomorrow 08/03/2019 Patient had a slight temperature last night around 2300 hrs. it was 100.6. This morning her temperature is 98.3 O2 saturation is 92% on room air pulse is approximately 95, blood pressure 124/72 Ammonia level has gone up today 18 up to 37, platelets are improved slightly up from 41,000 to now 50,000 I am going to increase her lactulose today she is currently on 20 g every 8 hours, 30 g 6 hours. Patient was not on lactulose prior to coming to the hospital. In Fact her only medication according to the chart was Lasix 40 g daily. She is also currently on Carafate, Protonix, spironolactone, Valtrex, as well as multivitamins and potassium She is using Ativan approximately 1 time daily and using oxycodone 1 time daily Besides her ammonia level, her other liver functions are improving though her total and direct bilirubin are remaining elevated and stable 08/04/2019 Temp last night was 99.1 got up to as high as 100.6 on 08/02/2019 Pulses approximately 100, blood pressure 149/91, O2 saturation 95% on room air Chemistry with sodium 134.5 potassium 3.7 BUN of 7 creatinine 0.52 GFR greater than 60 Total bilirubin down slightly to 12.5 direct bilirubin down to 4.6 AST down to 42 ALT down to [address] of the abdomen and pelvis today with IV contrast showed mild bilateral effusions right greater than left with associated atelectasis findings are increased from prior exam. #2 cirrhotic liver with enlarged portosystemic collaterals and splenomegaly #3 cholelithiasis with distended gallbladder measuring 4.5 cm. This does not appear to be significantly different from previous CT dated 07/22/2019 Exam reveals no abdominal tenderness no rebound no guarding Numbers all appear to be improving patient is more awake alert this afternoon t alking using her cell phone. Placed a call to her logistics director in [facility] Dr. Ruben Clay. Was done at approximately 1500 hrs. Have not returned my call yet Have spoken to the patient's mother at the bedside, Norma thibodeaux, [phone], also called her on her phone to keep her involved with patient care. Patient has given me permission to discuss her care with her mother. All of patient's numbers are improving and in looking back through the chart they are much better than they have been in the past. Clinically patient seems to be improving, ammonia levels getting better patient is more awake and alert. Patient and her mother both admit that the patient had stopped her meds i.e. lactulose a while back because of diarrhea. I am going to check a uric acid level tomorrow for her right knee pain. Patient's MELD Score today is 27. Based on this score her mortality over the next 3 months is 20%. 08/05/2019 Temp 98 6 pulse between 94 and 106, blood pressure 151/89, 97% oxygen saturation on room air WBC is down to 2.6, platelets at 44,000, hemoglobin 8.1, INR 2.3 Calcium down to 3.3, uric acid 4.7 Total bilirubin is down to 10.5 direct bilirubin is down to 3.7 ammonia is up slightly to 47 Dr. Danna Shirley called me this morning and we discussed this patient's case in great detail he read over his office notes as well as hospitalization notes.. He stated that she she recently had an upper endoscopy that showed no varices or active bleeding He also stated that unless this was going on he did not see any indication from what I told him that she needed to be transferred to a higher level of care. Currently he agreed that facility such as [facility] where they do liver transplants would be better for the patient however he was concerned that she was still actively drinking and therefore would not be a candidate. This morning early on rounds she was sleeping and when I went back later her sister was in the room she was wide awake talking in full sentences very alert. Thomas her case in great detail and we talked a lot about her right knee pain which is persisted. X-ray of the right knee shows no joint effusion no abnor mality venous Doppler of the right leg shows no evidence of DVT. Uric acid level does not indicate gout. Examination of the right knee shows no redness no warmth to the touch no soft tissue swelling. She has limited range of motion secondary to pain. Going to get an MRI scan of her right knee today. I have reintroduced pain medicine but on a every 8 basis. Also on the suggestion by Dr. Clay out started Corgard 20 mg a day for her hepatic cirrhosis. Incidentally the edema in her feet has gone down from yesterday. Patient continues to improve I anticipate discharging her from the hospital, hopefully with a diagnosis concerning her right knee pain I answered all of her questions as well as her sisters - Time Time Spent with patient: 35 or more minutes
[2019-08-05] MEDS ORDERED: NADOLOL 40 MG TABLET PO ONE (16:00)
[2019-08-05] MEDS: ACETAMINOPHEN 325 MG TABLET PO PRN (21:41)
--- NOTE | 2019-08-05 21:41 | RADIOLOGY REPORT (SQ) ---
EXAM DESCRIPTION: MRI of the knee without contrast CLINICAL HISTORY: right knee pain COMPARISON: X-ray dictated August 01, 2019 FINDINGS: Multiplanar images of the right knee were submitted. Prior examinations are not available. Axial images are degraded by motion. There is fluid within the joint. There is no acute fracture or dislocation. There is no evidence of bone marrow edema. Bone marrow changes within the distal femur and proximal tibia compatible with red marrow. The medial and lateral menisci are of normal signal. There is no evidence of meniscal tear. The anterior cruciate ligament, posterior cruciate ligament, medial and lateral collateral ligaments and iliotibial band are within normal limits. There is no discrete ferromagnetic artifact to suggest a metallic foreign body. There are findings compatible with a 5 mm mm ganglion anterior to the anterior meniscus. IMPRESSION: No discrete radiopaque foreign body material visualized. No evidence of acute fracture or bone marrow edema. Small amount of fluid within the joint. 5 mm ganglion anterior to the medial meniscus.
[2019-08-06] MEDS: LACTULOSE SYRUP 20 GM/30 ML UDCUP PO SCH ×5 (01:00→23:43)
[2019-08-06 02:30] LABS: HEMATOCRIT 24.9 % (36.0-47.0); HEMOGLOBIN 8.8 g/dL (12.0-15.5); MEAN CORPUSCULAR HEMOGLOBIN 36.9 pg (27.0-33.4); MEAN CORPUSCULAR HGB CONC 35.2 g/dL (32.0-36.0); MEAN CORPUSCULAR VOLUME 105 fl (80-97); RED BLOOD COUNT 2.38 10^6/uL (3.72-5.28); RED CELL DISTRIBUTION WIDTH 24.1 % (11.5-14.0); WHITE BLOOD COUNT 3.2 10^3/uL (4.0-10.5)
[2019-08-06 02:33] LABS: PLATELET COUNT 54 10^3/uL (150-450)
[2019-08-06 03:17] LABS: ANION GAP 10 (5-19); BLOOD UREA NITROGEN 4 mg/dL (7-20); CALCIUM 7.7 mg/dL (8.4-10.2); CARBON DIOXIDE 27 mmol/L (22-30); CHLORIDE 100 mmol/L (98-107); GLUCOSE 144 mg/dL (75-110); POTASSIUM 3.3 mmol/L (3.6-5.0)
[2019-08-06] MEDS: OXYCODONE HCL IR 5 MG TABLET PO PRN ×3 (04:00→20:40)
[2019-08-06] MEDS: MAGNESIUM SULFATE/D5W 1 GM/100 ML RTUPB IV SCH ×2 (04:01→05:26)
[2019-08-06] MEDS: PANTOPRAZOLE SODIUM 40 MG TABLET.DR PO SCH (05:30)
[2019-08-06] MEDS ORDERED: MAGNESIUM SULFATE 4 GM/100 ML RTUPB IV ONE (06:54)
[2019-08-06] MEDS: POTASSI CL 20 MEQ/50 ML RIDER 20 MEQ/50 ML RTUPB IV SCH ×2 (08:10→11:03)
[2019-08-06] MEDS: SUCRALFATE 1 GM TABLET PO SCH ×4 (08:12→22:30)
[2019-08-06 08:33] LABS: BILIRUBIN,DIRECT 3.2 mg/dL (0.0-0.4); BILIRUBIN,TOTAL 11.4 mg/dL (0.2-1.3)
[2019-08-06] MEDS: FUROSEMIDE INJ/PF 40 MG/4 ML SDV IV SCH (09:44)
[2019-08-06] MEDS: THIAMINE HCL 100 MG TABLET PO SCH (09:45)
[2019-08-06] MEDS: DOCUSATE SODIUM 100 MG CAPSULE PO SCH (09:45)
[2019-08-06] MEDS: SPIRONOLACTONE 25 MG TABLET PO SCH (09:45)
[2019-08-06] MEDS: LIDOCAINE 5% (700 MG) TRANSDERMAL ADH..PATCH TP SCH (09:45)
[2019-08-06] MEDS: VALACYCLOVIR HCL 500 MG TABLET PO SCH ×2 (09:45→22:29)
[2019-08-06] MEDS: FOLIC ACID 1 MG TABLET PO SCH (09:45)
[2019-08-06] MEDS: MULTIVITAMIN TABLET PO SCH (09:45)
[2019-08-06] MEDS: POTASSIUM CHLORIDE 10 MEQ TABLET.ER PO SCH ×2 (09:45→22:29)
--- NOTE | 2019-08-06 12:58 | PDOC PROGRESS REPORT ---
Subjective Progress Note for:: 08/06/19 Reason For Visit: ACUTE ON CHRONIC ANEMIA,PRIMARY HERPES 08/06/2019 End-stage liver disease, chronic anemia, right knee pain, history of UTIs, fever, malaise, genital herpes, alcohol abuse Physical Exam Vital Signs: Temp Pulse Resp BP Pulse Ox 98.7 F 86 19 148/83 H 94 08/06/19 10:46 08/06/19 10:46 08/06/19 10:46 08/06/19 10:46 08/06/19 10:46 Intake & Output 08/05/19 08/06/19 08/07/19 06:59 06:59 06:59 Intake Total 1432 250 275 Balance 1432 250 275 Weight 70.5 kg 66.8 kg General appearance: PRESENT: mild distress, other - Secondary to right knee pain Respiratory exam: PRESENT: clear to auscultation stacie. ABSENT: rales, rhonchi, wheezes Cardiovascular exam: PRESENT: RRR. ABSENT: diastolic murmur, rubs, systolic murmur GI/Abdominal exam: PRESENT: distended, soft Neurological exam: PRESENT: alert, awake, oriented to person, oriented to place, oriented to time, oriented to situation, CN II-XII grossly intact. ABSENT: motor sensory deficit Psychiatric exam: PRESENT: appropriate affect, normal mood. ABSENT: homicidal ideation, suicidal ideation Results Laboratory Results: 08/06/19 02:10 08/06/19 02:10 08/06/19 08/06/19 08/06/19 02:10 02:10 06:58 WBC 3.2 L RBC 2.38 L Hgb 8.8 L Hct 24.9 L MCV 105 H MCH 36.9 H MCHC 35.2 RDW 24.1 H Plt Count 54 L Sodium 136.5 L Potassium 3.3 L Chloride 100 Carbon Dioxide 27 Anion Gap 10 BUN 4 L Creatinine 0.54 Est GFR ( Amer) > 60 Glucose 144 H Calcium 7.7 L Magnesium 1.1 L* 1.9 Total Bilirubin Ammonia 08/06/19 08/06/19 07:10 11:41 WBC RBC Hgb Hct MCV MCH MCHC RDW Plt Count Sodium Potassium Chloride Carbon Dioxide Anion Gap BUN Creatinine Est GFR ( Amer) Glucose Calcium Magnesium Total Bilirubin 11.4 H Ammonia 24.2 08/01/19 12:06 NT-Pro-B Natriuret Pep 623 H Impressions: Knee X-Ray 08/01/19 11:54 IMPRESSION: NEGATIVE STUDY OF THE RIGHT KNEE. NO RADIOGRAPHIC EVIDENCE OF ACUTE INJURY. Venous Doppler Study 08/01/19 15:22 IMPRESSION: NO EVIDENCE DVT OR SVT IN THE RIGHT LEG. Abdomen/Pelvis CT 08/04/19 00:00 IMPRESSION: 1. Mild bilateral effusions, right greater than left, with associated atelectasis. Findings increased from prior exam. 2. Cirrhotic liver morphology with markedly enlarged portosystemic collaterals. Splenomegaly. 3. Cholelithiasis with distended gallbladder measuring 4.5 cm. Recommend correlation with patient symptoms. Lower Extremity MRI 08/05/19 00:00 IMPRESSION: No discrete radiopaque foreign body material visualized. No evidence of acute fracture or bone marrow edema. Small amount of fluid within the joint. 5 mm ganglion anterior to the medial meniscus. Assessment and Plan - Diagnosis (1) Acute on chronic anemia Is this a current diagnosis for this admission?: Yes (2) Cirrhosis of liver Qualifiers: Hepatic cirrhosis type: alcoholic cirrhosis Ascites presence: with ascites Qualified Code(s): K70.31 - Alcoholic cirrhosis of liver with ascites Is this a current diagnosis for this admission?: Yes (3) Genital herpes Qualifiers: Herpes simplex infection site: perianal skin Qualified Code(s): A60.1 - Herpesviral infection of perianal skin and rectum Is this a current diagnosis for this admission?: Yes (4) Knee pain Qualifiers: Chronicity: acute Laterality: right Qualified Code(s): M25.561 - Pain in right knee Is this a current diagnosis for this admission?: Yes (5) Pancytopenia Is this a current diagnosis for this admission?: Yes (6) Hypercoagulopathy Is this a current diagnosis for this admission?: Yes (7) Alcohol dependence Qualifiers: Substance use status: uncomplicated Qualified Code(s): F10.20 - Alcohol dependence, uncomplicated Is this a current diagnosis for this admission?: Yes - Plan Summary Summary: 08/02/2019 Vital signs are stable patient still has a low-grade temp 100.1. It had been as high as 102.9 yesterday patient is still running an elevated heart rate of 110. Pressure 128/69 O2 saturation this morning when she was asleep was low at 90% on room air but previously had been 98% Weight when she was admitted was recorded at 67.5 kg today it is 71.2 On admission her hemoglobin was 5.9 platelets 41,000 today her hemoglobin is come up to 8.2 platelets are still low at 44,000. This is probably due to her cirrhosis. Accordingly patient had an endoscopy done in June and was started on a PPI today's yesterday's coags revealed the PT to be 24.2 and INR 2.13 Potassium slightly low at 3.4 we will will replace this with p.o. potassium urine culture shows a preliminary negative Patient is currently on no antibiotics. Get patient up out of bed today and ambulate, possibly discontinue to home tomorrow 08/03/2019 Patient had a slight temperature last night around 2300 hrs. it was 100.6. This morning her temperature is 98.3 O2 saturation is 92% on room air pulse is approximately 95, blood pressure 124/72 Ammonia level has gone up today 18 up to 37, platelets are improved slightly up from 41,000 to now 50,000 I am going to increase her lactulose today she is currently on 20 g every 8 hours, 30 g 6 hours. Patient was not on lactulose prior to coming to the hospital. In Fact her only medication according to the chart was Lasix 40 g daily. She is also currently on Carafate, Protonix, spironolactone, Valtrex, as well as multivitamins and potassium She is using Ativan approximately 1 time daily and using oxycodone 1 time daily Besides her ammonia level, her other liver functions are improving though her total and direct bilirubin are remaining elevated and stable 08/04/2019 Temp last night was 99.1 got up to as high as 100.6 on 08/02/2019 Pulses approximately 100, blood pressure 149/91, O2 saturation 95% on room air Chemistry with sodium 134.5 potassium 3.7 BUN of 7 creatinine 0.52 GFR greater than 60 Total bilirubin down slightly to 12.5 direct bilirubin down to 4.6 AST down to 42 ALT down to [address] of the abdomen and pelvis today with IV contrast showed mild bilateral effusions right greater than left with associated atelectasis findings are inc reased from prior exam. #2 cirrhotic liver with enlarged portosystemic collaterals and splenomegaly #3 cholelithiasis with distended gallbladder measuring 4.5 cm. This does not appear to be significantly different from previous CT dated 07/22/2019 Exam reveals no abdominal tenderness no rebound no guarding Numbers all appear to be improving patient is more awake alert this afternoon talking using her cell phone. Placed a call to her dry wall sprayer in [facility] Dr. Ruben Clay. Was done at approximately 1500 hrs. Have not returned my call yet Have spoken to the patient's mother at the bedside, Norma thibodeaux, [phone], also called her on her phone to keep her involved with patient care. Patient has given me permission to discuss her care with her mother. All of patient's numbers are improving and in looking back through the chart they are much better than they have been in the past. Clinically patient seems to be improving, ammonia levels getting better patient is more awake and alert. Patient and her mother both admit that the patient had stopped her meds i.e. lactulose a while back because of diarrhea. I am going to check a uric acid level tomorrow for her right knee pain. Patient's MELD Score today is 27. Based on this score her mortality over the next 3 months is 20%. 08/05/2019 Temp 98 6 pulse between 94 and 106, blood pressure 151/89, 97% oxygen saturation on room air WBC is down to 2.6, platelets at 44,000, hemoglobin 8.1, INR 2.3 Calcium down to 3.3, uric acid 4.7 Total bilirubin is down to 10.5 direct bilirubin is down to 3.7 ammonia is up slightly to 47 Dr. Danna Shirley called me this morning and we discussed this patient's case in great detail he read over his office notes as well as hospitalization notes.. He stated that she she recently had an upper endoscopy that showed no varices or active bleeding He also stated that unless this was going on he did not see any indication from what I told him that she needed to be transferred to a higher level of care. Currently he agreed that facility such as [facility] where they do liver transplants would be better for the patient however he was concerned that she was still actively drinking and therefore would not be a candidate. This morning early on rounds she was sleeping and when I went back later her sister was in the room she was wide awake talking in full sentences very alert. Thomas her case in great detail and we talked a lot about her right knee pain which is persisted. X-ray of the right knee shows no joint effusion no abnormality venous Doppler of the right leg shows no evidence of DVT. Uric acid level does not indicate gout. Examination of the right knee shows no redness no warmth to the touch no soft tissue swelling. She has limited range of motion secondary to pain. Going to get an MRI scan of her right knee today. I have reintroduced pain medicine but on a every 8 basis. Also on the suggestion by Dr. Clay out started Corgard 20 mg a day for her hepatic cirrhosis. Incidentally the edema in her feet has gone down from yesterday. Patient continues to improve I anticipate discharging her from the hospital, hopefully with a diagnosis concerning her right knee pain I answered all of her questions as well as her sisters 08/06/2019 Temperature 98.7, pulse 86, blood pressure 148/83, O2 sat 94% on room air White counts 3200 platelets up to 54,000 hemoglobin is stable at 8.8 Ammonia is come back down to 24 which is normal bilirubin is stable The serum was low last night and this is been corrected and is now 1.9 potassium was low and is being corrected today Continues to become more awake and alert with less peripheral edema MRI scan showed an effusion. Orthopedics will evaluate the MRI and the patient to see a feel that the effusion is causing her knee pain and potential treatment Continue same medications. I have explained all of this to the patient - Time Time Spent with patient: 25-34 minutes
[2019-08-07] MEDS: OXYCODONE HCL IR 5 MG TABLET PO PRN ×3 (05:00→22:13)
[2019-08-07] MEDS: PANTOPRAZOLE SODIUM 40 MG TABLET.DR PO SCH (05:00)
[2019-08-07] MEDS: LACTULOSE SYRUP 20 GM/30 ML UDCUP PO SCH ×4 (05:01→23:23)
[2019-08-07] MEDS: SUCRALFATE 1 GM TABLET PO SCH ×4 (07:36→22:13)
[2019-08-07] MEDS: SPIRONOLACTONE 25 MG TABLET PO SCH (09:47)
[2019-08-07] MEDS: FOLIC ACID 1 MG TABLET PO SCH (09:47)
[2019-08-07] MEDS: DOCUSATE SODIUM 100 MG CAPSULE PO SCH (09:48)
[2019-08-07] MEDS: MULTIVITAMIN TABLET PO SCH (09:48)
[2019-08-07] MEDS: POTASSIUM CHLORIDE 10 MEQ TABLET.ER PO SCH ×2 (09:48→22:13)
[2019-08-07] MEDS: VALACYCLOVIR HCL 500 MG TABLET PO SCH ×2 (09:48→22:13)
[2019-08-07] MEDS: THIAMINE HCL 100 MG TABLET PO SCH (09:48)
[2019-08-07] MEDS: FUROSEMIDE INJ/PF 40 MG/4 ML SDV IV SCH (09:49)
[2019-08-07] MEDS: LIDOCAINE 5% (700 MG) TRANSDERMAL ADH..PATCH TP SCH (09:49)
[2019-08-07] MEDS ORDERED: TRIAMCINOLONE ACETONIDE INJ 10 MG/1 ML 5 ML VIAL INJ ONE (10:15)
[2019-08-07] MEDS ORDERED: LIDOCAINE 1% INJ (10 MG/ML) 10 ML MDV INJ ONE (10:16)
[2019-08-07] MEDS ORDERED: METHYLPREDNISOLONE INJ 40 MG/1 ML SDV INJ ONE (10:27)
--- NOTE | 2019-08-07 10:44 | PDOC CONSULTATION ---
Consultation Consult Date: 08/07/19 Provider Consulted: ABILIO RAMSAY JR History of Present Illness Admission Date/PCP: 08/04/19 15:11 Patient complains of: Right knee pain History of Present Illness: KHUSHI ACHARYA is a 34 year old female who is hospitalized with multiple medical comorbidities, primary liver failure. She had stopped taking her medications for liver disease about 2 weeks ago due to complications with urination and since that time has had increased right knee pain. She has been able to ambulate, including witnessed ambulation on my encounter as she gets to the bathroom, but she reports severe pain with ROM and weight bearing that feels like she has "shards of glass" in her knee. She denies any recent effusion. She has had a UTI for the past few weeks and some fevers associated with that. Rest improves pain to a 3/10, weight bearing is severe 8/10. Lidocaine patch and other pain medications are only slightly helping. She denies traumatic etiology. Past Medical History Cardiac Medical History: Reports: Hypertension Denies: Coronary Artery Disease, Myocardial Infarction Pulmonary Medical History: Reports: None Denies: Asthma, Bronchitis, Chronic Obstructive Pulmonary Disease (COPD), Pneumonia EENT Medical History: Reports: None Neurological Medical History: Reports: None Denies: Seizures Endocrine Medical History: Reports: None Renal/ Medical History: Reports: None GI Medical History: Reports: Cirrhosis, Gastroesophageal Reflux Disease Musculoskeltal Medical History: Denies: Arthritis Psychiatric Medical History: Reports: Alcohol Dependency Traumatic Medical History: Reports: None Hematology: Reports: Anemia Infectious Medical History: Reports: None Past Surgical History Past Surgical History: Denies: Hysterectomy Social History Lives with: Alone Smoking Status: Unknown if Ever Smoked Frequency of Alcohol Use: Heavy Drugs: None Hx Prescription Drug Abuse: No - Advance Directive Resuscitation Status: Full Code Family History Family History: Reviewed & Not Pertinent, Malignancy - Aunt, uncle, grandmother, both grandfathers. Parental Family History Reviewed: No Children Family History Reviewed: NA Sibling(s) Family History Reviewed.: NA Medication/Allergy Home Medications: Furosemide [Lasix 20 mg Tablet] 40 mg PO DAILY 09/11/17 Allergies/Adverse Reactions: Pertussis Vaccines Allergy (Verified 08/01/19 11:47) Review of Systems Review of Systems: Constitutional: ABSENT: anorexia, chills, night sweats Cardiovascular: ABSENT: chest pain Respiratory: ABSENT: dyspnea Gastrointestinal: ABSENT: vomiting Genitourinary: Present: dysuria Integumentary: ABSENT: rash Neurological: ABSENT: confusion, memory loss, numbness Psychiatric: ABSENT: hallucinations Hematologic/Lymphatic: Present: easy bleeding All negative as above aside from that reported in the HPI and the following: Physical Exam Vital Signs: Temp Pulse Resp BP Pulse Ox 98.6 F 80 18 128/64 H 100 08/07/19 08:09 08/07/19 08:09 08/07/19 08:09 08/07/19 08:09 08/07/19 08:09 Intake & Output 08/06/19 08/07/19 08/08/19 06:59 06:59 06:59 Intake Total 250 1465 Balance 250 1465 Weight 66.8 kg 66.5 kg Physical Exam: General appearance: PRESENT: no acute distress, cooperative, ill-appearing Head exam: PRESENT: atraumatic, normocephalic Eye exam: PRESENT: EOMI Ear exam: PRESENT: normal external ear exam Mouth exam: PRESENT: neck supple Neck exam: ABSENT: tracheal deviation Respiratory exam: PRESENT: symmetrical, unlabored. ABSENT: accessory muscle use, wheezes Pulses: PRESENT: normal radial pulses, normal dorsalis pedis pulse Vascular exam: PRESENT: normal capillary refill GI/Abdominal exam: ABSENT: distended, firm Extremities exam: PRESENT: full ROM of bilateral shoulders, elbows wrists, knees, hips and ankles without pain Musculoskeletal exam: PRESENT: full ROM, normal inspection of all 4 extremities aside from that noted below. Neurological exam: PRESENT: alert, awake, oriented to person, oriented to place, oriented to time Psychiatric exam: PRESENT: appropriate affect. ABSENT: agitated Focused psych exam: ABSENT: catatonic Skin exam: PRESENT: intact. ABSENT: dry All as above aside from that noted in the HPI and the following: RLE -Pulses 2+ distally -Compartments soft -Sensation grossly intact to L3-4-5 S1 -Motor grossly intact to EHL TA gastroc and quad - Able to perform quad extension and elevate heel off of bed. - Pain with ROM past about 20 degrees of flexion, pain with ambulation - No TTP, No effusion Results Laboratory Results: 08/06/19 02:10 08/06/19 02:10 08/06/19 11:41 Ammonia 24.2 08/01/19 21:39 Blood Blood Culture - Final NO GROWTH IN 5 DAYS 08/01/19 20:36 Blood Blood Culture - Final NO GROWTH IN 5 DAYS 08/01/19 12:06 NT-Pro-B Natriuret Pep 623 H Impressions: Knee X-Ray 08/01/19 11:54 IMPRESSION: NEGATIVE STUDY OF THE RIGHT KNEE. NO RADIOGRAPHIC EVIDENCE OF ACUTE INJURY. Venous Doppler Study 08/01/19 15:22 IMPRESSION: NO EVIDENCE DVT OR SVT IN THE RIGHT LEG. Abdomen/Pelvis CT 08/04/19 00:00 IMPRESSION: 1. Mild bilateral effusions, right greater than left, with ass ociated atelectasis. Findings increased from prior exam. 2. Cirrhotic liver morphology with markedly enlarged portosystemic collaterals. Splenomegaly. 3. Cholelithiasis with distended gallbladder measuring 4.5 cm. Recommend correlation with patient symptoms. Lower Extremity MRI 08/05/19 00:00 IMPRESSION: No discrete radiopaque foreign body material visualized. No evidence of acute fracture or bone marrow edema. Small amount of fluid within the joint. 5 mm ganglion anterior to the medial meniscus. Assessment & Plan - Diagnosis (1) Knee pain Qualifiers: Chronicity: acute Laterality: right Qualified Code(s): M25.561 - Pain in right knee Is this a current diagnosis for this admission?: Yes Plan: X-rays are normal in appearance as well as MRI. At this time there is not a definitive etiology for her knee pain. It may be a metabolic abnormality or potentially viral synovitis. I have a very low suspicion for acute infection at this time. Given this we will proceed with aspiration and if the fluid is clear proceed to provide her with a steroid injection today. I would encourage continued physical therapy weightbearing as tolerated. Range of motion will likely be painful but will be therapeutic overall. Procedure note: Site was cleaned with alcohol and in sterile fashion an 18-gauge needle was introduced into the superior lateral patellar pouch. An aspiration was performed. About 3 cc of clear, straw colored fluid was obtained. This did not appear inflammatory and was not sent for pathology. Following aspiration we provided her with a dose of 40 mg of Solu-Medrol as well as 3 cc of lidocaine. The patient tolerated the procedure well. Sterile Band- Aid was placed.
[2019-08-07] MEDS ORDERED: LIDOCAINE 1% INJ-PF (10 MG/ML) 30 ML SDV INJ ONE (10:45)
[2019-08-07] MEDS: PROMETHAZINE HCL INJ 25 MG/1 ML VIAL IV PRN ×2 (11:32→23:43)
--- NOTE | 2019-08-07 12:18 | PDOC PROGRESS REPORT ---
Subjective Progress Note for:: 08/07/19 Reason For Visit: ACUTE ON CHRONIC ANEMIA,PRIMARY HERPES 08/07/2019 End stage liver disease, hepatic cirrhosis, anemia knee pain Physical Exam Vital Signs: Temp Pulse Resp BP Pulse Ox 98.6 F 80 18 128/64 H 100 08/07/19 08:09 08/07/19 08:09 08/07/19 08:09 08/07/19 08:09 08/07/19 08:09 Intake & Output 08/06/19 08/07/19 08/08/19 06:59 06:59 06:59 Intake Total 250 1465 Balance 250 1465 Weight 66.8 kg 66.5 kg General appearance: PRESENT: no acute distress, other - More alert Respiratory exam: PRESENT: clear to auscultation stacie. ABSENT: rales, rhonchi, wheezes Cardiovascular exam: PRESENT: RRR. ABSENT: diastolic murmur, rubs, systolic murmur GI/Abdominal exam: PRESENT: distended, soft Extremities exam: PRESENT: other Musculoskeletal exam: PRESENT: other - Painful flexion and extension with the right lower leg primarily knee Neurological exam: PRESENT: alert, awake, oriented to person, oriented to place, oriented to time, oriented to situation, CN II-XII grossly intact. ABSENT: motor sensory deficit Psychiatric exam: PRESENT: flat affect Results Laboratory Results: 08/06/19 02:10 08/06/19 02:10 08/01/19 21:39 Blood Blood Culture - Final NO GROWTH IN 5 DAYS 08/01/19 20:36 Blood Blood Culture - Final NO GROWTH IN 5 DAYS 08/01/19 12:06 NT-Pro-B Natriuret Pep 623 H Impressions: Knee X-Ray 08/01/19 11:54 IMPRESSION: NEGATIVE STUDY OF THE RIGHT KNEE. NO RADIOGRAPHIC EVIDENCE OF ACUTE INJURY. Venous Doppler Study 08/01/19 15:22 IMPRESSION: NO EVIDENCE DVT OR SVT IN THE RIGHT LEG. Abdomen/Pelvis CT 08/04/19 00:00 IMPRESSION: 1. Mild bilateral effusions, right greater than left, with associated atelectasis. Findings increased from prior exam. 2. Cirrhotic liver morphology with markedly enlarged portosystemic collaterals. Splenomegaly. 3. Cholelithiasis with distended gallbladder measuring 4.5 cm. Recommend correlation with patient symptoms. Lower Extremity MRI 08/05/19 00:00 IMPRESSION: No discrete radiopaque foreign body material visualized. No evidence of acute fracture or bone marrow edema. Small amount of fluid within the joint. 5 mm ganglion anterior to the medial meniscus. Assessment and Plan - Diagnosis (1) Acute on chronic anemia Is this a current diagnosis for this admission?: Yes (2) Cirrhosis of liver Qualifiers: Hepatic cirrhosis type: alcoholic cirrhosis Ascites presence: with ascites Qualified Code(s): K70.31 - Alcoholic cirrhosis of liver with ascites Is this a current diagnosis for this admission?: Yes (3) Genital herpes Qualifiers: Herpes simplex infection site: perianal skin Qualified Code(s): A60.1 - Herpesviral infection of perianal skin and rectum Is this a current diagnosis for this admission?: Yes (4) Knee pain Qualifiers: Chronicity: acute Laterality: right Qualified Code(s): M25.561 - Pain in right knee Is this a current diagnosis for this admission?: Yes (5) Pancytopenia Is this a current diagnosis for this admission?: Yes (6) Hypercoagulopathy Is this a current diagnosis for this admission?: Yes (7) Alcohol dependence Qualifiers: Substance use status: uncomplicated Qualified Code(s): F10.20 - Alcohol dependence, uncomplicated Is this a current diagnosis for this admission?: Yes - Plan Summary Summary: 08/02/2019 Vital signs are stable patient still has a low-grade temp 100.1. It had been as high as 102.9 yesterday patient is still running an elevated heart rate of 110. Pressure 128/69 O2 saturation this morning when she was asleep was low at 90% on room air but previously had been 98% Weight when she was admitted was recorded at 67.5 kg today it is 71.2 On admission her hemoglobin was 5.9 platelets 41,000 today her hemoglobin is come up to 8.2 platelets are still low at 44,000. This is probably due to her cirrhosis. Accordingly patient had an endoscopy done in June and was started on a PPI today's yesterday's coags revealed the PT to be 24.2 and INR 2.13 Potassium slightly low at 3.4 we will will replace this with p.o. potassium urine culture shows a preliminary negative Patient is currently on no antibiotics. Get patient up out of bed today and ambulate, possibly discontinue to home tomorrow 08/03/2019 Patient had a slight temperature last night around 2300 hrs. it was 100.6. This morning her temperature is 98.3 O2 saturation is 92% on room air pulse is approximately 95, blood pressure 124/72 Ammonia level has gone up today 18 up to 37, platelets are improved slightly up from 41,000 to now 50,000 I am going to increase her lactulose today she is currently on 20 g every 8 hours, 30 g 6 hours. Patient was not on lactulose prior to coming to the hospital. In Fact her only medication according to the chart was Lasix 40 g daily. She is also currently on Carafate, Protonix, spironolactone, Valtrex, as well as multivitamins and potassium She is using Ativan approximately 1 time daily and using oxycodone 1 time daily Besides her ammonia level, her other liver functions are improving though her total and direct bilirubin are remaining elevated and stable 08/04/2019 Temp last night was 99.1 got up to as high as 100.6 on 08/02/2019 Pulses approximately 100, blood pressure 149/91, O2 saturation 95% on room air Chemistry with sodium 134.5 potassium 3.7 BUN of 7 creatinine 0.52 GFR greater than 60 Total bilirubin down slightly to 12.5 direct bilirubin down to 4.6 AST down to 42 ALT down to [address] of the abdomen and pelvis today with IV contrast showed mild bilateral effusions right greater than left with associated atelectasis findings are increased from prior exam. #2 cirrhotic liver with enlarged portosystemic c ollaterals and splenomegaly #3 cholelithiasis with distended gallbladder measuring 4.5 cm. This does not appear to be significantly different from previous CT dated 07/22/2019 Exam reveals no abdominal tenderness no rebound no guarding Numbers all appear to be improving patient is more awake alert this afternoon talking using her cell phone. Placed a call to her high frequency mill operator in [facility] Dr. Ruben Clay. Was done at approximately 1500 hrs. Have not returned my call yet Have spoken to the patient's mother at the bedside, Norma thibodeaux, [phone], also called her on her phone to keep her involved with patient care. Patient has given me permission to discuss her care with her mother. All of patient's numbers are improving and in looking back through the chart they are much better than they have been in the past. Clinically patient seems to be improving, ammonia levels getting better patient is more awake and alert. Patient and her mother both admit that the patient had stopped her meds i.e. lactulose a while back because of diarrhea. I am going to check a uric acid level tomorrow for her right knee pain. Patient's MELD Score today is 27. Based on this score her mortality over the next 3 months is 20%. 08/05/2019 Temp 98 6 pulse between 94 and 106, blood pressure 151/89, 97% oxygen saturation on room air WBC is down to 2.6, platelets at 44,000, hemoglobin 8.1, INR 2.3 Calcium down to 3.3, uric acid 4.7 Total bilirubin is down to 10.5 direct bilirubin is down to 3.7 ammonia is up slightly to 47 Dr. Danna Shirley called me this morning and we discussed this patient's case in great detail he read over his office notes as well as hospitalization notes.. He stated that she she recently had an upper endoscopy that showed no varices or active bleeding He also stated that unless this was going on he did not see any indication from what I told him that she needed to be transferred to a higher level of care. Currently he agreed that facility such as [facility] where they do liver transplants would be better for the patient however he was concerned that she was still actively drinking and therefore would not be a candidate. This morning early on rounds she was sleeping and when I went back later her sister was in the room she was wide awake talking in full sentences very alert. Thomas her case in great detail and we talked a lot about her right knee pain which is persisted. X-ray of the right knee shows no joint effusion no abnormality venous Doppler of the right leg shows no evidence of DVT. Uric acid level does not indicate gout. Examination of the right knee shows no redness no warmth to the touch no soft tissue swelling. She has limited range of motion secondary to pain. Going to get an MRI scan of her right knee today. I have reintroduced pain medicine but on a every 8 basis. Also on the suggestion by Dr. Clay out started Corgard 20 mg a day for her hepatic cirrhosis. Incidentally the edema in her feet has gone down from yesterday. Patient continues to improve I anticipate discharging her from the hospital, hopefully with a diagnosis concerning her right knee pain I answered all of her questions as well as her sisters 08/06/2019 Temperature 98.7, pulse 86, blood pressure 148/83, O2 sat 94% on room air White counts 3200 platelets up to 54,000 hemoglobin is stable at 8.8 Ammonia is come back down to 24 which is normal bilirubin is stable The serum was low last night and this is been corrected and is now 1.9 potassium was low and is being corrected today Continues to become more awake and alert with less peripheral edema MRI scan showed an effusion. Orthopedics will evaluate the MRI and the patient to see if they feel that the effusion is causing her knee pain and potential treatment Continue same medications. I have explained all of this to the patient 08/07/2019 Appreciate orthopedics help pain and concerning her right knee pain. Make the recommendations and see how she does with the cortisone injection. Physical therapy to see her 1 time and make recommendations. We will fit a knee immobilizer on her right lower extremity On the level continues to get lower today it was 24 and from 47 Potassium is being replaced orally Patient has less peripheral edema Fully will discharge home tomorrow Check labs in the morning. - Time Time Spent with patient: 25-34 minutes
[2019-08-08] MEDS: PANTOPRAZOLE SODIUM 40 MG TABLET.DR PO SCH (05:15)
[2019-08-08] MEDS: LACTULOSE SYRUP 20 GM/30 ML UDCUP PO SCH ×2 (05:15→12:16)
[2019-08-08 05:18] LABS: HEMATOCRIT 24.8 % (36.0-47.0); HEMOGLOBIN 8.9 g/dL (12.0-15.5); MEAN CORPUSCULAR HEMOGLOBIN 37.2 pg (27.0-33.4); MEAN CORPUSCULAR HGB CONC 35.8 g/dL (32.0-36.0); MEAN CORPUSCULAR VOLUME 104 fl (80-97); RED BLOOD COUNT 2.39 10^6/uL (3.72-5.28); RED CELL DISTRIBUTION WIDTH 22.9 % (11.5-14.0); WHITE BLOOD COUNT 3.8 10^3/uL (4.0-10.5)
[2019-08-08 05:28] LABS: ALBUMIN 2.8 g/dL (3.5-5.0); ALKALINE PHOSPHATASE 176 U/L (38-126); ANION GAP 6 (5-19); ASPARTATE AMINO TRANSFERASE 44 U/L (14-36); BILIRUBIN,DIRECT 3.4 mg/dL (0.0-0.4); BILIRUBIN,TOTAL 11.1 mg/dL (0.2-1.3); BLOOD UREA NITROGEN 8 mg/dL (7-20); CALCIUM 8.3 mg/dL (8.4-10.2); CARBON DIOXIDE 28 mmol/L (22-30); CHLORIDE 103 mmol/L (98-107); GLUCOSE 136 mg/dL (75-110); POTASSIUM 4.7 mmol/L (3.6-5.0); TOTAL PROTEIN 8.4 g/dL (6.3-8.2)
[2019-08-08 05:33] LABS: PLATELET COUNT 51 10^3/uL (150-450)
[2019-08-08 05:58] LABS: ABSOLUTE LYMPHOCYTES# (MANUAL) 0.3 10^3/uL (0.5-4.7); ABSOLUTE MONOCYTES # (MANUAL) 0.2 10^3/uL (0.1-1.4); ANISOCYTOSIS 2+; BAND NEUTROPHILS % (MANUAL) 3 % (3-5); BASOPHILS % (MANUAL) 0 % (0-2); BURR CELLS 1+; EOSINOPHILS % (MANUAL) 0 % (0-6); LYMPHOCYTES % (MANUAL) 9 % (13-45); MONOCYTES % (MANUAL) 6 % (3-13); PLATELET COMMENT DECREASED; POIKILOCYTOSIS 2+; POLYCHROMASIA 2+; SEGMENTED NEUTROPHILS % (MAN) 82 % (42-78); TARGET CELLS 1+; TOTAL CELLS COUNTED 100
[2019-08-08] MEDS: OXYCODONE HCL IR 5 MG TABLET PO PRN (06:39)
[2019-08-08] MEDS: SUCRALFATE 1 GM TABLET PO SCH ×2 (08:36→10:20)
[2019-08-08] MEDS: SPIRONOLACTONE 25 MG TABLET PO SCH (10:19)
[2019-08-08] MEDS: VALACYCLOVIR HCL 500 MG TABLET PO SCH (10:19)
[2019-08-08] MEDS: LIDOCAINE 5% (700 MG) TRANSDERMAL ADH..PATCH TP SCH (10:19)
[2019-08-08] MEDS: THIAMINE HCL 100 MG TABLET PO SCH (10:20)
[2019-08-08] MEDS: MULTIVITAMIN TABLET PO SCH (10:20)
[2019-08-08] MEDS: FOLIC ACID 1 MG TABLET PO SCH (10:20)
[2019-08-08] MEDS: POTASSIUM CHLORIDE 10 MEQ TABLET.ER PO SCH (10:20)
[2019-08-08] MEDS: FUROSEMIDE INJ/PF 40 MG/4 ML SDV IV SCH (10:20)
[2019-08-08] MEDS: DOCUSATE SODIUM 100 MG CAPSULE PO SCH (10:21)
[2019-08-08 12:28] VITALS: BP 139/77
--- NOTE | 2019-08-08 12:29 | PDOC PROGRESS REPORT ---
Subjective Progress Note for:: 08/08/19 Subjective:: She reports significant improvement today from the injection. Denies any new symptoms. Pain is well controlled. Reason For Visit: ACUTE ON CHRONIC ANEMIA,PRIMARY HERPES Physical Exam Vital Signs: Temp Pulse Resp BP Pulse Ox 98.3 F 87 15 131/74 H 100 08/08/19 07:53 08/08/19 07:53 08/08/19 07:53 08/08/19 07:53 08/08/19 07:53 Intake & Output 08/07/19 08/08/19 08/09/19 06:59 06:59 06:59 Intake Total 1465 460 Balance 1465 460 Weight 66.5 kg 67.1 kg Physical Exam: General appearance: PRESENT: no acute distress, cooperative, ill-appearing Head exam: PRESENT: atraumatic, normocephalic Eye exam: PRESENT: EOMI Ear exam: PRESENT: normal external ear exam Mouth exam: PRESENT: neck supple Neck exam: ABSENT: tracheal deviation Respiratory exam: PRESENT: symmetrical, unlabored. ABSENT: accessory muscle use, wheezes Pulses: PRESENT: normal radial pulses, normal dorsalis pedis pulse Vascular exam: PRESENT: normal capillary refill GI/Abdominal exam: ABSENT: distended, firm Extremities exam: PRESENT: full ROM of bilateral shoulders, elbows wrists, knees, hips and ankles without pain Musculoskeletal exam: PRESENT: full ROM, normal inspection of all 4 extremities aside from that noted below. Neurological exam: PRESENT: alert, awake, oriented to person, oriented to place, oriented to time Psychiatric exam: PRESENT: appropriate affect. ABSENT: agitated Focused psych exam: ABSENT: catatonic Skin exam: PRESENT: intact. ABSENT: dry All as above aside from that noted in the HPI and the following: RLE -Pulses 2+ distally -Compartments soft -Sensation grossly intact to L3-4-5 S1 -Motor grossly intact to EHL TA gastroc and quad - Able to perform quad extension and elevate heel off of bed. - Pain with ROM past about 20 degrees of flexion, pain with ambulation, pain is much improved on today's exam. - No TTP, No effusion Results Laboratory Results: 08/08/19 04:52 08/08/19 04:52 08/08/19 08/08/19 08/08/19 04:52 04:52 04:52 WBC 3.8 L RBC 2.39 L Hgb 8.9 L Hct 24.8 L MCV 104 H MCH 37.2 H MCHC 35.8 RDW 22.9 H Plt Count 51 L Seg Neutrophils % Not Reportable Sodium 137.4 Potassium 4.7 Chloride 103 Carbon Dioxide 28 Anion Gap 6 BUN 8 Creatinine 0.47 L Est GFR ( Amer) > 60 Glucose 136 H Calcium 8.3 L Total Bilirubin 11.1 H AST 44 H Alkaline Phosphatase 176 H Ammonia 44.7 H Total Protein 8.4 H Albumin 2.8 L 08/01/19 12:06 NT-Pro-B Natriuret Pep 623 H Impressions: Knee X-Ray 08/01/19 11:54 IMPRESSION: NEGATIVE STUDY OF THE RIGHT KNEE. NO RADIOGRAPHIC EVIDENCE OF ACUTE INJURY. Venous Doppler Study 08/01/19 15:22 IMPRESSION: NO EVIDENCE DVT OR SVT IN THE RIGHT LEG. Abdomen/Pelvis CT 08/04/19 00:00 IMPRESSION: 1. Mild bilateral effusions, right greater than left, with associa armaan atelectasis. Findings increased from prior exam. 2. Cirrhotic liver morphology with markedly enlarged portosystemic collaterals. Splenomegaly. 3. Cholelithiasis with distended gallbladder measuring 4.5 cm. Recommend correlation with patient symptoms. Lower Extremity MRI 08/05/19 00:00 IMPRESSION: No discrete radiopaque foreign body material visualized. No evidence of acute fracture or bone marrow edema. Small amount of fluid within the joint. 5 mm ganglion anterior to the medial meniscus. Assessment & Plan - Diagnosis (1) Knee pain Qualifiers: Chronicity: acute Laterality: right Qualified Code(s): M25.561 - Pain in right knee Is this a current diagnosis for this admission?: Yes Plan: She is doing much better after her injection. She is welcome to follow-up in the office at a future date if needed. -She has no restrictions and is weightbearing as tolerated -Knee immobilizer is present for stability per patient tolerance, she feels safe walking without it then she does not need to wear it any further - Time Time Spent with patient: Less than 15 minutes
--- NOTE | 2019-08-08 18:50 | PDOC DISCHARGE SUMMARY ---
Impression - Admit/DC Date/PCP Admission Date/Primary Care Provider: 08/04/19 15:11 Discharge Date: 08/08/19 - Discharge Diagnosis (1) Acute on chronic anemia Is this a current diagnosis for this admission?: Yes (2) Cirrhosis of liver Is this a current diagnosis for this admission?: Yes (3) Genital herpes Is this a current diagnosis for this admission?: Yes (4) Knee pain Is this a current diagnosis for this admission?: Yes (5) Pancytopenia Is this a current diagnosis for this admission?: Yes (6) Hypercoagulopathy Is this a current diagnosis for this admission?: Yes (7) Alcohol dependence Is this a current diagnosis for this admission?: Yes (8) Noncompliance Is this a current diagnosis for this admission?: Yes - Assessment Summary: 08/02/2019 Vital signs are stable patient still has a low-grade temp 100.1. It had been as high as 102.9 yesterday patient is still running an elevated heart rate of 110. Pressure 128/69 O2 saturation this morning when she was asleep was low at 90% on room air but previously had been 98% Weight when she was admitted was recorded at 67.5 kg today it is 71.2 On admission her hemoglobin was 5.9 platelets 41,000 today her hemoglobin is come up to 8.2 platelets are still low at 44,000. This is probably due to her cirrhosis. Accordingly patient had an endoscopy done in June and was started on a PPI today's yesterday's coags revealed the PT to be 24.2 and INR 2.13 Potassium slightly low at 3.4 we will will replace this with p.o. potassium urine culture shows a preliminary negative Patient is currently on no antibiotics. Get patient up out of bed today and ambulate, possibly discontinue to home tomorrow 08/03/2019 Patient had a slight temperature last night around 2300 hrs. it was 100.6. This morning her temperature is 98.3 O2 saturation is 92% on room air pulse is approximately 95, blood pressure 124/72 Ammonia level has gone up today 18 up to 37, platelets are improved slightly up from 41,000 to now 50,000 I am going to increase her lactulose today she is currently on 20 g every 8 hours, 30 g 6 hours. Patient was not on lactulose prior to coming to the hospital. In Fact her only medication according to the chart was Lasix 40 g daily. She is also currently on Carafate, Protonix, spironolactone, Valtrex, as well as multivitamins and potassium She is using Ativan approximately 1 time daily and using oxycodone 1 time daily Besides her ammonia level, her other liver functions are improving though her total and direct bilirubin are remaining elevated and stable 08/04/2019 Temp last night was 99.1 got up to as high as 100.6 on 08/02/2019 Pulses approximately 100, blood pressure 149/91, O2 saturation 95% on room air Chemistry with sodium 134.5 potassium 3.7 BUN of 7 creatinine 0.52 GFR greater than 60 Total bilirubin down slightly to 12.5 direct bilirubin down to 4.6 AST down to 42 ALT down to [address] of the abdomen and pelvis today with IV contrast showed mild bilateral effusions right greater than left with associated atelectasis findings are increased from prior exam. #2 cirrhotic liver with enlarged portosystemic collaterals and splenomegaly #3 cholelithiasis with distended gallbladder measuring 4.5 cm. This does not appear to be significantly different from previous CT dated 07/22/2019 Exam reveals no abdominal tenderness no rebound no guarding Numbers all appear to be improving patient is more awake alert this afternoon talking using her cell phone. Placed a call to her exhibits manager in [facility] Dr. Ruben Clay. Was done at approximately 1500 hrs. Have not returned my call yet Have spoken to the patient's mother at the bedside, Norma thibodeaux, [phone], also called her on her phone to keep her involved with patient care. Patient has given me permission to discuss her care with her mother. All of patient's numbers are improving and in looking back through the chart they are much better than they have been in the past. Clinically patient seems to be improving, ammonia levels getting better patient is more awake and alert. Patient and her mother both admit that the patient had stopped her meds i.e. lactulose a while back because of diarrhea. I am going to check a uric acid level tomorrow for her right knee pain. Patient's MELD Score today is 27. Based on this score her mortality over the next 3 months is 20%. 08/05/2019 Temp 98 6 pulse between 94 and 106, blood pressure 151/89, 97% oxygen saturation on room air WBC is down to 2.6, platelets at 44,000, hemoglobin 8.1, INR 2.3 Calcium down to 3.3, uric acid 4.7 Total bilirubin is down to 10.5 direct bilirubin is down to 3.7 ammonia is up slightly to 47 Dr. Danna Shirley called me this morning and we discussed this patient's case in great detail he read over his office notes as well as hospitalization notes.. He stated that she she recently had an upper endoscopy that showed no varices or active bleeding He also stated that unless this was going on he did not see any indication from what I told him that she needed to be transferred to a higher level of care. Currently he agreed that facility such as [facility] where they do liver transplants would be better for the patient however he was concerned that she was still actively drinking and therefore would not be a candidate. This morning early on rounds she was sleeping and when I went back later her sister was in the room she was wide awake talking in full sentences very alert. Thomas her case in great detail and we talked a lot about her right knee pain which is persisted. X-ray of the right knee shows no joint effusion no abnormality venous Doppler of the right leg shows no evidence of DVT. Uric acid level does not indicate gout. Examination of the right knee shows no redness no warmth to the touch no soft tissue swelling. She has limited range of motion secondary to pain. Going to get an MRI scan of her right knee today. I have reintroduced pain medicine but on a every 8 basis. Also on the suggestion by Dr. Clay out started Corgard 20 mg a day for her hepatic cirrhosis. Incidentally the edema in her feet has gone down from yesterday. Patient continues to improve I anticipate discharging her from the hospital, hopefully with a diagnosis concerning her right knee pain I answered all of her questions as well as her sisters 08/06/2019 Temperature 98.7, pulse 86, blood pressure 148/83, O2 sat 94% on room air White counts 3200 platelets up to 54,000 hemoglobin is stable at 8.8 Ammonia is come back down to 24 which is normal bilirubin is stable The serum was low last night and this is been corrected and is now 1.9 potassium was low and is being corrected today Continues to become more awake and alert with less peripheral edema MRI scan showed an effusion. Orthopedics will evaluate the MRI and the patient to see if they feel that the effusion is causing her knee pain and potential treatment Continue same medications. I have explained all of this to the patient 08/07/2019 Appreciate orthopedics help pain and concerning her right knee pain. Make the recommendations and see how she does with the cortisone injection. Physical therapy to see her 1 time and make recommendations. We will fit a knee immobilizer on her right lower extremity On the level continues to get lower today it was 24 and from 47 Potassium is being replaced orally Patient has less peripheral edema Fully will discharge home tomorrow Check labs in the morning. 08/08/2019 she was seen by physical therapy today and a knee velocity was fitted on her Feels like the cortisone injection yesterday from orthopedics has helped her All of her labs appear to be stable To follow-up as an outpatient with the [facility] [place] transplant team for her end-stage liver disease Discharge her with a prescription for Cipro 500 mg daily prophylactically, a knee immobilizer, spironolactone 100 mg daily, Lasix 20 mg days daily, lidocaine patch, oxycodone 5 mg #15, thiamine and folate, lactulose 20 mg every 8 hours She seems satisfied with her care. she is medically stable for discharge - Additional Information Resuscitation Status: Full Code Discharge Diet: As Tolerated Discharge Activity: Balance Activity w/Rest, No Driving, Slowly Increase Activity, Walk Frequently Referrals: [facility] [Outside] (the [facility] has no appts until august 15, please call after this date and set up a follow up appt) Prescriptions: Spironolactone [Aldactone 25 mg Tablet] 100 mg PO DAILY 30 Days #120 tablet Lactulose [Cephulac Syrup 20 gm/30 ml Udcup] 20 gm PO Q8 5 Days #500 ml Ciprofloxacin HCl [Cipro 500 mg Tablet] 500 mg PO DAILY 30 Days #30 tablet Folic Acid [Folvite 1 mg Tablet] 1 mg PO DAILY 30 Days #30 tablet Potassium Chloride [Klor-Con 10 Meq Tablet ER] 10 meq PO Q12 30 Days #60 tablet.er Furosemide [Lasix 20 mg Tablet] 20 mg PO QAM #30 tablet Lidocaine [Lidoderm 5% (700 mg) Transdermal Patch] 1 patch TP DAILY 30 Days #30 adh..patch Oxycodone HCl [Oxy-Ir 5 mg Tablet] 5 mg PO Q8HP PRN 5 Days #15 tablet PRN Reason: Thiamine HCl [Thiamine 100 mg Tablet] 100 mg PO DAILY 30 Days #30 tablet Home Medications: Ciprofloxacin HCl [Cipro 500 mg Tablet] 500 mg PO DAILY 30 Days #30 tablet 08/08/19 Folic Acid [Folvite 1 mg Tablet] 1 mg PO DAILY 30 Days #30 tablet 08/08/19 Furosemide [Lasix 20 mg Tablet] 20 mg PO QAM #30 tablet 08/08/19 Lactulose [Cephulac Syrup 20 gm/30 ml Udcup] 20 gm PO Q8 5 Days #500 ml 08/08/19 Lidocaine [Lidoderm 5% (700 mg) Transdermal Patch] 1 patch TP DAILY 30 Days #30 adh..patch 08/08/19 Oxycodone HCl [Oxy-Ir 5 mg Tablet] 5 mg PO Q8HP PRN 5 Days #15 tablet 08/08/19 Potassium Chloride [Klor-Con 10 Meq Tablet ER] 10 meq PO Q12 30 Days #60 ta blet.er 08/08/19 Spironolactone [Aldactone 25 mg Tablet] 100 mg PO DAILY 30 Days #120 tablet 08/08/19 Thiamine HCl [Thiamine 100 mg Tablet] 100 mg PO DAILY 30 Days #30 tablet 08/08/19 History of Present Illiness History of Present Illness: KHUSHI ACHARYA is a 34 year old female Physical Exam Vital Signs: Temp Pulse Resp BP Pulse Ox 98.0 F 91 17 139/77 H 100 08/08/19 12:42 08/08/19 12:42 08/08/19 12:42 08/08/19 12:42 08/08/19 12:42 Intake & Output 08/07/19 08/08/19 08/09/19 06:59 06:59 06:59 Intake Total 1465 460 360 Balance 1465 460 360 Weight 66.5 kg 67.1 kg Results Laboratory Results: WBC 3.8 10^3/uL (4.0-10.5) L 08/08/19 04:52 RBC 2.39 10^6/uL (3.72-5.28) L 08/08/19 04:52 Hgb 8.9 g/dL (12.0-15.5) L 08/08/19 04:52 Hct 24.8 % (36.0-47.0) L 08/08/19 04:52 MCV 104 fl (80-97) H 08/08/19 04:52 MCH 37.2 pg (27.0-33.4) H 08/08/19 04:52 MCHC 35.8 g/dL (32.0-36.0) 08/08/19 04:52 RDW 22.9 % (11.5-14.0) H 08/08/19 04:52 Plt Count 51 10^3/uL (150-450) L 08/08/19 04:52 Lymph % (Auto) Not Reportable 08/08/19 04:52 Tyler % (Auto) Not Reportable 08/08/19 04:52 Eos % (Auto) Not Reportable 08/08/19 04:52 Baso % (Auto) Not Reportable 08/08/19 04:52 Absolute Neuts (auto) Not Reportable 08/08/19 04:52 Absolute Lymphs (auto) Not Reportable 08/08/19 04:52 Absolute Monos (auto) Not Reportable 08/08/19 04:52 Absolute Eos (auto) Not Reportable 08/08/19 04:52 Absolute Basos (auto) Not Reportable 08/08/19 04:52 Total Counted 100 08/08/19 04:52 Seg Neutrophils % Not Reportable 08/08/19 04:52 Seg Neuts % (Manual) 82 % (42-78) H 08/08/19 04:52 Band Neutrophils % 3 % (3-5) 08/08/19 04:52 Lymphocytes % (Manual) 9 % (13-45) L 08/08/19 04:52 Atypical Lymphs % Cancelled 08/05/19 04:12 Monocytes % (Manual) 6 % (3-13) 08/08/19 04:52 Eosinophils % (Manual) 0 % (0-6) 08/08/19 04:52 Basophils % (Manual) 0 % (0-2) 08/08/19 04:52 Metamyelocytes % Cancelled 08/05/19 04:12 Myelocytes % Cancelled 08/05/19 04:12 Promyelocytes % Cancelled 08/05/19 04:12 Immature Leukocytes % Cancelled 08/05/19 04:12 Abs Neuts (Manual) 3.2 10^3/uL (1.7-8.2) 08/08/19 04:52 Abs Lymphs (Manual) 0.3 10^3/uL (0.5-4.7) L 08/08/19 04:52 Abs Monocytes (Manual) 0.2 10^3/uL (0.1-1.4) 08/08/19 04:52 Absolute Eos (Manual) 0.0 10^3/uL (0.0-0.6) 08/08/19 04:52 Abs Basophils (Manual) 0.0 10^3/uL (0.0-0.2) 08/08/19 04:52 Nucleated RBCs Cancelled 08/05/19 04:12 Differential Comment Cancelled 08/05/19 04:12 Hypersegmented Neuts Cancelled 08/05/19 04:12 Smudge Cells Cancelled 08/05/19 04:12 Toxic Granulation 1+ 08/05/19 05:59 Toxic Vacuolation Cancelled 08/05/19 04:12 Dohle Bodies Cancelled 08/05/19 04:12 Dari Rods Cancelled 08/05/19 04:12 WBC Morphology Comment Cancelled 08/05/19 04:12 Platelet Estimate Cancelled 08/05/19 04:12 Clumped Platelets Cancelled 08/05/19 04:12 Large Platelets Cancelled 08/05/19 04:12 Giant Platelets Cancelled 08/05/19 04:12 Platelet Comment DECREASED 08/08/19 04:52 Polychromasia 2+ 08/08/19 04:52 Hypochromasia SLIGHT 08/05/19 05:59 Poikilocytosis 2+ 08/08/19 04:52 Basophilic Stippling Cancelled 08/05/19 04:12 Anisocytosis 2+ 08/08/19 04:52 Microcytosis Cancelled 08/05/19 04:12 Macrocytosis 1+ 08/05/19 05:59 Spherocytes Cancelled 08/05/19 04:12 Pappenheimer Bodies Cancelled 08/05/19 04:12 Sickle Cells Cancelled 08/05/19 04:12 Target Cells 1+ 08/08/19 04:52 Tear Drop Cells SLIGHT 08/05/19 05:59 Ovalocytes SLIGHT 08/05/19 05:59 Stomatocytes Cancelled 08/05/19 04:12 Helmet Cells Cancelled 08/05/19 04:12 Guidry-[place] Bodies Cancelled 08/05/19 04:12 Aura Cells 1+ 08/08/19 04:52 Acanthocytes (Spur) Cancelled 08/05/19 04:12 Rouleaux Cancelled 08/05/19 04:12 Schistocytes SLIGHT 08/05/19 05:59 RBC Morph Comment Cancelled 08/05/19 04:12 PT 25.8 SEC (11.4-15.4) H 08/04/19 09:18 INR 2.31 08/04/19 09:18 APTT 47.9 SEC (23.5-35.8) H 08/04/19 09:18 Sodium 137.4 mmol/L (137-145) 08/08/19 04:52 Potassium 4.7 mmol/L (3.6-5.0) 08/08/19 04:52 Chloride 103 mmol/L (98-107) 08/08/19 04:52 Carbon Dioxide 28 mmol/L (22-30) 08/08/19 04:52 Anion Gap 6 (5-19) 08/08/19 04:52 BUN 8 mg/dL (7-20) 08/08/19 04:52 Creatinine 0.47 mg/dL (0.52-1.25) L 08/08/19 04:52 Est GFR ( Amer) > 60 (>60) 08/08/19 04:52 Est GFR (MDRD) Non-Af > 60 (>60) 08/08/19 04:52 Glucose 136 mg/dL (75-110) H 08/08/19 04:52 Uric Acid 4.7 mg/dL (2.5-7.0) 08/05/19 04:12 Calcium 8.3 mg/dL (8.4-10.2) L 08/08/19 04:52 Magnesium 1.9 mg/dL (1.6-2.3) 08/06/19 06:58 Total Bilirubin 11.1 mg/dL (0.2-1.3) H 08/08/19 04:52 Direct Bilirubin 3.4 mg/dL (0.0-0.4) H 08/08/19 04:52 Neonat Total Bilirubin Not Reportable 08/08/19 04:52 Neonat Direct Bilirubin Not Reportable 08/08/19 04:52 Neonat Indirect Bili Not Reportable 08/08/19 04:52 AST 44 U/L (14-36) H 08/08/19 04:52 ALT 21 U/L (<35) 08/08/19 04:52 Alkaline Phosphatase 176 U/L (38-126) H 08/08/19 04:52 Ammonia 44.7 umol/L (9-33) H 08/08/19 04:52 NT-Pro-B Natriuret Pep 623 pg/mL (<125) H 08/01/19 12:06 Total Protein 8.4 g/dL (6.3-8.2) H 08/08/19 04:52 Albumin 2.8 g/dL (3.5-5.0) L 08/08/19 04:52 Urine Color BOY 08/01/19 12:32 Urine Appearance CLEAR 08/01/19 12:32 Urine pH 5.0 (5.0-9.0) 08/01/19 12:32 Ur Specific Avalon 1.008 08/01/19 12:32 Urine Protein NEGATIVE mg/dL (NEGATIVE) 08/01/19 12:32 Urine Glucose (UA) NEGATIVE mg/dL (NEGATIVE) 08/01/19 12:32 Urine Ketones NEGATIVE mg/dL (NEGATIVE) 08/01/19 12:32 Urine Blood MODERATE (NEGATIVE) H 08/01/19 12:32 Urine Nitrite NEGATIVE (NEGATIVE) 08/01/19 12:32 Urine Bilirubin NEGATIVE (NEGATIVE) 08/01/19 12:32 Urine Urobilinogen 4.0 mg/dL (<2.0) H 08/01/19 12:32 Ur Leukocyte Esterase SMALL (NEGATIVE) H 08/01/19 12:32 Urine WBC (Auto) 12 /HPF 08/01/19 12:32 Urine RBC (Auto) 2 /HPF 08/01/19 12:32 Squamous Epi Cells Auto 1 /HPF 08/01/19 12:32 Uric Acid Cryst (Auto) RARE /HPF 08/01/19 12:32 Urine Mucus (Auto) RARE /LPF 08/01/19 12:32 Urine Ascorbic Acid NEGATIVE (NEGATIVE) 08/01/19 12:32 Urine HCG, Qual NEGATIVE (NEGATIVE) 08/01/19 12:32 Urine Opiates Screen NEGATIVE 08/01/19 12:32 Urine Methadone Screen NEGATIVE 08/01/19 12:32 Ur Barbiturates Screen NEGATIVE 08/01/19 12:32 Ur Phencyclidine Scrn NEGATIVE 08/01/19 12:32 Ur Amphetamines Screen NEGATIVE 08/01/19 12:32 U Benzodiazepines Scrn NEGATIVE 08/01/19 12:32 Urine Cocaine Screen NEGATIVE 08/01/19 12:32 U Marijuana (THC) Screen NEGATIVE 08/01/19 12:32 Serum Alcohol 18 mg/dL (NONE DETECTED) 08/01/19 12:06 HSV I IgM Ab (IFA) 1:1000 titer (<1:10) H 08/01/19 12:32 HSV II IgM Ab (IFA) 1:100 titer (<1:10) H 08/01/19 12:32 HIV 1&2 Antibody NEGATIVE (NEGATIVE) 08/01/19 12:32 Slides for Path Review Cancelled 08/05/19 04:12 Blood Type A POSITIVE 08/01/19 15:39 Antibody Screen NEGATIVE 08/01/19 15:39 Crossmatch See Detail 08/01/19 15:39 08/01/19 12:06 NT-Pro-B Natriuret Pep 623 H Impressions: Knee X-Ray 08/01/19 11:54 IMPRESSION: NEGATIVE STUDY OF THE RIGHT KNEE. NO RADIOGRAPHIC EVIDENCE OF ACUTE INJURY. Venous Doppler Study 08/01/19 15:22 IMPRESSION: NO EVIDENCE DVT OR SVT IN THE RIGHT LEG. Abdomen/Pelvis CT 08/04/19 00:00 IMPRESSION: 1. Mild bilateral effusions, right greater than left, with ass ociated atelectasis. Findings increased from prior exam. 2. Cirrhotic liver morphology with markedly enlarged portosystemic collaterals. Splenomegaly. 3. Cholelithiasis with distended gallbladder measuring 4.5 cm. Recommend correlation with patient symptoms. Lower Extremity MRI 08/05/19 00:00 IMPRESSION: No discrete radiopaque foreign body material visualized. No evidence of acute fracture or bone marrow edema. Small amount of fluid within the joint. 5 mm ganglion anterior to the medial meniscus. Stroke Is this a Stroke Patient?: No Acute Heart Failure - Is this a Heart Failure Patient?: No
== END 2019-08-08 13:38 | disposition home or self-care (01) | DRG 432 ==
LOC: ER 11:37 → EH 18:28 → INTOOBSV 18:28 → 4N 20:57 → OBSVTOIN 08-04 15:11
PROVIDERS: ADMIT Internal Medicine; ATTEND Internal Medicine
PROC: 30233N1 Transfusion of Nonautologous Red Blood Cells into Peripheral Vein, Percutaneous Approach (ICD-10-PCS; 2019-08-01)
PROC: 0S9C3ZX Drainage of Right Knee Joint, Percutaneous Approach, Diagnostic (ICD-10-PCS; principal; 2019-08-07)
DX: K70.40 Alcoholic hepatic failure without coma (principal); K29.51 Unspecified chronic gastritis with bleeding; D61.818 Other pancytopenia; K70.31 Alcoholic cirrhosis of liver with ascites; A60.1 Herpesviral infection of perianal skin and rectum; I10 Essential (primary) hypertension; M25.561 Pain in right knee; K21.9 Gastro-esophageal reflux disease without esophagitis; F10.20 Alcohol dependence, uncomplicated; D50.0 Iron deficiency anemia secondary to blood loss (chronic); Z60.2 Problems related to living alone; D63.1 Anemia in chronic kidney disease; Z91.19 Patient's noncompliance with other medical treatment and regimen; Z88.7 Allergy status to serum and vaccine
CPT/HCPCS: 36415; 36430; 74177; 80048; 80053; 80307; 81001; 81025; 82140; 82247; 82248; 83735; 83880; 84550; 85025; 85027; 85610; 85730; 86695; 86696; 86701; 86850; 86900; 86901; 86920; 87040; 87070; 87086; 93971; 96374; 96375; 99285; J1170; J1940; J2405; J2550; J2920; J3475; J3480; J3490; J7050; L1830; P9016; P9047

== ENCOUNTER 2019-08-29 16:17 | Emergency (ER) | payer SELFPAY ==
--- NOTE | 2019-08-29 16:32 | ER Document Report ---
ED Medical Screen (RME) - General Chief Complaint: Pain All Over Stated Complaint: BODY PAIN, LEFT ARM WEAKNESS Time Seen by Provider: 08/29/19 16:26 TRAVEL OUTSIDE OF THE [place] IN LAST 30 DAYS: No COUNTRY TRAVELED TO/FROM: [place] - [facility] Notes: 08/29/19 16:31 Patient is a 34-year-old female with a history of alcohol cirrhosis, end-stage liver disease, anemia who presents complaining of generalized body pain that is moderate to severe in nature. She has had fever as well with nausea and vomiting. Symptoms have been ongoing for the past few days. I have treated and performed a rapid initial assessment of this patient. A comprehensive ED assessment and evaluation of the patient, analysis of test results and completion of medical decision making process will be conducted by additional ED providers. PHYSICAL EXAMINATION: Patient hypotensive again on recheck in triage. Brief evaluation was done and patient taken to her room. GENERAL: Well-appearing, well-nourished and in no acute distress. A&Ox4. Answers questions appropriately. Neuro: cranial nerves grossly intact. - Related Data Allergies/Adverse Reactions: Pertussis Vaccines Allergy (Verified 08/01/19 11:47) Past Medical History - Past Medical History Cardiac Medical History: Reports: Hx Hypertension Denies: Hx Coronary Artery Disease, Hx Heart Attack Pulmonary Medical History: Denies: Hx Asthma, Hx Bronchitis, Hx COPD, Hx Pneumonia Neurological Medical History: Denies: Hx Cerebrovascular Accident, Hx Seizures Renal/ Medical History: Denies: Hx Peritoneal Dialysis GI Medical History: Reports: Hx Cirrhosis, Hx Gastroesophageal Reflux Disease, Hx Ulcer Musculoskeltal Medical History: Denies Hx Arthritis Past Surgical History: Denies: Hx Hysterectomy - Immunizations Hx Diphtheria, Pertussis, Tetanus Vaccination: No Physical Exam - Vital signs Vitals: Temp Pulse Resp BP Pulse Ox 98.4 F 106 H 18 85/37 L 100 08/29/19 16:21 08/29/19 16:21 08/29/19 16:21 08/29/19 16:21 08/29/19 16:21 Course - Vital Signs Vital signs: Temp Pulse Resp BP Pulse Ox 98.4 F 106 H 18 85/37 L 100 08/29/19 16:21 08/29/19 16:21 08/29/19 16:21 08/29/19 16:21 08/29/19 16:21
[2019-08-29 17:13] LABS: VENOUS BLOOD BASE EXCESS 1.5 mmol/L; VENOUS BLOOD HCO3 26.2 mmol/L (20-32); VENOUS BLOOD PCO2 41.8 mmHg (35-63); VENOUS BLOOD PH 7.42 (7.30-7.42)
[2019-08-29] MEDS ORDERED: HYDROMORPHONE HCL INJ/PF 2 MG/ML AMPULE IV ONE ×2 (17:19→20:39)
--- NOTE | 2019-08-29 17:19 | RADIOLOGY REPORT (SQ) ---
EXAM DESCRIPTION: CHEST SINGLE VIEW COMPLETED DATE/TIME: 08/29/2019 5:09 pm REASON FOR STUDY: hypotensive, body pain COMPARISON: 10/11/2016 EXAM PARAMETERS: NUMBER OF VIEWS: One view. TECHNIQUE: Single frontal radiographic view of the chest acquired. RADIATION DOSE: NA LIMITATIONS: None. FINDINGS: LUNGS AND PLEURA: No opacities, masses or pneumothorax. No pleural effusion. MEDIASTINUM AND HILAR STRUCTURES: No masses. Contour normal. HEART AND VASCULAR STRUCTURES: The heart size is borderline. There is no pulmonary edema. BONES: No acute findings. HARDWARE: None in the chest. OTHER: No other significant finding. IMPRESSION: Borderline cardiomegaly without pulmonary edema. TECHNICAL DOCUMENTATION: JOB ID: [id number] [employer]- All Rights Reserved Reading location - IP/workstation name: [email or web address]
[2019-08-29] MEDS ORDERED: ONDANSETRON HCL INJ/PF 4 MG/2 ML SDV IV ONE ×3 (17:20→20:39)
[2019-08-29] MEDS ORDERED: CEFTRIAXONE 2 GM/D5W RTU 2 GM/50 ML RTUPB IV ONE (17:21)
[2019-08-29 17:32] LABS: ALBUMIN 2.6 g/dL (3.5-5.0); ALKALINE PHOSPHATASE 58 U/L (38-126); ANION GAP 11 (5-19); ASPARTATE AMINO TRANSFERASE 53 U/L (14-36); BILIRUBIN,TOTAL 16.6 mg/dL (0.2-1.3); BLOOD UREA NITROGEN 39 mg/dL (7-20); CALCIUM 7.5 mg/dL (8.4-10.2); CARBON DIOXIDE 25 mmol/L (22-30); CHLORIDE 96 mmol/L (98-107); GLUCOSE 144 mg/dL (75-110); POTASSIUM 3.2 mmol/L (3.6-5.0); TOTAL PROTEIN 7.1 g/dL (6.3-8.2)
[2019-08-29 17:33] LABS: INTERNATIONAL RATION (INR) 3.79; PROTHROMBIN TIME 38.3 SEC (11.4-15.4)
--- NOTE | 2019-08-29 17:48 | EKG REPORT ---
SEVERITY:- BORDERLINE ECG - SINUS TACHYCARDIA NONSPECIFIC ANTERIOR ST-T CHANGES : Confirmed by: Ethan López MD 29-Aug-2019 17:47:54
[2019-08-29] MEDS: NORMAL SALINE 1000 ML 1,000 ML IV PRN ×2 (18:00→18:30)
--- NOTE | 2019-08-29 19:07 | RADIOLOGY REPORT (SQ) ---
EXAM DESCRIPTION: CT ABD/PELVIS NO ORAL OR IV COMPLETED DATE/TIME: 08/29/2019 5:45 pm REASON FOR STUDY: abd pain Right and left lower quadrant pain. COMPARISON: 08/04/2019 TECHNIQUE: CT scan of the abdomen and pelvis performed without intravenous or oral contrast. Images reviewed with lung, soft tissue, and bone windows. Reconstructed coronal and sagittal MPR images revi ewed. All images stored on PACS. All CT scanners at this facility use dose modulation, iterative reconstruction, and/or weight based d osing when appropriate to reduce radiation dose to as low as reasonably achievable (ALARA). [facility]: Dose Right [facility]: CareDose [facility]: Dose Right [facility]: Teradose 4D [facility]: [employer] RADIATION DOSE: mGy. LIMITATIONS: None. FINDINGS: LOWER CHEST: Decreased but persistent small right pleural effusion with compressive atelec tasis at the lung bases. Moderate cardiomegaly. NON-CONTRASTED LIVER, SPLEEN, ADRENALS: The liver has a shrunken nodular contour, similar in appearan ce to previous examination. Massively enlarged recannulated umbilical vein is noted, unchanged from prior. There is severe splenomegaly with spleen measuring 22.6 cm craniocaudal at the midclavicular line. No perisplenic fluid. No adrenal mass. PANCREAS: No masses. No peripancreatic inflammatory changes. GALLBLADDER: The gallbladder is moderately distended measuring up to 5.6 cm diameter. There are mult iple layering gallstones/calcified debris within the gallbladder neck. No gallbladder wall thickenin g or pericholecystic fluid. RIGHT KIDNEY AND URETER: No suspicious masses. Assessment limited by lack of IV contrast. No signif icant calcifications. No hydronephrosis or hydroureter. LEFT KIDNEY AND URETER: No suspicious masses. Assessment limited by lack of IV contrast. No signifi cant calcifications. No hydronephrosis or hydroureter. AORTA AND RETROPERITONEUM: No aneurysm. No retroperitoneal masses or adenopathy. BOWEL AND PERITONEAL CAVITY: No obvious masses or inflammatory changes. Small amount of ascites in t he pericolic gutters and pelvis. . APPENDIX: Normal. PELVIS, BLADDER, AND ABDOMINAL WALL:No abnormal masses. No free fluid. Bladder normal. BONES: No significant findings. OTHER: No other significant finding. IMPRESSION: 1. Findings of severe portal hypertension and probable underlying hepatic cirrhosis, stable from prio r. Severe splenomegaly is stable. 2. Cholelithiasis with distended gallbladder, equivocal for acute cholecystitis. No gallbladder wall thickening or pericholecystic fluid. Clinical correlation for patient's symptoms and correlation wi laboratory values recommended. 3. Small but persistent right pleural effusion with compressive atelectasis of the right lung base. COMMENT: Quality ID # [id number]: Final reports with documentation of one or more dose reduction techniques (e.g., Automated exposure control, adjustment of the mA and/or kV according to patient size, use of iterative reconstruction technique) TECHNICAL DOCUMENTATION: JOB ID: [id number] [employer]- All Rights Reserved Reading location - IP/workstation name: [email or web address]
[2019-08-29 19:14] LABS: ABSOLUTE LYMPHOCYTES (AUTO) 0.1 10^3/uL (0.5-4.7); ABSOLUTE MONOCYTES (AUTO) 0.1 10^3/uL (0.1-1.4); ABSOLUTE NEUT (AUTO) 0.2 10^3/uL (1.7-8.2); BASOPHILS % (AUTO) 1.2 % (0-2); EOSINOPHILS % (AUTO) 2.9 % (0-6); HEMATOCRIT 18.9 % (36.0-47.0); LYMPHOCYTES % (AUTO) 25.3 % (13-45); MEAN CORPUSCULAR HGB CONC 35.1 g/dL (32.0-36.0); RED BLOOD COUNT 1.66 10^6/uL (3.72-5.28); RED CELL DISTRIBUTION WIDTH 13.9 % (11.5-14.0); SEGMENTED NEUTROPHILS % (AUTO) 46.6 % (42-78); TOTAL CELLS COUNTED % (AUTO) 100 %
[2019-08-29 19:20] LABS: HEMOGLOBIN 6.6 g/dL (12.0-15.5)
[2019-08-29 19:22] LABS: MEAN CORPUSCULAR VOLUME 114 fl (80-97); PLATELET COUNT 14 10^3/uL (150-450); WHITE BLOOD COUNT 0.5 10^3/uL (4.0-10.5)
[2019-08-29 19:32] LABS: PLATELET COMMENT DECREASED; POIKILOCYTOSIS 1+; POLYCHROMASIA 1+; TEAR DROP CELLS 1+
[2019-08-29] MEDS ORDERED: NORMAL SALINE 250 ML IV PRN (20:35)
--- NOTE | 2019-08-29 21:51 | ER Document Report ---
ED General - General Chief Complaint: Pain All Over Stated Complaint: BODY PAIN, LEFT ARM WEAKNESS Time Seen by Provider: 08/29/19 16:26 Primary Care Provider: SPENCER WHITFIELD MD [Primary Care Provider] - Follow up as needed Mode of Arrival: Ambulatory Information source: Patient TRAVEL OUTSIDE OF THE [place] IN LAST 30 DAYS: No COUNTRY TRAVELED TO/FROM: [place] [facility] Notes: Patient presents complaining of generalized body ache as well as left breast pain and right inguinal pain. She is also generalized malaise and weakness. She has a history of end-stage liver disease. This has due to alcohol use as well as possibly hemochromatosis. She states she last used alcohol in June 2019. She has had some nausea. She states she has chronic diarrhea due to lactulose. No fevers. No cough cold or congestion. She has also had diffuse abdominal pain. No significant pain with urination. She states she had a fever of 103 two days ago. Patient's body aches have been intermittent. They are worse if touched and better if left alone. There is no significant radiation of her pain. The pain is been moderate to severe. - Related Data Allergies/Adverse Reactions: Pertussis Vaccines Allergy (Verified 08/01/19 11:47) Past Medical History - General Information source: Patient - Social History Smoking Status: Former Smoker Frequency of alcohol use: Quit using in June 2019 Drug Abuse: None Family History: Reviewed & Not Pertinent, Malignancy - Aunt, uncle, grandmother, both grandfathers. Patient has suicidal ideation: No Patient has homicidal ideation: No - Past Medical History Cardiac Medical History: Reports: Hx Hypertension Denies: Hx Coronary Artery Disease, Hx Heart Attack Pulmonary Medical History: Denies: Hx Asthma, Hx Bronchitis, Hx COPD, Hx Pneumonia Neurological Medical History: Denies: Hx Cerebrovascular Accident, Hx Seizures Renal/ Medical History: Denies: Hx Peritoneal Dialysis GI Medical History: Reports: Hx Cirrhosis, Hx Gastroesophageal Reflux Disease, Hx Ulcer Musculoskeletal Medical History: Denies Hx Arthritis Past Surgical History: Denies: Hx Hysterectomy - Immunizations Hx Diphtheria, Pertussis, Tetanus Vaccination: No Review of Systems - Review of Systems Constitutional: Chills, Fever, Malaise, Weakness Cardiovascular: Chest pain. denies: Palpitations Respiratory: denies: Cough, Short of breath Gastrointestinal: Abdominal pain -: Yes All other systems reviewed and negative Physical Exam - Vital signs Vitals: Temp Pulse Resp BP Pulse Ox 98.4 F 106 H 18 85/37 L 100 08/29/19 16:21 08/29/19 16:21 08/29/19 16:21 08/29/19 16:21 08/29/19 16:21 Interpretation: Hypotensive, Tachycardic - General General appearance: Alert In distress: None - HEENT Head: Normocephalic, Atraumatic Eyes: Scleral icterus Pupils: PERRL Mucous membranes: Dry Pharynx: Normal Neck: Normal - Respiratory Respiratory status: No respiratory distress Chest status: Nontender Breath sounds: Normal Chest palpation: Other - Left breast has a large contusion mainly in the inferior portion between 3:00 and 9:00. It is tender to palpation. - Cardiovascular Rhythm: Tachycardia Heart sounds: Normal auscultation Murmur: No - Abdominal Inspection: Normal Distension: Distended Bowel sounds: Normal Tenderness: Tender - Diffuse. Specifically no significant right upper quadrant tenderness - Back Back: Normal, Nontender - Extremities General upper extremity: Normal inspection, Nontender, Normal color, Normal ROM, Normal temperature General lower extremity: Normal inspection, Nontender, Normal color, Normal ROM, Normal temperature, Normal weight bearing. No: Candy's sign - Neurological Neuro grossly intact: Yes Cognition: Normal Orientation: AAOx4 [place] Coma Scale Eye Opening: Spontaneous [place] Coma Scale Verbal: Oriented [place] Coma Scale Motor: Obeys Commands [place] Coma Scale Total: 15 Speech: Normal Motor strength normal: LUE, RUE, LLE, RLE Sensory: Normal - Psychological Associated symptoms: Normal affect, Normal mood - Skin Skin Temperature: Warm Skin Moisture: Dry Skin Color: Jaundiced Course - Re-evaluation Re-evalutation: 08/29/19 21:49 Patient presents with generalized malaise, history of fever, hypotension, she also has end-stage liver disease. Patient was seen here approximately 3 weeks ago. At that time her meld score was 27 today it is 37. Patient has new pancytopenia. No obvious infection is evident on work-up but she will be treated with antibiotics for possible occult infection. CT scan shows some questionable signs of cholecystitis but there is no free fluid and patient is not significantly tender in the right upper quadrant. An ultrasound will be obtained to further evaluate this. Patient's hypotension has responded nicely to fluids but is now trending back down with the last blood pressure of 95 systolic. She will be given some albumin to see how her blood pressure response. I did call [facility] and speak with the nurse emergency, Dr. Chambers. I also spoke with the hospitalist, Dr. Harvey. They have accepted the patient for admission. They asked me to give the patient albumin. They stated that they did not feel any further antibiotics are warranted. They also asked that I consider pressors if patient's blood pressure continues to be low despite albumin. I have turned this patient over to Dr. Hermosillo who will follow up to patient's response to albumin. At this time she does not appear toxic. She will be given 1 unit of packed red blood cells after discussion with [facility] physicians. They state that they did not feel any platelets were required if she is not bleeding. Patient has no signs of bleeding at this time. They also stated that they will give vitamin K when patient arrives there. - Vital Signs Vital signs: Temp Pulse Resp BP Pulse Ox 98.4 F 106 H 19 101/42 L 97 08/29/19 16:21 08/29/19 16:21 08/29/19 20:30 08/29/19 20:30 08/29/19 20:30 - Laboratory Result Diagrams: 08/29/19 19:00 08/29/19 16:55 Laboratory results interpreted by me: 08/29/19 08/29/19 08/29/19 16:55 16:55 17:09 WBC RBC Hgb Hct MCV MCH Plt Count [place] % (Auto) Absolute Neuts (auto) Absolute Lymphs (auto) PT 38.3 H Sodium 132.1 L Potassium 3.2 L Chloride 96 L BUN 39 H Creatinine 1.72 H Est GFR ( Amer) 41 L Est GFR (MDRD) Non-Af 34 L Glucose 144 H Lactic Acid 3.9 H Calcium 7.5 L Total Bilirubin 16.6 H Direct Bilirubin 8.0 H AST 53 H Albumin 2.6 L Crossmatch 08/29/19 08/29/19 08/29/19 19:00 19:00 20:44 WBC 0.5 L* RBC 1.66 L Hgb 6.6 L Hct 18.9 L MCV 114 H D MCH 40.0 H Plt Count 14 L* [place] % (Auto) 24.0 H Absolute Neuts (auto) 0.2 L Absolute Lymphs (auto) 0.1 L PT Sodium Potassium Chloride BUN Creatinine Est GFR ( Amer) Est GFR (MDRD) Non-Af Glucose Lactic Acid 2.7 H Calcium Total Bilirubin Direct Bilirubin AST Albumin Crossmatch See Detail - Diagnostic Test Radiology reviewed: Image reviewed, Reports reviewed Critical Care Note - Critical Care Note Total time excluding time spent on procedures (mins): 80 Comments: 80 minutes of critical care time were spent on this patient. This included multiple reassessments. And included reviewing old records. It included reviewing labs and imaging. It included multiple discussions with consultants. Discharge - Discharge Clinical Impression: Renal insufficiency, Thrombocytopenia, Hypokalemia, Acute anemia, Acute on chronic anemia, Pancytopenia, Hypercoagulopathy Acute liver failure Qualifiers: Hepatic coma status: without hepatic coma Qualified Code(s): K72.00 - Acute and subacute hepatic failure without coma Condition: Critical Disposition: [place] Referrals: SPENCER WHITFIELD MD [Primary Care Provider] - Follow up as needed
[2019-08-29 22:03] LABS: AMORPHOUS SEDIMENT,URINE TRACE /HPF; APPEARANCE,URINE CLOUDY; BILIRUBIN,URINE SMALL (NEGATIVE); COLOR,URINE AMBER; GLUCOSE, URINE NEGATIVE (NEGATIVE); KETONES,URINE NEGATIVE (NEGATIVE); PROTEIN,URINE 30 mg/dL (NEGATIVE); URINE SPECIFIC GRAVITY 1.018
[2019-08-29] MEDS: ALBUMIN HUMAN 12.5 GM/50 ML RTUINJ IV SCH ×2 (22:13→23:24)
[2019-08-30] MEDS ORDERED: POTASSI CL 20 MEQ/50 ML RIDER 20 MEQ/50 ML RTUPB IV ONE (01:16)
[2019-08-30 01:58] VITALS: BP 95/53
[2019-08-30] MEDS ORDERED: ONDANSETRON HCL INJ/PF 4 MG/2 ML SDV ONE (01:58)
[2019-08-30 11:46] LABS: PATH REVIEW PATHOLOGIST REVIEWED
== END 2019-08-30 02:10 | disposition short-term general hospital (02) ==
LOC: ER 16:17
DX: K72.00 Acute and subacute hepatic failure without coma (principal); N28.9 Disorder of kidney and ureter, unspecified; D69.6 Thrombocytopenia, unspecified; E87.6 Hypokalemia; D64.89 Other specified anemias; D61.818 Other pancytopenia; D68.59 Other primary thrombophilia; R53.1 Weakness; N64.4 Mastodynia; M79.10 Myalgia, unspecified site; R10.84 Generalized abdominal pain; R11.0 Nausea; R50.9 Fever, unspecified; I10 Essential (primary) hypertension
CPT/HCPCS: 93005; 96376; 99291; 96361; 96375; 96365; 96366; 96367; 86900; 86901; 36415; 87040; 36430; 86850; 82140; 83605; 84703; 85025; 85610; 87077; 80053; 81001; 87186; 86920; 82803; 87150 ×26; 71045; 74176; 93010; P9016; P9047; J1170; J2405; J7030; J7050; J0696

== ENCOUNTER 2019-11-20 12:30 | Emergency (ER) | payer MEDICAID ==
--- NOTE | 2019-11-20 12:52 | ER Document Report ---
ED Medical Screen (RME) - General Chief Complaint: Leg Pain Stated Complaint: LEG PAIN Time Seen by Provider: 11/20/19 12:45 Primary Care Provider: SPENCER WHITFIELD MD [Primary Care Provider] - Follow up as needed Notes: HPI: 34-year-old female with multiple medical conditions including chronic pain, cirrhosis and liver disease presenting for evaluation of 1 month of progressively worsening pain across the lower abdomen with pain and numbness now into the right leg. Patient states she began with the discomfort in the right lower quadrant right abdomen and urine region. Patient states it progressed into the leg and now has discomfort down the entire right leg with numbness and tingling. States she is unable to lift the leg and states she has fallen 3 times in the last several days because of numbness and weakness in the leg. Patient has not spoken with her PCP about this issue. Patient states that she normally is jaundiced because of her liver disease I have greeted and performed a rapid initial assessment of this patient. A comprehensive ED assessment and evaluation of the patient, analysis of test results and completion of the medical decision making process will be conducted by additional ED providers PHYSICAL EXAMINATION: Sclera are icteric. Patient skin is jaundiced. She has mild tenderness across the suprapubic and right lower quadrant region on palpation. She has tenderness to the right leg on palpation, limited exam secondary to positioning in triage. No visible edema to the bilateral lower extremities. Patient unwilling to lift or move the right leg I have greeted and performed a rapid initial assessment of this patient. A comprehensive ED assessment and evaluation of the patient, analysis of test results and completion of medical decision making process will be conducted by an additional ED providers. TRAVEL OUTSIDE OF THE [place]. IN LAST 30 DAYS: No - Related Data Allergies/Adverse Reactions: Pertussis Vaccines Allergy (Verified 11/20/19 12:44) Past Medical History - Past Medical History Cardiac Medical History: Reports: Hx Hypertension Denies: Hx Coronary Artery Disease, Hx Heart Attack Pulmonary Medical History: Denies: Hx Asthma, Hx Bronchitis, Hx COPD, Hx Pneumonia Neurological Medical History: Denies: Hx Cerebrovascular Accident, Hx Seizures Renal/ Medical History: Denies: Hx Peritoneal Dialysis GI Medical History: Reports: Hx Cirrhosis, Hx Gastroesophageal Reflux Disease, Hx Ulcer Musculoskeltal Medical History: Denies Hx Arthritis Past Surgical History: Denies: Hx Hysterectomy - Immunizations Hx Diphtheria, Pertussis, Tetanus Vaccination: No Physical Exam - Vital signs Vitals: Temp Pulse Resp BP Pulse Ox 98.3 F 72 18 114/65 98 11/20/19 12:35 11/20/19 12:35 11/20/19 12:35 11/20/19 12:35 11/20/19 12:35 Course - Vital Signs Vital signs: Temp Pulse Resp BP Pulse Ox 98.3 F 72 18 114/65 98 11/20/19 12:35 11/20/19 12:35 11/20/19 12:35 11/20/19 12:35 11/20/19 12:35 Doctor's Discharge - Discharge Referrals: SPENCER WHITFIELD MD [Primary Care Provider] - Follow up as needed
[2019-11-20] MEDS ORDERED: ONDANSETRON 4 MG TAB.RAPDIS PO ONE (13:43)
[2019-11-20 13:45] LABS: HEMATOCRIT 16.9 % (36.0-47.0); MEAN CORPUSCULAR VOLUME 114 fl (80-97); RED BLOOD COUNT 1.48 10^6/uL (3.72-5.28); RED CELL DISTRIBUTION WIDTH 14.1 % (11.5-14.0); WHITE BLOOD COUNT 2.9 10^3/uL (4.0-10.5)
[2019-11-20 13:52] LABS: ALBUMIN 3.2 g/dL (3.5-5.0); ALKALINE PHOSPHATASE 131 U/L (38-126); ANION GAP 8 (5-19); ASPARTATE AMINO TRANSFERASE 100 U/L (14-36); BILIRUBIN,DIRECT 3.4 mg/dL (0.0-0.4); BILIRUBIN,TOTAL 12.8 mg/dL (0.2-1.3); BLOOD UREA NITROGEN 14 mg/dL (7-20); CALCIUM 7.7 mg/dL (8.4-10.2); CARBON DIOXIDE 29 mmol/L (22-30); CHLORIDE 98 mmol/L (98-107); GLUCOSE 121 mg/dL (75-110); POTASSIUM 3.3 mmol/L (3.6-5.0); TOTAL PROTEIN 8.2 g/dL (6.3-8.2)
[2019-11-20 14:14] LABS: PLATELET COUNT 41 10^3/uL (150-450)
[2019-11-20 14:17] LABS: ABSOLUTE LYMPHOCYTES# (MANUAL) 0.8 10^3/uL (0.5-4.7); ABSOLUTE MONOCYTES # (MANUAL) 0.1 10^3/uL (0.1-1.4); BASOPHILS % (MANUAL) 2 % (0-2); EOSINOPHILS % (MANUAL) 0 % (0-6); LYMPHOCYTES % (MANUAL) 29 % (13-45); MONOCYTES % (MANUAL) 2 % (3-13); NUCLEATED RED BLOOD CELLS 1 /100 WBC (0); SEGMENTED NEUTROPHILS % (MAN) 67 % (42-78); TOTAL CELLS COUNTED 100
[2019-11-20 14:21] LABS: PLATELET COMMENT DECREASED; POIKILOCYTOSIS SLIGHT; TEAR DROP CELLS SLIGHT
[2019-11-20 14:24] LABS: HEMOGLOBIN 6.1 g/dL (12.0-15.5)
--- NOTE | 2019-11-20 15:55 | RADIOLOGY REPORT (SQ) ---
EXAM DESCRIPTION: VENOUS UNILATERAL LOWER IMAGES COMPLETED DATE/TIME: 11/20/2019 3:46 pm REASON FOR STUDY: right leg pain COMPARISON: None. TECHNIQUE: Dynamic and static scott scale and color images acquired of the right leg venous system. S elected spectral images acquired with additional compression and augmentation maneuvers. The contrala teral common femoral vein and saphenofemoral junction were also imaged. Images stored on PACS. LIMITATIONS: None. FINDINGS: COMMON FEMORAL: Normal phasicity, compression and augmentation. No visualized echogenic ma terial on scott scale. No defects on color images. FEMORAL: Normal compression and augmentation. No visualized echogenic material on scott scale. No defe cts on color images. POPLITEAL: Normal compression, augmentation. No visualized echogenic material on scott scale. No defec ts on color images. CALF VESSELS: Normal compression, augmentation. No visualized echogenic material on scott scale. No de fects on color images. GSV and SSV: Normal compression, augmentation. No visualized echogenic material on scott scale. No def ects on color images. ANY DEEP VENOUS INSUFFICIENCY: Not evaluated. ANY EVIDENCE OF POPLITEAL CYST: No. OTHER: No other significant finding. CONTRALATERAL COMMON FEMORAL VEIN AND SAPHENOFEMORAL JUNCTION: Normal phasicity, compression and augmentation. No visualized echogenic material on scott scale. No de fects on color images. IMPRESSION: NO EVIDENCE DVT OR SVT IN THE RIGHT LEG. TECHNICAL DOCUMENTATION: JOB ID: [id number] 2010 [employer]- All Rights Reserved Reading location - IP/workstation name: [email or web address]
[2019-11-20 18:17] LABS: APPEARANCE,URINE CLOUDY; BILIRUBIN,URINE SMALL (NEGATIVE); COLOR,URINE AMBER; GLUCOSE, URINE NEGATIVE (NEGATIVE); KETONES,URINE NEGATIVE (NEGATIVE); LEUKOCYTE ESTERASE,URINE NEGATIVE (NEGATIVE); NITRITE,URINE NEGATIVE (NEGATIVE); PROTEIN,URINE 30 mg/dL (NEGATIVE); URINE SPECIFIC GRAVITY 1.025
[2019-11-20] MEDS ORDERED: FENTANYL CITRATE INJ/PF 100 MCG/2 ML AMPUL IV ONE ×3 (18:35→23:41)
[2019-11-20] MEDS ORDERED: NORMAL SALINE 250 ML IV PRN ×4 (18:38→20:39)
[2019-11-20] MEDS ORDERED: POTASSI CL 20 MEQ/50 ML RIDER 20 MEQ/50 ML RTUPB IV ONE (18:50)
[2019-11-20 19:29] LABS: INTERNATIONAL RATION (INR) 2.49; PROTHROMBIN TIME 27.4 SEC (11.4-15.4)
[2019-11-20 19:30] LABS: PARTIAL THROMBOPLASTIN TIME 47.3 SEC (23.5-35.8)
[2019-11-20] MEDS: MAGNESIUM SULFATE/D5W 1 GM/100 ML RTUPB IV SCH ×2 (20:07→22:35)
--- NOTE | 2019-11-20 20:08 | RADIOLOGY REPORT (SQ) ---
EXAM DESCRIPTION: CT ABD/PELVIS WITH IV ONLY IMAGES COMPLETED DATE/TIME: 11/20/2019 7:55 pm REASON FOR STUDY: Right flank pain, r/o retroperitoneal bleed COMPARISON: 08/04/2019 TECHNIQUE: CT scan of the abdomen and pelvis performed using helical scanning technique with dynamic intravenous contrast injection. No oral contrast. Images reviewed with lung, soft tissue, and bone windows. Reconstructed coronal and sagittal MPR images reviewed. Delayed images for evaluation of the urinary system also acquired. All images stored on PACS. All CT scanners at this facility use dose modulation, iterative reconstruction, and/or weight based d osing when appropriate to reduce radiation dose to as low as reasonably achievable (ALARA). [facility]: Dose Right [facility]: CareDose [facility]: Dose Right [facility]: Teradose 4D [facility]: Sendio CONTRAST TYPE AND DOSE: contrast/concentration: Isovue 350.00 mg/ml; Total Contrast Delivered: 67.0 ml; Total Saline Delivered: 45.0 ml RENAL FUNCTION: GFR > 60. RADIATION DOSE: CT Rad equipment meets quality standard of care and radiation dose reduction techniq ues were employed. CTDIvol: 7.7 - 9.6 mGy. DLP: 924 mGy-cm.. LIMITATIONS: None. FINDINGS: LOWER CHEST: No significant findings. No nodules or infiltrates. LIVER: Cirrhosis. Extensive portosystemic shunting. SPLEEN: Splenomegaly. PANCREAS: No masses. No significant calcifications. No adjacent inflammation or peripancreatic fluid collections. Pancreatic duct not dilated. GALLBLADDER: Gallstones. ADRENAL GLANDS: No significant masses or asymmetry. RIGHT KIDNEY AND URETER: No solid masses. No significant calcifications. No hydronephrosis or hyd roureter. LEFT KIDNEY AND URETER: No solid masses. No significant calcifications. No hydronephrosis or hydr oureter. AORTA AND VESSELS: No aneurysm. No dissection. Renal arteries, SMA, celiac without stenosis. RETROPERITONEUM: There is a new 6 x 7 cm mass along the ileo psoas on the right. Most likely hematom a. Extends into the groin. BOWEL AND PERITONEAL CAVITY: No masses or inflammatory changes. No free fluid or peritoneal masses. APPENDIX: Normal. PELVIS: No mass. No free fluid. Normal bladder. ABDOMINAL WALL: No masses. No hernias. BONES: No significant or acute findings. OTHER: No other significant finding. IMPRESSION: New ileo psoas mass on the right most likely hematoma. Cirrhosis with extensive portosystemic shunting. Gallstones. TECHNICAL DOCUMENTATION: JOB ID: [id number] Quality ID # [id number]: Final reports with documentation of one or more dose reduction techniques (e.g., Au tomated exposure control, adjustment of the mA and/or kV according to patient size, use of iterative reconstruction technique) 2010 [email or web address]- All Rights Reserved Reading location - IP/workstation name: [email or web address]
[2019-11-20] MEDS ORDERED: METOCLOPRAMIDE HCL INJ/PF 10 MG/2 ML SDV IV ONE (20:28)
--- NOTE | 2019-11-20 20:47 | ER Document Report ---
ED General - General Chief Complaint: Numbness Stated Complaint: LEG PAIN Time Seen by Provider: 11/20/19 12:45 Primary Care Provider: SPENCER WHITFIELD MD [COMMUNITY BASED STAFF] - Follow up as needed TRAVEL OUTSIDE OF THE [place]. IN LAST 30 DAYS: No - HPI Notes: Chief complaint: Severe right flank pain radiating into right thigh and difficulty moving right lower extremity 34-year-old female with history of severe alcoholic liver disease followed at [facility] and recently hospitalized there now presents with sudden onset of severe right flank pain radiating into right thigh and difficulty moving her right lower extremity. These symptoms have developed s amanda this morning. No trauma reported. - Related Data Allergies/Adverse Reactions: Pertussis Vaccines Allergy (Verified 11/20/19 12:44) Past Medical History - General Information source: Patient - Social History Smoking Status: Never Smoker Frequency of alcohol use: None Drug Abuse: None Family History: Reviewed & Not Pertinent, Malignancy - Aunt, uncle, grandmother, both grandfathers. Patient has suicidal ideation: No Patient has homicidal ideation: No - Past Medical History Cardiac Medical History: Reports: Hx Hypertension Denies: Hx Coronary Artery Disease, Hx Heart Attack Pulmonary Medical History: Denies: Hx Asthma, Hx Bronchitis, Hx COPD, Hx Pneumonia Neurological Medical History: Denies: Hx Cerebrovascular Accident, Hx Seizures Renal/ Medical History: Denies: Hx Peritoneal Dialysis GI Medical History: Reports: Hx Cirrhosis, Hx Gastroesophageal Reflux Disease, Hx Ulcer Musculoskeletal Medical History: Denies Hx Arthritis Past Surgical History: Denies: Hx Hysterectomy - Immunizations Hx Diphtheria, Pertussis, Tetanus Vaccination: No Review of Systems - Review of Systems Notes: Constitutional: Negative for fever. HENT: Negative for sore throat. Eyes: Negative for visual changes. Cardiovascular: Negative for chest pain. Respiratory: Negative for shortness of breath. Gastrointestinal: Negative for abdominal pain, vomiting or diarrhea. Patient has chronic ascites and jaundice. Genitourinary: Negative for dysuria. Musculoskeletal: As per HPI. Skin: Negative for rash. Neurological: As per HPI. 10 point ROS negative except as marked above and in HPI. Physical Exam - Vital signs Vitals: Temp Pulse Resp BP Pulse Ox 98.3 F 72 18 114/65 98 11/20/19 12:35 11/20/19 12:35 11/20/19 12:35 11/20/19 12:35 11/20/19 12:35 - Notes Notes: GENERAL: Very chronically ill-appearing female approximately stated age who is deeply jaundiced and appears in moderate discomfort holding her right hip and knee in a flexed position and placing her hand over her right flank area. SKIN: Prominent jaundice. HEAD: Normocephalic atraumatic. EYES: PERRLA. EOMI. Conjunctivae pale and sclerae grossly icteric. EARS: CANALS AND TMS CLEAR. NOSE: CLEAR. MOUTH: Moist mucosa. Good dentition. No stridor or edema. No drooling. NECK: Supple. No masses or thyromegaly. No adenopathy. Carotids 2+ without bruits. No JVD. BACK: Symmetrical without tenderness. CHEST: Respirations unlabored. Breath sounds clear and symmetrical. HEART: Regular rhythm. No murmur gallop or rub. ABDOMEN: Prominent ascites. Nontender. Bowel sounds active. GENITALIA: Deferred. EXTREMITIES: Patient holds her right lower extremity in flexion of the hip and knee joints and resists motion in any direction complaining of severe pain right flank area and posterior aspect of right thigh with any manipulation. No edema. No calf tenderness. Cap refill less than 1.5 seconds. Dorsalis pedis and posterior tibial pulses 3+ and symmetrical. NEUROLOGICAL: GCS 15. Alert and oriented x3. Fluent speech. Cranial nerves II through XII intact. Sensorimotor and cerebellar normal. Normal tone. PSYCHIATRIC: Appropriate affect. Course - Re-evaluation Re-evalutation: 11/20/19 20:53 CT abdomen/pelvis confirms iliopsoas hemorrhage on the right. Patient has been given small titrated doses of fentanyl for control of her pain. She is coagulopathic with a platelet count about 40,000 and her INR is 2.5. She is going to get platelet transfusion and FFP. Her usual hemoglobin is around 8 g. She is approximately 6.3 g currently. She is receiving 2 units of packed cells IV. She remains hemodynamically stable at this time. We are coordinating transfer to [facility] where she usually receives her care. 11/20/19 21:12 Patient accepted for transfer by Dr. Madan Gonzalez at [facility] nter. - Vital Signs Vital signs: Temp Pulse Resp BP Pulse Ox 97.9 F 68 18 118/62 99 11/20/19 19:17 11/20/19 19:17 11/20/19 19:17 11/20/19 19:17 11/20/19 19:17 - Laboratory Result Diagrams: 11/20/19 13:10 11/20/19 13:10 Laboratory results interpreted by me: 11/20/19 11/20/19 11/20/19 13:10 13:10 16:47 WBC 2.9 L RBC 1.48 L Hgb 6.1 L Hct 16.9 L MCV 114 H MCH 41.0 H RDW 14.1 H Plt Count 41 L Monocytes % (Manual) 2 L PT APTT Sodium 134.6 L Potassium 3.3 L Glucose 121 H Calcium 7.7 L Magnesium 1.5 L Total Bilirubin 12.8 H Direct Bilirubin 3.4 H AST 100 H Alkaline Phosphatase 131 H Albumin 3.2 L Urine Protein Urine Blood Urine Bilirubin Urine Urobilinogen Crossmatch See Detail 11/20/19 11/20/19 17:36 19:14 WBC RBC Hgb Hct MCV MCH RDW Plt Count Monocytes % (Manual) PT 27.4 H APTT 47.3 H Sodium Potassium Glucose Calcium Magnesium Total Bilirubin Direct Bilirubin AST Alkaline Phosphatase Albumin Urine Protein 30 H Urine Blood SMALL H Urine Bilirubin SMALL H Urine Urobilinogen 4.0 H Crossmatch - Diagnostic Test Radiology reviewed: Reports reviewed - Per radiologist: New right iliopsoas hematoma. Advanced cirrhosis with portosystemic hypertension. Gallstone pre sent. Critical Care Note - Critical Care Note Total time excluding time spent on procedures (mins): 65 - Patient has severe end-stage hepatic disease and coagulopathy and is now developed a spontaneous iliopsoas hemorrhage. She is getting FFP and platelets and will require transfer to tertiary care center. Discharge - Discharge Clinical Impression: Coagulopathy secondary to hepatic diseas, Anemia, Hypomagnesemia, Hypokalemia, Thrombocytopenia Hematoma of right iliopsoas muscle Qualifiers: Encounter type: initial encounter Qualified Code(s): S70.11XA - Contusion of right thigh, initial encounter Condition: Serious Disposition: [place] Referrals: SPENCER WHITFIELD MD [COMMUNITY BASED STAFF] - Follow up as needed
[2019-11-21] MEDS ORDERED: FENTANYL CITRATE INJ/PF 100 MCG/2 ML AMPUL IV ONE (01:43)
[2019-11-21] MEDS ORDERED: ONDANSETRON HCL INJ/PF 4 MG/2 ML SDV IV ONE (01:43)
[2019-11-21] MEDS ORDERED: HYDROMORPHONE HCL INJ/PF 2 MG/ML AMPULE IV ONE ×3 (02:07→07:59)
[2019-11-21] MEDS ORDERED: DIPHENHYDRAMINE HCL 50 MG/ML VIAL IV ONE ×3 (02:08→07:59)
[2019-11-21 02:32] LABS: ABSOLUTE LYMPHOCYTES (AUTO) 0.5 10^3/uL (0.5-4.7); ABSOLUTE MONOCYTES (AUTO) 0.3 10^3/uL (0.1-1.4); ABSOLUTE NEUT (AUTO) 1.7 10^3/uL (1.7-8.2); BASOPHILS % (AUTO) 0.4 % (0-2); EOSINOPHILS % (AUTO) 0.8 % (0-6); HEMATOCRIT 20.1 % (36.0-47.0); LYMPHOCYTES % (AUTO) 20.7 % (13-45); MEAN CORPUSCULAR HEMOGLOBIN 37.6 pg (27.0-33.4); MEAN CORPUSCULAR HGB CONC 36.3 g/dL (32.0-36.0); MONOCYTES % (AUTO) 12.3 % (3-13); RED BLOOD COUNT 1.94 10^6/uL (3.72-5.28); RED CELL DISTRIBUTION WIDTH 22.3 % (11.5-14.0); SEGMENTED NEUTROPHILS % (AUTO) 65.8 % (42-78); TOTAL CELLS COUNTED % (AUTO) 100 %; WHITE BLOOD COUNT 2.6 10^3/uL (4.0-10.5)
[2019-11-21 02:41] LABS: MEAN CORPUSCULAR VOLUME 104 fl (80-97)
[2019-11-21 02:42] LABS: PLATELET COUNT 44 10^3/uL (150-450)
[2019-11-21 02:45] LABS: INTERNATIONAL RATION (INR) 1.97; PROTHROMBIN TIME 22.7 SEC (11.4-15.4)
[2019-11-21 02:46] LABS: PARTIAL THROMBOPLASTIN TIME 41.6 SEC (23.5-35.8)
[2019-11-21 02:53] LABS: HEMOGLOBIN 7.3 g/dL (12.0-15.5)
[2019-11-21 02:54] LABS: ANISOCYTOSIS 2+
[2019-11-21 02:55] LABS: PLATELET COMMENT DECREASED
--- NOTE | 2019-11-21 08:04 | ER Document Report ---
Doctor's Note Notes: 11/21/19 08:03 [facility] is here to take the patient to [place]. Patient's vital signs are stable. Blood pressure is 139/85, pulse oximetry reading is 97%, heart rate is 106. She was given an additional dose of pain medication prior to being transported. Patient is stable for transport.
[2019-11-21 08:20] VITALS: BP 140/79
== END 2019-11-21 08:41 | disposition short-term general hospital (02) ==
LOC: ER 12:30
DX: K70.31 Alcoholic cirrhosis of liver with ascites (principal); D68.4 Acquired coagulation factor deficiency; K76.6 Portal hypertension; D64.9 Anemia, unspecified; E83.42 Hypomagnesemia; E87.6 Hypokalemia; K80.20 Calculus of gallbladder without cholecystitis without obstruction; Z88.7 Allergy status to serum and vaccine
CPT/HCPCS: 96376; 99291; 96375; 96365; 96366; 96368; 86900; 86901; 36415; 36430; 86850; 82140; 83690; 83735; 85025; 85610; 85730; 81025; 80053; 81001; 86920; 93971; 74177; P9017; P9016; P9035; J1200; S0119; J3010 ×2; J2765; J1170; J3475; J2405; J3480

== ENCOUNTER 2020-02-26 06:40 | Emergency (ER) | payer MEDICAID ==
--- NOTE | 2020-02-26 08:47 | ER Document Report ---
HPI - HPI Time Seen by Provider: 02/26/20 08:03 Pain Level: 5 Context: Patient is a 35-year-old female with past medical history of alcoholic liver cirrhosis, hemochromatosis, and a hematoma to her right iliopsoas muscle who presents to the emergency department wanting to get tested for COVID-19. Patient states that she was exposed to her cousin who tested positive for COVID- 19 2 weeks ago. Her cousin tested positive and the patient has a sore throat. Patient states that her leg pain got worse about 2 weeks ago and has intensified. She has not seen pain management. She is currently on gabapentin. - CONSTITUTIONAL Constitutional: DENIES: Fever, Chills - EENT EENT: REPORTS: Sore Throat - RESPIRATORY Respiratory: DENIES: Trouble Breathing, Coughing - GASTROINTESTINAL Gastrointestinal: DENIES: Abdominal Pain, Nausea, Patient vomiting - REPRODUCTIVE Reproductive: DENIES: : - MUSCULOSKELETAL Musculoskeletal: REPORTS: Extremity pain - Right leg - DERM Skin Color: Normal Skin Problems: None Past Medical History - General Information source: Patient - Social History Smoking Status: Never Smoker Frequency of alcohol use: None Drug Abuse: None Family History: Reviewed & Not Pertinent, Malignancy - Aunt, uncle, grandmother, both grandfathers. - Past Medical History Cardiac Medical History: Reports: Hx Hypertension Denies: Hx Coronary Artery Disease, Hx Heart Attack Pulmonary Medical History: Denies: Hx Asthma, Hx Bronchitis, Hx COPD, Hx Pneumonia Neurological Medical History: Denies: Hx Cerebrovascular Accident, Hx Seizures Renal/ Medical History: Denies: Hx Peritoneal Dialysis GI Medical History: Reports: Hx Cirrhosis, Hx Gastroesophageal Reflux Disease, Hx Ulcer Musculoskeletal Medical History: Denies Hx Arthritis Past Surgical History: Denies: Hx Hysterectomy - Immunizations Hx Diphtheria, Pertussis, Tetanus Vaccination: No Vertical Provider Document - CONSTITUTIONAL Agree With Documented VS: Yes Exam Limitations: No Limitations General Appearance: No Apparent Distress - INFECTION CONTROL TRAVEL OUTSIDE OF THE [place] IN LAST 30 DAYS: No - HEENT HEENT: Atraumatic, Normocephalic, PERRLA - NECK Neck: Normal Inspection - RESPIRATORY Respiratory: Breath Sounds Normal, No Respiratory Distress - CARDIOVASCULAR Cardiovascular: Regular Rate, Regular Rhythm Pulses: Normal: Radial - BACK Back: Normal Inspection - MUSCULOSKELETAL/EXTREMETIES Musculoskeletal/Extremeties: FROM, Tender - Right leg at anterior thigh, knee, and gonzalez - NEURO Level of Consciousness: Awake, Alert, Appropriate Motor/Sensory: No Motor Deficit, No Sensory Deficit - DERM Integumentary: Warm, Dry, No Rash Course - Re-evaluation Re-evalutation: 02/26/20 08:[address] Styles in regards to this patient. Discussed the fact the patient has a hematoma that is chronic. This is already been worked up. Discussed with the patient that she needs to follow-up with [facility] with her chronic leg pain. Also advised her to follow-up with pain management, as she has not seen them yet. We will test the patient for coronavirus. Follow-up precautions were given. Verbal discharge instructions were given to the patient. They verbalized understanding. They are stable for discharge. - Vital Signs Vital signs: Temp Pulse Resp BP Pulse Ox 97.6 F 77 16 125/80 98 02/26/20 06:45 02/26/20 06:45 02/26/20 06:45 02/26/20 06:45 02/26/20 06:45 Discharge - Discharge Clinical Impression: Suspected COVID-19 virus infection, Chronic pain of right lower extremity Condition: Stable Disposition: HOME, SELF-CARE Instructions: COVID-19 Guidance for Persons Under Investigation Additional Instructions: You were seen today in emergency department for testing for the coronavirus. Self quarantine for at least 2 weeks or until your lab results come back. The health department will call you with the results. Please follow-up with [facility] in regards to your leg pain. Please also follow-up with pain management.
[2020-02-26 09:03] VITALS: BP 126/88
== END 2020-02-26 09:03 | disposition home or self-care (01) ==
LOC: ER 06:40
DX: J02.9 Acute pharyngitis, unspecified (principal); Z20.828 Contact with and (suspected) exposure to other viral communicable diseases; S70.01XA Contusion of right hip, initial encounter; X58.XXXA Exposure to other specified factors, initial encounter; M79.604 Pain in right leg; G89.29 Other chronic pain; I10 Essential (primary) hypertension; Z79.899 Other long term (current) drug therapy
CPT/HCPCS: 99283; 87635; C9803

== ENCOUNTER 2020-06-27 14:41 | Emergency (ER) | payer MEDICAID ==
[2020-06-27] MEDS ORDERED: BENZONATATE 100 MG CAPSULE PO ONE (15:24)
[2020-06-27] MEDS ORDERED: GUAIFENESIN/D-METHORPHAN (200-20 MG) SYRUP 10 ML PO ONE (15:24)
[2020-06-27] MEDS ORDERED: HYDROCODONE/ACETAMINOPHEN 5-325 MG TABLET PO ONE (15:31)
[2020-06-27 15:54] LABS: HEMATOCRIT 22.4 % (36.0-47.0); MEAN CORPUSCULAR HEMOGLOBIN 38.8 pg (27.0-33.4); MEAN CORPUSCULAR HGB CONC 35.2 g/dL (32.0-36.0); MEAN CORPUSCULAR VOLUME 110 fl (80-97); RED BLOOD COUNT 2.03 10^6/uL (3.72-5.28); RED CELL DISTRIBUTION WIDTH 15.9 % (11.5-14.0)
--- NOTE | 2020-06-27 15:59 | RADIOLOGY REPORT (SQ) ---
EXAM DESCRIPTION: CHEST SINGLE VIEW IMAGES COMPLETED DATE/TIME: 06/27/2020 3:40 pm REASON FOR STUDY: Covid positive cough COMPARISON: 08/29/2019 EXAM PARAMETERS: NUMBER OF VIEWS: One view. TECHNIQUE: Single frontal radiographic view of the chest acquired. RADIATION DOSE: NA LIMITATIONS: None. FINDINGS: LUNGS AND PLEURA: Small pleural effusions left greater than right. Probable left retrocar diac atelectasis or pneumonia. MEDIASTINUM AND HILAR STRUCTURES: No masses. Contour normal. HEART AND VASCULAR STRUCTURES: Heart is enlarged stable in appearance. No failure. BONES: No acute findings. HARDWARE: None in the chest. OTHER: No other significant finding. IMPRESSION: Bilateral pleural effusions left greater than right. Possible left retrocardiac airspac e disease. TECHNICAL DOCUMENTATION: JOB ID: [id number] 2010 [employer]- All Rights Reserved Reading location - IP/workstation name: [email or web address]
[2020-06-27 16:13] LABS: ALKALINE PHOSPHATASE 110 U/L (38-126); ANION GAP 10 (5-19); ASPARTATE AMINO TRANSFERASE 80 U/L (14-36); BILIRUBIN,DIRECT 6.4 mg/dL (0.0-0.4); BLOOD UREA NITROGEN 8 mg/dL (7-20); CARBON DIOXIDE 23 mmol/L (22-30); CHLORIDE 99 mmol/L (98-107); CREATINE KINASE 31 U/L (30-135); GLUCOSE 129 mg/dL (75-110); POTASSIUM 3.9 mmol/L (3.6-5.0); TOTAL PROTEIN 7.5 g/dL (6.3-8.2)
[2020-06-27 16:14] LABS: HEMOGLOBIN 7.9 g/dL (12.0-15.5); PLATELET COUNT 45 10^3/uL (150-450)
[2020-06-27 16:31] LABS: ABSOLUTE LYMPHOCYTES# (MANUAL) 0.2 10^3/uL (0.5-4.7); ABSOLUTE MONOCYTES # (MANUAL) 0.2 10^3/uL (0.1-1.4); BASOPHILS % (MANUAL) 0 % (0-2); EOSINOPHILS % (MANUAL) 0 % (0-6); LYMPHOCYTES % (MANUAL) 12 % (13-45); MONOCYTES % (MANUAL) 14 % (3-13); NUCLEATED RED BLOOD CELLS 2 /100 WBC (0); SEGMENTED NEUTROPHILS % (MAN) 74 % (42-78); TOTAL CELLS COUNTED 50
[2020-06-27 16:35] LABS: ANISOCYTOSIS 1+; OVALOCYTES SLIGHT; PLATELET COMMENT DECREASED; POLYCHROMASIA SLIGHT
[2020-06-27 16:36] LABS: WHITE BLOOD COUNT 1.5 10^3/uL (4.0-10.5)
--- NOTE | 2020-06-27 17:06 | ER Document Report ---
Entered by ALINE SR SCRIBE 06/27/20 1508 Acting as scribe for:CAMILA BRUNO MD ED General - General Stated Complaint: COUGH Time Seen by Provider: 06/27/20 14:58 Mode of Arrival: Ambulatory Information source: Patient Notes: This 35 year old female patient presents to the emergency department today with complaints of generally not feeling well, low grade fevers, generalized body a ches, and a dry non-productive cough. Patient went to an urgent care today and she was tested for COVID and it came back positive. Patient reports her "mom drug her out of bed" and brought her here. TRAVEL OUTSIDE OF THE [place] IN LAST 30 DAYS: No - Related Data Allergies/Adverse Reactions: Pertussis Vaccines Allergy (Verified 06/27/20 15:15) Past Medical History - General Information source: Patient - Social History Smoking Status: Never Smoker Cigarette use (# per day): No Frequency of alcohol use: None Drug Abuse: None Lives with: Family Family History: Reviewed & Not Pertinent, Malignancy - Aunt, uncle, grandmother, both grandfathers. - Past Medical History Cardiac Medical History: Reports: Hx Hypertension GI Medical History: Reports: Hx Cirrhosis, Hx Gastroesophageal Reflux Disease, Hx Ulcer Surgical Hx: Negative - Immunizations Hx Diphtheria, Pertussis, Tetanus Vaccination: No Review of Systems - Review of Systems Constitutional: See HPI, Fever, Weakness, Other - tested positive for COVID today EENT: No symptoms reported Cardiovascular: No symptoms reported Respiratory: No symptoms reported Gastrointestinal: No symptoms reported Genitourinary: No symptoms reported Female Genitourinary: No symptoms reported Musculoskeletal: See HPI, Joint pain, Muscle pain Skin: See HPI, Change in color Hematologic/Lymphatic: No symptoms reported Neurological/Psychological: No symptoms reported -: Yes All other systems reviewed and negative Physical Exam - Vital signs Vitals: Temp Pulse Resp BP Pulse Ox 99.3 F 105 H 20 130/84 H 98 06/27/20 14:44 06/27/20 14:44 06/27/20 14:44 06/27/20 14:44 06/27/20 14:44 - Notes Notes: Physical Exam: General: Alert, appears mildly jaundiced. HEENT: Normocephalic. Atraumatic. PERRL. Extraocular movements intact. Scleral icterus. Neck: Supple. Non-tender. Respiratory: No respiratory distress. Clear and equal breath sounds bilaterally. Dry non-productive cough. Cardiovascular: Regular rate and rhythm. Abdominal: Normal Inspection. Non-tender. No distension. Normal Bowel Sounds. Back: No gross abnormalities. Extremities: Moves all four extremities. Upper extremities: Normal inspection. Normal ROM. Lower extremities: Normal inspection. No edema. Normal ROM. Neurological: Normal cognition. AAOx4. Normal speech. Psychological: Normal affect. Normal Mood. Skin: Warm. Dry. Mildly jaundiced. Course - Re-evaluation Re-evalutation: 06/27/20 17:11 The patient was evaluated during the global COVID-19 pandemic and that diagnosis was suspected/considered upon their initial presentation. Their evaluation, treatment and testing was consistent with current guidelines for patients who present with complaints or symptoms that may be related to COVID-19. The patient white blood cell count is 1.5 with absolute neutrophil count of 1.1, hemoglobin is 7.9 which is baseline for this patient. Platelet count is 45,000 which is also baseline. The patient serum ferritin is 856 which is well above her baseline. The total bilirubin is 18.0 which is about 50% above her baseline. The D-dimer is 3.72, and has not been checked in the past. The CRP is pending at this time. 06/27/20 18:16 The INR is 2.32, so with a platelet count of 45,000, and an INR of 2.32, the elevated D-dimer is most likely a combination of the chronic cirrhosis and Covid infection. At this time I do not think there is a reason to do a CT angiogram of the chest, as she is not tachycardic, and her room air pulse oximetry is 98%. Her EKG does not show any right strain pattern. - Vital Signs Vital signs: Temp Pulse Resp BP Pulse Ox 99.3 F 105 H 20 130/84 H 98 06/27/20 14:45 06/27/20 14:44 06/27/20 14:44 06/27/20 14:44 06/27/20 14:44 - Laboratory Result Diagrams: 06/27/20 15:00 06/27/20 15:00 Laboratory results interpreted by me: 06/27/20 06/27/20 06/27/20 15:00 15:00 15:20 WBC 1.5 L* RBC 2.03 L Hgb 7.9 L Hct 22.4 L MCV 110 H MCH 38.8 H RDW 15.9 H Plt Count 45 L Lymphocytes % (Manual) 12 L Monocytes % (Manual) 14 H Abs Neuts (Manual) 1.1 L Abs Lymphs (Manual) 0.2 L PT D-Dimer 3.72 H Sodium 131.5 L Creatinine 0.48 L Glucose 129 H Calcium 8.0 L Ferritin 856.00 H Total Bilirubin 18.0 H Direct Bilirubin 6.4 H AST 80 H Albumin 3.0 L 06/27/20 15:20 WBC RBC Hgb Hct MCV MCH RDW Plt Count Lymphocytes % (Manual) Monocytes % (Manual) Abs Neuts (Manual) Abs Lymphs (Manual) PT 25.5 H D-Dimer Sodium Creatinine Glucose Calcium Ferritin Total Bilirubin Direct Bilirubin AST Albumin - Diagnostic Test Radiology reviewed: Image reviewed, Reports reviewed - Chest x-ray shows enlarged heart, appearance is stable. No failure. Small bilateral pleural effusions, left greater than right. Probable left retrocardiac atelectasis or pneumonia. - EKG Interpretation by [facility] EKG shows normal: Sinus rhythm, [place], Intervals, QRS Complexes. abnormal: ST-T Waves - Nonspecific lateral T wave abnormalities Rate: Tachycardia - 100 P Waves: LAE When compared to previous EKG there are: No significant change Discharge - Discharge Clinical Impression: Upper respiratory tract infection due to COVID-19 virus Chronic liver failure Qualifiers: Hepatic coma status: without hepatic coma Qualified Code(s): K72.10 - Chronic hepatic failure without coma Condition: Stable Disposition: HOME, SELF-CARE Additional Instructions: Your upper respiratory tract infection with cough and generalized aching is most likely due to your COVID-19 diagnosis. You should get plenty of rest and quarantine at home. Take the Tessalon Perles as prescribed for cough, also take something like Robitussin-DM for additional cough suppression. Take Tylenol for fever if needed. Get a fingertip pulse oximetry reader to check your oxygen saturation if you are feeling short of breath. If your oxygen saturation levels persistently go below 94%, you should come to the emergency room to be rechecked. Follow-up with your primary care provider for virtual visit to manage your Covid symptoms if needed. RETURN TO THE EMERGENCY ROOM IF ANY NEW OR WORSENING SYMPTOMS. Prescriptions: Benzonatate [Tessalon Perles 100 mg Capsule] 100 mg PO ASDIR PRN #30 capsule PRN Reason: I personally performed the services described in the documentation, reviewed and edited the documentation which was dictated to the scribe in my presence, and it accurately records my words and actions.
[2020-06-27 17:40] LABS: INTERNATIONAL RATION (INR) 2.32; PROTHROMBIN TIME 25.5 SEC (11.4-15.4)
--- NOTE | 2020-06-27 19:29 | EKG REPORT ---
SEVERITY:- ABNORMAL ECG - SINUS TACHYCARDIA PROBABLE LEFT ATRIAL ABNORMALITY NONSPECIFIC T ABNORMALITIES, LATERAL LEADS : Confirmed by: Trista Pettit MD 27-Jun-2020 19:28:41
[2020-06-27 20:06] VITALS: BP 137/87
[2020-06-28 12:52] LABS: PATH REVIEW PATHOLOGIST REVIEWED
== END 2020-06-27 20:05 | disposition home or self-care (01) ==
LOC: ER 14:41
DX: U07.1 COVID-19 (principal); J06.9 Acute upper respiratory infection, unspecified; K72.10 Chronic hepatic failure without coma; M79.10 Myalgia, unspecified site; R50.9 Fever, unspecified
CPT/HCPCS: 93005; 99285; 36415; 82550; 82728; 83615; 85025; 85610; 86140; 80053; 85379; 71045; 93010; J3490 ×2

== ENCOUNTER 2020-07-08 20:20 | Emergency (ER) | payer MEDICAID ==
--- NOTE | 2020-07-08 21:35 | ER Document Report ---
ED Medical Screen (RME) - General Chief Complaint: Toothache Stated Complaint: FEVER/TOOTH PAIN Time Seen by Provider: 07/08/20 21:34 Mode of Arrival: Ambulatory Information source: Patient Notes: 35-year-old female presents to ED for fever chills body aches. She states she was tested positive for Covid a week before Thanksgiving and just before she was off of her isolation she had an abscessed tooth she went back in and I started on significant antibiotics but she is now having high fevers at home. Her temperature is 99.8 in the emergency room. She states she is off and all the Covid symptoms again. She states she also has a problem with drinking when she gets depressed. She states she has drank a half a bottle of vodka in the last 2 days. States she does not smoke or use any illicit drugs. We will test her for flu strep Covid chest x-ray CBC and chemistry. She states the tooth is not really bothering her right now she is just here because of the fever and body aches and Covid symptoms. I have greeted and performed a rapid initial assessment of this patient. A comprehensive ED assessment and evaluation of the patient, analysis of test results and completion of medical decision making process will be conducted by an additional ED providers. TRAVEL OUTSIDE OF THE [place] IN LAST 30 DAYS: No - Related Data Allergies/Adverse Reactions: Pertussis Vaccines Allergy (Verified 06/27/20 15:15) Past Medical History - Past Medical History Cardiac Medical History: Reports: Hx Hypertension Denies: Hx Coronary Artery Disease, Hx Heart Attack Pulmonary Medical History: Denies: Hx Asthma, Hx Bronchitis, Hx COPD, Hx Pneumonia Neurological Medical History: Denies: Hx Cerebrovascular Accident, Hx Seizures Renal/ Medical History: Denies: Hx Peritoneal Dialysis GI Medical History: Reports: Hx Cirrhosis, Hx Gastroesophageal Reflux Disease, Hx Ulcer Musculoskeltal Medical History: Denies Hx Arthritis Past Surgical History: Denies: Hx Hysterectomy - Immunizations Hx Diphtheria, Pertussis, Tetanus Vaccination: No Physical Exam - Vital signs Vitals: Temp Pulse Resp BP Pulse Ox 99.8 F 105 H 20 139/80 H 98 07/08/20 20:57 07/08/20 20:57 07/08/20 20:57 07/08/20 20:57 07/08/20 20:57 Course - Vital Signs Vital signs: Temp Pulse Resp BP Pulse Ox 99.8 F 105 H 20 139/80 H 98 07/08/20 20:57 07/08/20 20:57 07/08/20 20:57 07/08/20 20:57 07/08/20 20:57
[2020-07-08 22:45] LABS: HEMATOCRIT 20.5 % (36.0-47.0); MEAN CORPUSCULAR HEMOGLOBIN 38.1 pg (27.0-33.4); MEAN CORPUSCULAR HGB CONC 35.2 g/dL (32.0-36.0); MEAN CORPUSCULAR VOLUME 108 fl (80-97); RED BLOOD COUNT 1.89 10^6/uL (3.72-5.28)
[2020-07-08 23:03] LABS: ALBUMIN 2.7 g/dL (3.5-5.0); ALKALINE PHOSPHATASE 109 U/L (38-126); ANION GAP 6 (5-19); ASPARTATE AMINO TRANSFERASE 61 U/L (14-36); BILIRUBIN,DIRECT 2.9 mg/dL (0.0-0.4); BILIRUBIN,TOTAL 13.1 mg/dL (0.2-1.3); BLOOD UREA NITROGEN 4 mg/dL (7-20); CALCIUM 7.4 mg/dL (8.4-10.2); CARBON DIOXIDE 25 mmol/L (22-30); CHLORIDE 101 mmol/L (98-107); GLUCOSE 96 mg/dL (75-110); POTASSIUM 3.8 mmol/L (3.6-5.0); TOTAL PROTEIN 6.4 g/dL (6.3-8.2)
[2020-07-08 23:06] LABS: PLATELET COUNT 54 10^3/uL (150-450); WHITE BLOOD COUNT 2.9 10^3/uL (4.0-10.5)
[2020-07-08 23:08] LABS: HEMOGLOBIN 7.2 g/dL (12.0-15.5)
[2020-07-08 23:12] LABS: ABSOLUTE LYMPHOCYTES# (MANUAL) 0.6 10^3/uL (0.5-4.7); ABSOLUTE MONOCYTES # (MANUAL) 0.1 10^3/uL (0.1-1.4); BASOPHILS % (MANUAL) 1 % (0-2); EOSINOPHILS % (MANUAL) 0 % (0-6); LYMPHOCYTES % (MANUAL) 20 % (13-45); MONOCYTES % (MANUAL) 4 % (3-13); SEGMENTED NEUTROPHILS % (MAN) 75 % (42-78); TOTAL CELLS COUNTED 100
[2020-07-08 23:13] LABS: ANISOCYTOSIS 1+; OVALOCYTES 1+; POIKILOCYTOSIS 1+; SCHISTOCYTES 1+; TEAR DROP CELLS 1+; TOXIC GRANULATION 1+
[2020-07-08 23:14] LABS: PLATELET COMMENT DECREASED
[2020-07-09 00:04] LABS: A TYPE INFLUENZA AG NEGATIVE (NEGATIVE); B INFLUENZA AG NEGATIVE (NEGATIVE)
--- NOTE | 2020-07-09 00:12 | RADIOLOGY REPORT (SQ) ---
EXAM DESCRIPTION: XR CHEST 1 VIEW COMPLETED DATE/TME: 07/08/2020 23:44 CLINICAL HISTORY: Cough congestion fever COMPARISON: 06/27/2020 FINDINGS: Single frontal radiograph view of the chest. Cardiomediastinal silhouette: Cardiomegaly. Lungs: Mild bibasilar opacities. No pneumothorax or large effusion. Bones: No acute osseous abnormality. Upper abdomen: No abnormality identified. IMPRESSION: 1. Mild bibasilar opacities. These findings could be seen with bilateral pneumonic process. 2. Cardiomegaly.
[2020-07-09] MEDS ORDERED: KETOROLAC TROMETHAMINE INJ/PF 30 MG/1 ML SDV IV ONE (00:14)
[2020-07-09] MEDS ORDERED: ONDANSETRON HCL INJ/PF 4 MG/2 ML SDV IV ONE (00:14)
[2020-07-09] MEDS ORDERED: NORMAL SALINE 500 ML IV ONE (00:15)
--- NOTE | 2020-07-09 00:17 | ER Document Report ---
ED General - General Chief Complaint: Fever Stated Complaint: FEVER/TOOTH PAIN Time Seen by Provider: 07/08/20 21:34 Mode of Arrival: Ambulatory Notes: Patient is a 35-year-old female that comes emergency department for chief complaint of fever/chills, body aches, cough, and generalized weakness. She states that she tested positive for COVID-19 approximately 4 days ago, she states that she has felt bad daily but today her fevers spiked and would not come down. She denies difficulty breathing or chest pain, she states she gets headaches with the fever, she denies vomiting, she denies abdominal pain. She states she is finishing up an antibiotic for a dental infection. She denies dental pain or facial swelling. Past medical history of alcoholic cirrhosis, hypertension, and she follows with liver specialty at [facility]. She states she "relapsed" 2 days ago and drank some vodka, she states that this is rare for her. She denies recreational drugs. She denies smoking, asthma, COPD history. TRAVEL OUTSIDE OF THE [place] IN LAST 30 DAYS: No - Related Data Allergies/Adverse Reactions: Pertussis Vaccines Allergy (Verified 06/27/20 15:15) Past Medical History - General Information source: Patient - Social History Smoking Status: Never Smoker Frequency of alcohol use: Rare Lives with: Family Family History: Reviewed & Not Pertinent, Malignancy - Aunt, uncle, grandmother, both grandfathers. Patient has homicidal ideation: No - Past Medical History Cardiac Medical History: Reports: Hx Hypertension Denies: Hx Coronary Artery Disease, Hx Heart Attack Pulmonary Medical History: Denies: Hx Asthma, Hx Bronchitis, Hx COPD, Hx Pneumonia Neurological Medical History: Denies: Hx Cerebrovascular Accident, Hx Seizures Renal/ Medical History: Denies: Hx Peritoneal Dialysis GI Medical History: Reports: Hx Cirrhosis, Hx Gastroesophageal Reflux Disease, Hx Ulcer Musculoskeletal Medical History: Denies Hx Arthritis Past Surgical History: Denies: Hx Hysterectomy - Immunizations Hx Diphtheria, Pertussis, Tetanus Vaccination: No Review of Systems - Review of Systems Constitutional: See HPI EENT: No symptoms reported Cardiovascular: No symptoms reported Respiratory: See HPI Gastrointestinal: No symptoms reported Genitourinary: No symptoms reported Female Genitourinary: No symptoms reported Musculoskeletal: See HPI Skin: No symptoms reported Hematologic/Lymphatic: No symptoms reported Neurological/Psychological: No symptoms reported Physical Exam - Vital signs Vitals: Temp Pulse Resp BP Pulse Ox 99.8 F 105 H 20 139/80 H 98 07/08/20 20:57 07/08/20 20:57 07/08/20 20:57 07/08/20 20:57 07/08/20 20:57 - Notes Notes: GENERAL: Alert and interactive, slightly ill-appearing but no severe distress HEAD: Normocephalic, atraumatic. EYES: Pupils equal, round, and reactive to light. Extraocular movements intact. ENT: Oral mucosa moist, tongue midline. Oropharynx unremarkable. Airway patent. NECK: Full range of motion. Supple. Trachea midline. No lymphadenopathy. No nuchal rigidity LUNGS: Clear to auscultation bilaterally, no wheezes, rales, or rhonchi. No respiratory distress. Non-tender chest wall. Occasional mild cough HEART: Borderline tachycardic, normal rhythm, no murmur ABDOMEN: Soft, non-tender. Non-distended. EXTREMITIES: Moves all 4 extremities spontaneously. No edema, normal radial and dorsalis pedis pulses bilaterally. No cyanosis. BACK: no cervical, thoracic, lumbar midline tenderness. No saddle anesthesia, normal distal neurovascular exam. Moves all extremities in full range of motion. NEUROLOGICAL: Alert and oriented x3. Normal speech. Cranial nerves II through XII grossly intact. Strength 5/5 in all extremities. PSYCH: Normal affect, normal mood. SKIN: Icteric but otherwise unremarkable Course - Re-evaluation Re-evalutation: Patient is somewhat jaundiced on exam. She has leukopenia, thrombocytopenia, anemia with hemoglobin less than 8 at 7.2, and very elevated bilirubin especially indirect bilirubin. However review of her records shows that none of this is changed and she is actually improved compared to prior. No acute changes on her laboratory work-up. Urinalysis unremarkable. Chest x-ray showing possible developing pneumonia. Patient initially febrile and states she does not feel good, she is mildly tachycardic but she is not hypotensive. No nuchal rigidity, clear lungs, soft abdomen, unremarkable physical exam otherwise. On reevaluation again fever is gone, tachycardia is gone, patient states she feels much improved. She has no complaints at this time. She ambulated to the bathroom without difficulty. Lactic acid is not elevated, blood cultures are pending. I discussed with patient. Patient is known to be COVID-19 positive. I am concerned that she may be developing pneumonia but she has no hypoxia, dyspnea on exertion, or concerning vital signs on to this evaluation. I discussed options. Patient states she will be comfortable going home at this time and she will follow-up with primary care, she states she will return if she worsens. I discussed this at length with her. Patient states understanding and agreement. Stable and well-appearing at time of discharge. - Vital Signs Vital signs: Temp Pulse Resp BP Pulse Ox 98.2 F 79 16 112/57 L 100 07/09/20 04:58 07/09/20 04:58 07/09/20 04:58 07/09/20 04:58 07/09/20 04:58 - Laboratory Result Diagrams: 07/08/20 22:29 07/08/20 22:29 Laboratory results interpreted by me: 07/08/20 07/08/20 07/09/20 22:29 22:29 02:17 WBC 2.9 L RBC 1.89 L Hgb 7.2 L Hct 20.5 L MCV 108 H MCH 38.1 H RDW 17.0 H Plt Count 54 L Sodium 131.9 L BUN 4 L Creatinine 0.43 L Calcium 7.4 L Total Bilirubin 13.1 H Direct Bilirubin 2.9 H AST 61 H Albumin 2.7 L Urine Blood MODERATE H Discharge - Discharge Clinical Impression: Body aches, COVID-19 Fever Qualifiers: Fever type: unspecified Qualified Code(s): R50.9 - Fever, unspecified Pneumonia Qualifiers: Pneumonia type: due to unspecified organism Laterality: bilateral Lung location: unspecified part of lung Qualified Code(s): J18.9 - Pneumonia, unspecified organism Condition: Stable Disposition: HOME, SELF-CARE Additional Instructions: Your work-up does show a questionable developing pneumonia but your remaining work-up and evaluation is reassuring. Your influenza and strep tests are negative. Take the antibiotics as prescribed to completion. Take ibuprofen for fever/chills/body aches. Drink plenty of fluids and rest. Follow-up closely with primary care. We have blood cultures pending and you will be contacted for any concerning results. Return if you worsen including difficulty breathing, chest pain, abdominal pain, vomiting, or any other concerning or worsening symptoms. Prescriptions: Doxycycline Hyclate [Vibramycin 100 mg Tablet] 100 mg PO BID 7 Days #14 tablet
[2020-07-09] MEDS ORDERED: ACETAMINOPHEN 325 MG TABLET PO ONE (01:28)
[2020-07-09] MEDS ORDERED: CEFTRIAXONE 1 GM/D5W RTU 1 GM/50 ML RTUPB IV ONE (02:08)
[2020-07-09 02:40] LABS: APPEARANCE,URINE CLEAR; BILIRUBIN,URINE NEGATIVE (NEGATIVE); COLOR,URINE AMBER; GLUCOSE, URINE NEGATIVE (NEGATIVE); KETONES,URINE NEGATIVE (NEGATIVE); LEUKOCYTE ESTERASE,URINE NEGATIVE (NEGATIVE); NITRITE,URINE NEGATIVE (NEGATIVE); PROTEIN,URINE NEGATIVE (NEGATIVE); URINE SPECIFIC GRAVITY 1.008; UROBILINOGEN,URINE NEGATIVE mg/dL (<2.0)
[2020-07-09] MEDS ORDERED: DOXYCYCLINE HYCLATE 100 MG TABLET PO ONE (03:23)
[2020-07-09] MEDS ORDERED: DEXAMETHASONE SOD PHOS INJ 10 MG/1 ML VIAL IV ONE (03:23)
[2020-07-09 05:13] VITALS: BP 112/57
== END 2020-07-09 05:00 | disposition home or self-care (01) ==
LOC: ER 20:20
DX: U07.1 COVID-19 (principal); J18.9 Pneumonia, unspecified organism; R50.9 Fever, unspecified; M79.10 Myalgia, unspecified site; R53.1 Weakness
CPT/HCPCS: 99284; 96361; 96375; 96365; 36415; 87040; 87070; 87880; 83605; 85025; 80053; 81001; 87804; 71045; J3490 ×2; J1885; J2405; J7040; J0696; J1100

== ENCOUNTER 2020-08-24 12:02 | Inpatient (IN) | payer MEDICAID ==
[2020-08-24] MEDS ORDERED: NORMAL SALINE 1000 ML 1,000 ML IV ONE (13:13)
[2020-08-24] MEDS ORDERED: ONDANSETRON 4 MG TAB.RAPDIS PO ONE (13:14)
--- NOTE | 2020-08-24 13:15 | ER Document Report ---
ED Medical Screen (RME) - General Chief Complaint: Nausea/Vomiting/Diarrhea Stated Complaint: VOMITING, NAUSEA Time Seen by Provider: 08/24/20 13:09 Notes: HPI: 35-year-old female with history of cirrhosis who follows at [facility] for her liver issues presenting for evaluation of nausea vomiting over the last 24 hours. Is not been able to keep anything down. Denies abdominal pain. States she is currently on Augmentin for an infection on the distal right index finger. States that she was previously on Zithromax and is chronically on Cipro. Patient had Covid at the end of May. Denies cough shortness of breath or chest pain at this time. Complains of generalized weakness PHYSICAL EXAMINATION: Patient is jaundiced. There does appear to be a small paronychia adjacent to the base of the right index finger. No abdominal pain on palpation I have greeted and performed a rapid initial assessment of this patient. A comprehensive ED assessment and evaluation of the patient, analysis of test results and completion of medical decision making process will be conducted by an additional ED providers. Please note that clinical decision making for this patient was made during the 2019 pandemic of novel coronavirus which caused a significant strain on the healthcare system including at this particular facility. Criteria for admission discharge and level of care decisions as well as treatment decisions have necessarily changed TRAVEL OUTSIDE OF THE [place] IN LAST 30 DAYS: No - Related Data Allergies/Adverse Reactions: Pertussis Vaccines Allergy (Verified 06/27/20 15:15) Home Medications: Gabapentin, Lasix Past Medical History - Past Medical History Cardiac Medical History: Reports: Hx Hypertension Denies: Hx Coronary Artery Disease, Hx Heart Attack Pulmonary Medical History: Denies: Hx Asthma, Hx Bronchitis, Hx COPD, Hx Pneumonia Neurological Medical History: Denies: Hx Cerebrovascular Accident, Hx Seizures Renal/ Medical History: Denies: Hx Peritoneal Dialysis GI Medical History: Reports: Hx Cirrhosis, Hx Gastroesophageal Reflux Disease, Hx Ulcer Musculoskeltal Medical History: Denies Hx Arthritis Past Surgical History: Denies: Hx Hysterectomy - Immunizations Hx Diphtheria, Pertussis, Tetanus Vaccination: No Physical Exam - Vital signs Vitals: Temp Pulse Resp BP Pulse Ox 98.4 F 91 16 129/80 H 95 08/24/20 12:11 08/24/20 12:11 08/24/20 12:11 08/24/20 12:11 08/24/20 12:11 Course - Vital Signs Vital signs: Temp Pulse Resp BP Pulse Ox 98.4 F 91 16 129/80 H 95 08/24/20 12:11 08/24/20 12:11 08/24/20 12:11 08/24/20 12:11 08/24/20 12:11
[2020-08-24] MEDS ORDERED: ONDANSETRON HCL INJ/PF 4 MG/2 ML SDV IV ONE (14:23)
[2020-08-24 14:39] LABS: INTERNATIONAL RATION (INR) 2.31; PROTHROMBIN TIME 25.4 SEC (11.4-15.4)
--- NOTE | 2020-08-24 14:48 | ER Document Report ---
ED General - General Chief Complaint: Nausea/Vomiting/Diarrhea Stated Complaint: VOMITING, NAUSEA Time Seen by Provider: 08/24/20 13:09 TRAVEL OUTSIDE OF THE [place] IN LAST 30 DAYS: No - HPI Notes: Chief complaint: Nausea vomiting and diarrhea History of present illness: This 35-year-old female well-known to me from prior emergency department encounters with a longstanding history of severe alcoholic cirrhosis primarily followed at [facility] now presenting with 3-day history of persistent nausea vomiting and diarrhea. She denies fever chills. She denies abdominal pain. She was recently placed on antibiotics for an infected wart on her right middle finger which they had treated with cryotherapy in the outpatient clinic at [facility]. They subsequently called and oral Cipro for her and it was after she started taking the Cipro that her GI symptoms began. She also notes that approximately 1 week ago she received a Pneumovax at the outpatient clinic at [facility]. I previously saw this patient in November 2019 when she developed spontaneous iliopsoas hemorrhage elated to her coagulopathy associated with cirrhosis. Transferred to [facility] at that time. - Related Data Allergies/Adverse Reactions: Pertussis Vaccines Allergy (Verified 06/27/20 15:15) Home Medications: Gabapentin, Lasix Past Medical History - General Information source: Patient, [facility] Records - Social History Smoking Status: Unknown if Ever Smoked Frequency of alcohol use: None Drug Abuse: None Family History: Reviewed & Not Pertinent, Malignancy - Aunt, uncle, grandmother, both grandfathers. - Past Medical History Cardiac Medical History: Reports: Hx Hypertension Denies: Hx Coronary Artery Disease, Hx Heart Attack Pulmonary Medical History: Denies: Hx Asthma, Hx Bronchitis, Hx COPD, Hx Pneumonia Neurological Medical History: Denies: Hx Cerebrovascular Accident, Hx Seizures Renal/ Medical History: Denies: Hx Peritoneal Dialysis GI Medical History: Reports: Hx Cirrhosis, Hx Gastroesophageal Reflux Disease, Hx Ulcer Musculoskeletal Medical History: Reports Hx Arthritis Past Surgical History: Denies: Hx Hysterectomy - Immunizations Hx Diphtheria, Pertussis, Tetanus Vaccination: No Review of Systems - Review of Systems Notes: Constitutional: Negative for fever. HENT: Negative for sore throat. Eyes: Negative for visual changes. Cardiovascular: Negative for chest pain. Respiratory: Negative for shortness of breath. Gastrointestinal: As per HPI. Genitourinary: Negative for dysuria. Musculoskeletal: Chronic knee pain. Skin: As per HPI. Neurological: Negative for headaches, focal weakness or numbness. 10 point ROS negative except as marked above and in HPI. Physical Exam - Vital signs Vitals: Temp Pulse Resp BP Pulse Ox 98.4 F 91 16 129/80 H 95 08/24/20 12:11 08/24/20 12:11 08/24/20 12:11 08/24/20 12:11 08/24/20 12:11 - Notes Notes: GENERAL: Female patient approximately stated age uncomfortable with active vomiting. SKIN: Obvious jaundice. HEAD: Normocephalic atraumatic. EYES: PERRLA. EOMI. Prominent scleral icterus. EARS: CANALS AND TMS CLEAR. NOSE: CLEAR. MOUTH: Moist mucosa. Good dentition. No stridor or edema. No drooling. NECK: Supple. No masses or thyromegaly. No adenopathy. Carotids 2+ without bruits. No JVD. BACK: Symmetrical without tenderness. CHEST: Respirations unlabored. Breath sounds clear and symmetrical. HEART: Regular rhythm. No murmur gallop or rub. ABDOMEN: Ascites present. Nontender without masses, organomegaly or rebound. Bowel sounds normally active. No bruits. GENITALIA: Deferred. EXTREMITIES: No edema. No calf tenderness. Cap refill less than 1.5 seconds. Dorsalis pedis and posterior tibial pulses 3+ and symmetrical. NEUROLOGICAL: GCS 15. Alert and oriented x3. Fluent speech. Cranial nerves II through XII intact. Sensorimotor and cerebellar normal. Normal tone. PSYCHIATRIC: Appropriate affect. Course - Vital Signs Vital signs: Temp Pulse Resp BP Pulse Ox 98.9 F 91 19 121/69 97 08/24/20 19:06 08/24/20 12:11 08/24/20 19:06 08/24/20 19:06 08/24/20 19:06 - Laboratory Results Result Diagrams: 08/24/20 16:05 08/24/20 16:05 Laboratory Results Interpreted: 08/24/20 08/24/20 08/24/20 14:15 16:05 16:05 WBC 1.5 L* RBC 1.90 L Hgb 6.8 L Hct 20.4 L MCV 107 H MCH 36.0 H RDW 15.1 H Plt Count 33 L Abs Neuts (Manual) 1.0 L Abs Lymphs (Manual) 0.4 L PT 25.4 H Creatinine Calcium Total Bilirubin Direct Bilirubin AST ALT Ammonia < 8.7 L Albumin Urine Protein Urine Ketones Urine Blood Urine Urobilinogen Crossmatch 08/24/20 08/24/20 08/24/20 16:05 16:10 19:21 WBC RBC Hgb Hct MCV MCH RDW Plt Count Abs Neuts (Manual) Abs Lymphs (Manual) PT Creatinine 0.37 L Calcium 8.2 L Total Bilirubin 19.6 H Direct Bilirubin 5.4 H AST 87 H ALT 45 H Ammonia Albumin 3.4 L Urine Protein 30 H Urine Ketones 20 H Urine Blood LARGE H Urine Urobilinogen 4.0 H Crossmatch See Detail Critical Laboratory Results Reviewed: Yes Attending or Supervising Physician who Reviewed Labs: GABBY CONNELLY - Radiology Results Critical Radiology Results Reviewed: No Critical Results Discharge - Discharge Clinical Impression: Nausea and vomiting, Alcoholic cirrhosis of liver with ascites, Thrombocytopenia Anemia Qualifiers: Anemia type: unspecified type Qualified Code(s): D64.9 - Anemia, unspecified Condition: Fair Disposition: ADMITTED INPATIENT Admitting Provider: Dr. Beth Shaw Unit Admitted: [facility]
[2020-08-24 16:18] LABS: HEMATOCRIT 20.4 % (36.0-47.0); MEAN CORPUSCULAR VOLUME 107 fl (80-97); RED CELL DISTRIBUTION WIDTH 15.1 % (11.5-14.0)
[2020-08-24 16:32] LABS: ALBUMIN 3.4 g/dL (3.5-5.0); ALKALINE PHOSPHATASE 107 U/L (38-126); ANION GAP 13 (5-19); ASPARTATE AMINO TRANSFERASE 87 U/L (14-36); BILIRUBIN,DIRECT 5.4 mg/dL (0.0-0.4); BILIRUBIN,TOTAL 19.6 mg/dL (0.2-1.3); BLOOD UREA NITROGEN 9 mg/dL (7-20); CALCIUM 8.2 mg/dL (8.4-10.2); CARBON DIOXIDE 25 mmol/L (22-30); CHLORIDE 102 mmol/L (98-107); GLUCOSE 86 mg/dL (75-110); POTASSIUM 3.9 mmol/L (3.6-5.0); TOTAL PROTEIN 7.7 g/dL (6.3-8.2)
[2020-08-24 16:42] LABS: ABSOLUTE LYMPHOCYTES# (MANUAL) 0.4 10^3/uL (0.5-4.7); ABSOLUTE MONOCYTES # (MANUAL) 0.1 10^3/uL (0.1-1.4); BASOPHILS % (MANUAL) 0 % (0-2); EOSINOPHILS % (MANUAL) 0 % (0-6); LYMPHOCYTES % (MANUAL) 28 % (13-45); MONOCYTES % (MANUAL) 8 % (3-13); SEGMENTED NEUTROPHILS % (MAN) 64 % (42-78); TOTAL CELLS COUNTED 50
[2020-08-24 16:47] LABS: ANISOCYTOSIS SLIGHT; POLYCHROMASIA SLIGHT
[2020-08-24 16:50] LABS: OVALOCYTES 1+
[2020-08-24 16:51] LABS: BURR CELLS SLIGHT
[2020-08-24] MEDS ORDERED: PROCHLORPERAZINE EDISYLATE INJ 10 MG/2 ML VIAL IV ONE (16:57)
[2020-08-24] MEDS ORDERED: PANTOPRAZOLE SODIUM 40 MG VIAL IV ONE (16:58)
[2020-08-24 16:59] LABS: APPEARANCE,URINE CLEAR; BILIRUBIN,URINE NEGATIVE (NEGATIVE); COLOR,URINE AMBER; GLUCOSE, URINE NEGATIVE (NEGATIVE); KETONES,URINE 20 mg/dL (NEGATIVE); LEUKOCYTE ESTERASE,URINE NEGATIVE (NEGATIVE); NITRITE,URINE NEGATIVE (NEGATIVE); PROTEIN,URINE 30 mg/dL (NEGATIVE); URINE SPECIFIC GRAVITY 1.017
[2020-08-24 16:59] LABS: PLATELET COUNT 33 10^3/uL (150-450); TEAR DROP CELLS 1+
[2020-08-24 17:01] LABS: MEAN CORPUSCULAR HGB CONC 33.5 g/dL (32.0-36.0)
[2020-08-24 17:04] LABS: HEMOGLOBIN 6.8 g/dL (12.0-15.5); WHITE BLOOD COUNT 1.5 10^3/uL (4.0-10.5)
[2020-08-24 17:06] LABS: PLATELET COMMENT DECREASED
[2020-08-24] MEDS ORDERED: NORMAL SALINE 250 ML IV PRN ×2 (18:30)
--- NOTE | 2020-08-24 19:36 | RADIOLOGY REPORT (SQ) ---
EXAM DESCRIPTION: CHEST SINGLE VIEW IMAGES COMPLETED DATE/TIME: 08/24/2020 3:42 pm REASON FOR STUDY: chest pain COMPARISON: June 2029 EXAM PARAMETERS: NUMBER OF VIEWS: One view. TECHNIQUE: Single frontal radiographic view of the chest acquired. RADIATION DOSE: NA LIMITATIONS: External leads partially obscure underlying structures. FINDINGS: LUNGS AND PLEURA: Interval improvement in bibasilar opacities since prior examination. No new consolidation, pleural effusion, or pneumothorax. MEDIASTINUM AND HILAR STRUCTURES: No masses. Contour normal. HEART AND VASCULAR STRUCTURES: Heart normal in size. Normal vasculature. BONES: No acute findings. HARDWARE: None in the chest. OTHER: No other significant finding. IMPRESSION: NO ACUTE RADIOGRAPHIC FINDING IN THE CHEST. TECHNICAL DOCUMENTATION: JOB ID: [id number] 2010 [employer]- All Rights Reserved Reading location - IP/workstation name: [email or web address]
--- NOTE | 2020-08-24 19:37 | EKG REPORT ---
SEVERITY:- ABNORMAL ECG - SINUS RHYTHM PROBABLE LEFT ATRIAL ABNORMALITY PROBABLE LEFT VENTRICULAR HYPERTROPHY : Confirmed by: Trista Pettit MD 24-Aug-2020 19:36:55
--- NOTE | 2020-08-24 21:00 | RADIOLOGY REPORT (SQ) ---
EXAM DESCRIPTION: CT ABDOMEN PELVIS WITH IV CONTRAST COMPLETED DATE/TME: 08/24/2020 20:10 CLINICAL HISTORY: 35 years, Female, vomiting COMPARISON: CT from 08/29/2019 and 03/11/2017. TECHNIQUE: Axial images with IV contrast. Sagittal coronal reconstruction. Images stored on PACS. All CT scanners at this facility use dose modulation, iterative reconstruction, and/or weight based dosing when appropriate to reduce radiation dose to as low as reasonably achievable (ALARA). FINDINGS: Lung bases are unremarkable. Mild fatty liver. Enlargement of the lateral segment of the left lobe of the liver. No suspicious nodular contour typically seen with cirrhosis. Prominent splenomegaly unchanged. Massive enlargement of the umbilical vein gradually increasing in size since 2017. Patent splenorenal portal vein with mild dilatation of the portal vein which connects directly to umbilical vein. Small intrahepatic portal vein branches. Contracted gallbladder with large stones. No evidence for biliary dilatation. Mildly enlarged kidneys. Borderline bilateral pelvicalyceal dilatation without obvious ureteric dilatation. Aorta, periarticular regions, adrenal glands, pancreas are unremarkable. No overt acute bowel or peritoneal abnormality. CT of the pelvis demonstrates a nonenlarged partially retroverted uterus. Urinary bladder partially contracted and unremarkable. No suspicious bowel abnormalities. No adenopathy or free fluid. IMPRESSION: 1. Massive dilatation of a recanalized umbilical vein. Increased since 2016 and 2018. There appears to be direct connection between a mildly dilated extrahepatic portal vein and the umbilical vein. Intrahepatic portal veins are small. Rule out primary portal vein abnormality. 2. Mild fatty liver. Enlarged left lobe of the liver. No typical nodular contour of cirrhosis. 3. Very large splenomegaly unchanged. 4. Large gallstones without acute biliary abnormality. 5. No obvious acute bowel abnormality. Stomach contracted. Difficult to exclude gastritis.
[2020-08-24] MEDS ORDERED: GLUCAGON,HUMAN RECOMB 1 MG INJ SUBCUT PRN (21:13)
[2020-08-24] MEDS ORDERED: DEXTROSE 50%-WATER 25 GM/50 ML DISP.SYRIN IV PRN ×2 (21:13)
[2020-08-24] MEDS ORDERED: DEXTROSE 40% GEL 15 GM TUBE PO PRN ×2 (21:13)
[2020-08-24] MEDS ORDERED: OCTREOTIDE ACETATE INJ/PF 100 MCG/1 ML SDV IV ONE (22:00)
--- NOTE | 2020-08-24 22:56 | PDOC H&P ---
History of Present Illness Admission Date/PCP: 08/24/20 20:06 Patient complains of: Nausea, vomiting and diarrhea History of Present Illness: KHUSHI ACHARYA is a 35 year old female with a history of alcoholic cirrhosis and pancytopenia now presents to the ED reporting 3 days duration of nausea, vomiting and diarrhea. She states that the vomiting was initially of ingested matter and later on became clear and currently she states that she only has a dry hives. She has not noticed any blood or coffee-ground matter in her vomitus. She also reports that she has been having watery diarrhea for the past 3 days but denies any history of recent hematochezia or melena. She states that her skin has become more yellowish. She states that she has not had any mens trual period for the past 7 years and also denies history of hematuria, epistaxis, hemoptysis or bleeding from any site. She denies any dizziness, chest pain, shortness of breath, palpitation, leg swelling, cough, fever, abdominal pain or swelling. Of note she was started on ciprofloxacin recently for soft tissue infection. Past Medical History Cardiac Medical History: Reports: Hypertension Denies: Coronary Artery Disease, Myocardial Infarction Pulmonary Medical History: Denies: Asthma, Bronchitis, Chronic Obstructive Pulmonary Disease (COPD), Pneumonia Neurological Medical History: Denies: Seizures GI Medical History: Reports: Cirrhosis, Gastroesophageal Reflux Disease Musculoskeltal Medical History: Reports: Arthritis Hematology: Reports: Anemia Past Surgical History Past Surgical History: Denies: Hysterectomy Social History Information Source: Patient Lives with: Family Smoking Status: Unknown if Ever Smoked Frequency of Alcohol Use: Heavy Drugs: None Hx Prescription Drug Abuse: No - Advance Directive Resuscitation Status: Full Code Family History Family History: Reviewed & Not Pertinent, Malignancy - Aunt, uncle, grandmother, both grandfathers. Parental Family History Reviewed: Yes Children Family History Reviewed: Yes Sibling(s) Family History Reviewed.: Yes Medication/Allergy Home Medications: Ciprofloxacin HCl [Cipro 500 mg Tablet] 500 mg PO DAILY 30 Days #30 tablet 08/08/19 Folic Acid [Folvite 1 mg Tablet] 1 mg PO DAILY 30 Days #30 tablet 08/08/19 Furosemide [Lasix 20 mg Tablet] 20 mg PO QAM #30 tablet 08/08/19 Lactulose [Cephulac Syrup 20 gm/30 ml Udcup] 20 gm PO Q8 5 Days #500 ml 08/08/19 Lidocaine [Lidoderm 5% (700 mg) Transdermal Patch] 1 patch TP DAILY 30 Days #30 adh..patch 08/08/19 Oxycodone HCl [Oxy-Ir 5 mg Tablet] 5 mg PO Q8HP PRN 5 Days #15 tablet 08/08/19 Potassium Chloride [Klor-Con 10 Meq Tablet ER] 10 meq PO Q12 30 Days #60 tablet.er 08/08/19 Spironolactone [Aldactone 25 mg Tablet] 100 mg PO DAILY 30 Days #120 tablet 08/08/19 Thiamine HCl [Thiamine 100 mg Tablet] 100 mg PO DAILY 30 Days #30 tablet 08/08/19 Benzonatate [Tessalon Perles 100 mg Capsule] 100 mg PO ASDIR PRN #30 capsule 06/27/20 Doxycycline Hyclate [Vibramycin 100 mg Tablet] 100 mg PO BID 7 Days #14 tablet 07/09/20 Allergies/Adverse Reactions: Pertussis Vaccines Allergy (Verified 06/27/20 15:15) Review of Systems Constitutional: ABSENT: headache(s), weight gain, weight loss Eyes: ABSENT: visual disturbances Ears: ABSENT: hearing changes Nose, Mouth, and Throat: ABSENT: mouth pain, sore throat Cardiovascular: ABSENT: chest pain, dyspnea on exertion, edema, orthropnea, palpitations Respiratory: ABSENT: cough, hemoptysis Gastrointestinal: PRESENT: as per HPI Genitourinary: ABSENT: dysuria, hematuria Musculoskeletal: ABSENT: joint swelling Integumentary: ABSENT: rash, wounds Neurological: ABSENT: abnormal gait, abnormal speech, confusion, dizziness, focal weakness, syncope Psychiatric: ABSENT: anxiety, depression, homidical ideation, suicidal ideation Endocrine: ABSENT: cold intolerance, heat intolerance, polydipsia, polyuria Hematologic/Lymphatic: ABSENT: easy bleeding, easy bruising Physical Exam Vital Signs: Temp Pulse Resp BP Pulse Ox 98.9 F 91 18 132/78 H 98 08/24/20 19:06 08/24/20 12:11 08/24/20 20:14 08/24/20 20:14 08/24/20 20:14 Intake & Output 08/23/20 08/24/20 08/25/20 06:59 06:59 06:59 Intake Total 1250 Balance 1250 Weight 64.8 kg Additional comments: GENERAL APPEARANCE: Alert and oriented x3, in no acute distress HEENT: Normocephalic and atraumatic. Icteric sclera. Moist oral mucosa NECK: Supple. No lymphadenopathy or tenderness. No JVD CHEST: Symmetric. Nontender to palpation. LUNGS: Clear with good air entry bilaterally. No wheezing or crackles HEART: Regular rate and rhythm with normal S1 and S2. No murmurs, gallops, or rubs. ABDOMEN: Nondistended, soft, active bowel sounds, no direct or rebound tendern ess. No organomegaly detected. No CVA tenderness EXTREMITIES: No cyanosis, clubbing, or edema. MUSCULOSKELETAL: No deformity, atrophy or swelling noted PSYCHIATRIC: Recent and remote memory is intact. Appropriate mood and affect. SKIN: Warm, dry, and well perfused. Has jaundiced skin NEUROLOGIC: No focal sensory or motor deficits are noted. Has no asterixis Results Laboratory Results: 08/24/20 16:05 08/24/20 16:05 08/24/20 08/24/20 08/24/20 14:15 14:15 16:05 WBC Cancelled RBC Cancelled Hgb Cancelled Hct Cancelled MCV Cancelled MCH Cancelled MCHC Cancelled RDW Cancelled Plt Count Cancelled Seg Neutrophils % Cancelled Sodium Cancelled Potassium Cancelled Chloride Cancelled Carbon Dioxide Cancelled Anion Gap Cancelled BUN Cancelled Creatinine Cancelled Est GFR ( Amer) Cancelled Est GFR (Non-Af Amer) Cancelled Glucose Cancelled Calcium Cancelled Total Bilirubin Cancelled AST Cancelled Alkaline Phosphatase Cancelled Ammonia < 8.7 L Total Protein Cancelled Albumin Cancelled Lipase Cancelled Urine Color Urine Appearance Urine pH Ur Specific [place] Urine Protein Urine Glucose (UA) Urine Ketones Urine Blood Urine Nitrite Ur Leukocyte Esterase Urine WBC (Auto) Urine RBC (Auto) Blood Type Antibody Screen 08/24/20 08/24/20 08/24/20 16:05 16:05 16:10 WBC 1.5 L* RBC 1.90 L Hgb 6.8 L Hct 20.4 L MCV 107 H MCH 36.0 H MCHC 33.5 RDW 15.1 H Plt Count 33 L Seg Neutrophils % Not Reportable Sodium 140.0 Potassium 3.9 Chloride 102 Carbon Dioxide 25 Anion Gap 13 BUN 9 Creatinine 0.37 L Est GFR ( Amer) > 60 Est GFR (Non-Af Amer) Glucose 86 Calcium 8.2 L Total Bilirubin 19.6 H AST 87 H Alkaline Phosphatase 107 Ammonia Total Protein 7.7 Albumin 3.4 L Lipase 48.5 Urine Color BOY Urine Appearance CLEAR Urine pH 7.0 Ur Specific [place] 1.017 Urine Protein 30 H Urine Glucose (UA) NEGATIVE Urine Ketones 20 H Urine Blood LARGE H Urine Nitrite NEGATIVE Ur Leukocyte Esterase NEGATIVE Urine WBC (Auto) 2 Urine RBC (Auto) 55 Blood Type Antibody Screen 08/24/20 19:21 WBC RBC Hgb Hct MCV MCH MCHC RDW Plt Count Seg Neutrophils % Sodium Potassium Chloride Carbon Dioxide Anion Gap BUN Creatinine Est GFR ( Amer) Est GFR (Non-Af Amer) Glucose Calcium Total Bilirubin AST Alkaline Phosphatase Ammonia Total Protein Albumin Lipase Urine Color Urine Appearance Urine pH Ur Specific [place] Urine Protein Urine Glucose (UA) Urine Ketones Urine Blood Urine Nitrite Ur Leukocyte Esterase Urine WBC (Auto) Urine RBC (Auto) Blood Type A POSITIVE Antibody Screen NEGATIVE Impressions: Abdomen/Pelvis CT 08/24/20 18:28 IMPRESSION: 1. Massive dilatation of a recanalized umbilical vein. Increased since 2017 and 2019. There appears to be direct connection between a mildly dilated extrahepatic portal vein and the umbilical vein. Intrahepatic portal veins are small. Rule out primary portal vein abnormality. 2. Mild fatty liver. Enlarged left lobe of the liver. No typical nodular contour of cirrhosis. 3. Very large splenomegaly unchanged. 4. Large gallstones without acute biliary abnormality. 5. No obvious acute bowel abnormality. Stomach contracted. Difficult to exclude gastritis. Chest X-Ray 08/24/20 18:29 IMPRESSION: NO ACUTE RADIOGRAPHIC FINDING IN THE CHEST. Assessment and Plan - Diagnosis (1) Chronic anemia Is this a current diagnosis for this admission?: Yes Plan: Patient presents with nausea, vomiting and diarrhea denies any history of hematochezia, melena or hematemesis or blood loss from any site H&H on this presentation was 6.8/20.4 Patient is currently hemodynamically stable Has chronic anemia at baseline and baseline hemoglobin was ranging 7-8 in the past year Appears to be a chronic anemia rather than an acute reduction in H&H, stool guaiac was negative at the ED Typed and crossmatched and will be transfused 2 units of packed RBC Started her on IV PPI, octreotide and will be kept n.p.o. Will obtain 2 large-bore IV access Patient was on ciprofloxacin as outpatient, will switch to ceftriaxone for now Held Lasix and spironolactone as a precaution Monitor posttransfusion CBC (2) Nausea and vomiting Is this a current diagnosis for this admission?: Yes Plan: Likely due to gastritis No history of hematemesis or melena keep n.p.o. for now Pantoprazole 40 mg IV twice daily We will advance diet when tolerated (3) Diarrhea Is this a current diagnosis for this admission?: Yes Plan: Presents with watery diarrhea of 3 days duration Recently started on antibiotic raising a concern for possible C. difficile vs viral enteritis vs lactulose use Has been hydrated at the ED and currently hemodynamically stable Follow-up with C. difficile result (4) Cirrhosis of liver Qualifiers: Hepatic cirrhosis type: alcoholic cirrhosis Ascites presence: with ascites Qualified Code(s): K70.31 - Alcoholic cirrhosis of liver with ascites Is this a current diagnosis for this admission?: Yes Plan: Patient with alcoholic cirrhosis and currently following up with GI at [place] Now admitted with intractable nausea vomiting and anemia The anemia appears to be chronic and has no evidence of current blood loss Patient is hemodynamically stable, has no sign of hepatic encephalopathy Transfuse to keep H&H above 7 as stated above Continue octreotide, IV PPI and ceftriaxone for now Has a meld score of 27 indicating ~20% 3 months mortality risk Continue follow-up with GI Currently patient would not likely qualify for transplant due continued alcohol use Extensive counseling on abstinence from alcohol (5) Leukopenia Is this a current diagnosis for this admission?: Yes Plan: WBC count was 1.5k with absolute neutrophil count of 960 Currently has no sign of infection Chest x-ray showed no acute findings CT of the abdomen and pelvis was negative for acute inflammatory or infectious process UAno sign of infection Continue ceftriaxone On neutropenic precaution Follow-up with blood culture (6) Hyperbilirubinemia Is this a current diagnosis for this admission?: Yes Plan: Due to advanced liver cirrhosis, continue management as stated above (7) Thrombocytopenia Is this a current diagnosis for this admission?: Yes Plan: Currently platelet count is 33k No sign of active bleeding Continue monitoring CBC (8) Hypercoagulopathy Is this a current diagnosis for this admission?: Yes Plan: Due to advanced cirrhosis of the liver INR was 2.31 Administer vitamin K 5 mg IV Continue monitoring coagulation panel (9) Alcohol abuse Is this a current diagnosis for this admission?: Yes Plan: Patient denies any alcohol use but her reports that he does not usually stay at home but has high index of suspicion that she continues to use alcohol Serum alcohol level checked on this encounter was 104 Has been in rehab multiple times in the past UDS was negative Placed her on symptom triggered CIWA protocol Needs continued counseling on abstinence from alcohol - Time Time Spent with patient: 35 or more minutes Total Critical Time (Minutes): 45 Medications reviewed and adjusted accordingly: Yes Anticipated Discharge Disposition: Home, Self Care Anticipated Discharge Timeframe: within 48 hours - Inpatient Certification Based on my medical assessment, after consideration of the patient's comorbidities, presenting symptoms, or acuity I expect that the services needed warrant INPATIENT care.: Yes I certify that my determination is in accordance with my understanding of Medicare's requirements for reasonable and necessary INPATIENT services [42 CFR 412.3e].: Yes Medical Necessity: Significant Comorbidiites Make Outpatient Treatment Too Risky, Need Close Monitoring Due to Risk of Patient Decompensation, Need For IV Fluids, Need for IV Antibiotics, Risk of Complication if Not Cared For in Hospital Post Hospital Care: D/C or Transfer Summary
[2020-08-24 23:36] LABS: URINE AMPHETAMINES SCREEN NEGATIVE; URINE BARBITURATES SCREEN NEGATIVE; URINE BENZODIAZEPINES SCREEN NEGATIVE; URINE COCAINE SCREEN NEGATIVE; URINE MARIJUANA (THC) SCREEN NEGATIVE; URINE METHADONE SCREEN NEGATIVE; URINE PHENCYCLIDINE SCREEN NEGATIVE
[2020-08-25] MEDS ORDERED: OCTREOTIDE ACETATE INJ/PF 100 MCG/1 ML SDV ONE (00:56)
[2020-08-25] MEDS ORDERED: CEFTRIAXONE 1 GM/D5W RTU 1 GM/50 ML RTUPB IV ONE (00:57)
[2020-08-25] MEDS: CEFTRIAXONE 1 GM/D5W RTU 1 GM/50 ML RTUPB IV SCH ×2 (01:00→22:38)
[2020-08-25] MEDS: PANTOPRAZOLE SODIUM 40 MG VIAL IV SCH ×3 (01:28→22:36)
[2020-08-25] MEDS: NORMAL SALINE 500 ML with OCTREOTIDE ACETATE 500 MCG IV PRN ×6 (01:29→22:50)
[2020-08-25] MEDS: ONDANSETRON HCL INJ/PF 4 MG/2 ML SDV IV PRN ×2 (01:39→09:34)
[2020-08-25] MEDS ORDERED: PHYTONADIONE INJ 10 MG/1 ML AMPULE SUBCUT ONE (04:27)
[2020-08-25 08:09] LABS: HEMATOCRIT 26.2 % (36.0-47.0); MEAN CORPUSCULAR HEMOGLOBIN 35.7 pg (27.0-33.4); MEAN CORPUSCULAR HGB CONC 36.4 g/dL (32.0-36.0); RED BLOOD COUNT 2.66 10^6/uL (3.72-5.28)
[2020-08-25 08:16] LABS: ALBUMIN 3.3 g/dL (3.5-5.0); ALKALINE PHOSPHATASE 90 U/L (38-126); ANION GAP 11 (5-19); ASPARTATE AMINO TRANSFERASE 67 U/L (14-36); BILIRUBIN,DIRECT 4.6 mg/dL (0.0-0.4); BILIRUBIN,TOTAL 19.5 mg/dL (0.2-1.3); BLOOD UREA NITROGEN 11 mg/dL (7-20); CALCIUM 8.1 mg/dL (8.4-10.2); CARBON DIOXIDE 21 mmol/L (22-30); CHLORIDE 101 mmol/L (98-107); GLUCOSE 101 mg/dL (75-110); TOTAL PROTEIN 7.7 g/dL (6.3-8.2)
[2020-08-25 08:17] LABS: INTERNATIONAL RATION (INR) 2.45; PROTHROMBIN TIME 26.6 SEC (11.4-15.4)
[2020-08-25 08:30] LABS: HEMOGLOBIN 9.5 g/dL (12.0-15.5); MEAN CORPUSCULAR VOLUME 98 fl (80-97); WHITE BLOOD COUNT 3.4 10^3/uL (4.0-10.5)
[2020-08-25 08:31] LABS: PLATELET COUNT 36 10^3/uL (150-450)
[2020-08-25 08:36] LABS: ABSOLUTE LYMPHOCYTES# (MANUAL) 0.5 10^3/uL (0.5-4.7); BASOPHILS % (MANUAL) 2 % (0-2); EOSINOPHILS % (MANUAL) 0 % (0-6); LYMPHOCYTES % (MANUAL) 16 % (13-45); MONOCYTES % (MANUAL) 1 % (3-13); SEGMENTED NEUTROPHILS % (MAN) 81 % (42-78); TOTAL CELLS COUNTED 100
[2020-08-25 08:44] LABS: ANISOCYTOSIS 3+; OVALOCYTES 1+; PLATELET COMMENT DECREASED; POLYCHROMASIA SLIGHT
--- NOTE | 2020-08-25 10:45 | PDOC PROGRESS REPORT ---
Subjective Date:: 08/25/20 Subjective:: Patient was admitted with nausea vomiting and diarrhea. She was also found to b e moderate.. She was admitted overnight. She does have underlying history of alcoholic cirrhosis. She was apparently having some tremors earlier this morning. She was given a dose of Ativan which seems to have helped. Reason For Visit: ANEMIA DUE TO CHRONIC BLOOD LOSS, NAUSEA AND VOMIT Physical Exam Vital Signs: Temp Pulse Resp BP Pulse Ox 98.1 F 99 13 133/71 H 96 08/25/20 08:13 08/25/20 08:13 08/25/20 08:13 08/25/20 08:13 08/25/20 08:13 Intake & Output 08/24/20 08/25/20 08/26/20 06:59 06:59 06:59 Intake Total 1900 Balance 1900 Weight 65.1 kg General appearance: PRESENT: no acute distress, cooperative, well-developed, well-nourished, other - Icteric Head exam: PRESENT: atraumatic, normocephalic Eye exam: PRESENT: conjunctiva pale, EOMI, periorbital swelling, PERRLA, scleral icterus Mouth exam: PRESENT: moist, tongue midline Neck exam: ABSENT: carotid bruit, JVD, lymphadenopathy, thyromegaly Respiratory exam: PRESENT: clear to auscultation stacie. ABSENT: rales, rhonchi, wheezes Cardiovascular exam: PRESENT: RRR, +S1, +S2. ABSENT: diastolic murmur, rubs, systolic murmur Pulses: PRESENT: normal dorsalis pedis pul Vascular exam: PRESENT: normal capillary refill GI/Abdominal exam: PRESENT: normal bowel sounds, soft. ABSENT: distended, guarding, mass, organolmegaly, rebound, tenderness Rectal exam: PRESENT: deferred Extremities exam: PRESENT: full ROM. ABSENT: calf tenderness, clubbing, pedal edema Neurological exam: PRESENT: alert, awake, oriented to person, oriented to place, oriented to time, oriented to situation, CN II-XII grossly intact. ABSENT: motor sensory deficit Psychiatric exam: PRESENT: appropriate affect, normal mood. ABSENT: homicidal ideation, suicidal ideation Skin exam: PRESENT: dry, intact, jaundice, warm. ABSENT: cyanosis, rash Results Laboratory Results: 08/25/20 07:45 08/25/20 07:45 08/24/20 08/24/20 08/24/20 14:15 14:15 16:05 WBC Cancelled RBC Cancelled Hgb Cancelled Hct Cancelled MCV Cancelled MCH Cancelled MCHC Cancelled RDW Cancelled Plt Count Cancelled Seg Neutrophils % Cancelled Sodium Cancelled Potassium Cancelled Chloride Cancelled Carbon Dioxide Cancelled Anion Gap Cancelled BUN Cancelled Creatinine Cancelled Est GFR ( Amer) Cancelled Est GFR (Non-Af Amer) Cancelled Glucose Cancelled Calcium Cancelled Magnesium Total Bilirubin Cancelled AST Cancelled Alkaline Phosphatase Cancelled Ammonia < 8.7 L Total Protein Cancelled Albumin Cancelled Lipase Cancelled Urine Color Urine Appearance Urine pH Ur Specific [place] Urine Protein Urine Glucose (UA) Urine Ketones Urine Blood Urine Nitrite Ur Leukocyte Esterase Urine WBC (Auto) Urine RBC (Auto) Blood Type Antibody Screen 08/24/20 08/24/20 08/24/20 16:05 16:05 16:10 WBC 1.5 L* RBC 1.90 L Hgb 6.8 L Hct 20.4 L MCV 107 H MCH 36.0 H MCHC 33.5 RDW 15.1 H Plt Count 33 L Seg Neutrophils % Not Reportable Sodium 140.0 Potassium 3.9 Chloride 102 Carbon Dioxide 25 Anion Gap 13 BUN 9 Creatinine 0.37 L Est GFR ( Amer) > 60 Est GFR (Non-Af Amer) Glucose 86 Calcium 8.2 L Magnesium Total Bilirubin 19.6 H AST 87 H Alkaline Phosphatase 107 Ammonia Total Protein 7.7 Albumin 3.4 L Lipase 48.5 Urine Color BOY Urine Appearance CLEAR Urine pH 7.0 Ur Specific [place] 1.017 Urine Protein 30 H Urine Glucose (UA) NEGATIVE Urine Ketones 20 H Urine Blood LARGE H Urine Nitrite NEGATIVE Ur Leukocyte Esterase NEGATIVE Urine WBC (Auto) 2 Urine RBC (Auto) 55 Blood Type Antibody Screen 08/24/20 08/25/20 08/25/20 19:21 07:45 07:45 WBC 3.4 L D RBC 2.66 L Hgb 9.5 L D Hct 26.2 L MCV 98 H D MCH 35.7 H MCHC 36.4 H RDW 23.0 H Plt Count 36 L Seg Neutrophils % Not Reportable Sodium 132.8 L Potassium 4.0 Chloride 101 Carbon Dioxide 21 L Anion Gap 11 BUN 11 Creatinine 0.43 L Est GFR ( Amer) > 60 Est GFR (Non-Af Amer) Glucose 101 Calcium 8.1 L Magnesium 1.1 L* Total Bilirubin 19.5 H AST 67 H Alkaline Phosphatase 90 Ammonia Total Protein 7.7 Albumin 3.3 L Lipase Urine Color Urine Appearance Urine pH Ur Specific [place] Urine Protein Urine Glucose (UA) Urine Ketones Urine Blood Urine Nitrite Ur Leukocyte Esterase Urine WBC (Auto) Urine RBC (Auto) Blood Type A POSITIVE Antibody Screen NEGATIVE Impressions: Abdomen/Pelvis CT 08/24/20 18:28 IMPRESSION: 1. Massive dilatation of a recanalized umbilical vein. Increased since 2017 and 2019. There appears to be direct connection between a mildly dilated extrahepatic portal vein and the umbilical vein. Intrahepatic portal veins are small. Rule out primary portal vein abnormality. 2. Mild fatty liver. Enlarged left lobe of the liver. No typical nodular contour of cirrhosis. 3. Very large splenomegaly unchanged. 4. Large gallstones without acute biliary abnormality. 5. No obvious acute bowel abnormality. Stomach contracted. Difficult to exclude gastritis. Chest X-Ray 08/24/20 18:29 IMPRESSION: NO ACUTE RADIOGRAPHIC FINDING IN THE CHEST. Assessment and Plan - Diagnosis (1) Alcohol abuse Is this a current diagnosis for this admission?: Yes (2) Alcoholic cirrhosis of liver with ascites Is this a current diagnosis for this admission?: Yes (3) Chronic anemia Is this a current diagnosis for this admission?: Yes (4) Hyperbilirubinemia Is this a current diagnosis for this admission?: Yes (5) Leukopenia Is this a current diagnosis for this admission?: Yes (6) Nausea and vomiting Is this a current diagnosis for this admission?: Yes (7) Hypomagnesemia Is this a current diagnosis for this admission?: Yes - Plan Summary Summary: Chronic anemia with initial hemoglobin of 6.8. This is felt to be due to her underlying cirrhosis. She is currently on octreotide. She was transfused with 2 units of packed red blood cells. Alcoholic cirrhosis of the liver. There is report of ongoing alcohol abuse although patient herself denies. Continue octreotide, IV PPI as well as ceftriaxone. Pancytopenia secondary to alcohol abuse. Counts are actually better today with a white count up to 3.6 from 1.5. We will continue with prophylactic ceftriaxone and neutropenic precaution as indicated. Intractable nausea and vomiting likely secondary to presentation Coagulopathy with INR of 2.3. She was given vitamin K however patient is at high risk for thromboembolism. This has to be balanced against her thrombocytopenia her high VTE risk as well as coagulopathy. INR today is 2.45. Will not give any further vitamin K for now bilirubin is 19.5 which is pretty much higher than it has been in the last few years. We will continue to monitor daily. Hypomagnesemia, nutritional secondary to EtOH abuse. Will replace and recheck This patient's prognosis is very poor - Time Time Spent with patient: 25-34 minutes Medications reviewed and adjusted accordingly: Yes Anticipated Discharge Disposition: Home, Self Care Anticipated Discharge Timeframe: within 72 hours
[2020-08-25] MEDS ORDERED: LORAZEPAM INJ 2 MG/1 ML VIAL IV ONE (11:00)
[2020-08-25] MEDS ORDERED: MAGNESIUM SULFATE 4 GM/D5W 100 ML IV ONE (11:30)
[2020-08-25] MEDS: LORAZEPAM INJ 2 MG/1 ML VIAL (TAPER DOSING) IV SCH (17:13)
[2020-08-25] MEDS ORDERED: BANANA BAG (EDIT INGREDIENTS/RATE) IV SCH ×3 (18:00)
[2020-08-25] MEDS ORDERED: CEFTRIAXONE INJ 1000 MG VIAL ONE (22:20)
[2020-08-26] MEDS: LORAZEPAM INJ 2 MG/1 ML VIAL (TAPER DOSING) IV SCH ×3 (01:08→11:16)
[2020-08-26 05:41] LABS: ABSOLUTE BASOPHILS # (AUTO) 0.1 10^3/uL (0.0-0.2); ABSOLUTE LYMPHOCYTES (AUTO) 0.4 10^3/uL (0.5-4.7); ABSOLUTE MONOCYTES (AUTO) 0.2 10^3/uL (0.1-1.4); ABSOLUTE NEUT (AUTO) 1.4 10^3/uL (1.7-8.2); BASOPHILS % (AUTO) 2.5 % (0-2); EOSINOPHILS % (AUTO) 2.1 % (0-6); HEMATOCRIT 22.9 % (36.0-47.0); HEMOGLOBIN 8.2 g/dL (12.0-15.5); LYMPHOCYTES % (AUTO) 19.6 % (13-45); MEAN CORPUSCULAR HEMOGLOBIN 34.8 pg (27.0-33.4); MEAN CORPUSCULAR HGB CONC 35.8 g/dL (32.0-36.0); MEAN CORPUSCULAR VOLUME 97 fl (80-97); MONOCYTES % (AUTO) 7.5 % (3-13); PROTHROMBIN TIME 28.6 SEC (11.4-15.4); RED BLOOD COUNT 2.37 10^6/uL (3.72-5.28); SEGMENTED NEUTROPHILS % (AUTO) 68.3 % (42-78); TOTAL CELLS COUNTED % (AUTO) 100 %
[2020-08-26 06:00] LABS: ALBUMIN 2.6 g/dL (3.5-5.0); ALKALINE PHOSPHATASE 71 U/L (38-126); ANION GAP 5 (5-19); ASPARTATE AMINO TRANSFERASE 60 U/L (14-36); BLOOD UREA NITROGEN 9 mg/dL (7-20); CALCIUM 7.5 mg/dL (8.4-10.2); CARBON DIOXIDE 26 mmol/L (22-30); CHLORIDE 103 mmol/L (98-107); GLUCOSE 108 mg/dL (75-110); PHOSPHORUS 3.3 mg/dL (2.5-4.5); POTASSIUM 3.3 mmol/L (3.6-5.0); TOTAL PROTEIN 6.4 g/dL (6.3-8.2)
[2020-08-26 06:23] LABS: BILIRUBIN,TOTAL 15.2 mg/dL (0.2-1.3)
[2020-08-26 06:46] LABS: WHITE BLOOD COUNT 2.1 10^3/uL (4.0-10.5)
[2020-08-26 06:48] LABS: PLATELET COUNT 28 10^3/uL (150-450)
[2020-08-26 06:52] LABS: BURR CELLS SLIGHT; OVALOCYTES SLIGHT; PLATELET COMMENT DECREASED; POIKILOCYTOSIS SLIGHT; SCHISTOCYTES SLIGHT; TARGET CELLS SLIGHT; TEAR DROP CELLS SLIGHT
[2020-08-26] MEDS: FOLIC ACID 1 MG TABLET PO SCH (09:24)
[2020-08-26] MEDS: PANTOPRAZOLE SODIUM 40 MG VIAL IV SCH ×2 (09:24→21:34)
[2020-08-26] MEDS: NORMAL SALINE 500 ML with OCTREOTIDE ACETATE 500 MCG IV PRN ×4 (09:28→19:54)
[2020-08-26] MEDS: NORMAL SALINE 1000 ML 1,000 ML IV PRN ×2 (09:35→23:58)
[2020-08-26] MEDS ORDERED: POTASSIUM PHOS,M-BASIC-D-BASIC 60 MMOL in NORMAL SALINE 1000 ML 1,000 ML IV ONE (10:00)
[2020-08-26] MEDS: FUROSEMIDE 40 MG TABLET PO SCH (10:52)
[2020-08-26] MEDS: SPIRONOLACTONE 25 MG TABLET PO SCH (10:52)
[2020-08-26 11:21] LABS: HEMATOCRIT 22.6 % (36.0-47.0); HEMOGLOBIN 8.2 g/dL (12.0-15.5); MEAN CORPUSCULAR HEMOGLOBIN 35.3 pg (27.0-33.4); MEAN CORPUSCULAR HGB CONC 36.1 g/dL (32.0-36.0); MEAN CORPUSCULAR VOLUME 98 fl (80-97); RED BLOOD COUNT 2.32 10^6/uL (3.72-5.28); RED CELL DISTRIBUTION WIDTH 23.2 % (11.5-14.0); WHITE BLOOD COUNT 1.9 10^3/uL (4.0-10.5)
[2020-08-26 11:39] LABS: ALBUMIN 2.6 g/dL (3.5-5.0); ALKALINE PHOSPHATASE 68 U/L (38-126); ASPARTATE AMINO TRANSFERASE 63 U/L (14-36); BILIRUBIN,DIRECT 4.7 mg/dL (0.0-0.4); BILIRUBIN,TOTAL 15.4 mg/dL (0.2-1.3); BLOOD UREA NITROGEN 8 mg/dL (7-20); CALCIUM 7.6 mg/dL (8.4-10.2); CARBON DIOXIDE 28 mmol/L (22-30); CHLORIDE 103 mmol/L (98-107); GLUCOSE 111 mg/dL (75-110); POTASSIUM 3.2 mmol/L (3.6-5.0); TOTAL PROTEIN 6.4 g/dL (6.3-8.2)
[2020-08-26 11:42] LABS: ANION GAP 3 (5-19)
[2020-08-26 11:47] LABS: PROTHROMBIN TIME 27.8 SEC (11.4-15.4)
[2020-08-26 11:51] LABS: ABSOLUTE LYMPHOCYTES# (MANUAL) 0.2 10^3/uL (0.5-4.7); BASOPHILS % (MANUAL) 0 % (0-2); EOSINOPHILS % (MANUAL) 4 % (0-6); LYMPHOCYTES % (MANUAL) 10 % (13-45); MONOCYTES % (MANUAL) 2 % (3-13); SEGMENTED NEUTROPHILS % (MAN) 84 % (42-78); TOTAL CELLS COUNTED 50
[2020-08-26 11:56] LABS: ANISOCYTOSIS 3+; BURR CELLS SLIGHT; OVALOCYTES 2+; PLATELET COMMENT DECREASED; POIKILOCYTOSIS 1+; POLYCHROMASIA SLIGHT
[2020-08-26 11:59] LABS: PLATELET COUNT 26 10^3/uL (150-450)
--- NOTE | 2020-08-26 12:40 | PDOC PROGRESS REPORT ---
Subjective Date:: 08/26/20 Subjective:: Patient was admitted with nausea vomiting and diarrhea. She was also found to b e moderate.. She was admitted overnight. She does have underlying history of alcoholic cirrhosis. She was apparently having some tremors earlier this morning. She was given a dose of Ativan which seems to have helped. Patient is sedated this morning but arousable. She still having a lot of laurence mors. was concerned about high yellowish eyes however I reassured him that the bilirubin is trending down. Reason For Visit: ANEMIA DUE TO CHRONIC BLOOD LOSS, NAUSEA AND VOMIT Physical Exam Vital Signs: Temp Pulse Resp BP Pulse Ox 97.7 F 80 12 113/65 96 08/26/20 08:49 08/26/20 08:09 08/26/20 08:09 08/26/20 08:09 08/26/20 08:09 Intake & Output 08/25/20 08/26/20 08/27/20 06:59 06:59 06:59 Intake Total 1900 2401 500 Output Total 300 Balance 1900 2101 500 Weight 65.1 kg 67.6 kg General appearance: PRESENT: no acute distress, other - jaundiced Head exam: PRESENT: atraumatic, normocephalic Eye exam: PRESENT: EOMI, PERRLA, scleral icterus Mouth exam: PRESENT: moist, tongue midline Neck exam: ABSENT: carotid bruit, JVD, lymphadenopathy, thyromegaly Respiratory exam: PRESENT: clear to auscultation stacie. ABSENT: rales, rhonchi, wheezes Cardiovascular exam: PRESENT: RRR. ABSENT: diastolic murmur, rubs, systolic murmur Pulses: PRESENT: normal dorsalis pedis pul Vascular exam: PRESENT: normal capillary refill GI/Abdominal exam: PRESENT: normal bowel sounds, soft. ABSENT: distended, guarding, mass, organolmegaly, rebound, tenderness Rectal exam: PRESENT: deferred Extremities exam: PRESENT: full ROM. ABSENT: calf tenderness, clubbing, pedal edema Neurological exam: PRESENT: alert, awake, oriented to person, oriented to place, oriented to time, other - tremors. ABSENT: motor sensory deficit Psychiatric exam: PRESENT: appropriate affect, normal mood. ABSENT: homicidal ideation, suicidal ideation Skin exam: PRESENT: dry, intact, warm. ABSENT: cyanosis, rash Results Laboratory Results: 08/26/20 10:22 08/26/20 10:22 08/26/20 08/26/20 08/26/20 04:44 04:44 10:22 WBC 2.1 L D 1.9 L RBC 2.37 L 2.32 L Hgb 8.2 L 8.2 L Hct 22.9 L 22.6 L MCV 97 98 H MCH 34.8 H 35.3 H MCHC 35.8 36.1 H RDW 23.0 H 23.2 H Plt Count 28 L* 26 L* Seg Neutrophils % 68.3 Not Reportable Sodium 134.4 L Potassium 3.3 L Chloride 103 Carbon Dioxide 26 Anion Gap 5 BUN 9 Creatinine 0.43 L Est GFR ( Amer) > 60 Glucose 108 Calcium 7.5 L Phosphorus 3.3 Magnesium 1.5 L Total Bilirubin 15.2 H D AST 60 H Alkaline Phosphatase 71 Total Protein 6.4 Albumin 2.6 L 08/26/20 10:22 WBC RBC Hgb Hct MCV MCH MCHC RDW Plt Count Seg Neutrophils % Sodium 134.0 L Potassium 3.2 L Chloride 103 Carbon Dioxide 28 Anion Gap 3 L BUN 8 Creatinine 0.46 L Est GFR ( Amer) > 60 Glucose 111 H Calcium 7.6 L Phosphorus Magnesium Total Bilirubin 15.4 H AST 63 H Alkaline Phosphatase 68 Total Protein 6.4 Albumin 2.6 L Impressions: Abdomen/Pelvis CT 08/24/20 18:28 IMPRESSION: 1. Massive dilatation of a recanalized umbilical vein. Increased since 2017 and 2019. There appears to be direct connection between a mildly dilated extrahepatic portal vein and the umbilical vein. Intrahepatic portal veins are small. Rule out primary portal vein abnormality. 2. Mild fatty liver. Enlarged left lobe of the liver. No typical nodular contour of cirrhosis. 3. Very large splenomegaly unchanged. 4. Large gallstones without acute biliary abnormality. 5. No obvious acute bowel abnormality. Stomach contracted. Difficult to exclude gastritis. Chest X-Ray 08/24/20 18:29 IMPRESSION: NO ACUTE RADIOGRAPHIC FINDING IN THE CHEST. Assessment and Plan - Diagnosis (1) Alcohol abuse Is this a current diagnosis for this admission?: Yes (2) Alcoholic cirrhosis of liver with ascites Is this a current diagnosis for this admission?: Yes (3) Chronic anemia Is this a current diagnosis for this admission?: Yes (4) Hyperbilirubinemia Is this a current diagnosis for this admission?: Yes (5) Leukopenia Is this a current diagnosis for this admission?: Yes (6) Nausea and vomiting Is this a current diagnosis for this admission?: Yes (7) Hypomagnesemia Is this a current diagnosis for this admission?: Yes (8) Pancytopenia Is this a current diagnosis for this admission?: Yes - Plan Summary Summary: Chronic anemia with initial hemoglobin of 6.8. This is felt to be due to her underlying cirrhosis. She is currently on octreotide. She was transfused with 2 units of packed red blood cells. Alcoholic cirrhosis of the liver. There is report of ongoing alcohol abuse although patient herself denies. Continue octreotide, IV PPI as well as ceftriaxone. Pancytopenia secondary to alcohol abuse. Counts are actually better today with a white count up to 3.6 from 1.5. We will continue with prophylactic ceftriaxone and neutropenic precaution as indicated. Intractable nausea and vomiting likely secondary to presentation Coagulopathy with INR of 2.3. She was given vitamin K however patient is at high risk for thromboembolism. This has to be balanced against her thrombocytopenia her high VTE risk as well as coagulopathy. INR today is 2.45. Will not give any further vitamin K for now bilirubin is 19.5 which is pretty much higher than it has been in the last few years. We will continue to monitor daily. Hypomagnesemia, nutritional secondary to EtOH abuse. Will replace and recheck This patient's prognosis is very poor 08/26 Patient's condition remains about the same. Liver been is trending down some. Platelet count is still pretty low and INR noted to be elevated. Patient is also having withdrawal symptoms but this seems to be controlled with the Ativan for now. We will continue with supportive therapy - Time Time Spent with patient: 15-24 minutes Medications reviewed and adjusted accordingly: Yes Anticipated Discharge Disposition: Home, Self Care Anticipated Discharge Timeframe: within 72 hours
[2020-08-26] MEDS: NORMAL SALINE 1000 ML 1,000 ML with THIAMINE HCL 100 MG, MVI, ADULT NO.1 WITH VIT K 10 ML IV SCH ×3 (17:05)
[2020-08-26] MEDS: LORAZEPAM INJ 2 MG/1 ML VIAL IV SCH (19:54)
[2020-08-26] MEDS ORDERED: CEFTRIAXONE INJ 1000 MG VIAL ONE (21:22)
[2020-08-26] MEDS: CEFTRIAXONE 1 GM/D5W RTU 1 GM/50 ML RTUPB IV SCH (21:34)
[2020-08-27] MEDS: LORAZEPAM INJ 2 MG/1 ML VIAL IV SCH ×2 (03:16→11:16)
[2020-08-27 05:05] LABS: ABSOLUTE LYMPHOCYTES (AUTO) 0.4 10^3/uL (0.5-4.7); ABSOLUTE MONOCYTES (AUTO) 0.1 10^3/uL (0.1-1.4); ABSOLUTE NEUT (AUTO) 1.6 10^3/uL (1.7-8.2); BASOPHILS % (AUTO) 1.2 % (0-2); EOSINOPHILS % (AUTO) 2.2 % (0-6); HEMATOCRIT 20.9 % (36.0-47.0); LYMPHOCYTES % (AUTO) 18.7 % (13-45); MEAN CORPUSCULAR HEMOGLOBIN 35.6 pg (27.0-33.4); MEAN CORPUSCULAR HGB CONC 36.5 g/dL (32.0-36.0); MEAN CORPUSCULAR VOLUME 98 fl (80-97); MONOCYTES % (AUTO) 5.6 % (3-13); RED BLOOD COUNT 2.14 10^6/uL (3.72-5.28); RED CELL DISTRIBUTION WIDTH 23.1 % (11.5-14.0); SEGMENTED NEUTROPHILS % (AUTO) 72.3 % (42-78); TOTAL CELLS COUNTED % (AUTO) 100 %; WHITE BLOOD COUNT 2.2 10^3/uL (4.0-10.5)
[2020-08-27 05:16] LABS: INTERNATIONAL RATION (INR) 3.01; PROTHROMBIN TIME 31.1 SEC (11.4-15.4)
[2020-08-27 05:34] LABS: ALBUMIN 2.6 g/dL (3.5-5.0); ALKALINE PHOSPHATASE 66 U/L (38-126); ASPARTATE AMINO TRANSFERASE 55 U/L (14-36); BILIRUBIN,DIRECT 3.9 mg/dL (0.0-0.4); BILIRUBIN,TOTAL 14.7 mg/dL (0.2-1.3); BLOOD UREA NITROGEN 4 mg/dL (7-20); CALCIUM 7.4 mg/dL (8.4-10.2); GLUCOSE 92 mg/dL (75-110); PHOSPHORUS 4.2 mg/dL (2.5-4.5); POTASSIUM 3.4 mmol/L (3.6-5.0); TOTAL PROTEIN 6.4 g/dL (6.3-8.2)
[2020-08-27 05:40] LABS: CARBON DIOXIDE 27 mmol/L (22-30); CHLORIDE 104 mmol/L (98-107)
[2020-08-27 05:41] LABS: ANION GAP 4 (5-19)
[2020-08-27] MEDS: NORMAL SALINE 500 ML with OCTREOTIDE ACETATE 500 MCG IV PRN ×2 (05:54)
[2020-08-27 06:35] LABS: HEMOGLOBIN 7.6 g/dL (12.0-15.5); PLATELET COUNT 28 10^3/uL (150-450)
[2020-08-27] MEDS: SPIRONOLACTONE 25 MG TABLET PO SCH (11:12)
[2020-08-27] MEDS: FOLIC ACID 1 MG TABLET PO SCH (11:12)
[2020-08-27] MEDS: FUROSEMIDE 40 MG TABLET PO SCH (11:12)
[2020-08-27] MEDS: PANTOPRAZOLE SODIUM 40 MG VIAL IV SCH ×2 (11:12→22:55)
[2020-08-27] MEDS ORDERED: POTASSIUM CHLORIDE 10 MEQ TABLET.ER PO ONE (12:00)
--- NOTE | 2020-08-27 13:04 | PDOC PROGRESS REPORT ---
Subjective Date:: 08/27/20 Subjective:: Patient was admitted with nausea vomiting and diarrhea. She was also found to b e moderate.. She was admitted overnight. She does have underlying history of alcoholic cirrhosis. She was apparently having some tremors earlier this morning. She was given a dose of Ativan which seems to have helped. Patient is sedated this morning but arousable. She still having a lot of laurence mors. was concerned about high yellowish eyes however I reassured him that the bilirubin is trending down. 08/27 Patient feels better today. She does feel a little bit stronger. She also a ppears to be less jaundiced. There is no bleeding. Reason For Visit: ANEMIA DUE TO CHRONIC BLOOD LOSS, NAUSEA AND VOMIT Physical Exam Vital Signs: Temp Pulse Resp BP Pulse Ox 98.1 F 83 13 117/79 92 08/27/20 12:02 08/27/20 12:02 08/27/20 12:02 08/27/20 12:02 08/27/20 12:02 Intake & Output 08/26/20 08/27/20 08/28/20 06:59 06:59 06:59 Intake Total 2401 6046 264 Output Total 300 1700 Balance 2101 4346 264 Weight 67.6 kg 66.1 kg General appearance: PRESENT: no acute distress, other - Jaundiced Head exam: PRESENT: atraumatic, normocephalic Eye exam: PRESENT: conjunctiva pink, EOMI, scleral icterus Mouth exam: PRESENT: tongue midline Neck exam: ABSENT: carotid bruit, JVD, lymphadenopathy, thyromegaly Respiratory exam: PRESENT: clear to auscultation stacie, unlabored. ABSENT: rales, rhonchi, wheezes Cardiovascular exam: PRESENT: RRR, +S1, +S2. ABSENT: diastolic murmur, rubs, systolic murmur Vascular exam: PRESENT: normal capillary refill GI/Abdominal exam: PRESENT: normal bowel sounds, soft. ABSENT: distended, guarding, mass, organolmegaly, rebound, tenderness Rectal exam: PRESENT: deferred Extremities exam: PRESENT: full ROM. ABSENT: calf tenderness, clubbing, pedal edema Neurological exam: PRESENT: alert, awake, oriented to person, oriented to place, oriented to time, oriented to situation, CN II-XII grossly intact, other - tremors. ABSENT: motor sensory deficit Psychiatric exam: PRESENT: appropriate affect, normal mood. ABSENT: homicidal ideation, suicidal ideation Skin exam: PRESENT: dry, intact, jaundice, warm. ABSENT: cyanosis, rash Results Laboratory Results: 08/27/20 03:58 08/27/20 03:58 08/27/20 08/27/20 03:58 03:58 WBC 2.2 L RBC 2.14 L Hgb 7.6 L Hct 20.9 L MCV 98 H MCH 35.6 H MCHC 36.5 H RDW 23.1 H Plt Count 28 L* Seg Neutrophils % 72.3 Sodium 134.7 L Potassium 3.4 L Chloride 104 Carbon Dioxide 27 Anion Gap 4 L BUN 4 L Creatinine 0.46 L Est GFR ( Amer) > 60 Glucose 92 Calcium 7.4 L Phosphorus 4.2 Total Bilirubin 14.7 H AST 55 H Alkaline Phosphatase 66 Total Protein 6.4 Albumin 2.6 L Impressions: Abdomen/Pelvis CT 08/24/20 18:28 IMPRESSION: 1. Massive dilatation of a recanalized umbilical vein. Increased since 2017 and 2019. There appears to be direct connection between a mildly dilated extrahepatic portal vein and the umbilical vein. Intrahepatic portal veins are small. Rule out primary portal vein abnormality. 2. Mild fatty liver. Enlarged left lobe of the liver. No typical nodular contour of cirrhosis. 3. Very large splenomegaly unchanged. 4. Large gallstones without acute biliary abnormality. 5. No obvious acute bowel abnormality. Stomach contracted. Difficult to exclude gastritis. Chest X-Ray 08/24/20 18:29 IMPRESSION: NO ACUTE RADIOGRAPHIC FINDING IN THE CHEST. Assessment and Plan - Diagnosis (1) Alcohol abuse Is this a current diagnosis for this admission?: Yes (2) Alcoholic cirrhosis of liver with ascites Is this a current diagnosis for this admission?: Yes (3) Chronic anemia Is this a current diagnosis for this admission?: Yes (4) Hyperbilirubinemia Is this a current diagnosis for this admission?: Yes (5) Leukopenia Is this a current diagnosis for this admission?: Yes (6) Nausea and vomiting Is this a current diagnosis for this admission?: Yes (7) Hypomagnesemia Is this a current diagnosis for this admission?: Yes (8) Pancytopenia Is this a current diagnosis for this admission?: Yes - Plan Summary Summary: Chronic anemia with initial hemoglobin of 6.8. This is felt to be due to her underlying cirrhosis. She is currently on octreotide. She was transfused with 2 units of packed red blood cells. Alcoholic cirrhosis of the liver. There is report of ongoing alcohol abuse although patient herself denies. Continue octreotide, IV PPI as well as ceftriaxone. Pancytopenia secondary to alcohol abuse. Counts are actually better today with a white count up to 3.6 from 1.5. We will continue with prophylactic ceftriaxone and neutropenic precaution as indicated. Intractable nausea and vomiting likely secondary to presentation Coagulopathy with INR of 2.3. She was given vitamin K however patient is at high risk for thromboembolism. This has to be balanced against her thrombocytopenia her high VTE risk as well as coagulopathy. INR today is 2.45. Will not give any further vitamin K for now bilirubin is 19.5 which is pretty much higher than it has been in the last few years. We will continue to monitor daily. Hypomagnesemia, nutritional secondary to EtOH abuse. Will replace and recheck This patient's prognosis is very poor 08/26 Patient's condition remains about the same. Liver been is trending down some. Platelet count is still pretty low and INR noted to be elevated. Patient is also having withdrawal symptoms but this seems to be controlled with the Ativan for now. We will continue with supportive therapy 08/27 Patient appears to be making a slow progress. Her hemoglobin is noted to be on the downward trend again but will hold off transfusing today. INR is noted to be 3 so I will give a dose of vitamin K. Her platelet count is still suppressed. Transaminitis is improved. Her diet will be advanced to full liquid I will continue to advance as tolerated. Octreotide has also been discontinued - Time Time Spent with patient: 25-34 minutes Anticipated Discharge Disposition: Home, Self Care Anticipated Discharge Timeframe: within 72 hours
[2020-08-27 13:54] LABS: PATH REVIEW PATHOLOGIST REVIEWED
[2020-08-27 13:58] LABS: PATH REVIEW PATHOLOGIST REVIEWED
[2020-08-27] MEDS ORDERED: PHYTONADIONE 5 MG TABLET PO ONE (14:00)
[2020-08-27] MEDS: NORMAL SALINE 1000 ML 1,000 ML with THIAMINE HCL 100 MG, MVI, ADULT NO.1 WITH VIT K 10 ML IV SCH ×3 (18:09)
[2020-08-27] MEDS: NORMAL SALINE 1000 ML 1,000 ML IV PRN (18:10)
[2020-08-27] MEDS: CEFTRIAXONE SODIUM 1,000 MG in DEXTROSE 5%-WATER 50 ML IV SCH (22:55)
[2020-08-28] MEDS: LORAZEPAM INJ 2 MG/1 ML VIAL IV SCH ×2 (00:21→12:06)
[2020-08-28 05:39] LABS: HEMATOCRIT 23.6 % (36.0-47.0); HEMOGLOBIN 8.4 g/dL (12.0-15.5); MEAN CORPUSCULAR HEMOGLOBIN 34.9 pg (27.0-33.4); MEAN CORPUSCULAR HGB CONC 35.5 g/dL (32.0-36.0); MEAN CORPUSCULAR VOLUME 98 fl (80-97); RED CELL DISTRIBUTION WIDTH 22.6 % (11.5-14.0)
[2020-08-28 05:55] LABS: INTERNATIONAL RATION (INR) 3.13
[2020-08-28 06:01] LABS: ALBUMIN 2.7 g/dL (3.5-5.0); ALKALINE PHOSPHATASE 70 U/L (38-126); ANION GAP 7 (5-19); ASPARTATE AMINO TRANSFERASE 50 U/L (14-36); BILIRUBIN,DIRECT 3.9 mg/dL (0.0-0.4); BILIRUBIN,TOTAL 14.3 mg/dL (0.2-1.3); CALCIUM 7.5 mg/dL (8.4-10.2); CARBON DIOXIDE 30 mmol/L (22-30); CHLORIDE 99 mmol/L (98-107); GLUCOSE 90 mg/dL (75-110); POTASSIUM 3.2 mmol/L (3.6-5.0); TOTAL PROTEIN 6.7 g/dL (6.3-8.2)
[2020-08-28 06:14] LABS: BLOOD UREA NITROGEN < 2 mg/dL (7-20)
[2020-08-28 06:37] LABS: ABSOLUTE LYMPHOCYTES# (MANUAL) 0.3 10^3/uL (0.5-4.7); ABSOLUTE MONOCYTES # (MANUAL) 0.2 10^3/uL (0.1-1.4); BASOPHILS % (MANUAL) 2 % (0-2); BURR CELLS 2+; EOSINOPHILS % (MANUAL) 1 % (0-6); LYMPHOCYTES % (MANUAL) 11 % (13-45); MONOCYTES % (MANUAL) 6 % (3-13); PLATELET COMMENT DECREASED; SEGMENTED NEUTROPHILS % (MAN) 80 % (42-78); TOTAL CELLS COUNTED 100
[2020-08-28 06:38] LABS: ANISOCYTOSIS 2+; POIKILOCYTOSIS SLIGHT; POLYCHROMASIA SLIGHT
[2020-08-28 07:07] LABS: PLATELET COUNT 32 10^3/uL (150-450)
[2020-08-28] MEDS ORDERED: MAGNESIUM SULFATE 4 GM/D5W 100 ML IV ONE (08:00)
[2020-08-28] MEDS ORDERED: PHYTONADIONE 5 MG TABLET PO ONE (09:30)
[2020-08-28] MEDS: FUROSEMIDE 40 MG TABLET PO SCH (09:51)
[2020-08-28] MEDS: FOLIC ACID 1 MG TABLET PO SCH (09:52)
[2020-08-28] MEDS: SPIRONOLACTONE 25 MG TABLET PO SCH (09:52)
[2020-08-28] MEDS: PANTOPRAZOLE SODIUM 40 MG VIAL IV SCH ×2 (09:52→21:16)
[2020-08-28] MEDS: POTASSI CL 40 MEQ/NS 1L 1,000 ML IV PRN (13:43)
[2020-08-28] MEDS ORDERED: NORMAL SALINE 1000 ML 1,000 ML with POTASSIUM CHLORIDE 40 MEQ IV PRN ×2 (14:00)
--- NOTE | 2020-08-28 15:11 | PDOC PROGRESS REPORT ---
Subjective Date:: 08/28/20 Subjective:: Patient was admitted with nausea vomiting and diarrhea. She was also found to b e moderate.. She was admitted overnight. She does have underlying history of alcoholic cirrhosis. She was apparently having some tremors earlier this morning. She was given a dose of Ativan which seems to have helped. Patient is sedated this morning but arousable. She still having a lot of laurence mors. was concerned about high yellowish eyes however I reassured him that the bilirubin is trending down. 08/27 Patient feels better today. She does feel a little bit stronger. She also a ppears to be less jaundiced. There is no bleeding. 08/28 patient continues to make gradual improvements. She is more awake and alert and less tremulous. She is down to Ativan twice a day and this seems to be holding up pretty well Reason For Visit: ANEMIA DUE TO CHRONIC BLOOD LOSS, NAUSEA AND VOMIT Physical Exam Vital Signs: Temp Pulse Resp BP Pulse Ox 98.6 F 85 16 110/66 96 08/28/20 12:00 08/28/20 12:00 08/28/20 12:00 08/28/20 12:00 08/28/20 12:00 Intake & Output 08/27/20 08/28/20 08/29/20 06:59 06:59 06:59 Intake Total 6046 3120 1011 Output Total 1700 4625 2700 Balance 1059 -7751 -9746 Weight 66.1 kg 66.1 kg 66.1 kg General appearance: PRESENT: no acute distress, well-nourished, other - Puffy face Head exam: PRESENT: atraumatic, normocephalic Eye exam: PRESENT: conjunctiva pink, periorbital swelling, PERRLA, scleral icterus Ear exam: PRESENT: normal external ear exam Mouth exam: PRESENT: tongue midline Neck exam: ABSENT: carotid bruit, JVD, lymphadenopathy, thyromegaly Respiratory exam: PRESENT: clear to auscultation stacie, unlabored. ABSENT: rales, rhonchi, wheezes Cardiovascular exam: PRESENT: RRR, +S1, +S2. ABSENT: diastolic murmur, rubs, systolic murmur Pulses: PRESENT: normal dorsalis pedis pul Vascular exam: PRESENT: normal capillary refill GI/Abdominal exam: PRESENT: normal bowel sounds, soft. ABSENT: ascites, distended, guarding, mass, organolmegaly, rebound, tenderness Rectal exam: PRESENT: deferred Extremities exam: PRESENT: full ROM. ABSENT: calf tenderness, clubbing, pedal edema Musculoskeletal exam: PRESENT: ambulatory Neurological exam: PRESENT: alert, awake, oriented to person, oriented to place, oriented to time, oriented to situation, CN II-XII grossly intact, other - Mild resting tremors. ABSENT: motor sensory deficit Psychiatric exam: PRESENT: appropriate affect, normal mood. ABSENT: homicidal ideation, suicidal ideation Skin exam: PRESENT: dry, intact, warm. ABSENT: cyanosis, rash Results Laboratory Results: 08/28/20 05:13 08/28/20 05:13 08/28/20 08/28/20 05:13 05:13 WBC 3.0 L RBC 2.40 L Hgb 8.4 L Hct 23.6 L MCV 98 H MCH 34.9 H MCHC 35.5 RDW 22.6 H Plt Count 32 L Seg Neutrophils % Not Reportable Sodium 135.5 L Potassium 3.2 L Chloride 99 Carbon Dioxide 30 Anion Gap 7 BUN < 2 L Creatinine 0.44 L Est GFR ( Amer) > 60 Glucose 90 Calcium 7.5 L Magnesium 0.9 L* Total Bilirubin 14.3 H AST 50 H Alkaline Phosphatase 70 Total Protein 6.7 Albumin 2.7 L Impressions: Abdomen/Pelvis CT 08/24/20 18:28 IMPRESSION: 1. Massive dilatation of a recanalized umbilical vein. Increased since 2017 and 2019. There appears to be direct connection between a mildly dilated extrahepatic portal vein and the umbilical vein. Intrahepatic portal veins are small. Rule out primary portal vein abnormality. 2. Mild fatty liver. Enlarged left lobe of the liver. No typical nodular contour of cirrhosis. 3. Very large splenomegaly unchanged. 4. Large gallstones without acute biliary abnormality. 5. No obvious acute bowel abnormality. Stomach contracted. Difficult to exclude gastritis. Chest X-Ray 08/24/20 18:29 IMPRESSION: NO ACUTE RADIOGRAPHIC FINDING IN THE CHEST. Assessment and Plan - Diagnosis (1) Alcohol abuse Is this a current diagnosis for this admission?: Yes (2) Alcoholic cirrhosis of liver with ascites Is this a current diagnosis for this admission?: Yes (3) Chronic anemia Is this a current diagnosis for this admission?: Yes (4) Hyperbilirubinemia Is this a current diagnosis for this admission?: Yes (5) Leukopenia Is this a current diagnosis for this admission?: Yes (6) Nausea and vomiting Is this a current diagnosis for this admission?: Yes (7) Hypomagnesemia Is this a current diagnosis for this admission?: Yes (8) Pancytopenia Is this a current diagnosis for this admission?: Yes - Plan Summary Summary: Chronic anemia with initial hemoglobin of 6.8. This is felt to be due to her underlying cirrhosis. She is currently on octreotide. She was transfused with 2 units of packed red blood cells. Alcoholic cirrhosis of the liver. There is report of ongoing alcohol abuse although patient herself denies. Continue octreotide, IV PPI as well as ceftriaxone. Pancytopenia secondary to alcohol abuse. Counts are actually better today with a white count up to 3.6 from 1.5. We will continue with prophylactic ceftriaxone and neutropenic precaution as indicated. Intractable nausea and vomiting likely secondary to presentation Coagulopathy with INR of 2.3. She was given vitamin K however patient is at high risk for thromboembolism. This has to be balanced against her thrombocytopenia her high VTE risk as well as coagulopathy. INR today is 2.45. Will not give any further vitamin K for now bilirubin is 19.5 which is pretty much higher than it has been in the last few years. We will continue to monitor daily. Hypomagnesemia, nutritional secondary to EtOH abuse. Will replace and recheck This patient's prognosis is very poor 08/26 Patient's condition remains about the same. Liver been is trending down some. Platelet count is still pretty low and INR noted to be elevated. Patient is also having withdrawal symptoms but this seems to be controlled with the Ativan for now. We will continue with supportive therapy 08/27 Patient appears to be making a slow progress. Her hemoglobin is noted to be on the downward trend again but will hold off transfusing today. INR is noted to be 3 so I will give a dose of vitamin K. Her platelet count is still suppressed. Transaminitis is improved. Her diet will be advanced to full liquid I will continue to advance as tolerated. Octreotide has also been discontinued 08/28 gradual improvement. Had labs are also improving slowly with bilirubin down to 14.3. She remains pancytopenic but even this does show some stabilization and hopefully some improvement. Is hypokalemic and hypomagnesemic and this has been replaced. Her diet is to be advanced to a cardiac diet today I will obtain a dietary consult. She also remains coagulopathic so we will give a dose of vitamin K. She has required no further transfusion aside from the initial 2 units that she received on August 24 and . Fully she will continue to improve. I have emphasized the need for abstinence several times this patient and her - Time Time Spent with patient: 15-24 minutes Medications reviewed and adjusted accordingly: Yes Anticipated Discharge Disposition: Home, Self Care Anticipated Discharge Timeframe: within 72 hours
[2020-08-28] MEDS: NORMAL SALINE 1000 ML 1,000 ML with THIAMINE HCL 100 MG, MVI, ADULT NO.1 WITH VIT K 10 ML IV SCH ×3 (18:42)
[2020-08-28] MEDS: CEFTRIAXONE SODIUM 1,000 MG in DEXTROSE 5%-WATER 50 ML IV SCH (21:16)
[2020-08-29] MEDS: POTASSI CL 40 MEQ/NS 1L 1,000 ML IV PRN (03:50)
[2020-08-29 06:20] LABS: INTERNATIONAL RATION (INR) 3.31; PROTHROMBIN TIME 33.4 SEC (11.4-15.4)
[2020-08-29 06:23] LABS: HEMATOCRIT 22.7 % (36.0-47.0); HEMOGLOBIN 8.2 g/dL (12.0-15.5); MEAN CORPUSCULAR HEMOGLOBIN 35.4 pg (27.0-33.4); MEAN CORPUSCULAR VOLUME 99 fl (80-97); RED BLOOD COUNT 2.31 10^6/uL (3.72-5.28); RED CELL DISTRIBUTION WIDTH 23.3 % (11.5-14.0); WHITE BLOOD COUNT 2.1 10^3/uL (4.0-10.5)
[2020-08-29 06:38] LABS: ALBUMIN 2.6 g/dL (3.5-5.0); ALKALINE PHOSPHATASE 77 U/L (38-126); ASPARTATE AMINO TRANSFERASE 53 U/L (14-36); BILIRUBIN,DIRECT 3.9 mg/dL (0.0-0.4); BILIRUBIN,TOTAL 14.1 mg/dL (0.2-1.3); BLOOD UREA NITROGEN 4 mg/dL (7-20); CALCIUM 7.6 mg/dL (8.4-10.2); GLUCOSE 93 mg/dL (75-110); PLATELET COUNT 31 10^3/uL (150-450); POTASSIUM 3.6 mmol/L (3.6-5.0); TOTAL PROTEIN 6.6 g/dL (6.3-8.2)
[2020-08-29 06:43] LABS: CARBON DIOXIDE 30 mmol/L (22-30); CHLORIDE 102 mmol/L (98-107)
[2020-08-29 06:51] LABS: ANION GAP 3 (5-19)
[2020-08-29 06:53] LABS: ABSOLUTE LYMPHOCYTES# (MANUAL) 0.4 10^3/uL (0.5-4.7); ABSOLUTE MONOCYTES # (MANUAL) 0.1 10^3/uL (0.1-1.4); BASOPHILS % (MANUAL) 0 % (0-2); EOSINOPHILS % (MANUAL) 3 % (0-6); LYMPHOCYTES % (MANUAL) 18 % (13-45); MONOCYTES % (MANUAL) 7 % (3-13); SEGMENTED NEUTROPHILS % (MAN) 72 % (42-78); TOTAL CELLS COUNTED 100
[2020-08-29 06:56] LABS: ANISOCYTOSIS 3+; BURR CELLS SLIGHT; POIKILOCYTOSIS 1+; POLYCHROMASIA SLIGHT; TEAR DROP CELLS SLIGHT; TOXIC VACUOLATION PRESENT
[2020-08-29 06:57] LABS: PLATELET COMMENT DECREASED
[2020-08-29] MEDS: FUROSEMIDE 40 MG TABLET PO SCH (10:50)
[2020-08-29] MEDS: SPIRONOLACTONE 25 MG TABLET PO SCH (10:50)
[2020-08-29] MEDS: FOLIC ACID 1 MG TABLET PO SCH (10:51)
[2020-08-29] MEDS: MAGNESIUM SULFATE/D5W 1 GM/100 ML RTUPB IV SCH ×3 (10:51→13:55)
[2020-08-29] MEDS: PANTOPRAZOLE SODIUM 40 MG VIAL IV SCH ×2 (10:52→22:19)
[2020-08-29 13:28] LABS: APPEARANCE,URINE CLEAR; BILIRUBIN,URINE NEGATIVE (NEGATIVE); COLOR,URINE YELLOW; GLUCOSE, URINE NEGATIVE (NEGATIVE); KETONES,URINE NEGATIVE (NEGATIVE); PROTEIN,URINE NEGATIVE (NEGATIVE); URINE SPECIFIC GRAVITY 1.004
--- NOTE | 2020-08-29 16:40 | PDOC PROGRESS REPORT ---
Subjective Date:: 08/29/20 Subjective:: Patient was admitted with nausea vomiting and diarrhea. She was also found to b e moderate.. She was admitted overnight. She does have underlying history of alcoholic cirrhosis. She was apparently having some tremors earlier this morning. She was given a dose of Ativan which seems to have helped. Patient is sedated this morning but arousable. She still having a lot of laurence mors. was concerned about high yellowish eyes however I reassured him that the bilirubin is trending down. 08/27 Patient feels better today. She does feel a little bit stronger. She also a ppears to be less jaundiced. There is no bleeding. 08/28 patient continues to make gradual improvements. She is more awake and alert and less tremulous. She is down to Ativan twice a day and this seems to be holding up pretty well 08/29Patient continues to make slow incremental progress. She does look clinically better. Her labs slowly recovering. She still pancytopenic but there appears to be some stabilization to mild recovery. Platelet count is still 31,000 and her white count did go down today again to 2000 with hemoglobin at 8.2. INR continues to be elevated although she has received vitamin K orally 2 days successively. Reason For Visit: ANEMIA DUE TO CHRONIC BLOOD LOSS, NAUSEA AND VOMIT Physical Exam Vital Signs: Temp Pulse Resp BP Pulse Ox 98.3 F 98 18 101/52 L 93 08/29/20 10:57 08/29/20 14:00 08/29/20 10:57 08/29/20 10:57 08/29/20 10:57 Intake & Output 08/28/20 08/29/20 08/30/20 06:59 06:59 06:59 Intake Total 3120 3961 1990 Output Total 4601 3900 800 Balance -1502 -285 1191 Weight 66.1 kg 65.1 kg General appearance: PRESENT: no acute distress, other - Jaundiced Head exam: PRESENT: atraumatic, normocephalic Eye exam: PRESENT: EOMI, PERRLA, scleral icterus Ear exam: PRESENT: normal external ear exam Mouth exam: PRESENT: moist, tongue midline Neck exam: ABSENT: carotid bruit, JVD, lymphadenopathy, thyromegaly Respiratory exam: PRESENT: clear to auscultation stacie, unlabored. ABSENT: rales, rhonchi, wheezes Cardiovascular exam: PRESENT: RRR, +S1, +S2. ABSENT: diastolic murmur, rubs, systolic murmur Pulses: PRESENT: normal dorsalis pedis pul Vascular exam: PRESENT: normal capillary refill GI/Abdominal exam: PRESENT: normal bowel sounds, soft. ABSENT: distended, guarding, mass, organolmegaly, rebound, tenderness Rectal exam: PRESENT: deferred Gentrourinary exam: PRESENT: indwelling catheter Extremities exam: PRESENT: full ROM. ABSENT: calf tenderness, clubbing, pedal edema Neurological exam: PRESENT: alert, awake, oriented to person, oriented to place, oriented to time, oriented to situation, CN II-XII grossly intact. ABSENT: motor sensory deficit Psychiatric exam: PRESENT: appropriate affect, normal mood. ABSENT: homicidal ideation, suicidal ideation Skin exam: PRESENT: dry, intact, jaundice, warm. ABSENT: cyanosis, rash Results Laboratory Results: 08/29/20 05:40 08/29/20 05:40 08/29/20 08/29/20 08/29/20 05:40 05:40 12:50 WBC 2.1 L RBC 2.31 L Hgb 8.2 L Hct 22.7 L MCV 99 H MCH 35.4 H MCHC 36.0 RDW 23.3 H Plt Count 31 L Seg Neutrophils % Not Reportable Sodium 134.5 L Potassium 3.6 Chloride 102 Carbon Dioxide 30 Anion Gap 3 L BUN 4 L Creatinine 0.47 L Est GFR ( Amer) > 60 Glucose 93 Calcium 7.6 L Magnesium 1.4 L Total Bilirubin 14.1 H AST 53 H Alkaline Phosphatase 77 Total Protein 6.6 Albumin 2.6 L Urine Color YELLOW Urine Appearance CLEAR Urine pH 8.0 Ur Specific [place] 1.004 Urine Protein NEGATIVE Urine Glucose (UA) NEGATIVE Urine Ketones NEGATIVE Urine Blood SMALL H Urine RBC (Auto) 2 Impressions: Abdomen/Pelvis CT 08/24/20 18:28 IMPRESSION: 1. Massive dilatation of a recanalized umbilical vein. Increased since 2016 and 2018. There appears to be direct connection between a mildly dilated extrahepatic portal vein and the umbilical vein. Intrahepatic portal veins are small. Rule out primary portal vein abnormality. 2. Mild fatty liver. Enlarged left lobe of the liver. No typical nodular contour of cirrhosis. 3. Very large splenomegaly unchanged. 4. Large gallstones without acute biliary abnormality. 5. No obvious acute bowel abnormality. Stomach contracted. Difficult to exclude gastritis. Chest X-Ray 08/24/20 18:29 IMPRESSION: NO ACUTE RADIOGRAPHIC FINDING IN THE CHEST. Assessment and Plan - Diagnosis (1) Alcohol abuse Is this a current diagnosis for this admission?: Yes (2) Alcoholic cirrhosis of liver with ascites Is this a current diagnosis for this admission?: Yes (3) Chronic anemia Is this a current diagnosis for this admission?: Yes (4) Hyperbilirubinemia Is this a current diagnosis for this admission?: Yes (5) Leukopenia Is this a current diagnosis for this admission?: Yes (6) Nausea and vomiting Is this a current diagnosis for this admission?: Yes (7) Hypomagnesemia Is this a current diagnosis for this admission?: Yes (8) Pancytopenia Is this a current diagnosis for this admission?: Yes - Plan Summary Summary: Ativan Chronic anemia with initial hemoglobin of 6.8. This is felt to be due to her underlying cirrhosis. She is currently on octreotide. She was transfused with 2 units of packed red blood cells. Alcoholic cirrhosis of the liver. There is report of ongoing alcohol abuse although patient herself denies. Continue octreotide, IV PPI as well as ceftriaxone. Pancytopenia secondary to alcohol abuse. Counts are actually better today with a white count up to 3.6 from 1.5. We will continue with prophylactic ceftriaxone and neutropenic precaution as indicated. Intractable nausea and vomiting likely secondary to presentation Coagulopathy with INR of 2.3. She was given vitamin K however patient is at high risk for thromboembolism. This has to be balanced against her thrombocy topenia her high VTE risk as well as coagulopathy. INR today is 2.45. Will not give any further vitamin K for now bilirubin is 19.5 which is pretty much higher than it has been in the last few years. We will continue to monitor daily. Hypomagnesemia, nutritional secondary to EtOH abuse. Will replace and recheck This patient's prognosis is very poor 08/26 Patient's condition remains about the same. Liver been is trending down some. Platelet count is still pretty low and INR noted to be elevated. Patient is also having withdrawal symptoms but this seems to be controlled with the Ativan for now. We will continue with supportive therapy 08/27 Patient appears to be making a slow progress. Her hemoglobin is noted to be on the downward trend again but will hold off transfusing today. INR is noted to be 3 so I will give a dose of vitamin K. Her platelet count is still suppressed. Transaminitis is improved. Her diet will be advanced to full liquid I will continue to advance as tolerated. Octreotide has also been discontinued 08/28 gradual improvement. Had labs are also improving slowly with bilirubin down to 14.3. She remains pancytopenic but even this does show some stabiliza tion and hopefully some improvement. Is hypokalemic and hypomagnesemic and this has been replaced. Her diet is to be advanced to a cardiac diet today I will obtain a dietary consult. She also remains coagulopathic so we will give a dose of vitamin K. She has required no further transfusion aside from the initial 2 units that she received on August 24 and . Fully she will continue to improv e. I have emphasized the need for abstinence several times this patient and her 08/29 we will need to continue to monitor and hopefully have platelet count and white blood cell will continue to recover. She is definitely clinically improved. There is no evidence of any infection although she continues on ceftriaxone. She also continues on Protonix after having received octreotide for about 3 days. Her bilirubin is slowly declining. There is no evidence of encephalopathy. At this point we will continue with supportive care and continue to monitor her labs. Transfuse as needed although she has needed no further blood transfusion since initial 2 units that were transfused on adm ission. She has not needed any platelet transfusion. She is also still receiving however we have been tapering this dose and her tremors are almost all controlled. She has been ambulatory. - Time Time Spent with patient: 15-24 minutes Medications reviewed and adjusted accordingly: Yes Anticipated Discharge Disposition: Home, Self Care Anticipated Discharge Timeframe: within 72 hours
[2020-08-29] MEDS ORDERED: PHYTONADIONE 5 MG TABLET PO ONE (17:00)
[2020-08-29] MEDS ORDERED: MAGNESIUM SULFATE 4 GM/100 ML RTUPB IV ONE (17:00)
[2020-08-29] MEDS: NORMAL SALINE 1000 ML 1,000 ML with THIAMINE HCL 100 MG, MVI, ADULT NO.1 WITH VIT K 10 ML IV SCH ×3 (17:06)
[2020-08-29] MEDS: CEFTRIAXONE SODIUM 1,000 MG in DEXTROSE 5%-WATER 50 ML IV SCH (22:19)
[2020-08-30 05:03] LABS: ALBUMIN 2.7 g/dL (3.5-5.0); ALKALINE PHOSPHATASE 121 U/L (38-126); ASPARTATE AMINO TRANSFERASE 46 U/L (14-36); BILIRUBIN,DIRECT 4.3 mg/dL (0.0-0.4); BILIRUBIN,TOTAL 13.4 mg/dL (0.2-1.3); BLOOD UREA NITROGEN 4 mg/dL (7-20); CALCIUM 7.8 mg/dL (8.4-10.2); CHLORIDE 103 mmol/L (98-107); GLUCOSE 107 mg/dL (75-110); TOTAL PROTEIN 6.6 g/dL (6.3-8.2)
[2020-08-30 05:08] LABS: ANION GAP 3 (5-19); CARBON DIOXIDE 28 mmol/L (22-30)
[2020-08-30 05:26] LABS: MEAN CORPUSCULAR HGB CONC 35.5 g/dL (32.0-36.0); MEAN CORPUSCULAR VOLUME 99 fl (80-97); RED BLOOD COUNT 2.24 10^6/uL (3.72-5.28); RED CELL DISTRIBUTION WIDTH 22.4 % (11.5-14.0)
[2020-08-30 05:58] LABS: ABSOLUTE LYMPHOCYTES# (MANUAL) 0.3 10^3/uL (0.5-4.7); ABSOLUTE MONOCYTES # (MANUAL) 0.1 10^3/uL (0.1-1.4); BASOPHILS % (MANUAL) 0 % (0-2); EOSINOPHILS % (MANUAL) 4 % (0-6); LYMPHOCYTES % (MANUAL) 16 % (13-45); MONOCYTES % (MANUAL) 4 % (3-13); SEGMENTED NEUTROPHILS % (MAN) 76 % (42-78); TOTAL CELLS COUNTED 50
[2020-08-30 06:00] LABS: ANISOCYTOSIS 3+; BURR CELLS 1+; OVALOCYTES SLIGHT; POIKILOCYTOSIS 1+; POLYCHROMASIA SLIGHT
[2020-08-30 06:01] LABS: PLATELET COMMENT DECREASED; SCHISTOCYTES SLIGHT; TEAR DROP CELLS SLIGHT
[2020-08-30 06:07] LABS: PLATELET COUNT 32 10^3/uL (150-450)
[2020-08-30 06:33] LABS: WHITE BLOOD COUNT 1.9 10^3/uL (4.0-10.5)
[2020-08-30 06:34] LABS: HEMOGLOBIN 7.8 g/dL (12.0-15.5)
[2020-08-30] MEDS: POTASSI CL 40 MEQ/NS 1L 1,000 ML IV PRN ×2 (09:06→22:48)
[2020-08-30] MEDS: FOLIC ACID 1 MG TABLET PO SCH (09:06)
[2020-08-30] MEDS: FUROSEMIDE 40 MG TABLET PO SCH (09:06)
[2020-08-30] MEDS: SPIRONOLACTONE 25 MG TABLET PO SCH (09:06)
[2020-08-30] MEDS: PANTOPRAZOLE SODIUM 40 MG VIAL IV SCH (09:06)
[2020-08-30] MEDS: THIAMINE HCL 100 MG TABLET PO SCH (10:00)
[2020-08-30 13:08] LABS: PATH REVIEW PATHOLOGIST REVIEWED
--- NOTE | 2020-08-30 16:45 | PDOC PROGRESS REPORT ---
Subjective Date:: 08/30/20 Subjective:: Patient is seen on morning rounds. She is resting in bed comfortably. She awakes easily when I enter the room. Neuro exam patient remains lying flat with her eyes closed though she does answer all of my questions appropriately. Patient does note some urinary discomfort since placement of Ross catheter though states catheter has provide ease given increased urinary frequency. She did walk the hallway with her boyfriend yesterday. And was able to get up and out of bed and shower yesterday. Encouraged her on frequent ambulation and millimeters out of bed at least 3 times daily preferably with meals. I did order a physical therapy consult given patient's length of stay and notable mobility past several days. Patient denied physical therapy while inpatient. Otherwise provides me with no complaints today. Only concern is requesting when she will be able to go home. Discussed her current clinical appearance and need for continued hospital admission evaluation and treatment. She is understanding of this. Nursing provide me with no concerns or complaints at this time. Reason For Visit: ANEMIA DUE TO CHRONIC BLOOD LOSS, NAUSEA AND VOMIT Physical Exam Vital Signs: Temp Pulse Resp BP Pulse Ox 98.1 F 93 16 120/73 95 08/30/20 11:53 08/30/20 14:00 08/30/20 11:53 08/30/20 11:53 08/30/20 11:53 Intake & Output 08/29/20 08/30/20 08/31/20 06:59 06:59 06:59 Intake Total 3961 5566 Output Total 4500 3175 Balance -539 2391 Weight 65.1 kg 65.2 kg Additional comments: General appearance: PRESENT: no acute distress, other - Jaundiced Eye exam: PRESENT: EOMI, PERRLA, scleral icterus Mouth exam: PRESENT: moist, tongue midline Neck exam: full range of motion ABSENT: carotid bruit, JVD, lymphadenopathy, thyromegaly Respiratory exam: PRESENT: clear to auscultation stacie, unlabored. Cardiovascular exam: PRESENT: RRR, +S1, +S2. ABSENT: diastolic murmur, rubs, systolic murmur GI/Abdominal exam: PRESENT: normal bowel sounds, soft. ABSENT: distended, guarding, mass, organolmegaly, rebound, tenderness Gentrourinary exam: PRESENT: indwelling catheter Extremities exam: PRESENT: full ROM. ABSENT: calf tenderness, clubbing, pedal edema Neurological exam: PRESENT: alert, awake, oriented to person, oriented to place, oriented to time, oriented to situation, CN II-XII grossly intact. ABSENT: motor sensory deficit Psychiatric exam: PRESENT: appropriate affect, normal mood. Skin exam: PRESENT: dry, intact, jaundice, warm. ABSENT: cyanosis, rash Results Laboratory Results: 08/30/20 04:21 08/30/20 04:21 08/30/20 08/30/20 04:21 04:21 WBC 1.9 L RBC 2.24 L Hgb 7.8 L Hct 22.0 L MCV 99 H MCH 35.0 H MCHC 35.5 RDW 22.4 H Plt Count 32 L Seg Neutrophils % Not Reportable Sodium 133.5 L Potassium 4.0 Chloride 103 Carbon Dioxide 28 Anion Gap 3 L BUN 4 L Creatinine 0.57 Est GFR ( Amer) > 60 Glucose 107 Calcium 7.8 L Magnesium 1.8 Total Bilirubin 13.4 H AST 46 H Alkaline Phosphatase 121 Total Protein 6.6 Albumin 2.7 L Impressions: Abdomen/Pelvis CT 08/24/20 18:28 IMPRESSION: 1. Massive dilatation of a recanalized umbilical vein. Increased since 2017 and 2019. There appears to be direct connection between a mildly dilated extrahepatic portal vein and the umbilical vein. Intrahepatic portal veins are small. Rule out primary portal vein abnormality. 2. Mild fatty liver. Enlarged left lobe of the liver. No typical nodular contour of cirrhosis. 3. Very large splenomegaly unchanged. 4. Large gallstones without acute biliary abnormality. 5. No obvious acute bowel abnormality. Stomach contracted. Difficult to exclude gastritis. Chest X-Ray 08/24/20 18:29 IMPRESSION: NO ACUTE RADIOGRAPHIC FINDING IN THE CHEST. Assessment and Plan - Diagnosis (1) Alcohol abuse Is this a current diagnosis for this admission?: Yes (2) Alcoholic cirrhosis of liver with ascites Is this a current diagnosis for this admission?: Yes (3) Chronic anemia Is this a current diagnosis for this admission?: Yes (4) Hyperbilirubinemia Is this a current diagnosis for this admission?: Yes (5) Leukopenia Is this a current diagnosis for this admission?: Yes (6) Nausea and vomiting Is this a current diagnosis for this admission?: Yes (7) Hypomagnesemia Is this a current diagnosis for this admission?: Yes (8) Pancytopenia Is this a current diagnosis for this admission?: Yes - Plan Summary Summary: Ativan Chronic anemia with initial hemoglobin of 6.8. This is felt to be due to her underlying cirrhosis. She is currently on octreotide. She was transfused with 2 units of packed red blood cells. Alcoholic cirrhosis of the liver. There is report of ongoing alcohol abuse although patient herself denies. Continue octreotide, IV PPI as well as ceftriaxone. Pancytopenia secondary to alcohol abuse. Counts are actually better today with a white count up to 3.6 from 1.5. We will continue with prophylactic ceftriaxone and neutropenic precaution as indicated. Intractable nausea and vomiting likely secondary to presentation Coagulopathy with INR of 2.3. She was given vitamin K however patient is at high risk for thromboembolism. This has to be balanced against her thrombo cytopenia her high VTE risk as well as coagulopathy. INR today is 2.45. Will not give any further vitamin K for now bilirubin is 19.5 which is pretty much higher than it has been in the last few years. We will continue to monitor daily. Hypomagnesemia, nutritional secondary to EtOH abuse. Will replace and recheck This patient's prognosis is very poor 08/26 Patient's condition remains about the same. Liver been is trending down some. Platelet count is still pretty low and INR noted to be elevated. Patient is also having withdrawal symptoms but this seems to be controlled with the Ativan for now. We will continue with supportive therapy 08/27 Patient appears to be making a slow progress. Her hemoglobin is noted to be on the downward trend again but will hold off transfusing today. INR is noted to be 3 so I will give a dose of vitamin K. Her platelet count is still suppressed. Transaminitis is improved. Her diet will be advanced to full liquid I will continue to advance as tolerated. Octreotide has also been discontinued 08/28 gradual improvement. Had labs are also improving slowly with bilirubin down to 14.3. She remains pancytopenic but even this does show some stabili zation and hopefully some improvement. Is hypokalemic and hypomagnesemic and this has been replaced. Her diet is to be advanced to a cardiac diet today I will obtain a dietary consult. She also remains coagulopathic so we will give a dose of vitamin K. She has required no further transfusion aside from the initial 2 units that she received on August 24 and . Fully she will continue to improve. I have emphasized the need for abstinence several times this patient and her 08/29 we will need to continue to monitor and hopefully have platelet count and white blood cell will continue to recover. She is definitely clinically improved. There is no evidence of any infection although she continues on ceftriaxone. She also continues on Protonix after having received octreotide for about 3 days. Her bilirubin is slowly declining. There is no evidence of encephalopathy. At this point we will continue with supportive care and continue to monitor her labs. Transfuse as needed although she has needed no further blood transfusion since initial 2 units that were transfused on a dmission. She has not needed any platelet transfusion. She is also still receiving however we have been tapering this dose and her tremors are almost all controlled. She has been ambulatory. 08/30: Alcohol abuse/alcoholic cirrhosis of liver with ascites: without withdrawal symptoms. No longer requiring Ativan. Transaminitis have improved. She is tolerating it p.o. intake without nausea vomiting or abdominal discomfort. No evidence of encephalopathy. - Cnt spironolactone and lasix. - Cnt folic acid and thiamine - Continue Protonix, historically treated with octreotide. Hyperbilirubinemia: Bilirubin 13 today, continues to trend downward progressively. Pancytopenia / Leukopenia / Chronic anemia: Plt have minimally increase. WBC, RBC, Hgb stable. Has not required blood transfusion since admission. No interv ention needed at this time, though will cnt to monitor levels closely on morning labs. My hope is that she is stabilizing and potentially recovering. - Has not received platelet transfusion to date. - Secondary to chronic alcohol use/cirrhosis - Continue ceftriaxone for neutropenic precaution, though without signs of any infection at this time. Elevated INR: For yesterday's lab remains elevated, 3. Monitor repeat labs in the morning. Has previously received 2 total doses of vitamin K. Patient is at risk of thromboembolism and thus will be cautious with treatment. If hemoglobin continues to trend downward and INR continues to increase, will treat with vitamin K. Currently without signs of bleeding. PLAN: Continue to encourage frequent ambulation. I did order physical therapy to work with the patient, denied physical therapy while in the acute inpatient setting. Continue to monitor labs closely. - Time Time Spent with patient: 35 or more minutes Medications reviewed and adjusted accordingly: Yes Anticipated Discharge Disposition: Home, Self Care Anticipated Discharge Timeframe: tbd
[2020-08-30] MEDS: PANTOPRAZOLE SODIUM 40 MG TABLET.DR PO SCH (18:09)
[2020-08-30] MEDS: CEFTRIAXONE SODIUM 1,000 MG in DEXTROSE 5%-WATER 50 ML IV SCH (22:01)
[2020-08-31 06:14] LABS: HEMATOCRIT 23.6 % (36.0-47.0); HEMOGLOBIN 8.3 g/dL (12.0-15.5); INTERNATIONAL RATION (INR) 2.89; MEAN CORPUSCULAR HEMOGLOBIN 34.9 pg (27.0-33.4); MEAN CORPUSCULAR HGB CONC 35.2 g/dL (32.0-36.0); MEAN CORPUSCULAR VOLUME 99 fl (80-97); PROTHROMBIN TIME 30.1 SEC (11.4-15.4); RED BLOOD COUNT 2.38 10^6/uL (3.72-5.28); RED CELL DISTRIBUTION WIDTH 21.4 % (11.5-14.0); WHITE BLOOD COUNT 1.9 10^3/uL (4.0-10.5)
[2020-08-31 06:26] LABS: PLATELET COUNT 32 10^3/uL (150-450)
[2020-08-31 06:45] LABS: ABSOLUTE LYMPHOCYTES# (MANUAL) 0.6 10^3/uL (0.5-4.7); ABSOLUTE MONOCYTES # (MANUAL) 0.3 10^3/uL (0.1-1.4); BASOPHILS % (MANUAL) 0 % (0-2); EOSINOPHILS % (MANUAL) 0 % (0-6); LYMPHOCYTES % (MANUAL) 30 % (13-45); MONOCYTES % (MANUAL) 14 % (3-13); SEGMENTED NEUTROPHILS % (MAN) 56 % (42-78); TOTAL CELLS COUNTED 50
[2020-08-31 06:50] LABS: ANISOCYTOSIS 3+; BURR CELLS 1+; PLATELET COMMENT DECREASED; POIKILOCYTOSIS 1+; TARGET CELLS SLIGHT
[2020-08-31] MEDS: PANTOPRAZOLE SODIUM 40 MG TABLET.DR PO SCH ×2 (06:50→17:57)
[2020-08-31 06:54] LABS: ALBUMIN 2.7 g/dL (3.5-5.0); ALKALINE PHOSPHATASE 160 U/L (38-126); ASPARTATE AMINO TRANSFERASE 47 U/L (14-36); BILIRUBIN,DIRECT 3.9 mg/dL (0.0-0.4); BILIRUBIN,TOTAL 11.4 mg/dL (0.2-1.3); BLOOD UREA NITROGEN 7 mg/dL (7-20); CALCIUM 8.2 mg/dL (8.4-10.2); GLUCOSE 103 mg/dL (75-110); POTASSIUM 4.4 mmol/L (3.6-5.0); TOTAL PROTEIN 6.7 g/dL (6.3-8.2)
[2020-08-31 07:06] LABS: CARBON DIOXIDE 28 mmol/L (22-30); CHLORIDE 103 mmol/L (98-107)
[2020-08-31 07:08] LABS: ANION GAP 4 (5-19)
[2020-08-31] MEDS ORDERED: INFLUENZA QUAD (6MOS+) 2020-21 VAC 0.5 ML SYR IM ONE (08:00)
[2020-08-31] MEDS: FUROSEMIDE 40 MG TABLET PO SCH (09:26)
[2020-08-31] MEDS: THIAMINE HCL 100 MG TABLET PO SCH (09:26)
[2020-08-31] MEDS: SPIRONOLACTONE 25 MG TABLET PO SCH (09:26)
[2020-08-31] MEDS: FOLIC ACID 1 MG TABLET PO SCH (09:26)
[2020-08-31] MEDS: ONDANSETRON HCL INJ/PF 4 MG/2 ML SDV IV PRN ×2 (09:26→16:02)
[2020-08-31] MEDS: POTASSI CL 40 MEQ/NS 1L 1,000 ML IV PRN (13:09)
--- NOTE | 2020-08-31 14:19 | PSYCHOLOGICAL NOTE ---
Psych Note - Psych Note Date seen by psych provider: 08/31/20 Time seen by psych provider: 13:47 Psych Note: Reason for Consult: depression [id number] Consent Permissions: natanael Frye, at bedside Patient is a 35 year old female who presented to the [facility] on 08.24.2020 for medical concerns, however behavioral health was consulted for reported depression. Patient denies suicidal and homicidal ideation, plan, and intent. She reports ongoing depression that has worsened since coming to the hospital. She states she used to go to therapy and be prescribed Wellbutrin and Effexor with [place], however has not been involved in outpatient services in a long time. She denies history of suicide attempts and inpatient hospitalizations. Patient reports living alone, with her mother next door. She states she has kids she sees occasionally, but they primarily live with their father. Patient denies working at this time and is trying to get disability. She denies substance use. Patient continues to deny suicidal ideation, plan, and intent. Collateral: Udaynatanael at bedside. He denies safety concerns for patient. He states she is depressed since she has been in the hospital for 7 days. Boyfriend reports patient has never attempted suicide and he feels depression is related to medical situation. He states he lives down the road from patient. He reports her 3 kids live with their father and their father is a douche bag. He reports patient cannot work due to medical issues. He states patient is hopefully discharging in the morning. Patient was alert and oriented to self, person, place, time and situation. Mood was lethargic with congruent affect. She denies current suicidal and homicidal ideation, plan, and intent. Patient did not appear to be responding to internal stimuli as evidenced by fair eye contact and answering questions appropriately when addressed. Thought processes are linear and organized. Conversational speech was within normal limits for rate, tone and prosody. Intellectual abilities are estimated to be average. Insight, judgment, and impulse control were fair as evidenced by coming to the hospital for assistance with medical needs and reaching out for help with depression. Patient engages appropriately. She demonstrates future forward goal oriented thinking as she reports hopefully discharging tomorrow. Clinical Presentation: depression IVC Criteria per [place] GS 122C Dangerous to others Within the relevant past the individual No has inflicted or attempted to inflict or threatened to inflict serious bodily harm on another AND No that there is a reasonable probability that this conduct will be repeated. OR No has acted in such a way as to create a substantial risk of serious bodily harm to another AND No that there is a reasonable probability that this conduct will be repeated. OR No has engaged in extreme destruction of property AND NO that there is a reasonable probability that this conduct will be repeated. Previous episodes of dangerousness to others, when applicable, may be considered when determining reasonable probability of future dangerous conduct. Clear, cogent, and convincing evidence that an individual has committed a homicide in the relevant past is prima facie evidence of dangerousness to others. Dangerous to self Within the relevant past the individual has done any of the following: acted in such a way as to show ALL of the following: No The individual would be unable without care, supervision, and the continued assistance of others not otherwise available, to exercise self- control, judgment, and discretion in the conduct of the individual's daily responsibilities and social relations or to satisfy the individual's need for nourishment, personal or medical care, longterm, or self-protection and safety. AND No There is a reasonable probability of the individual suffering serious physical debilitation within the near future unless adequate treatment is given. A showing of behavior that is grossly irrational, of actions that the individual is unable to control, of behavior that is grossly inappropriate to the situation, or of other evidence of severely impaired insight and judgment shall create a prima facie inference that the individual is unable to care for himself or herself. OR No has attempted suicide or threatened suicide AND No that there is a reasonable probability of suicide unless adequate treatment is given OR No has mutilated himself or herself or attempted to mutilate himself or herself AND No that there is a reasonable probability of serious self-mutilation unless adequate treatment is given. NOTE: Previous episodes of dangerousness to self, when applicable, may be considered when determining reasonable probability of physical debilitation, suicide, or self-mutilation. Impression\plan: Patient is cleared from psychiatric services. Patient was admitted to the hospital for medical concerns and behavioral health was consulted for concerns of depression. Patient does not meet criteria for IVC. She states she has a history of depression, but has not been involved in outpatient services in years. She reports feeling down related to ongoing medical issues. Patient denies suicidal ideation, plan, and intent. She demonstrates future forward goal oriented thinking as she mentions possibly discharging tomorrow morning. Patient has no reported history of suicide attempts and inpatient hospitalizations. She is not current involved in psychiatric services. Patient was given community resource sheet for outpatient providers, mobile crisis, and [facility]. She was informed that if while still at the ED she wanted additional resources or to talk to behavioral health again, to inform her medical team and she would be re-evaluated. Patient states she is attempting to get disability and it is recommended that discharge planning assist with housing/ financial questions and concerns. The use of mobile crisis was explained to patient and boyfriend (in which boyfriend has experience with them in the past) and numbers were starred on the resource sheet. Resource sheet was explained to boyfriend and patient as well as it breaks down services provided and insurances accepted at multiple facilities in the community. Patient was informed if she experiences worsening symptoms to inform medical team and behavioral health can be re-consulted. She was also informed if worsening of symptoms take place after patient is discharged from hospital, she is recommended to follow up with mobile crisis or return to the ED. Dr. Gross was consulted to care management of this patient; attending physicians in agreement with recommendations and disposition.
[2020-08-31] MEDS ORDERED: ONDANSETRON HCL 8 MG TABLET PO PRN (15:11)
--- NOTE | 2020-08-31 15:32 | PDOC PROGRESS REPORT ---
Subjective Date:: 08/31/20 Subjective:: Patient seen initially on morning rounds. She is lying in bed resting. She does note some nausea last night but denies vomiting. Patient reports history of depression, previously treated with Effexor and BuSpar though states these medications were used judiciously given her history of liver failure. Has not taken these medications for many years. Tells me that she had a difficult year, received recent negative medical news from her [facility], as lost 5 loved ones in the past year, and has been significantly more sick recently. Adds that being in the hospital does not help. She relates her intermittent nausea and decreased appetite today to her feelings of sadness. Zofran helps. Denies homicidal or suicidal ideations. When I saw her on afternoon rounds she had eaten without difficulty. Urinary catheter was causing her discomfort and has been removed. Complains of discomfort in her IV lines, she is stable and no longer requiring IV medications these can be removed at this time. She has been able to get up and walk around complete ADLs including showering herself. Patient was seen by psych, no indication for IVC did not make medication recommendations. Patient states that overall he feels significantly better than when she presented. Discussed with nursing no concerns at this time. Reason For Visit: ANEMIA DUE TO CHRONIC BLOOD LOSS, NAUSEA AND VOMIT Physical Exam Vital Signs: Temp Pulse Resp BP Pulse Ox 97.6 F 92 17 116/71 95 08/31/20 11:24 08/31/20 14:00 08/31/20 07:52 08/31/20 07:52 08/31/20 07:52 Intake & Output 08/30/20 08/31/20 09/01/20 06:59 06:59 06:59 Intake Total 5540 2432 1000 Output Total 3170 4250 Balance 5481 -2975 1000 Weight 65.2 kg 64.6 kg 64.6 kg Additional comments: General appearance: PRESENT: no acute distress, becomes teary on exam, is notably jaundiced Eye exam: PRESENT: EOMI, PERRLA, scleral icterus Mouth exam: PRESENT: moist, tongue midline Neck exam: full range of motion ABSENT: carotid bruit, JVD, lymphadenopathy, thyromegaly Respiratory exam: PRESENT: clear to auscultation stacie, unlabored. Cardiovascular exam: PRESENT: RRR, +S1, +S2. ABSENT: diastolic murmur, rubs, systolic murmur GI/Abdominal exam: PRESENT: normal bowel sounds, soft. ABSENT: Ascites, distended, guarding, mass, organolmegaly, rebound, tenderness Extremities exam: PRESENT: full ROM. ABSENT: calf tenderness, clubbing, pedal edema Neurological exam: PRESENT: alert, awake, oriented to person, oriented to place, oriented to time, oriented to situation, CN II-XII grossly intact. ABSENT: motor sensory deficit Psychiatric exam: PRESENT: Depressed mood, teary on exam flat affect Skin exam: PRESENT: dry, intact, jaundice, warm. ABSENT: cyanosis, rash Results Laboratory Results: 08/31/20 05:41 08/31/20 05:41 08/31/20 08/31/20 05:41 05:41 WBC 1.9 L RBC 2.38 L Hgb 8.3 L Hct 23.6 L MCV 99 H MCH 34.9 H MCHC 35.2 RDW 21.4 H Plt Count 32 L Seg Neutrophils % Not Reportable Sodium 135.3 L Potassium 4.4 Chloride 103 Carbon Dioxide 28 Anion Gap 4 L BUN 7 Creatinine 0.48 L Est GFR ( Amer) > 60 Glucose 103 Calcium 8.2 L Magnesium 1.4 L Total Bilirubin 11.4 H AST 47 H Alkaline Phosphatase 160 H Total Protein 6.7 Albumin 2.7 L Impressions: Abdomen/Pelvis CT 08/24/20 18:28 IMPRESSION: 1. Massive dilatation of a recanalized umbilical vein. Increased since 2017 and 2019. There appears to be direct connection between a mildly dilated extrahepatic portal vein and the umbilical vein. Intrahepatic portal veins are small. Rule out primary portal vein abnormality. 2. Mild fatty liver. Enlarged left lobe of the liver. No typical nodular contour of cirrhosis. 3. Very large splenomegaly unchanged. 4. Large gallstones without acute biliary abnormality. 5. No obvious acute bowel abnormality. Stomach contracted. Difficult to exclude gastritis. Chest X-Ray 08/24/20 18:29 IMPRESSION: NO ACUTE RADIOGRAPHIC FINDING IN THE CHEST. Assessment and Plan - Diagnosis (1) Alcohol abuse Is this a current diagnosis for this admission?: Yes (2) Alcoholic cirrhosis of liver with ascites Is this a current diagnosis for this admission?: Yes (3) Chronic anemia Is this a current diagnosis for this admission?: Yes (4) Hyperbilirubinemia Is this a current diagnosis for this admission?: Yes (5) Leukopenia Is this a current diagnosis for this admission?: Yes (6) Nausea and vomiting Is this a current diagnosis for this admission?: Yes (7) Hypomagnesemia Is this a current diagnosis for this admission?: Yes (8) Pancytopenia Is this a current diagnosis for this admission?: Yes - Plan Summary Summary: Alcohol abuse/alcoholic cirrhosis of liver with ascites: without withdrawal symptoms. No longer requiring Ativan. Transaminitis have improved. She is tolerating it p.o. intake with intermittent nausea, without vomiting or abdominal discomfort. No evidence of encephalopathy at this time. Had an extensive conversation regarding importance of alcohol cessation. Patient expresses understanding and agreement. - Cnt spironolactone and lasix. - Cnt folic acid and thiamine - Continue Protonix. Hyperbilirubinemia: Bilirubin 11 today, continues to trend downward progressively. Pancytopenia / Leukopenia / Chronic anemia: Plt, WBC, RBC, Hgb stable. Has not required blood transfusion since admission. No intervention needed at this time, though will cnt to monitor levels closely on morning labs. My hope is that she is stabilizing and potentially recovering. - Has not received platelet transfusion to date. - Secondary to chronic alcohol use/cirrhosis - Continue ceftriaxone for neutropenic precaution, though without signs of any infection at this time. Elevated INR: Remains elevated though stable, in some way suspect her baseline is. Given history of alcoholic cirrhosis this is to be expected. He is not on any blood thinners. Denies active or signs of bleeding. Monitor repeat labs in the morning. Has previously received 2 total doses of vitamin K. Patient is at risk of thromboembolism and thus will be cautious with treatment. Has not received vitamin K in several days. INR remains relatively stable. Depression: Evaluated by psych, no means for IVC, cleared per psych. Did not make medication recommendations. Initiate Escitalopram 10mg/day - max dose in hepatic impairment. Educated not to consume alcohol while taking this medication. Plan: Monitor pt x1 more day, if stable dc home with close follow up with her t felecia at [place]. Patient understanding and agreeable to this means of treatment. - Time Time Spent with patient: 35 or more minutes Medications reviewed and adjusted accordingly: Yes Anticipated Discharge Disposition: Home, Self Care Anticipated Discharge Timeframe: within 24 hours
[2020-08-31] MEDS ORDERED: DIPHENHYDRAMINE HCL 50 MG CAPSULE PO PRN (18:18)
[2020-09-01] MEDS: PANTOPRAZOLE SODIUM 40 MG TABLET.DR PO SCH (06:16)
[2020-09-01 06:21] LABS: HEMOGLOBIN 8.6 g/dL (12.0-15.5); MEAN CORPUSCULAR HEMOGLOBIN 34.1 pg (27.0-33.4); MEAN CORPUSCULAR HGB CONC 34.6 g/dL (32.0-36.0); MEAN CORPUSCULAR VOLUME 99 fl (80-97); RED BLOOD COUNT 2.53 10^6/uL (3.72-5.28); RED CELL DISTRIBUTION WIDTH 20.6 % (11.5-14.0)
[2020-09-01 06:22] LABS: PROTHROMBIN TIME 30.2 SEC (11.4-15.4)
[2020-09-01 06:23] LABS: PARTIAL THROMBOPLASTIN TIME 54.5 SEC (23.5-35.8)
[2020-09-01 06:39] LABS: ALBUMIN 2.9 g/dL (3.5-5.0); ALKALINE PHOSPHATASE 186 U/L (38-126); ANION GAP 6 (5-19); ASPARTATE AMINO TRANSFERASE 42 U/L (14-36); BILIRUBIN,DIRECT 3.7 mg/dL (0.0-0.4); BILIRUBIN,TOTAL 11.9 mg/dL (0.2-1.3); BLOOD UREA NITROGEN 9 mg/dL (7-20); CALCIUM 8.5 mg/dL (8.4-10.2); CARBON DIOXIDE 28 mmol/L (22-30); CHLORIDE 101 mmol/L (98-107); GLUCOSE 97 mg/dL (75-110); POTASSIUM 4.1 mmol/L (3.6-5.0); TOTAL PROTEIN 7.2 g/dL (6.3-8.2)
[2020-09-01 07:47] LABS: PLATELET COUNT 37 10^3/uL (150-450)
[2020-09-01] MEDS ORDERED: ESCITALOPRAM OXALATE 10 MG TABLET PO SCH (10:00)
[2020-09-01 10:35] VITALS: BP 120/53
--- NOTE | 2020-09-01 17:52 | PDOC DISCHARGE SUMMARY ---
Impression - Admit/DC Date/PCP Admission Date/Primary Care Provider: 08/24/20 20:06 Discharge Date: 09/01/20 - Discharge Diagnosis (1) Alcohol abuse Is this a current diagnosis for this admission?: Yes (2) Alcoholic cirrhosis of liver with ascites Is this a current diagnosis for this admission?: Yes (3) Chronic anemia Is this a current diagnosis for this admission?: Yes (4) Hyperbilirubinemia Is this a current diagnosis for this admission?: Yes (5) Leukopenia Is this a current diagnosis for this admission?: Yes (6) Nausea and vomiting Is this a current diagnosis for this admission?: Yes (7) Hypomagnesemia Is this a current diagnosis for this admission?: Yes (8) Pancytopenia Is this a current diagnosis for this admission?: Yes - Assessment Summary: Alcohol abuse/alcoholic cirrhosis of liver with ascites: without withdrawal symptoms. No longer requiring Ativan. Transaminitis have improved. She is tolerating it p.o. intake with intermittent nausea, without vomiting or abdominal discomfort. No evidence of encephalopathy at this time. Had an extensive conversation regarding importance of alcohol cessation. Patient expresses understanding and agreement. - Cnt spironolactone and lasix. - Cnt folic acid and thiamine - Continue Protonix. Hyperbilirubinemia: Bilirubin 11 today, continues to trend downward progressively. Pancytopenia / Leukopenia / Chronic anemia: Plt, WBC, RBC, Hgb stable. Has not required blood transfusion since admission. No intervention needed at this time, though will cnt to monitor levels closely on morning labs. My hope is that she is stabilizing and potentially recovering. - Has not received platelet transfusion to date. - Secondary to chronic alcohol use/cirrhosis - Continue ceftriaxone for neutropenic precaution, though without signs of any infection at this time. Elevated INR: Remains elevated though stable, in some way suspect her baseline is. Given history of alcoholic cirrhosis this is to be expected. He is not on any blood thinners. Denies active or signs of bleeding. Monitor repeat labs in the morning. Has previously received 2 total doses of vitamin K. Patient is at risk of thromboembolism and thus will be cautious with treatment. Has not received vitamin K in several days. INR remains relatively stable. Depression: Evaluated by psych, no means for IVC, cleared per psych. Did not make medication recommendations. Initiate Escitalopram 10mg/day - max dose in hepatic impairment. Educated not to consume alcohol while taking this medication. Plan: Monitor pt x1 more day, if stable dc home with close follow up with her team at [facility]. Patient understanding and agreeable to this means of treatment. - Additional Information Resuscitation Status: Full Code Discharge Diet: As Tolerated Discharge Activity: Activity As Tolerated, Walk Frequently Prescriptions: Escitalopram Oxalate [Lexapro 10 mg Tablet] 10 mg PO DAILY #30 tablet Home Medications: Ciprofloxacin HCl [Cipro 500 mg Tablet] 500 mg PO DAILY 30 Days #30 tablet 08/08/19 Folic Acid [Folvite 1 mg Tablet] 1 mg PO DAILY 30 Days #30 tablet 08/08/19 Lactulose [Cephulac Syrup 20 gm/30 ml Udcup] 20 gm PO Q8 5 Days #500 ml 08/08/19 Spironolactone [Aldactone 25 mg Tablet] 100 mg PO DAILY 30 Days #120 tablet 08/08/19 Thiamine HCl [Thiamine 100 mg Tablet] 100 mg PO DAILY 30 Days #30 tablet 08/08/19 Furosemide [Lasix 20 mg Tablet] 40 mg PO DAILY 08/25/20 Gabapentin [Neurontin] 600 mg PO Q8 08/25/20 Pantoprazole Sodium [Protonix [address] Tablet] 40 mg PO Q6AM 08/25/20 Escitalopram Oxalate [Lexapro 10 mg Tablet] 10 mg PO DAILY #30 tablet 09/01/20 History of Present Illiness History of Present Illness: As per admitting provider "KHUSHI ACHARYA is a 35 year old female with a history of alcoholic cirrhosis and pancytopenia now presents to the ED reporting 3 days duration of nausea, vomiting and diarrhea. She states that the vomiting was initially of ingested matter and later on became clear and currently she states that she only has a dry hives. She has not noticed any blood or coffee-ground matter in her vomitus. She also reports that she has been having watery diarrhea for the past 3 days but denies any history of recent hematochezia or melena. She states that her skin has become more yellowish. She states that she has not had any menstrual period for the past 7 years and also denies history of hematuria, epistaxis, hemoptysis or bleeding from any site. She denies any dizziness, chest pain, shortness of breath, palpitation, leg swelling, cough, fever, abdominal pain or swelling. Of note she was started on ciprofloxacin recently for soft tissue infection." Hospital Course Hospital Course: IncludeAlcohol abuse/alcoholic cirrhosis of liver with ascites: Initially presented with withdrawal symptoms tremor, was treated with Ativan. Since resolved. Has not required Ativan in several days. At current it is without withdrawal symptoms. Transaminitis have improved. She is tolerating it p.o. intake without nausea, vomiting or abdominal discomfort. No evidence of encephalopathy at this time. Ascites is present though this is very minimal and not indicative of tap at this time. Had an extensive conversation regarding importance of alcohol cessation. Patient expresses understanding and agreement. - Cnt spironolactone and lasix. - Cnt folic acid and thiamine - Continue Protonix. Hyperbilirubinemia: Bilirubin 11 today, continues to trend downward progressively. Pancytopenia / Leukopenia / Chronic anemia: Plt, WBC, RBC, Hgb stable. Has not required blood transfusion since admission. No intervention needed at this time, though will cnt to monitor levels closely on morning labs. My hope is that she is stabilizing and potentially recovering. - Has not received platelet transfusion to date. - Secondary to chronic alcohol use/cirrhosis - Continue ceftriaxone for neutropenic precaution, though without signs of any infection at this time. Elevated INR: Remains elevated though stable, in some way suspect her baseline is. Given history of alcoholic cirrhosis this is to be expected. He is not on any blood thinners. Denies active or signs of bleeding. INR remains consistently elevated, though stable at this time. She has previously received 2 total doses of vitamin K. Patient is at risk of thromboembolism and thus will be cautious with treatment. Has not received vitamin K in several days. INR remains relatively stable. Depression: Evaluated by psych, no means for IVC, cleared per psych. Did not make medication recommendations. Initiate Escitalopram 10mg/day - max dose in hepatic impairment. Educated not to consume alcohol while taking this medication. Physical Exam Vital Signs: Temp Pulse Resp BP Pulse Ox 98.2 F 89 18 120/53 L 100 09/01/20 10:34 09/01/20 10:34 09/01/20 10:34 09/01/20 10:34 09/01/20 10:34 Intake & Output 08/31/20 09/01/20 09/02/20 06:59 06:59 06:59 Intake Total 5872 3319 Output Total 4250 7290 Balance -1818 889 Weight 64.6 kg 65.2 kg Additional comments: General appearance: PRESENT: no acute distress, becomes teary on exam, is notably jaundiced Eye exam: PRESENT: EOMI, PERRLA, scleral icterus Mouth exam: PRESENT: moist, tongue midline Neck exam: full range of motion ABSENT: carotid bruit, JVD, lymphadenopathy, thyromegaly Respiratory exam: PRESENT: clear to auscultation stacie, unlabored. Cardiovascular exam: PRESENT: RRR, +S1, +S2. ABSENT: diastolic murmur, rubs, systolic murmur GI/Abdominal exam: PRESENT: normal bowel sounds, soft. ABSENT: Ascites, distended, guarding, mass, organolmegaly, rebound, tenderness Extremities exam: PRESENT: full ROM. ABSENT: calf tenderness, clubbing, pedal edema Neurological exam: PRESENT: alert, awake, oriented to person, oriented to place, oriented to time, oriented to situation, CN II-XII grossly intact. ABSENT: motor sensory deficit Psychiatric exam: PRESENT: Depressed mood, teary on exam flat affect Skin exam: PRESENT: dry, intact, jaundice, warm. ABSENT: cyanosis, rash Results Laboratory Results: WBC 2.0 10^3/uL (4.0-10.5) L 09/01/20 05:10 RBC 2.53 10^6/uL (3.72-5.28) L 09/01/20 05:10 Hgb 8.6 g/dL (12.0-15.5) L 09/01/20 05:10 Hct 25.0 % (36.0-47.0) L 09/01/20 05:10 MCV 99 fl (80-97) H 09/01/20 05:10 MCH 34.1 pg (27.0-33.4) H 09/01/20 05:10 MCHC 34.6 g/dL (32.0-36.0) 09/01/20 05:10 RDW 20.6 % (11.5-14.0) H 09/01/20 05:10 Plt Count 37 10^3/uL (150-450) L 09/01/20 05:10 Lymph % (Auto) Not Reportable 08/31/20 05:41 Bartholomew % (Auto) Not Reportable 08/31/20 05:41 Eos % (Auto) Not Reportable 08/31/20 05:41 Baso % (Auto) Not Reportable 08/31/20 05:41 Absolute Neuts (auto) Not Reportable 08/31/20 05:41 Absolute Lymphs (auto) Not Reportable 08/31/20 05:41 Absolute Monos (auto) Not Reportable 08/31/20 05:41 Absolute Eos (auto) Not Reportable 08/31/20 05:41 Absolute Basos (auto) Not Reportable 08/31/20 05:41 Total Counted 50 08/31/20 05:41 Seg Neutrophils % Not Reportable 08/31/20 05:41 Seg Neuts % (Manual) 56 % (42-78) 08/31/20 05:41 Lymphocytes % (Manual) 30 % (13-45) 08/31/20 05:41 Monocytes % (Manual) 14 % (3-13) H 08/31/20 05:41 Eosinophils % (Manual) 0 % (0-6) 08/31/20 05:41 Basophils % (Manual) 0 % (0-2) 08/31/20 05:41 Abs Neuts (Manual) 1.1 10^3/uL (1.7-8.2) L 08/31/20 05:41 Abs Lymphs (Manual) 0.6 10^3/uL (0.5-4.7) 08/31/20 05:41 Abs Monocytes (Manual) 0.3 10^3/uL (0.1-1.4) 08/31/20 05:41 Absolute Eos (Manual) 0.0 10^3/uL (0.0-0.6) 08/31/20 05:41 Abs Basophils (Manual) 0.0 10^3/uL (0.0-0.2) 08/31/20 05:41 Toxic Vacuolation PRESENT 08/29/20 05:40 Platelet Estimate Cancelled 08/24/20 14:15 Platelet Comment DECREASED 08/31/20 05:41 Polychromasia SLIGHT 08/30/20 04:21 Poikilocytosis 1+ 08/31/20 05:41 Anisocytosis 3+ 08/31/20 05:41 Macrocytosis SLIGHT 08/30/20 04:21 Target Cells SLIGHT 08/31/20 05:41 Tear Drop Cells SLIGHT 08/30/20 04:21 Ovalocytes SLIGHT 08/30/20 04:21 Elgin Cells 1+ 08/31/20 05:41 Schistocytes SLIGHT 08/30/20 04:21 PT 30.2 SEC (11.4-15.4) H 09/01/20 05:10 INR 2.90 09/01/20 05:10 APTT 54.5 SEC (23.5-35.8) H 09/01/20 05:10 Sodium 135.0 mmol/L (137-145) L 09/01/20 05:10 Potassium 4.1 mmol/L (3.6-5.0) 09/01/20 05:10 Chloride 101 mmol/L (98-107) 09/01/20 05:10 Carbon Dioxide 28 mmol/L (22-30) 09/01/20 05:10 Anion Gap 6 (5-19) 09/01/20 05:10 BUN 9 mg/dL (7-20) 09/01/20 05:10 Creatinine 0.53 mg/dL (0.52-1.25) 09/01/20 05:10 Est GFR ( Amer) > 60 (>60) 09/01/20 05:10 Est GFR (Non-Af Amer) Cancelled 08/24/20 14:15 Est GFR (MDRD) Non-Af > 60 (>60) 09/01/20 05:10 Glucose 97 mg/dL (75-110) 09/01/20 05:10 Calcium 8.5 mg/dL (8.4-10.2) 09/01/20 05:10 Phosphorus 4.2 mg/dL (2.5-4.5) 08/27/20 03:58 Magnesium 1.4 mg/dL (1.6-2.3) L 08/31/20 05:41 Total Bilirubin 11.9 mg/dL (0.2-1.3) H 09/01/20 05:10 Direct Bilirubin 3.7 mg/dL (0.0-0.4) H 09/01/20 05:10 Neonat Total Bilirubin Not Reportable 09/01/20 05:10 Neonat Direct Bilirubin Not Reportable 09/01/20 05:10 Neonat Indirect Bili Not Reportable 09/01/20 05:10 AST 42 U/L (14-36) H 09/01/20 05:10 ALT 29 U/L (<35) 09/01/20 05:10 Alkaline Phosphatase 186 U/L (38-126) H 09/01/20 05:10 Ammonia < 8.7 umol/L (9-33) L 08/24/20 16:05 Total Protein 7.2 g/dL (6.3-8.2) 09/01/20 05:10 Albumin 2.9 g/dL (3.5-5.0) L 09/01/20 05:10 Lipase 48.5 U/L (23-300) 08/24/20 16:05 EGFR Cancelled 08/24/20 14:15 Urine Color YELLOW 08/29/20 12:50 Urine Appearance CLEAR 08/29/20 12:50 Urine pH 8.0 (5.0-9.0) 08/29/20 12:50 Ur Specific Royal 1.004 08/29/20 12:50 Urine Protein NEGATIVE mg/dL (NEGATIVE) 08/29/20 12:50 Urine Glucose (UA) NEGATIVE mg/dL (NEGATIVE) 08/29/20 12:50 Urine Ketones NEGATIVE mg/dL (NEGATIVE) 08/29/20 12:50 Urine Blood SMALL (NEGATIVE) H 08/29/20 12:50 Urine Nitrite NEGATIVE (NEGATIVE) 08/24/20 16:10 Urine Nitrite (Reflex) NEGATIVE (NEGATIVE) 08/29/20 12:50 Urine Bilirubin NEGATIVE (NEGATIVE) 08/29/20 12:50 Urine Urobilinogen 4.0 mg/dL (<2.0) H 08/29/20 12:50 Ur Leukocyte Esterase NEGATIVE (NEGATIVE) 08/24/20 16:10 Leukocyte Esterase Rfl NEGATIVE (NEGATIVE) 08/29/20 12:50 Urine WBC (Auto) 2 /HPF 08/24/20 16:10 Urine RBC (Auto) 2 /HPF 08/29/20 12:50 Urine Bacteria (Auto) TRACE /HPF 08/29/20 12:50 Urine WBC (Reflex) < 1 /HPF 08/29/20 12:50 Squamous Epi Cells Auto 2 /HPF 08/24/20 16:10 Urine Mucus (Auto) RARE /LPF 08/29/20 12:50 Urine Ascorbic Acid NEGATIVE (NEGATIVE) 08/29/20 12:50 Urine Opiates Screen NEGATIVE 08/24/20 16:10 Urine Methadone Screen NEGATIVE 08/24/20 16:10 Ur Barbiturates Screen NEGATIVE 08/24/20 16:10 Ur Phencyclidine Scrn NEGATIVE 08/24/20 16:10 Ur Amphetamines Screen NEGATIVE 08/24/20 16:10 U Benzodiazepines Scrn NEGATIVE 08/24/20 16:10 Urine Cocaine Screen NEGATIVE 08/24/20 16:10 U Marijuana (THC) Screen NEGATIVE 08/24/20 16:10 Serum Alcohol 104 mg/dL (NONE DETECTED) 08/24/20 16:05 Slides for Path Review PATHOLOGIST REVIEWED 08/30/20 04:21 Blood Type A POSITIVE 08/24/20 19:21 Antibody Screen NEGATIVE 08/24/20 19:21 Crossmatch See Detail 08/24/20 19:21 Impressions: Abdomen/Pelvis CT 08/24/20 18:28 IMPRESSION: 1. Massive dilatation of a recanalized umbilical vein. Increased since 2017 and 2019. There appears to be direct connection between a mildly dilated extrahepatic portal vein and the umbilical vein. Intrahepatic portal veins are small. Rule out primary portal vein abnormality. 2. Mild fatty liver. Enlarged left lobe of the liver. No typical nodular contour of cirrhosis. 3. Very large splenomegaly unchanged. 4. Large gallstones without acute biliary abnormality. 5. No obvious acute bowel abnormality. Stomach contracted. Difficult to exclude gastritis. Chest X-Ray 08/24/20 18:29 IMPRESSION: NO ACUTE RADIOGRAPHIC FINDING IN THE CHEST. Plan Plan of Treatment: Discharge home today. Plan for close follow-up with team at [facility]. Time Spent: Greater than 30 Minutes Stroke Is this a Stroke Patient?: No Acute Heart Failure Is this a Heart Failure Patient?: No
== END 2020-09-01 10:36 | disposition home or self-care (01) | DRG 433 ==
LOC: ER 12:02 → EH 20:06 → 5 23:17
PROVIDERS: ADMIT Student in an Organized Health Care Education/Training Program; ATTEND Physician Assistant
PROC: HZ2ZZZZ Detoxification Services for Substance Abuse Treatment (ICD-10-PCS; principal; 2020-08-24)
PROC: 30233N1 Transfusion of Nonautologous Red Blood Cells into Peripheral Vein, Percutaneous Approach (ICD-10-PCS; 2020-08-24)
DX: K70.31 Alcoholic cirrhosis of liver with ascites (principal); D61.818 Other pancytopenia; F10.20 Alcohol dependence, uncomplicated; D72.819 Decreased white blood cell count, unspecified; E83.42 Hypomagnesemia; F32.9 Major depressive disorder, single episode, unspecified; D63.8 Anemia in other chronic diseases classified elsewhere; I10 Essential (primary) hypertension; K21.9 Gastro-esophageal reflux disease without esophagitis; R19.7 Diarrhea, unspecified; R11.2 Nausea with vomiting, unspecified; D69.6 Thrombocytopenia, unspecified; R79.1 Abnormal coagulation profile; R25.1 Tremor, unspecified; Z79.899 Other long term (current) drug therapy; Z88.7 Allergy status to serum and vaccine
CPT/HCPCS: 36415; 36430; 71045; 74177; 80053; 80307; 81001; 82140; 83690; 83735; 84100; 85025; 85027; 85610; 85730; 86850; 86900; 86901; 86920; 87070; 93005; 93010; 96361; 96374; 96375; 99285; C9113; G0378; J0696; J0780; J2060; J2354; J2405; J3411; J3430; J3475; J3480; J3490; J7030; J7040; J7060; P9016

== ENCOUNTER 2020-09-05 23:16 | Emergency (ER) | payer MEDICAID ==
--- NOTE | 2020-09-05 23:34 | ER Document Report ---
ED General - General Stated Complaint: LIVER FAILURE,AMS Time Seen by Provider: 09/05/20 23:31 TRAVEL OUTSIDE OF THE [place] IN LAST 30 DAYS: No - HPI Notes: 35-year-old female presents with multiple complaints due to "complications of liver failure". Patient reports that around 6 PM she noted that she was not feeling well, she states she could tell she had a fever, reportedly her temperature is 101.1. She states that she has had 2 syncopal episodes today. She reports chronic right leg pain from neuropathy, she is experiencing this pain. She has had 2 episodes of vomiting, described as watery, no blood in emesis. Denies abdominal pain. Patient has history of alcoholic cirrhosis, she does can continue to consume alcohol. She reports that she does not really have much ascites, she had a paracentesis 7 to 8 years ago, states that every time she is checked for pockets of fluids there is nothing to drain. She also re ports toe pain because she kicked a bed yesterday and it is bruised. States that she is concerned she has an infection. She was admitted to the hospital last week for similar, she did receive blood transfusion at the time. Patient reports that she has recently had Covid because she is not yet able to get the vaccine given that she is still in the 90-day window. She also notes that she did recently receive the pneumonia vaccine. Also reports that she is typically much more swollen than she is currently, due to chronic fluid retention. - Related Data Allergies/Adverse Reactions: Pertussis Vaccines Allergy (Verified 06/27/20 15:15) Past Medical History - General Information source: Patient - Social History Smoking Status: Current Every Day Smoker Frequency of alcohol use: Occasional Family History: Malignancy - Aunt, uncle, grandmother, both grandfathers. - Past Medical History Cardiac Medical History: Reports: Hx Hypertension Denies: Hx Coronary Artery Disease, Hx Heart Attack Pulmonary Medical History: Denies: Hx Asthma, Hx Bronchitis, Hx COPD, Hx Pneumonia Neurological Medical History: Denies: Hx Cerebrovascular Accident, Hx Seizures Renal/ Medical History: Denies: Hx Peritoneal Dialysis GI Medical History: Reports: Hx Cirrhosis, Hx Gastroesophageal Reflux Disease, Hx Ulcer Musculoskeletal Medical History: Reports Hx Arthritis Psychiatric Medical History: Denies: Hx Depression Past Surgical History: Denies: Hx Hysterectomy - Immunizations Hx Diphtheria, Pertussis, Tetanus Vaccination: No Review of Systems - Review of Systems Constitutional: Fever EENT: No symptoms reported Cardiovascular: denies: Chest pain Respiratory: denies: Cough, Short of breath Gastrointestinal: Vomiting. denies: Abdominal pain, Diarrhea, Blood in vomit Genitourinary: No symptoms reported Female Genitourinary: No symptoms reported Musculoskeletal: See HPI Skin: Change in color Hematologic/Lymphatic: Anemia Neurological/Psychological: No symptoms reported Physical Exam - Vital signs Vitals: Temp 99.6 F 09/05/20 23:16 - General General appearance: Alert In distress: None - HEENT Head: Normocephalic, Atraumatic Eyes: Scleral icterus Extraocular movements intact: Yes Pupils: PERRL - Respiratory Breath sounds: Normal - Cardiovascular Rhythm: Tachycardia Heart sounds: Normal auscultation - Abdominal Distension: No: Fluid wave Tenderness: Nontender - Extremities General upper extremity: Normal ROM General lower extremity: Normal ROM. No: Edema - Neurological Neuro grossly intact: Yes Cognition: Normal Orientation: AAOx4 Paxton Coma Scale Eye Opening: Spontaneous Jed Coma Scale Verbal: Oriented Paxton Coma Scale Motor: Obeys Commands Jed Coma Scale Total: 15 Speech: Normal Cranial nerves: Normal Motor strength normal: LUE, RUE, LLE, RLE Sensory: Normal - Psychological Associated symptoms: Flat affect, Other - Rapid speech - Skin Skin Temperature: Warm Skin Color: Jaundiced Course - Re-evaluation Re-evalutation: 35-year-old female with history of alcoholic cirrhosis here with not feeling well, fever at home, 101F axillary with EMS, currently afebrile here. Alert and oriented, I do not appreciate any alterations in her mental status, no focal neuro deficits. Mildly tachycardic, lungs are clear, abdomen is soft. I do not appreciate any fluid wave. Did review her recent CT from 08/24 which did not demonstrate large volume ascites. I would have her lower concern for SBP at this time given her no tenderness. Was recently admitted to the hospital, therefore putting her at risk for infection. Will see if there is any source of infection such as pneumonia, UTI, or viral infection. Reported recent Covid infection "within 90 days", do not see this in her labs, possibly diagnosed elsewhere. Of note, does spend a good amount of time talking about her boyfriend's medical issues. 09/06/20 00:35 WBC 4.4, improved from previous. Hemoglobin 8.6, consistent with values after transfusion. Thrombocytopenia, though improved from previous as well. PT/INR elevated, though it has improved from her previous values. Electrolytes okay other than some mild hypocalcemia. Elevated T bili with evidence of indirect hyperbilirubinemia, the T bili is within range of her previous values and direct bili is about baseline. Ammonia 33.6, this is not a marked elevation in the reference range is 33. Ethanol 161. 09/06/20 01:03 Chest x-ray without consolidation 09/06/20 02:02 09/06/20 02:24 And to reassess patient and update on lab results, her boyfriend is at bedside. Patient adding on new complaints of headache, now has nausea again, also chest pain but does not give description. She asked "when am I going upstairs?". Dis cussed with her that work-up is still in progress. Will trial Compazine and obtain EKG. Additionally complains of her chronic right leg pain, has not taken her usual nighttime dose of gabapentin, will order this as well. Patient does again reference "Covid within 90 days", I asked her where the swab was obtained, initially answered in this hospital, then states that it [place] in the mall parking lot 09/06/20 02:39 Urine does not suggest UTI. Blood noted, reviewed previous UAs and looks like she typically does have blood in the urine. 09/06/20 03:04 Care to be turned over to Dr. Butler pending respiratory panel and symptomatic improvement - Vital Signs Vital signs: Temp Pulse Resp BP Pulse Ox 99.6 F 21 H 122/86 H 96 09/05/20 23:16 09/06/20 01:00 09/06/20 01:00 09/06/20 01:00 - Laboratory Results Result Diagrams: 09/05/20 23:30 09/05/20 23:30 Laboratory Results Interpreted: 09/05/20 09/05/20 09/05/20 23:30 23:30 23:30 RBC 2.46 L Hgb 8.6 L Hct 24.9 L MCV 101 H MCH 35.0 H RDW 21.0 H Plt Count 67 L Lymph % (Auto) 6.4 L Absolute Lymphs (auto) 0.3 L Seg Neutrophils % 85.0 H PT APTT Sodium 135.8 L Carbon Dioxide 21 L Creatinine 0.41 L Calcium 7.8 L Total Bilirubin 15.1 H Direct Bilirubin 3.7 H AST 74 H ALT 36 H Alkaline Phosphatase 142 H Ammonia 33.6 H Albumin 3.1 L Urine Ketones Urine Blood Urine Urobilinogen 09/05/20 09/06/20 23:30 02:00 RBC Hgb Hct MCV MCH RDW Plt Count Lymph % (Auto) Absolute Lymphs (auto) Seg Neutrophils % PT 27.0 H APTT 51.4 H Sodium Carbon Dioxide Creatinine Calcium Total Bilirubin Direct Bilirubin AST ALT Alkaline Phosphatase Ammonia Albumin Urine Ketones TRACE H Urine Blood LARGE H Urine Urobilinogen 4.0 H Critical Laboratory Results Reviewed: No Critical Results - Radiology Results Critical Radiology Results Reviewed: No Critical Results - EKG Interpretation by Me Additional EKG results interpreted by me: EKG is interpreted by me. Sinus tachycardia, rate 103. Narrow QRS, QTC within normal limits. Nonspecific ST changes. No STEMI. Discharge - Discharge Clinical Impression: Alcoholic cirrhosis of liver without ascites, Chronic anemia, Thrombocytopenia Alcohol intoxication Qualifiers: Complication of substance-induced condition: uncomplicated Qualified Code(s): F10.920 - Alcohol use, unspecified with intoxication, uncomplicated Disposition: OTHER
[2020-09-05] MEDS ORDERED: NORMAL SALINE 1000 ML 1,000 ML IV ONE (23:49)
[2020-09-05 23:56] LABS: ABSOLUTE LYMPHOCYTES (AUTO) 0.3 10^3/uL (0.5-4.7); ABSOLUTE MONOCYTES (AUTO) 0.4 10^3/uL (0.1-1.4); ABSOLUTE NEUT (AUTO) 3.7 10^3/uL (1.7-8.2); BASOPHILS % (AUTO) 0.2 % (0-2); EOSINOPHILS % (AUTO) 0.2 % (0-6); HEMATOCRIT 24.9 % (36.0-47.0); HEMOGLOBIN 8.6 g/dL (12.0-15.5); LYMPHOCYTES % (AUTO) 6.4 % (13-45); MEAN CORPUSCULAR HGB CONC 34.6 g/dL (32.0-36.0); MEAN CORPUSCULAR VOLUME 101 fl (80-97); MONOCYTES % (AUTO) 8.2 % (3-13); RED BLOOD COUNT 2.46 10^6/uL (3.72-5.28); TOTAL CELLS COUNTED % (AUTO) 100 %; WHITE BLOOD COUNT 4.4 10^3/uL (4.0-10.5)
[2020-09-06 00:14] LABS: PARTIAL THROMBOPLASTIN TIME 51.4 SEC (23.5-35.8)
[2020-09-06 00:17] LABS: ALBUMIN 3.1 g/dL (3.5-5.0); ALCOHOL 161 mg/dL (NONE DETECTED); ALKALINE PHOSPHATASE 142 U/L (38-126); ANION GAP 9 (5-19); ASPARTATE AMINO TRANSFERASE 74 U/L (14-36); BILIRUBIN,DIRECT 3.7 mg/dL (0.0-0.4); BILIRUBIN,TOTAL 15.1 mg/dL (0.2-1.3); BLOOD UREA NITROGEN 11 mg/dL (7-20); CALCIUM 7.8 mg/dL (8.4-10.2); CARBON DIOXIDE 21 mmol/L (22-30); CHLORIDE 106 mmol/L (98-107); GLUCOSE 96 mg/dL (75-110); POTASSIUM 4.4 mmol/L (3.6-5.0); TOTAL PROTEIN 7.4 g/dL (6.3-8.2)
[2020-09-06 00:25] LABS: PLATELET COUNT 67 10^3/uL (150-450)
--- NOTE | 2020-09-06 00:37 | RADIOLOGY REPORT (SQ) ---
CLINICAL INDICATION: eval consolidation. TECHNIQUE: A single portable AP view was obtained of the chest at 0002 hours. COMPARISON: August 24, 2020. FINDINGS: The cardiomediastinal silhouette is enlarged. The lungs are grossly clear. No evidence of effusion or pneumothorax. The visualized bones are unremarkable. Mild chronic change IMPRESSION: Lungs grossly clear.
[2020-09-06] MEDS ORDERED: PROCHLORPERAZINE EDISYLATE INJ 10 MG/2 ML VIAL IV ONE (02:21)
[2020-09-06] MEDS ORDERED: GABAPENTIN 300 MG CAPSULE PO ONE (02:26)
[2020-09-06 02:36] LABS: APPEARANCE,URINE CLEAR; BILIRUBIN,URINE NEGATIVE (NEGATIVE); COLOR,URINE AMBER; GLUCOSE, URINE NEGATIVE (NEGATIVE); KETONES,URINE TRACE mg/dL (NEGATIVE); LEUKOCYTE ESTERASE,URINE NEGATIVE (NEGATIVE); NITRITE,URINE NEGATIVE (NEGATIVE); PROTEIN,URINE NEGATIVE (NEGATIVE); URINE SPECIFIC GRAVITY 1.019
[2020-09-06 05:56] VITALS: BP 115/82
--- NOTE | 2020-09-06 06:39 | PDOC CONSULTATION ---
Consultation Consult Date: 09/06/20 Attending physician:: SANTOS TONG JR Provider Consulted: FALLON BARILLAS Consult reason:: Nausea and vomiting History of Present Illness Patient complains of: Nausea and vomiting History of Present Illness: KHUSHI ACHARYA is a 35 year old female with a history of alcoholic cirrhosis who was recently discharged from hospital now presents with 3 hours duration of zina sea and vomiting. She states that she started feeling very nauseous and having a nonbloody and nonbilious vomiting of ingested matter around 8 PM last night after she had 4 shots of liquor. She states that following discharge from hospital she stayed clean from alcohol but last night after her came to the emergency room to be evaluated after he had a fall she relapsed and had few drinks. She also states that she had chills and felt cold. She denies any history of hematemesis, hematochezia or melena. She also denies any cough, chest pain, palpitation, dizziness, abdominal pain. On evaluation at the ED patient was hemodynamically stable and labs showed a stable H&H since discharge and had no leukocytosis. Serum electrolytes were within the normal limit and liver enzymes and bilirubin levels were around baseline. I was called by ED physician to assess the patient because of her refusal to leave. Past Medical History Cardiac Medical History: Reports: Hypertension Denies: Coronary Artery Disease, Myocardial Infarction Pulmonary Medical History: Denies: Asthma, Bronchitis, Chronic Obstructive Pulmonary Disease (COPD), Pneumonia Neurological Medical History: Denies: Seizures GI Medical History: Reports: Cirrhosis, Gastroesophageal Reflux Disease Musculoskeltal Medical History: Reports: Arthritis Psychiatric Medical History: Denies: Depression Hematology: Reports: Anemia Past Surgical History Past Surgical History: Denies: Hysterectomy Social History Information Source: Patient Lives with: Family Smoking Status: Current Every Day Smoker Electronic Cigarette use?: No Frequency of Alcohol Use: Heavy Hx Recreational Drug Use: No Drugs: None Hx Prescription Drug Abuse: No - Advance Directive Resuscitation Status: Full Code Family History Family History: Malignancy - Aunt, uncle, grandmother, both grandfathers. Parental Family History Reviewed: Yes Children Family History Reviewed: Yes Sibling(s) Family History Reviewed.: Yes Medication/Allergy Home Medications: Ciprofloxacin HCl [Cipro 500 mg Tablet] 500 mg PO DAILY 30 Days #30 tablet 08/08/19 Folic Acid [Folvite 1 mg Tablet] 1 mg PO DAILY 30 Days #30 tablet 08/08/19 Lactulose [Cephulac Syrup 20 gm/30 ml Udcup] 20 gm PO Q8 5 Days #500 ml 08/08/19 Spironolactone [Aldactone 25 mg Tablet] 100 mg PO DAILY 30 Days #120 tablet 08/08/19 Thiamine HCl [Thiamine 100 mg Tablet] 100 mg PO DAILY 30 Days #30 tablet 08/08/19 Furosemide [Lasix 20 mg Tablet] 40 mg PO DAILY 08/25/20 Gabapentin [Neurontin] 600 mg PO Q8 08/25/20 Pantoprazole Sodium [Protonix [address] Tablet] 40 mg PO Q6AM 08/25/20 Escitalopram Oxalate [Lexapro 10 mg Tablet] 10 mg PO DAILY #30 tablet 09/01/20 Lactulose [Cephulac Syrup 20 gm/30 ml Udcup] 20 gm PO BID PRN #300 ml 09/06/20 Allergies/Adverse Reactions: Pertussis Vaccines Allergy (Verified 06/27/20 15:15) Review of Systems Constitutional: PRESENT: chills. ABSENT: headache(s), weight loss Eyes: ABSENT: visual disturbances Ears: ABSENT: hearing changes Nose, Mouth, and Throat: ABSENT: mouth pain, sore throat Cardiovascular: PRESENT: dyspnea on exertion, edema. ABSENT: orthropnea, palpitations Respiratory: ABSENT: cough, hemoptysis Gastrointestinal: PRESENT: as per HPI Genitourinary: ABSENT: dysuria, hematuria Musculoskeletal: ABSENT: joint swelling Integumentary: ABSENT: rash, wounds Neurological: ABSENT: abnormal gait, abnormal speech, confusion, dizziness, focal weakness, syncope Psychiatric: PRESENT: depression. ABSENT: homidical ideation, suicidal ideation Endocrine: ABSENT: cold intolerance, heat intolerance, polydipsia, polyuria Hematologic/Lymphatic: ABSENT: easy bleeding, easy bruising Physical Exam Vital Signs: Temp Pulse Resp BP Pulse Ox 99.6 F 15 116/54 L 94 09/05/20 23:16 09/06/20 05:09 09/06/20 05:09 09/06/20 05:09 Intake & Output 09/04/20 09/05/20 09/06/20 06:59 06:59 06:59 Intake Total 1000 Balance 1000 Weight 65.771 kg Additional comments: GENERAL APPEARANCE: Alert and oriented x4, in no acute distress HEENT: Normocephalic and atraumatic. Has deeply jaundiced sclera. Moist oral mucosa NECK: Supple. No lymphadenopathy or tenderness. No carotid bruit. No JVD CHEST: Symmetric. Nontender to palpation. LUNGS: Clear with good air entry bilaterally. No wheezing or crackles HEART: Regular rate and rhythm with normal S1 and S2. No murmurs, gallops, or rubs. ABDOMEN: Flat, soft, active bowel sounds, no direct or rebound tenderness. No organomegaly detected. s EXTREMITIES: No cyanosis, clubbing. Has +2 pitting edema below knees bilaterall y MUSCULOSKELETAL: No deformity, atrophy or swelling noted PSYCHIATRIC: Recent and remote memory is intact. Appropriate mood and affect. SKIN: Warm, dry, and well perfused. No lesions or rashes are noted. NEUROLOGIC: No focal sensory or motor deficits are noted. Results Laboratory Results: 09/05/20 23:30 09/05/20 23:30 09/05/20 09/05/20 09/05/20 23:30 23:30 23:30 WBC 4.4 RBC 2.46 L Hgb 8.6 L Hct 24.9 L MCV 101 H MCH 35.0 H MCHC 34.6 RDW 21.0 H Plt Count 67 L Seg Neutrophils % 85.0 H Sodium 135.8 L Potassium 4.4 Chloride 106 Carbon Dioxide 21 L Anion Gap 9 BUN 11 Creatinine 0.41 L Est GFR ( Amer) > 60 Glucose 96 Calcium 7.8 L Total Bilirubin 15.1 H AST 74 H Alkaline Phosphatase 142 H Ammonia 33.6 H Total Protein 7.4 Albumin 3.1 L Lipase 94.1 Urine Color Urine Appearance Urine pH Ur Specific [place] Urine Protein Urine Glucose (UA) Urine Ketones Urine Blood Urine Nitrite Ur Leukocyte Esterase Urine WBC (Auto) Urine RBC (Auto) Blood Type Antibody Screen 09/05/20 09/06/20 23:47 02:00 WBC RBC Hgb Hct MCV MCH MCHC RDW Plt Count Seg Neutrophils % Sodium Potassium Chloride Carbon Dioxide Anion Gap BUN Creatinine Est GFR ( Amer) Glucose Calcium Total Bilirubin AST Alkaline Phosphatase Ammonia Total Protein Albumin Lipase Urine Color BOY Urine Appearance CLEAR Urine pH 6.0 Ur Specific [place] 1.019 Urine Protein NEGATIVE Urine Glucose (UA) NEGATIVE Urine Ketones TRACE H Urine Blood LARGE H Urine Nitrite NEGATIVE Ur Leukocyte Esterase NEGATIVE Urine WBC (Auto) 3 Urine RBC (Auto) 3 Blood Type Cancelled Antibody Screen Cancelled Impressions: Chest X-Ray 09/05/20 23:33 IMPRESSION: Lungs grossly clear. Assessment and Plan - Diagnosis (1) Alcohol intoxication Qualifiers: Complication of substance-induced condition: uncomplicated Qualified Code(s): F10.920 - Alcohol use, unspecified with intoxication, uncomplicated Is this a current diagnosis for this admission?: Yes Plan: Patient presents with nausea and vomiting after having few shots of liquor Serum alcohol abuse on presentation is 161 Currently alert and oriented x4 Currently not actively withdrawing, has CIWA score of 3 Considering the fact that she has advanced cirrhosis, continued alcohol use is going to have grave consequences and counseled patient extensively to abstain from alcohol Continue multivitamin, thiamine, folic acid Promethazine as needed for nausea and vomiting Advised patient to report back to ER if symptoms persist or worsen (2) Cirrhosis of liver Qualifiers: Hepatic cirrhosis type: alcoholic cirrhosis Ascites presence: with ascites Qualified Code(s): K70.31 - Alcoholic cirrhosis of liver with ascites Is this a current diagnosis for this admission?: Yes Plan: Patient has advanced cirrhosis from abuse Was discharged from hospital 3 days back Currently presents with nausea and vomiting likely from alcohol intoxication Ammonia level is 33 but has no sign of hepatic encephalopathy Has low hematemesis, melena or hematochezia and H&H has been stable since discharge There is low index of suspicion for SBP as patient has no abdominal pain, fever and no leukocytosis Continue Lasix, spironolactone, lactulose Advised patient to report back if symptoms do not resolve (3) Hyperbilirubinemia Is this a current diagnosis for this admission?: Yes Plan: Due to alcoholic cirrhosis Continue managing underlying cause as stated above (4) Hypercoagulopathy Is this a current diagnosis for this admission?: Yes Plan: Due to advanced cirrhosis from alcohol abuse INR is 2.5 and appears to be around her baseline Currently has no sign of bleeding from any site Continue managing underlying cirrhosis as stated above (5) Pancytopenia Is this a current diagnosis for this admission?: Yes Plan: Patient has chronic pancytopenia from cirrhosis WBC H&H and platelet counts appear to be around baseline Continue managing cirrhosis as stated above and follow-up with PCP - Time Time Spent with patient: 35 or more minutes Total Critical Time (Minutes): 35 Medications reviewed and adjusted accordingly: Yes Anticipated Discharge Disposition: Home, Self Care Anticipated Discharge Timeframe: Discharged - Inpatient Certification Based on my medical assessment, after consideration of the patient's comorbidities, presenting symptoms, or acuity I expect that the services needed warrant INPATIENT care.: Yes I certify that my determination is in accordance with my understanding of Medicare's requirements for reasonable and necessary INPATIENT services [42 CFR 412.3e].: Yes Medical Necessity: Other Post Hospital Care: D/C or Transfer Summary - Discharged home from the ED
--- NOTE | 2020-09-06 15:05 | EKG REPORT ---
SEVERITY:- BORDERLINE ECG - SINUS TACHYCARDIA BORDERLINE T WAVE ABNORMALITIES : Confirmed by: Brando Tejeda MD 06-Sep-2020 15:05:08
== END 2020-09-06 05:54 | disposition home or self-care (01) ==
LOC: ER 23:16
DX: K70.31 Alcoholic cirrhosis of liver with ascites (principal); F10.920 Alcohol use, unspecified with intoxication, uncomplicated; D63.8 Anemia in other chronic diseases classified elsewhere; E80.6 Other disorders of bilirubin metabolism; D61.818 Other pancytopenia; D68.59 Other primary thrombophilia; D69.6 Thrombocytopenia, unspecified; E72.20 Disorder of urea cycle metabolism, unspecified; R11.2 Nausea with vomiting, unspecified; G89.29 Other chronic pain; F17.200 Nicotine dependence, unspecified, uncomplicated; Z86.16 Personal history of COVID-19
CPT/HCPCS: 93005; 99285; 96361; 96374; 36415; 87040; 80307; 82140; 83690; 85025; 85610; 85730; 87635; 81025; 87077; 80053; 81001; 87186; 87150 ×26; 71045; 93010; J3490; J0780; J7030; C9803; 86850; 86900; 86901